=== PATIENT | female | born 1995 | race African-American/Black ===

== ENCOUNTER 2018-02-19 10:53 | Emergency (ER) | payer OTHER ==
--- OUTSIDE RECORDS SUMMARY | 2018-02-19 10:55 | XMS REPORT ---
:1995 [facility] Address [address] [place] [address] Care Team Providers Name Role Phone UNKNOWN, REFFERING Primary Care Provider Unavailable MANUEL VALERIO Unavailable Unavailable Problems This patient has no known problems. Allergies, Adverse Reactions, Alerts This patient has no known allergies or adverse reactions. Medications This patient has no known medications. Encounters Start End Encounter Admission Attending Care Care Encounter Date/Time Date/Time Type Type Clinicians Facility Department ID 2017-08-13 2017-08-13 Emergency [facility] [id number] 03:57:00 03:57:00 MANUEL Results Test Description Test Time Test Comments Text Results Atomic Results Result Comments Strep A Screen, Rapid 2017-08-15 07:46:00 Specimen: ThroatCollected: 2017 05:30 Status: Final Last Updated: 08/15/2017 07:46 Strep A Screen Rapid (Final) (Final) Negative Blood [place](24 hrs) (Final) (Final) 08/14/17 No Group A Strep isolated Blood [place](48 hrs) (Final) (Final) 08/15/17 No Group A Strep isolated [place] Qual 2017-08-13 07:35:00 Test Item Value Reference Range Comments [place]ates Test (test code=SMONO) Negative Negative CBC with [id number] 04:53:00 Test Item Value Reference Range Comments WBC (test code=WBC) 8.8 K/cumm 4.4-10.5 RBC (test code=RBC) 4.28 M/cumm 3.75-5.20 Hemoglobin (test code=HGB) 13.0 gm/dL 12.2-14.8 Hematocrit (test code=HCT) 39.9 % 36.5-44.4 MCV (test code=MCV) 93.1 fL 80-100 MCH (test code=MCH) 30.3 pg 27.0-32.5 MCHC (test code=MCHC) 32.6 g/dL 32.0-37.5 RDW (test code=RDW) 12.9 % 11.5-14.5 Platelet Count (test code=PLTCT) 230 K/cumm 140-440 MPV (test code=MPV) 11.2 fL Diff Method (test code=DIFFM) Auto Neutrophil (test code=NEUT) 52.8 % 36-70 Lymphocyte (test code=LYMPH) 38.0 % 12-44 Monocyte (test code=MONO) 3.2 % 0-11 Eosinophil (test code=EOS) 5.3 % 0-7 Basophil (test code=BASO) 0.7 % 0-2 Neutro Abs (test code=ANEUT) 4.6 K/cumm 1.6-7.4 Lymph Abs (test code=ALYMPH) 3.3 K/cumm 0.5-4.6 Yates Abs (test code=AMONO) 0.3 K/cumm 0.0-1.2 Eos Abs (test code=AEOS) 0.46 K/cumm 0.00-0.74 Baso Abs (test code=ABASO) 0.1 K/cumm 0.00-0.21
--- NOTE | 2018-02-19 12:01 | EDPHYS ---
Physician Documentation [facility] Name: Franklin Chaidez Age: 22 yrs Sex: Female : 1995 Arrival Date: 02/19/2018 Time: 10:55 Bed Treatment Private MD: None, None ED Physician Placido Copeland HPI: 02/19 12:01 This 22 yrs old Black Female presents to ER via Ambulatory with complaints of Leg kb Swelling. 12:01 The patient presents with pain, that is acute, swelling. The complaints affect the kb medial aspect of right thigh. Context: The problem was sustained inside, resulted from dancing, then splits, the patient can fully bear weight, the patient is able to ambulate, Problem is a result from a previous injury: No. Onset: The symptoms/episode began/occurred last night. Modifying factors: The symptoms are alleviated by nothing. the symptoms are aggravated by pressure. Associated signs and symptoms: Pertinent positives: swelling, Pertinent negatives calf tenderness, fever, nausea, numbness, rash, tingling, vomiting, warmth, weakness. Treatment prior to arrival includes: no previous treatment. Severity of symptoms: At their worst the symptoms were mild, moderate, in the emergency department the symptoms are unchanged. The patient has not experienced similar symptoms in the past. The patient has not recently seen a physician. Pt reports she was dancing last night, did the splits and started having inner thigh pain. States she felt something pull in her thigh. Ambulates with steady gait. States it was swollen this morning and still painful so she wanted to get it checked out.. 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 - Social history:: Smoking status: unknown. - Ebola Screening: : Patient negative for fever greater than or equal to 101.5 degrees Fahrenheit, and additional compatible Ebola Virus Disease symptoms Patient denies exposure to infectious person Patient denies travel to an Ebola-affected area in the 21 days before illness onset No symptoms or risks identified at this time. ROS: 12:01 Constitutional: Negative for fever, chills, and weight loss, Cardiovascular: Negative kb for chest pain, palpitations, and edema, Respiratory: Negative for shortness of breath, cough, wheezing, and pleuritic chest pain, Abdomen/GI: Negative for abdominal pain, nausea, vomiting, diarrhea, and constipation, Skin: Negative for injury, rash, and discoloration, Neuro: Negative for headache, weakness, numbness, tingling, and seizure. 12:01 MS/extremity: Positive for pain, swelling, tenderness, of the medial aspect of right thigh. Exam: 12:01 Constitutional: This is a well developed, well nourished patient who is awake, alert, kb and in no acute distress. Head/Face: Normocephalic, atraumatic. Chest/axilla: Normal chest wall appearance and motion. Nontender with no deformity. No lesions are appreciated. Cardiovascular: Regular rate and rhythm with a normal S1 and S2. No gallops, murmurs, or rubs. Normal PMI, no JVD. No pulse deficits. Respiratory: Lungs have equal breath sounds bilaterally, clear to auscultation and percussion. No rales, rhonchi or wheezes noted. No increased work of breathing, no retractions or nasal flaring. Abdomen/GI: Soft, non-tender, with normal bowel sounds. No distension or tympany. No guarding or rebound. No evidence of tenderness throughout. Skin: Warm, dry with normal turgor. Normal color with no rashes, no lesions, and no evidence of cellulitis. Neuro: Awake and alert, GCS 15, oriented to person, place, time, and situation. Cranial nerves II-XII grossly intact. Motor strength 5/5 in all extremities. Sensory grossly intact. Cerebellar exam normal. Normal gait. 12:01 Musculoskeletal/extremity: Extremities: grossly normal except: noted in the medial aspect of right thigh: pain, swelling, tenderness, ROM: intact in all extremities, Circulation is intact in all extremities. Sensation intact. Weight bearing: able to fully bear weight, without difficulty. Vital Signs: 11:25 BP 132 / 77; Pulse 84; Resp 16; Temp 97.7; Pulse Ox 100% ; Weight 58.51 kg (R); Height sg 5 ft. 3 in. (160.02 cm); Pain 7/10; 11:25 Body Mass Index 22.85 (58.51 kg, 160.02 cm) MDM: 11:47 Patient medically screened. kb 11:59 Data reviewed: vital signs, nurses notes. Data interpreted: Pulse oximetry: on room air kb is 100 %. Interpretation: normal. Counseling: I had a detailed discussion with the patient and/or guardian regarding: the historical points, exam findings, and any diagnostic results supporting the discharge/admit diagnosis, the need for outpatient follow up, a family practitioner, to return to the emergency department if symptoms worsen or persist or if there are any questions or concerns that arise at home. Administered Medications: No medications were administered Disposition: 11:59 right thigh pain. kb 18:30 Co-signature as Attending Physician, Placido Copeland MD. Disposition: 02/19/18 12:00 Discharged to Home. Impression: Encounter for screening, unspecified. - Condition is Stable. - Medication Reconciliation Form, Thank You Letter, Antibiotic Education, Prescription Opioid Use form. - Follow up: Emergency Department; When: As needed; Reason: Worsening of condition. Follow up: Private Physician; When: 2 - 3 days; Reason: Recheck today's complaints, Continuance of care, Re-evaluation by your physician. Signatures: Tere Hope, SANDRA-C SENIOR CLINICAL STUDY MANAGER-CkDawson Rodríguez, RN RN sg Lizbeth Bennett RN RN iw Placido Copeland MD MD Corrections: (The following items were deleted from the chart) 12:06 12:00 02/19/2018 12:00 Discharged to Home. Impression: Encounter for screening, iw unspecified. Condition is Stable. Forms are Medication Reconciliation Form, Thank You Letter, Antibiotic Education, Prescription Opioid Use. Follow up: Emergency Department; When: As needed; Reason: Worsening of condition. Follow up: Private Physician; When: 2 - 3 days; Reason: Recheck today's complaints, Continuance of care, Re-evaluation by your physician. kb
--- NOTE | 2018-02-19 12:01 | ER ---
Nurse's Notes [facility] Name: Franklin Chaidez Age: 22 yrs Sex: Female : 1995 Arrival Date: 02/19/2018 Time: 10:55 Bed Treatment Private MD: None, None Diagnosis: Encounter for screening, unspecified Presentation: 02/19 11:24 Presenting complaint: Patient states: I was dancing last night, did a move that made me sg do the splits, now my right inner thigh is painful and swollen, I heard a tearing noise when this happened. Transition of care: patient was not received from another setting of care. Onset of symptoms was February 19, 2018. Risk Assessment: Do you want to hurt yourself or someone else? Patient reports no desire to harm self or others. Initial Sepsis Screen: Does the patient meet any 2 criteria? No. Patient's initial sepsis screen is negative. Does the patient have a suspected source of infection? No. Patient's initial sepsis screen is negative. Care prior to arrival: None. 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 - Social history:: Smoking status: unknown. - Ebola Screening: : Patient negative for fever greater than or equal to 101.5 degrees Fahrenheit, and additional compatible Ebola Virus Disease symptoms Patient denies exposure to infectious person Patient denies travel to an Ebola-affected area in the 21 days before illness onset No symptoms or risks identified at this time. Screenin:03 Abuse screen: Denies threats or abuse. Denies injuries from another. Nutritional iw screening: No deficits noted. Tuberculosis screening: No symptoms or risk factors identified. Fall Risk None identified. Assessment: 11:50 General: Appears in no apparent distress. comfortable, Behavior is calm, cooperative. iw Pain: Pain: Complains of pain in right inner thigh. 12:04 Neuro: Level of Consciousness is awake, alert, obeys commands, Oriented to person, iw place, time, situation, Moves all extremities. Full function. Cardiovascular: Capillary refill < 3 seconds in bilateral fingers Patient's skin is warm and dry. Respiratory: Respiratory effort is even, unlabored, Respiratory pattern is regular, symmetrical. GI: Abdomen is non-distended. Derm: Skin is intact, is healthy with good turgor. Musculoskeletal: Range of motion: intact in all extremities. Vital Signs: 11:25 BP 132 / 77; Pulse 84; Resp 16; Temp 97.7; Pulse Ox 100% ; Weight 58.51 kg (R); Height sg 5 ft. 3 in. (160.02 cm); Pain 7/10; 11:25 Body Mass Index 22.85 (58.51 kg, 160.02 cm) sg ED Course: 10:55 Patient arrived in ED. mr 10:56 None, None is Private Physician. mr 10:56 Tere Hope FNP-C is [facility]. kb 10:56 Placido Copeland MD is Attending Physician. kb 11:14 Arm band placed on. sg 11:25 Triage completed. sg 11:39 Lizbeth Bennett, RN is Primary Nurse. iw 11:50 Patient has correct armband on for positive identification. iw 12:03 No provider procedures requiring assistance completed. Patient did not have IV access iw during this emergency room visit. Administered Medications: No medications were administered Outcome: 12:00 Discharge ordered by MD. kb 12:04 Medical screen evaluation completed per provider. Patient declined treatment. iw 12:04 Following a medical screening exam, the patient was provided information regarding alternative care sites and resources available per registration personnel. 12:04 Condition: good iw 12:06 Patient left the ED. iw Signatures: Tere Hope FNP-C FNP-Dawson Estrella RN RN MahanAmy mr Lizbeth Bennett, RN RN iw Corrections: (The following items were deleted from the chart) 12:05 11:50 Pain: iw iw
[2018-02-19 12:21] VITALS: BP 132/77; TEMP 97.7; O2SAT 100
== END 2018-02-19 12:06 | disposition home or self-care (01) ==
LOC: ER 10:53
DX: Z13.9 Encounter for screening, unspecified (principal)
CPT/HCPCS: 99281

== ENCOUNTER 2018-07-21 19:01 | Emergency (ER) | payer SELFPAY ==
--- OUTSIDE RECORDS SUMMARY | 2018-07-21 19:03 | XMS REPORT ---
:1995 Author [facility] Address [address] [place] [address] [address] [place] [address] Care Team Providers Name Role Phone UNKNOWN, [...] Department ID 2017-08-13 2017-08-13 Emergency [facility] [id number] 03:57:00 03:57:00 MANUEL Results Test Description Test Time Test Comments Text Results Atomic Results Result Comments Strep A Screen, Rapid 2017-08-15 07:46:00 Specimen: ThroatCollected: 2017 05:30 Status: Final Last Updated: 08/15/2017 07:46 Strep A Screen Rapid (Final) (Final) Negative Blood [place](24 hrs) (Final) (Final) 08/14/17 No Group A Strep isolated Blood [place](48 hrs) (Final) (Final) 08/15/17 No Group A Strep isolated [place] Qual 2017-08-13 07:35:00 Test Item Value Reference Range Comments [place] Test (test code=SMONO) Negative Negative CBC with [id number] 04:53:00 Test Item Value Reference Range Comments [...] Lymph Abs (test code=ALYMPH) 3.3 K/cumm 0.5-4.6 [place] Abs (test code=AMONO) 0.3 K/cumm 0.0-1.2 Eos Abs (test code=AEOS) 0.46 K/cumm 0.00-0.74 Baso Abs (test code=ABASO) 0.1 K/cumm 0.00-0.21
--- NOTE | 2018-07-21 21:03 | ER ---
Nurse's Notes [facility] Name: Franklin Chaidez Age: 23 yrs Sex: Female : 1995 Arrival Date: 07/21/2018 Time: 19:06 Bed Waiting Private MD: None, None Diagnosis: Presentation: 07/21 19:27 Presenting complaint: Patient states: "I was here recently with my son with the flu and jd3 I am pretty sure I have it too.". Transition of care: patient was not received from another setting of care. Onset of symptoms was July 18, 2018. Risk Assessment: Do you want to hurt yourself or someone else? Patient reports no desire to harm self or others. Initial Sepsis Screen: Does the patient meet any 2 criteria? No. Patient's initial sepsis screen is negative. Does the patient have a suspected source of infection? No. Patient's initial sepsis screen is negative. Care prior to arrival: None. 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 - Social history:: Smoking status: Patient uses tobacco products, smokes one-half pack cigarettes per day. - Ebola Screening: : Patient negative for fever greater than or equal to 101.5 degrees Fahrenheit, and additional compatible Ebola Virus Disease symptoms. Vital Signs: 19:28 BP 118 / 79; Pulse 108; Resp 16 S; Temp 101.7(O); Pulse Ox 100% on R/A; Weight 58.97 kg jd3 (R); Height 5 ft. 3 in. (160.02 cm) (R); Pain 10/10; 19:28 Body Mass Index 23.03 (58.97 kg, 160.02 cm) jd3 ED Course: 19:06 Patient arrived in ED. mr 19:06 None, None is Private Physician. mr 19:28 Triage completed. jd3 19:31 Arm band placed on. jd3 19:50 Patient's name was called from ER [employer]. No response. jd3 20:21 Dylan Andrews PA is PHCP. jr8 20:21 Flash Silveira MD is Attending Physician. jr8 20:30 Patient's name was called from ER [employer]. No response. jd3 21:02 Patient's name was called from ER [employer]. No response. jd3 Administered Medications: No medications were administered Outcome: 21:03 Patient left the ED. jd3 Signatures: Amy Mahan mr Dylan Andrews PA PA jr8 Naren Pierre RN RN jd3 Corrections: (The following items were deleted from the chart) 21:01 21:00 Reassessment: called pt 3 times from [employer] with no response. jd3 jd3
[2018-07-21 21:17] VITALS: BP 118/79; TEMP 101.7; O2SAT 100
== END 2018-07-21 21:03 | disposition left against medical advice (07) ==
LOC: ER 19:01
DX: Z53.21 Procedure and treatment not carried out due to patient leaving prior to being seen by health care provider (principal)
CPT/HCPCS: 99281

== ENCOUNTER 2018-12-09 06:29 | Emergency (ER) | payer SELFPAY ==
--- OUTSIDE RECORDS SUMMARY | 2018-12-09 06:31 | XMS REPORT ---
:1995 [facility] Address [address] [place] [address] Care Team Providers Name Role Phone UNKNOWN, [...] Department ID 2017-08-13 2017-08-13 Emergency [facility] [id number] 03:57:00 03:57:00 MANUEL Results Test Description Test Time Test Comments Text Results Atomic Results Result Comments Strep A Screen, Rapid 2017-08-15 07:46:00 Specimen: ThroatCollected: 2017 05:30 Status: Final Last Updated: 08/15/2017 07:46 Strep A Screen Rapid (Final) (Final) Negative Blood [place](24 hrs) (Final) (Final) 08/14/17 No Group A Strep isolated Blood [place](48 hrs) (Final) (Final) 08/15/17 No Group A Strep isolated [place] Qual 2017-08-13 07:35:00 Test Item Value Reference Range Comments [place] Test (test code=SMONO) Negative Negative CBC with [id number] 04:53:00 Test Item Value Reference Range Comments [...] Lymph Abs (test code=ALYMPH) 3.3 K/cumm 0.5-4.6 [place] Abs (test code=AMONO) 0.3 K/cumm 0.0-1.2 Eos Abs (test code=AEOS) 0.46 K/cumm 0.00-0.74 Baso Abs (test code=ABASO) 0.1 K/cumm 0.00-0.21
[2018-12-09 07:27] LABS: Absolute Lymphocytes (CBC) 2.7 K/uL (0.7-4.9); Basophils % 1.2 % (0-1.3); Eosinophils % 4.7 % (0-4.4); Hematocrit 39.9 % (36.0-45.0); Lymphocytes % 51.8 % (15.3-44.8); MPV 9.6 fL (7.6-11.3); Monocytes % 8.5 % (3.3-12.3); RBC Red Blood Cell Count 4.46 M/uL (3.86-4.86)
[2018-12-09 07:57] LABS: Urine Bacteria 20-50 /HPF (<20); Urine Culture Reflex Order REFLEXED; Urine RBC <5 /HPF (NONE SEEN)
[2018-12-09 08:24] LABS: Urine Blood NEGATIVE (NEG); Urine Glucose NEGATIVE (NEG); Urine Protein NEGATIVE (NEG)
[2018-12-09 08:25] LABS: Blood Morphology Comment NOT SEEN (NOT SEEN); Platelet Estimate ADEQ
[2018-12-09 08:27] LABS: BUN Blood Urea Nitrogen 15 mg/dL (7-18); Bicarbonate 26 mmol/L (21-32); Glucose Level 90 mg/dL (74-106); HCG, Quantitative 36 mIU/mL (1-3); Potassium 3.3 mmol/L (3.5-5.1); Sodium Level 142 mmol/L (136-145)
--- NOTE | 2018-12-09 09:37 | ER ---
Nurse's Notes [facility] Name: Franklin Chaidez Age: 23 yrs Sex: Female : 1995 Arrival Date: 12/09/2018 Time: 06:30 Bed 19 Private MD: Diagnosis: Threatened Presentation: 12/09 06:42 Presenting complaint: Patient states: Patients states that she is and has been tr5 experiencing some vaginal bleeding and abdominal pain since yesterday. Transition of care: patient was not received from another setting of care. Onset of symptoms was December 09, 2018. Risk Assessment: Do you want to hurt yourself or someone else? Patient reports no desire to harm self or others. Initial Sepsis Screen: Does the patient meet any 2 criteria? Yes Does the patient have a suspected source of infection? No. Patient's initial sepsis screen is negative. Care prior to arrival: None. 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 - Social history:: Smoking status: Patient/guardian denies using tobacco, never smoked. - Ebola Screening: : Patient negative for fever greater than or equal to 101.5 degrees Fahrenheit, and additional compatible Ebola Virus Disease symptoms. Screenin:47 Abuse screen: Denies threats or abuse. Nutritional screening: No deficits noted. tr5 Tuberculosis screening: No symptoms or risk factors identified. Fall Risk No fall in past 12 months (0 pts). No secondary diagnosis (0 pts). No IV (0 pts). Ambulatory Aid- None/Bed Rest/Nurse Assist (0 pts). Gait- Normal/Bed Rest/Wheelchair (0 pts) Mental Status- Oriented to own ability (0 pts). Total Whaley Fall Scale indicates No Risk (0-24 pts). Assessment: 06:44 General: Appears in no apparent distress. Behavior is calm, cooperative. Pain: tr5 Complains of pain in abdomen. Neuro: Level of Consciousness is awake, alert, obeys commands, Oriented to person, place, time, Drawing Checker are equal bilaterally Moves all extremities. Gait is steady. Cardiovascular: Heart tones present Bruits absent Capillary refill < 3 seconds Pulses are all present. Edema is absent. Respiratory: Airway is patent Trachea midline Respiratory effort is even, unlabored, Respiratory pattern is regular, symmetrical, Breath sounds are clear bilaterally. GI: Reports cramping. : Reports vaginal bleeding that is. EENT: No signs and/or symptoms were reported regarding the EENT system. Derm: Skin is intact, Skin is dry, Skin is pink, warm \T\ dry. Skin temperature is warm. 07:35 Reassessment: Patient appears in no apparent distress at this time. Patient and/or em family updated on plan of care and expected duration. Pain level reassessed. Patient is alert, oriented x 3, equal unlabored respirations, skin warm/dry/pink. 08:45 Reassessment: Patient appears in no apparent distress at this time. Patient and/or em family updated on plan of care and expected duration. Pain level reassessed. Patient is alert, oriented x 3, equal unlabored respirations, skin warm/dry/pink. pending US. 09:48 Reassessment: Patient appears in no apparent distress at this time. Patient and/or em family updated on plan of care and expected duration. Pain level reassessed. Patient is alert, oriented x 3, equal unlabored respirations, skin warm/dry/pink. Vital Signs: 06:40 BP 112 / 74; Pulse 70; Resp 16; Temp 98.5; Pulse Ox 100% on R/A; Weight 67.59 kg; Pain aa1 0/10; 07:15 BP 109 / 78; Pulse 64; Resp 18; Pulse Ox 99% on R/A; Pain 0/10; em 08:46 BP 109 / 68; Pulse 66; Resp 16; Pulse Ox 99% on R/A; Pain 0/10; em 09:49 BP 110 / 70; Pulse 75; Resp 18; Pulse Ox 99% on R/A; Pain 0/10; em ED Course: 06:30 Patient arrived in ED. am2 06:35 [facility]endoza [facility]NP [facility] [place] 06:35 Vasile Guillen MD is Attending Physician. nh 06:41 Rolan, Yves, RN is Primary Nurse. tr5 06:43 Triage completed. tr5 06:48 Patient has correct armband on for positive identification. Placed in gown. Bed in low tr5 position. Call light in reach. 06:55 Inserted saline lock: 22 gauge in right antecubital area, using aseptic technique. em Blood collected. 06:55 Initial lab(s) drawn, by me, sent to lab. em 07:24 Urine collected: clean catch specimen, clear. em 09:26 Transvaginal OB US In Process Unspecified. EDMS 09:48 No provider procedures requiring assistance completed. IV discontinued, intact, em bleeding controlled, No redness/swelling at site. Pressure dressing applied. Administered Medications: No medications were administered Outcome: 09:37 Discharge ordered by MD. il 09:48 Discharged to home ambulatory. em 09:48 Condition: good 09:48 Discharge instructions given to patient, Instructed on discharge instructions, follow up and referral plans. Demonstrated understanding of instructions, follow-up care. 09:51 Patient left the ED. em Signatures: Dispatcher [employer] EDSC Milagros Matthew, RN RN aa1 Mara Mendoza, SERVER ENGINEER SERVER ENGINEER il Ivan Raphael, LABORATORY ANIMAL CARE VETERINARIAN LABORATORY ANIMAL CARE VETERINARIAN Nunu Abdalla am2 Yves Gongora, RN RN tr5 Corrections: (The following items were deleted from the chart) 07:02 06:40 BP 112 / 74; Pulse 70bpm; Resp 16bpm; Pulse Ox 100% RA; tr5 aa1
--- NOTE | 2018-12-09 09:38 | EDPHYS ---
Physician Documentation [facility] Name: Franklin Chaidez Age: 23 yrs Sex: Female : 1995 Arrival Date: 12/09/2018 Time: 06:30 Bed 19 Private MD: ED Physician Vasile Guillen HPI: 12/09 09:33 This 23 yrs old Black Female presents to ER via Ambulatory with complaints of Vaginal nh Bleeding, + Preg <12wks. 09:33 The patient presents to the emergency department with vaginal bleeding, that is nh moderate, with clots. course: care: none. Previous pregnancies: in previous pregnancies patient has had no complications. Associated signs and symptoms: The patient has no apparent associated signs or symptoms. The patient has not experienced similar symptoms in the past. The patient has not recently seen a physician. 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 - Social history:: Smoking status: Patient/guardian denies using tobacco, never smoked. - Ebola Screening: : Patient negative for fever greater than or equal to 101.5 degrees Fahrenheit, and additional compatible Ebola Virus Disease symptoms. ROS: 09:33 Constitutional: Negative for fever, chills, and weight loss, Eyes: Negative for injury, nh pain, redness, and discharge, ENT: Negative for injury, pain, and discharge, Neck: Negative for injury, pain, and swelling, Cardiovascular: Negative for chest pain, palpitations, and edema, Respiratory: Negative for shortness of breath, cough, wheezing, and pleuritic chest pain, Back: Negative for injury and pain, MS/Extremity: Negative for injury and deformity, Skin: Negative for injury, rash, and discoloration, Neuro: Negative for headache, weakness, numbness, tingling, and seizure, Psych: Negative for depression, anxiety, suicide ideation, homicidal ideation, and hallucinations, Allergy/Immunology: Negative for hives, rash, and allergies. 09:33 Abdomen/GI: Positive for abdominal pain, Negative for nausea, vomiting, and diarrhea, rectal bleeding. 09:33 : Positive for vaginal bleeding. Exam: 09:33 Constitutional: This is a well developed, well nourished patient who is awake, alert, nh and in no acute distress. Head/Face: Normocephalic, atraumatic. Eyes: Pupils equal round and reactive to light, extra-ocular motions intact. Lids and lashes normal. Conjunctiva and sclera are non-icteric and not injected. Cornea within normal limits. Periorbital areas with no swelling, redness, or edema. ENT: Nares patent. No nasal discharge, no septal abnormalities noted. Tympanic membranes are normal and external auditory canals are clear. Oropharynx with no redness, swelling, or masses, exudates, or evidence of obstruction, uvula midline. Mucous membranes moist. Neck: Trachea midline, no thyromegaly or masses palpated, and no cervical lymphadenopathy. Supple, full range of motion without nuchal rigidity, or vertebral point tenderness. No Meningismus. Chest/axilla: Normal chest wall appearance and motion. Nontender with no deformity. No lesions are appreciated. Cardiovascular: Regular rate and rhythm with a normal S1 and S2. No gallops, murmurs, or rubs. Normal PMI, no JVD. No pulse deficits. Respiratory: Lungs have equal breath sounds bilaterally, clear to auscultation and percussion. No rales, rhonchi or wheezes noted. No increased work of breathing, no retractions or nasal flaring. Abdomen/GI: Soft, non-tender, with normal bowel sounds. No distension or tympany. No guarding or rebound. No evidence of tenderness throughout. Back: No spinal tenderness. No costovertebral tenderness. Full range of motion. Pelvic Exam: Normal external genitalia. Speculum exam with closed cervical os, no discharge or bleeding noted. Bimanual exam with normal adnexa, no adnexal or cervical motion tenderness. Normal uterus. Female : Normal external genitalia. MS/ Extremity: Pulses equal, no cyanosis. Neurovascular intact. Full, normal range of motion. Neuro: Awake and alert, GCS 15, oriented to person, place, time, and situation. Cranial nerves II-XII grossly intact. Motor strength 5/5 in all extremities. Sensory grossly intact. Cerebellar exam normal. Normal gait. Psych: Awake, alert, with orientation to person, place and time. Behavior, mood, and affect are within normal limits. Vital Signs: 06:40 BP 112 / 74; Pulse 70; Resp 16; Temp 98.5; Pulse Ox 100% on R/A; Weight 67.59 kg; Pain aa1 0/10; 07:15 BP 109 / 78; Pulse 64; Resp 18; Pulse Ox 99% on R/A; Pain 0/10; em 08:46 BP 109 / 68; Pulse 66; Resp 16; Pulse Ox 99% on R/A; Pain 0/10; em 09:49 BP 110 / 70; Pulse 75; Resp 18; Pulse Ox 99% on R/A; Pain 0/10; em MDM: 06:39 Patient medically screened. nh 09:33 Data reviewed: vital signs, nurses notes, lab test result(s), radiologic studies, I nh have discussed the patient's presentation/case with the attending Emergency Department Physician; and as a result, I will discharge patient. Counseling: I had a detailed discussion with the patient and/or guardian regarding: the historical points, exam findings, and any diagnostic results supporting the discharge/admit diagnosis, lab results, radiology results, the need for outpatient follow up, to return to the emergency department if symptoms worsen or persist or if there are any questions or concerns that arise at home. 12/09 06:42 Order name: Quantitative Hcg; Complete Time: 08:30 nd 12/09 06:42 Order name: Abo/rh Typing; Complete Time: 07:49 nd 12/09 06:42 Order name: Basic Metabolic Panel; Complete Time: 08:30 nd 12/09 06:42 Order name: CBC with Diff; Complete Time: 08:30 nd 12/09 07:25 Order name: Urine Microscopic Only; Complete Time: 07:58 12/09 07:53 Order name: Urine Dipstick--Ancillary (enter results) ca 12/09 06:42 Order name: Urine Test (obtain specimen); Complete Time: 07:24 nd 12/09 06:42 Order name: IV Saline Lock; Complete Time: 07:01 nd 12/09 06:42 Order name: Labs collected and sent; Complete Time: 07:01 nd 12/09 06:42 Order name: Transvaginal OB [facility] 12/09 07:53 Order name: Urine --Ancillary (enter results); Complete Time: 08:30 ms 12/09 07:54 Order name: Urine Dipstick-Ancillary; Complete Time: 08:30 EDPR 12/09 07:58 Order name: Urine Culture EDPR 12/09 08:25 Order name: Manual Differential; Complete Time: 08:30 EDPR 12/09 06:42 Order name: NPO; Complete Time: 07:01 nh 12/09 06:42 Order name: Urine Dipstick-Ancillary (obtain specimen); Complete Time: 07:24 nd Administered Medications: No medications were administered Disposition: 12/09/18 09:37 Discharged to Home. Impression: Threatened . - Condition is Stable. - Discharge Instructions: Threatened Miscarriage, Vaginal Bleeding During , First Trimester. - Medication Reconciliation Form, Thank You Letter, Antibiotic Education, Prescription Opioid Use form. - Follow up: Private Physician; When: 48 Hours; Reason: Repeat Beta-HCG (48 Hours). - Problem is new. - Symptoms are unchanged. Addendum: 12/10/2018 10:00 Co-signature as Attending Physician, Vasile Guillen MD I agree with the assessment and k dr plan of care. Signatures: Dispatcher [employer] [facility] Milagros Matthew RN RN aa1 Vasile Guillen MD MD [facility] Mara Mendoza, ASPHALT BLENDER ASPHALT BLENDER nd Ivan Raphael, ICE CREAM FREEZER ICE CREAM FREEZER em Yves Gongora, RN RN tr5 Corrections: (The following items were deleted from the chart) 12/09 09:51 09:37 12/09/2018 09:37 Discharged to Home. Impression: Threatened . Condition em is Stable. Forms are Medication Reconciliation Form, Thank You Letter, Antibiotic Education, Prescription Opioid Use. Follow up: Private Physician; When: 48 Hours; Reason: Repeat Beta-HCG (48 Hours). Problem is new. Symptoms are unchanged. nd
--- NOTE | 2018-12-09 10:03 | RAD REPORT ---
EXAM DESCRIPTION: US - Transvaginal OB - 12/09/2018 9:27 am CLINICAL HISTORY: with abdominal pain and vaginal bleeding COMPARISON: None. FINDINGS: The uterus 9 x 6 x 6 centimeters. The endometrial stripe measures 11 millimeters. A gesta tional sac is not seen within the endometrium. 4 millimeter fluid collection present within the regio n of the cervical canal. Ovaries are normal in size and echotexture. Right and left adnexa are unremarkable. No significant free fluid IMPRESSION: Nonvisualization of a gestational sac within the endometrium. Within the region of the c ervical canal is a 4 millimeter fluid collection which may represent fluid, gestational sac or naboth ewa cysts These findings could represent an early intrauterine in which the gestational sac is not se en. and even an ectopic can also result in this appearance. This all should be cor related clinically and with serial beta HCG levels. Followup endovaginal sonogram in 1 week recommend ed
[2018-12-09 10:05] VITALS: O2SAT 99
[2018-12-09 10:07] VITALS: TEMP 98.5
[2018-12-09 10:09] VITALS: BP 110/70
== END 2018-12-09 09:51 | disposition home or self-care (01) ==
LOC: ER 06:29
DX: O20.0 Threatened abortion (principal); O98.519 Other viral diseases complicating pregnancy, unspecified trimester; B00.9 Herpesviral infection, unspecified; Z3A.00 Weeks of gestation of pregnancy not specified
CPT/HCPCS: 36415; 76817; 80048; 81003; 81015; 81025; 84702; 85025; 86900; 86901; 87077; 87086; 87088; 87186; 99284

== ENCOUNTER 2018-12-17 14:33 | Emergency (ER) | payer OTHER, SELFPAY ==
--- OUTSIDE RECORDS SUMMARY | 2018-12-17 14:34 | XMS REPORT ---
:1995 [facility] [address] [place] [address] Care Team Providers Name Role Phone UNKNOWN, [...] Department ID 2017-08-13 2017-08-13 Emergency [facility] [id number] 03:57:00 03:57:00 MANUEL Results Test Description Test Time Test Comments Text Results Atomic Results Result Comments Strep A Screen, Rapid 2017-08-15 07:46:00 Specimen: ThroatCollected: 2017 05:30 Status: Final Last Updated: 08/15/2017 07:46 Strep A Screen Rapid (Final) (Final) Negative Blood [place](24 hrs) (Final) (Final) 08/14/17 No Group A Strep isolated Blood [place](48 hrs) (Final) (Final) 08/15/17 No Group A Strep isolated [place] Qual 2017-08-13 07:35:00 Test Item Value Reference Range Comments Divide Test (test code=SMONO) Negative Negative CBC with [id number] 04:53:00 Test Item Value Reference Range Comments [...] Lymph Abs (test code=ALYMPH) 3.3 K/cumm 0.5-4.6 Divide Abs (test code=AMONO) 0.3 K/cumm 0.0-1.2 Eos Abs (test code=AEOS) 0.46 K/cumm 0.00-0.74 Baso Abs (test code=ABASO) 0.1 K/cumm 0.00-0.21
--- OUTSIDE RECORDS SUMMARY | 2018-12-17 14:35 | XMS REPORT | Summary of Care ---
:1995 Author Organization [facility] Address [address] [place] [address] Care Team Providers Name Role Phone Mela Leung [facility] Primary Care Provider Reason for Referral (Routine) Status Reason Specialty Diagnoses / Referred By Referred To Procedures Contact Contact New Request Maternal Diagnoses Supervision of high risk , antepartum Vaginal bleeding in [place], Medicine Procedures CONSULT MATERNAL MEDICINE ULTRASOUND Preferred Location: Joleen Becker DENNISE [address] [place] [address] Reason for Visit Reason Comments Initial Visit Encounter Details Date Type Department Care Team Description 12/14/2018 Initial [facility]- Xochitl, Supervision of high risk , antepartum (Primary Dx); Visit Joleen Becker DENNISE Multiparity; [address] History of section; [facility] History of herpes genitalis; [address] [place] Maternal tobacco use in first trimester; [phone] [place] [address] Allergies No Known Allergiesdocumented as of this encounter (statuses as of 12/14/2018) Medications Medication Sig Dispensed Refills Start Date End Date Status vit/iron Take by mouth. 0 Active fum/folic ac ( 1 + 1 ORAL) PNV 67-iron ps-folate Take 1 Each by 30 capsule 9 12/14/2018 Active no.1-dha (VITAFOL mouth daily. ULTRA) 29 mg iron- 1 mg-200 mg CapIndications: Supervision of high risk , antepartum Hospital, Clinic, or Other Ordered Dose Route Frequency Start Date End Date Status Facility Administered Medication medroxyPROGESTERone 150 mg IM [id number] 02/16/2018 01/17/2019 Active (DEPO-PROVERA) injection 150 mgIndications: Encounter for contraceptive management, unspecified type documented as of this encounter (statuses as of 12/14/2018) Active Problems Problem Noted Date Supervision of high-risk 12/14/2018 Vaginal bleeding in 12/14/2018 Multiparity 12/14/2018 History of section 12/14/2018 Tobacco use in 12/14/2018 History of herpes genitalis 12/14/2018 Overview: Suppression at 36 weeks Inmate in correctional facility 12/14/2018 Estimated Date of Delivery Comments Yes 07/31/2019 Based on last menstrual period of 10/24/2018 (Approximate) documented as of this encounter (statuses as of 12/14/2018) Resolved Problems Problem Noted Date Resolved Date Chlamydia 04/12/2018 12/14/2018 Urinary frequency 02/02/2018 12/14/2018 BV (bacterial vaginosis) 10/24/2015 02/02/2018 Vaginal yeast infection 10/24/2015 02/02/2018 Contraceptive management 07/27/2015 12/14/2018 Depo-Provera contraceptive status 07/27/2015 12/14/2018 Well woman exam 07/27/2015 12/14/2018 Screen for STD (sexually transmitted disease) 07/27/2015 12/14/2018 Tobacco use disorder 07/27/2015 12/14/2018 delivery delivered 01/25/2015 02/28/2015 ROM (rupture of membranes), premature 01/24/2015 02/28/2015 Labor and delivery complicated by stress 01/24/2015 02/28/2015 Research Study: ARRIVE Expectant Management Arm 01/23/2015 02/28/2015 Overview: This patient was consented in the ARRIVE Research Study on 01/23/15. IRB # [id number], PI Dr. Bellamy Patient randomized into the study at 38.0-38.6 weeks and will be in Expectant management arm: Expectant Management Arm Pt. Must have at least weekly follow-up visits with provider. Unless pt. delivers spontaneously or a medical indication presents, will continue until at least 40.5 weeks. At 40.5 weeks, the patient may be induced at the provider s discretion or continue expectant management, but must undergo induction if not delivered by 42.2 weeks. testing must be started no later than 41.6 weeks (may be started earlier at the provider s discretion). [email or web address] Pager [phone] Stye external 01/16/2015 02/28/2015 Urinary tract infection, site not specified 11/22/2014 07/27/2015 Overview: Now on daily suppression Abnormal maternal glucose tolerance, antepartum 11/20/2014 02/28/2015 Overview: Passed 3 hr gtt Dizziness 11/04/2014 02/28/2015 Urinary tract infection, site not specified 08/18/2014 11/04/2014 Supervision of other high-risk 08/13/2014 02/28/2015 Overview: ICD10 Diagnosis Term Bar Useful Or Busser Utility Tobacco use disorder complicating , childbirth, or 08/13/20142014 puerperium, antepartum Overview: ICD10 Diagnosis Term Bar Useful Or Busser Utility Asthma 08/13/2014 07/27/2015 Overview: ICD10 Diagnosis Term Bar Useful Or Busser Utility History of recurrent UTIs 08/13/2014 02/28/2015 Overview: Since age 13 after sexual activities with monthly episiod documented as of this encounter (statuses as of 12/14/2018) Immunizations Name Administration Dates Next Due HPV 11/02/2010, 01/15/2010, 10/17/2009 Influenza Virus Vaccine Quad IM 3+ YRS 02/28/2015 Tdap 11/18/2014 documented as of this encounter Social History Tobacco Use Types Packs/Day Years Used Date Former Smoker Cigarettes 1 8 12/14/2010 - 12/10/2018 Smokeless Tobacco: Never Used Alcohol Use Drinks/Week oz/Week Comments No 0 Standard drinks or equivalent 0.0 Estimated Date of Delivery Comments Yes 07/31/2019 Based on last menstrual period of 10/24/2018 (Approximate) Sex Assigned at Date Recorded Not on file Job Start Date Occupation Industry Not on file Not on file Not on file Travel History Travel Start Travel End No recent travel history available. documented as of this encounter Last Filed Vital Signs Vital Sign Reading Time Taken Comments Blood Pressure 107/70 12/14/2018 8:54 AM CDT Pulse 73 12/14/2018 8:54 AM CDT Temperature 37.2 C (98.9 F) 12/14/2018 8:54 AM CDT Respiratory Rate 16 12/14/2018 8:54 AM CDT Oxygen Saturation - - Inhaled Oxygen Concentration - - Weight 58.6 kg (129 lb 4 oz) 12/14/2018 8:54 AM CDT Height 162.6 cm (5' 4") 12/14/2018 8:54 AM CDT Body Mass Index 22.19 12/14/2018 8:54 AM CDT documented in this encounter Progress Notes Mela Leung, WHCNP - 12/14/2018 8:30 AM CDT Chief complaint: Chief Complaint Patient presents with Initial Visit HPI CC: Initial Visit Yuriy Chaidez is a 23 year old, , Black or female. Patient's last menstrual period was 10/24/2018 (approximate). She is 7w2d with an suspected IUP. Her Estimated Date of Delivery: 07/31/19. She is being seen today for her first obstetrical visit. She complains today of: Vaginal bleeding. She describes bleeding as bright red blood. She reports EBL as moderate cc. She is using multiple pads per day. Bleeding has been occurring for 1 week, multiple times per days.Associated orthostatic symptoms include none. Other associated symptoms include none. Symptoms areworse with none. OB History Para Term AB Living 2 1 1 1 SAB TAB Ectopic Multiple Live Births 1 # Outcome Date GA Lbr Ed/2nd Weight Sex Delivery Anes PTL Lv 2 Current 1 Term 01/24/15 39w0d 5 lb 8 oz (2.495 kg) M SEC EMANUEL Histories OB History Para Term AB Living 2 1 1 1 SAB TAB Ectopic Multiple Live Births 1 # Outcome Date GA Lbr Ed/2nd Weight Sex Delivery Anes PTL Lv 2 Current 1 Term 01/24/15 39w0d 5 lb 8 oz (2.495 kg) M SEC EMANUEL Past Medical History: Diagnosis Date Asthma 2011 Not on meds, last asthma attack 11/2017 BV (bacterial vaginosis) 10/24/2015 Genital herpes 2016 on valtrex PRN STD (sexually transmitted disease) 03/2018, 01/2018 Chlamydia Family History Problem Relation Age of Onset Hypertension Mother Asthma Father Arthritis Maternal Grandmother defects NoFHx Breast Cancer NoFHx Colon Cancer NoFHx Ovarian Cancer NoFHx Uterine Cancer NoFHx Cancer NoFHx Depression NoFHx Diabetes NoFHx Genetic NoFHx Heart NoFHx High cholesterol NoFHx Mental retardation NoFHx Neurological NoFHx Osteoporosis NoFHx Psychiatry NoFHx Other - see comments NoFHx Family Status Relation Name Status Mo (Not Specified) Fa (Not Specified) MGMo (Not Specified) NoFHx (Not Specified) Past Surgical History: Procedure Laterality Date SECTION 01/24/2015 Social History Socioeconomic History Marital status: Single Spouse name: Not on file Number of children: 0 Years of education: Not on file Highest education level: Not on file Occupational History Occupation: none Social Needs Financial resource strain: Not on file Food insecurity: Worry: Not on file Inability: Not on file Transportation needs: Medical: Not on file Non-medical: Not on file Tobacco Use Smoking status: Former Smoker Packs/day: 1.00 Years: 8.00 Pack years: 8.00 Types: Cigarettes Start date: 12/14/2010 Last attempt to quit: 12/10/2018 Years since quittin.0 Smokeless tobacco: Never Used Substance and Sexual Activity Alcohol use: No Alcohol/week: 0.0 oz Drug use: No Sexual activity: Yes Partners: Male control/protection: None Comment: last sexual intercourse 12/07/2018 Lifestyle Physical activity: Days per week: Not on file Minutes per session: Not on file Stress: Not on file Relationships Social connections: Talks on phone: Not on file Gets together: Not on file Attends cheondoism service: Not on file Active member of club or organization: Not on file Attends meetings of clubs or organizations: Not on file Relationship status: Not on file Intimate partner violence: Fear of current or ex partner: Not on file Emotionally abused: Not on file Physically abused: Not on file Forced sexual activity: Not on file Other Topics Concern Service Not Asked Blood Transfusions No Caffeine Concern Not Asked Occupational Exposure Not Asked Hobby Hazards Not Asked Sleep Concern Not Asked Stress Concern Not Asked Weight Concern Not Asked Special Diet Not Asked Back Care Not Asked Exercise Not Asked Bike Helmet Not Asked Seat Belt Not Asked Self-Exams Not Asked Social History Narrative No domestic violence or abuse Pt states her cheondoism preference is Rastafarian. Patient is incarcerated. Social History Substance and Sexual Activity Sexual Activity Yes Partners: Male control/protection: None Comment: last sexual intercourse 12/07/2018 Genetic Screen Autism / Mental Retardation: No Mikayla Disease: No Congenital Heart Defect: No Cystic Fibrosis: No Down Syndrome: No Familial Dysautonomia: No Hemophilia or other Blood Disorders: No Terell Chorea: No Maternal Metabolic Disorder--specify (eg. Type 1 Diabetes, PKU): No Muscular Dystrophy: No Neural Tube Defect: No Recurrent Loss or a Stillbirth: No Sickle Cell Disease or Trait: No Erik Sachs: No Teratological Substances (specify type & strength/dose) since LMP: No Thalassemia: No Other Inherited Genetic or Chromosomal Disorder (specify): No No Significant History of Genetic Disorders: No Significant History of Genetic Disorders Labs Labs are pending. Radiology Radiology pending. Allergies Yuriy has No Known Allergies. Medications Yuriy has a current medication list which includes the following prescription(s ): pnv 67-iron ps-folate no.1-dha and vit/iron fum/folic ac, and the following Facility-Administered Medications: medroxyprogesterone. Review of Systems Constitutional: Negative. HENT: Negative. Eyes: Negative. Respiratory: Negative. Breasts: Negative. Cardiovascular: Negative. Gastrointestinal: Negative. Genitourinary: Positive for vaginal bleeding. Musculoskeletal: Negative. Skin: Negative. Neurological: Negative. Psychiatric/Behavioral: Negative. Endocrine: Endocrine negative BP 107/70 (BP Location: Right arm, Patient Position: Sitting, BP CUFF SIZE: Adult Medium) | Pulse 73 | Temp 37.2 C (98.9 F) (Oral) | Resp 16 | Ht 5 ' 4" (1.626 m) | Wt 129 lb 4 oz (58.6 kg) | LMP 10/24/2018 (Approximate) | BMI 22.19 kg/m Pregravid BMI: 23.7 Physical Exam Vitals reviewed. Constitutional: She is oriented to person, place, and time. She appears well- developed. Her body habitus is normal. Neck: No tenderness and no mass. No thyroid nodules and no thyromegaly palpated. No neck adenopathy. Cardiovascular: Regular rate and rhythm. No gallop, no friction rub and no murmur auscultated. No peripheral edema present. Pulmonary/Chest: Breath sounds clear to auscultation. Normal inspiratory effort. Abdominal: Abdomen is soft. No mass palpated. No tenderness present. There is no hepatosplenomegaly,splenomegaly or hepatomegaly. There is no rigidity. No hernia palpated or inspected. Neuro/Psychiatric: She has a normal mood and affect. She is oriented to person, place, and time. Skin: No lesion, no rash and no ulceration present. Lymphadenopathy: No neck adenopathy present. No axillary adenopathy present. No inguinal adenopathy present. Breast: Right breast exhibits no mass, no nipple discharge and no tenderness. Left breast exhibits no mass, no nipple discharge and no tenderness. Breasts are symmetrical. Normal left breast and normalright breast Rectal: Rectal exam with normal anal tone. No mass, no external hemorrhoid and no internal hemorrhoid palpated or inspected. External genitalia: Normal external genitalia appropriate for age. Normal hair distribution. No labial lesion. Urethral meatus: Normal urethral meatus size, location and no lesion. No prolapse present. Normal urethral meatus Urethra: Normal urethra. No urethral tenderness, no mass and no urethral scarring palpated. Bladder: Bladder has no fullness, no mass palpated and no tenderness. Normal bladder Vagina:No lesion inspected. Normal estrogen effect. Normal support. Vaginal discharge found. Moderate amount of blood noted in vaginal vault Cervix: Normal cervix. No lesion. No tenderness and no discharge present. Closed thick Uterus: Uterus is normal size, normal contour, normal position and non-tender. Normal uterus Adnexa: Right adnexa without tenderness, ovary enlargement or mass. Left adnexa without tenderness, ovary enlargement or mass. Normal left adnexa and normal right adnexa Anus/perineum: Normal perineum and normal anus. PHYSICAL: General Exam: HEENT: Normal Neurological: Normal Abdomen: Normal gravid Extremities: Normal Pelvic Exam: Vulva: Normal Vagina: Normal Cervix: Normal Membrane status: Intact Uterus: 6 Weeks Adnexa: Normal Rectum: Normal Assessment/Plan Return to clinic in 2 weeks. Denies zika virus risk, signs and symptoms such as fever,rash,joint pain, conjunctivitis (red eyes),muscle pain, headaches; outside [place] travel to areas affected by zika, and FOB exposure to zika. Educated on use of mosquito repellent. Supervision of high risk , antepartum (primary encounter diagnosis) Multiparity History of section Comment: initial visit with labs and phyiscal exam Plan: POCT URINALYSIS W/O SPECIFIC GRAVITY, CBC WITH DIFF, HCV ANTIBODY, HEPATITIS B SURFACE ANTIGEN, HIV 1/2 AG-AB WITH REFLEX, POCT URINALYSIS W SPECIFIC GRAVITY, WORKUP, BLOOD BANK, RUBELLA SCREEN (PRATIK) IGG, GALV ONLY - SYPHILIS IGG/IGM, URINE CULTURE, VZV ANTIBODY SCREEN, Sickle Cell Screen, Total Beta HCG Assay, PNV 67-iron ps-folate no.1-dha (VITAFOL ULTRA) 29 mg iron- 1 mg-200 mg Cap, CBC WITH DIFFERENTIAL, Total Beta HCG Assay, GC & CHLAMYDIA AMPLIFIED ASSAY, CONSULT MATERNAL MEDICINE ULTRASOUND Preferred Location: [place], CANCELED: CONSULT MATERNAL MEDICINE ULTRASOUND Preferred Location: [place] History of herpes genitalis Comment: no mgmt today Plan: suppression at 36 weeks Maternal tobacco use in first trimester Comment: current Plan: smoking cessation encouraged Vaginal bleeding in Comment: reports Plan: Total Beta HCG Assay, Total Beta HCG Assay, CONSULT MATERNAL MEDICINE ULTRASOUND Preferred Location: [place] This visit did not involve counseling and coordination that comprised more than 50% of the visit time. GABBY Browne 12/14/2018 1:56 PM Val Vinson RN - 12/14/2018 8:30 AM CDTPatient is 23 year old female here for current . Patient is . 1) Previous delivery methods [facility] 2) Patient is experiencing cramping 3) Patient is experiencing bleeding. 4) LMP 10/24/2018 5) Last Pap was: 07/25/2015 Results: Negative 6) Have you had a flu vaccine this season? No 7) PPD candidate? NO 8) Patient complains of Cramping and spotting 9) Patient denies history of physical, emotional, or sexual abuse. Patient states she currently feels safe at home. New ob packet given and discussed with patient. VAL SLOAN RN 12/14/2018 9:03 AM documented in this encounter Plan of Treatment Date Type Specialty Care Team Description 12/28/2018 Routine Visit OB Satellites Moisés Leunglinda Becker, CNP [address] [place] [address] [phone] Name Type Priority Associated Diagnoses Date/Time CBC WITH DIFF LAB Routine Supervision of high risk 12/14/2018 9:59 AM , antepartum CDT HCV ANTIBODY LAB Routine Supervision of high risk 12/14/2018 9:59 AM , antepartum CDT HEPATITIS B SURFACE LAB Routine Supervision of high risk 12/14/2018 9:59 AM ANTIGEN , antepartum CDT HIV 1/2 AG-AB WITH REFLEX LAB Routine Supervision of high risk 12/14/2018 9:59 AM , antepartum CDT RUBELLA SCREEN (PRATIK) LAB Routine Supervision of high risk 12/14/2018 9: 59 AM IGG , antepartum CDT GALV ONLY - SYPHILIS LAB Routine Supervision of high risk 12/14/2018 9:59 AM IGG/IGM , antepartum CDT URINE CULTURE LAB Routine Supervision of high risk 12/14/2018 10:10 AM , antepartum CDT VZV ANTIBODY SCREEN LAB Routine Supervision of high risk 12/14/2018 9:59 AM , antepartum CDT Sickle Cell Screen LAB Routine Supervision of high risk 12/14/2018 9:59 AM , antepartum CDT Total Beta HCG Assay LAB Routine Supervision of high risk 12/14/2018 9:59 AM , antepartum CDT Vaginal bleeding in CBC WITH DIFFERENTIAL LAB Routine Supervision of high risk 12/14/2018 9: 59 AM , antepartum CDT GC & CHLAMYDIA AMPLIFIED LAB Routine Supervision of high risk 12/14/2018 10 :10 AM ASSAY , antepartum CDT Name Type Priority Associated Diagnoses Order Schedule POCT URINALYSIS W LAB Routine Supervision of high risk 20 Occurrences starting SPECIFIC GRAVITY , antepartum 12/14/2018 until 10/10/2019 WORKUP, BLOOD LAB Routine Supervision of high risk Ordered: 2018 BANK , antepartum Total Beta HCG Assay LAB Routine Supervision of high risk 3 Occurrences starting , antepartum 12/14/2018 until Vaginal bleeding in 02/14/2019 Health Maintenance Due Date Last Done Comments PNEUMOCOCCAL 0-64 YEARS COMBINED 2000 SERIES (1 of 1 - PPSV23) VARICELLA VACCINES (1 of 2 - 13+ 2007 2-dose series) PAP SMEAR 07/24/2018 07/25/2015 INFLUENZA VACCINE 01/21/2019 02/28/2015 CHLAMYDIA SCREENING 04/11/2019 04/11/2018, 02/02/2018, 03/26/2016, Additional history exists DTaP,Tdap,and Td Vaccines (2 - Td) 11/18/2024 11/18/2014 HPV VACCINES Completed 11/02/2010, 01/15/2010, 10/17/2009 documented as of this encounter Procedures Procedure Name Priority Date/Time Associated Diagnosis Comments POCT URINALYSIS W/O Routine 12/14/2018 9:05 Supervision of high Results for this SPECIFIC GRAVITY AM CDT risk , procedure are in antepartum the results section. documented in this encounter Results POCT URINALYSIS W/O SPECIFIC GRAVITY (12/14/2018 9:05 AM CDT) POCT PH U 7 5 - 8 mg/dl POCT U LEUK EST Trace Negative - Negative POCT U NIT Pos Negative - Negative POCT U PROT Trace Negative - Negative POCT U GLU Neg Negative - Negative POCT U KETONE None Negative - Negative POCT U BLD 250 Negative - Negative Specimen Urine - URINE, CLEAN CATCH documented in this encounter Visit Diagnoses Diagnosis Supervision of high risk , antepartum - Primary Multiparity History of section Other postprocedural status History of herpes genitalis Personal history of other infectious and parasitic disease Maternal tobacco use in first trimester Vaginal bleeding in Unspecified antepartum hemorrhage, unspecified as to episode of care documented in this encounter Insurance Payer Benefit Plan / Subscriber ID Effective Dates Phone Address Type Group [facility] [id number] 2018-[id number] documented as of this encounter Advance Directives Name Relationship Healthcare Agent Communication Relationship Kenny Chaidez Mother Primary healthcare agent
--- OUTSIDE RECORDS SUMMARY | 2018-12-17 14:35 | XMS REPORT | Summary of Care ---
:1995 Author Organization [facility] Address [address] [place] [id number] Care Team Providers Name Role Phone Mela Leung [facility] Primary Care Provider Reason for Visit Reason Comments Results Would like to know recent test results, Please call. Encounter Details Date Type Department Care Team Description 12/15/2018 Telephone [facility]- Mela Leung Results (Would like to Joleen Becker [facility] know recent test [address] results, Please call.) [facility] [address] [place] [address] [phone] Allergies No Known Allergiesdocumented as of this encounter (statuses as of 12/15/2018) Medications Medication Sig Dispensed Refills Start Date [...] Facility Administered Medication medroxyPROGESTERone 150 mg IM [id number] 02/16/2018 01/17/2019 Active (DEPO-PROVERA) injection 150 mgIndications: Encounter for contraceptive management, unspecified type documented as of this encounter (statuses as of 12/15/2018) Active Problems Problem Noted Date Supervision of high-risk 12/14/2018 Vaginal bleeding in 12/14/2018 Multiparity 12/14/2018 History of section 12/14/2018 Tobacco use in 12/14/2018 History of herpes genitalis 12/14/2018 Overview: Suppression at 36 weeks Inmate in correctional facility 12/14/2018 Estimated Date of Delivery Comments Yes 07/31/2019 Based on last menstrual period of 10/24/2018 (Approximate) documented as of this encounter (statuses as of 12/15/2018) Resolved Problems Problem Noted Date Resolved Date [...] started earlier at the provider s discretion). [email or web address] Pager [phone] Stye external 01/16/2015 02/28/2015 Urinary tract infection, site not specified 11/22/2014 07/27/2015 Overview: Now on daily suppression Abnormal maternal glucose tolerance, antepartum 11/20/2014 02/28/2015 Overview: Passed 3 hr g[address] Dizziness 11/04/2014 02/28/2015 Urinary tract infection, site not specified 08/18/2014 11/04/2014 Supervision of other high-risk 08/13/2014 02/28/2015 Overview: ICD10 Diagnosis Term Development Vice President Utility Tobacco use disorder complicating , childbirth, or 08/13/20142014 puerperium, antepartum Overview: ICD10 Diagnosis Term Development Vice President Utility Asthma 08/13/2014 07/27/2015 Overview: ICD10 Diagnosis Term Development Vice President Utility History of recurrent UTIs 08/13/2014 02/28/2015 Overview: Since age 13 after sexual activities with monthly episiod documented as of this encounter (statuses as of 12/15/2018) Immunizations Name Administration Dates Next Due HPV [...] of this encounter Last Filed Vital Signs Not on filedocumented in this encounter Plan of Treatment Date Type Specialty Care Team Description 12/18/2018 Routine Visit OB Satellites Trimester, [facility] Res-1st 12/28/2018 Routine Visit OB Satellites Mela Leung, CNP [address] [place] [address] [phone] 01/04/2019 Punch Machine Hand Visit Maternal Medicine Health Maintenance Due Date Last Done Comments PAP SMEAR 07/24/2018 07/25/2015 INFLUENZA VACCINE 01/21/2019 02/28/2015 CHLAMYDIA SCREENING 04/11/2019 04/11/2018, 02/02/2018, 03/26/2016, Additional history exists DTaP,Tdap,and Td Vaccines 11/18/2024 11/18/2014 (2 - Td) HPV VACCINES Completed 11/02/2010, 01/15/2010, 10/17/2009 PNEUMOCOCCAL 0-64 YEARS Aged Out No longer eligible COMBINED SERIES based on patient's age to complete this topic documented as of this encounter Results Not on filedocumented in this encounter Insurance Payer Benefit Plan Subscriber ID Effective Phone Address Type / Group Dates CARRIE BUTLER [id number] 2018-[facility] [address] [facility] MEDICAID OF xxxxxxxxx 2018-[place] [phone] [place] [id number] [place] [address] documented as of this encounter Advance Directives Name Relationship Healthcare Agent Communication Relationship Kenny Chaidez Mother Primary healthcare agent
[2018-12-17 15:47] LABS: Absolute Lymphocytes (CBC) 2.8 K/uL (0.7-4.9); Basophils % 0.9 % (0-1.3); Hematocrit 38.4 % (36.0-45.0); Lymphocytes % 47.3 % (15.3-44.8); MPV 10.3 fL (7.6-11.3); RBC Red Blood Cell Count 4.25 M/uL (3.86-4.86)
[2018-12-17 16:05] LABS: BUN Blood Urea Nitrogen 16 mg/dL (7-18); Bicarbonate 25 mmol/L (21-32); Glucose Level 117 mg/dL (74-106); HCG, Quantitative 150 mIU/mL (1-3); Potassium 3.2 mmol/L (3.5-5.1); Sodium Level 143 mmol/L (136-145)
--- NOTE | 2018-12-17 16:54 | ER ---
Nurse's Notes [facility] Name: Franklin Chaidez Age: 23 yrs Sex: Female : 1995 Arrival Date: 12/17/2018 Time: 14:35 Bed 5 Private MD: Diagnosis: Hypokalemia;Threatened Presentation: 12/17 14:45 Presenting complaint: Patient states: vaginal bleeding has increased for the past 2.5 sv weeks, pt is 8 wks . Was seen here for it and has f/u with PCP but the bleeding with clots and abd cramping has continued. Transition of care: patient was not received from another setting of care. Onset of symptoms was November 2018. Risk Assessment: Do you want to hurt yourself or someone else? Patient reports no desire to harm self or others. Care prior to arrival: None. 14:45 Method Of Arrival: Ambulatory sv 14:45 Acuity: ELEONORA 3 sv 16:08 Initial Sepsis Screen: Does the patient meet any 2 criteria? No. Patient's initial aj1 sepsis screen is negative. Does the patient have a suspected source of infection? No. Patient's initial sepsis screen is negative. 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 - Social history:: Smoking status: Patient uses tobacco products, smokes one-half pack cigarettes per day. - Ebola Screening: : No symptoms or risks identified at this time. Screenin:02 Abuse screen: Denies threats or abuse. Denies injuries from another. Nutritional aj1 screening: No deficits noted. Tuberculosis screening: No symptoms or risk factors identified. 17:08 Fall Risk None identified. aj1 Assessment: 15:02 Obstetrical Assessment: Patient reports abdominal cramping. General: Appears in no aj1 apparent distress. comfortable, Behavior is calm, cooperative, appropriate for age. Pain: Complains of pain in right lower quadrant and left lower quadrant Pain does not radiate. Quality of pain is described as crampy. Neuro: Level of Consciousness is awake, alert, obeys commands. Cardiovascular: Patient's skin is warm and dry. Respiratory: Airway is patent Respiratory effort is even, unlabored, Respiratory pattern is regular, symmetrical. GI: Abdomen is non-distended. : Reports vaginal bleeding that is bright red, with clots, heavy flow. EENT: No signs and/or symptoms were reported regarding the EENT system. Derm: No signs and/or symptoms reported regarding the dermatologic system. Skin is pink, warm \T\ dry. normal. Musculoskeletal: No signs and/or symptoms reported regarding the musculoskeletal system. Circulation, motion, and sensation intact. 16:07 Reassessment: Patient appears in no apparent distress at this time. No changes from aj1 previously documented assessment. Patient and/or family updated on plan of care and expected duration. Pain level reassessed. Patient is alert, oriented x 3, equal unlabored respirations, skin warm/dry/pink. 17:06 Reassessment: Patient discontinued her own IV, and walked out of the ER prior to PO aj1 challenge and prior to signing discharge paperwork IV cannula found on the floor, appears intact. Vital Signs: 14:46 BP 139 / 62; Pulse 105; Resp 16; Temp 98.5; Pulse Ox 100% ; Weight 60.78 kg; Height 5 sv ft. 3 in. (160.02 cm); Pain 6/10; 16:07 BP 103 / 62; Pulse 90; Resp 18; Pulse Ox 100% on R/A; aj1 14:46 Body Mass Index 23.74 (60.78 kg, 160.02 cm) sv ED Course: 14:35 Patient arrived in ED. as 14:46 Triage completed. sv 14:47 Arm band placed on Patient placed in an exam room, on a stretcher. sv 14:48 Moraima Osorio, RN is Primary Nurse. aj1 14:52 Dylan Andrews PA is PHCP. jr8 14:52 Flash Silveira MD is Attending Physician. jr8 15:02 Patient has correct armband on for positive identification. Bed in low position. Call aj1 light in reach. Side rails up X 1. 15:02 No provider procedures requiring assistance completed. aj1 15:30 Ultrasound completed. Patient tolerated well. sg3 15:34 US Transvaginal Ob In Process Unspecified. EDMS 15:38 Initial lab(s) drawn, by me, sent to lab. Inserted saline lock: 22 gauge in right kj1 antecubital area, using aseptic technique. 16:52 Clemente Thompson MD is Referral Physician. ashley 17:08 IV discontinued, Patient self discontinued her IV. aj1 Administered Medications: 16:06 Drug: NS 0.9% 1000 ml Route: IV; Rate: 1 bolus; Site: right antecubital; aj1 17:09 Follow up: IV Status: Completed infusion; IV Intake: 1000ml aj1 Intake: 17:09 IV: 1000ml; Total: 1000ml. aj1 Outcome: 16:54 Discharge ordered by . [facility] 17:08 Discharged to home ambulatory. aj1 17:08 Condition: good 17:08 Discharge instructions given to no one, patient left ER prior to receiving discharge instructions or signing discharge paperwork 17:09 Patient left the ED. aj1 Signatures: Dispatcher [employer] Moraima Sams RN RN aj1 Sarah Milian RN RN sv Anderson, Corey, MD MD cha Martinez, Amelia as Roszak, Josh, PA PA [facility] Mervat Carrillo 3 Shu Hope kj1 Corrections: (The following items were deleted from the chart) 14:47 14:45 Presenting complaint: Patient states: vaginal bleeding has increased for the past sv 2.5 weeks, pt is 8 wks . Was seen here for it and has f/u with PCP but the bleeding with clots has continued. sv
--- NOTE | 2018-12-17 16:55 | EDPHYS ---
Physician Documentation [facility] Name: Franklin Chaidez Age: 23 yrs Sex: Female : 1995 Arrival Date: 12/17/2018 Time: 14:35 Bed 5 Private MD: ED Physician Flash Silveira HPI: 12/17 16:48 This 23 yrs old Black Female presents to ER via Ambulatory with complaints of Vaginal ashley Bleeding, + Preg <12wks. 16:48 The patient presents to the emergency department with vaginal bleeding. The estimated ashley gestational age is 4 weeks. course: care: none. Previous pregnancies: in previous pregnancies patient has had vaginal delivery. Associated signs and symptoms: The patient has no apparent associated signs or symptoms. The patient has not experienced similar symptoms in the past. 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 - Social history:: Smoking status: Patient uses tobacco products, smokes one-half pack cigarettes per day. - Ebola Screening: : No symptoms or risks identified at this time. ROS: 16:49 Constitutional: Negative for fever, chills, and weight loss, Eyes: Negative for injury, ashley pain, redness, and discharge, ENT: Negative for injury, pain, and discharge, Neck: Negative for injury, pain, and swelling, Cardiovascular: Negative for chest pain, palpitations, and edema, Respiratory: Negative for shortness of breath, cough, wheezing, and pleuritic chest pain, Abdomen/GI: Negative for abdominal pain, nausea, vomiting, diarrhea, and constipation, Back: Negative for injury and pain, MS/Extremity: Negative for injury and deformity, Skin: Negative for injury, rash, and discoloration, Neuro: Negative for headache, weakness, numbness, tingling, and seizure, Psych: Negative for depression, anxiety, suicide ideation, homicidal ideation, and hallucinations, Allergy/Immunology: Negative for hives, rash, and allergies, Endocrine: Negative for neck swelling, polydipsia, polyuria, polyphagia, and marked weight changes, Hematologic/Lymphatic: Negative for swollen nodes, abnormal bleeding, and unusual bruising. 16:49 : Positive for pelvic pain, vaginal bleeding. Exam: 16:49 Constitutional: This is a well developed, well nourished patient who is awake, alert, ashley and in no acute distress. Head/Face: Normocephalic, atraumatic. Eyes: Pupils equal round and reactive to light, extra-ocular motions intact. Lids and lashes normal. Conjunctiva and sclera are non-icteric and not injected. Cornea within normal limits. Periorbital areas with no swelling, redness, or edema. ENT: Nares patent. No nasal discharge, no septal abnormalities noted. Tympanic membranes are normal and external auditory canals are clear. Oropharynx with no redness, swelling, or masses, exudates, or evidence of obstruction, uvula midline. Mucous membranes moist. Neck: Trachea midline, no thyromegaly or masses palpated, and no cervical lymphadenopathy. Supple, full range of motion without nuchal rigidity, or vertebral point tenderness. No Meningismus. Chest/axilla: Normal chest wall appearance and motion. Nontender with no deformity. No lesions are appreciated. Cardiovascular: Regular rate and rhythm with a normal S1 and S2. No gallops, murmurs, or rubs. Normal PMI, no JVD. No pulse deficits. Respiratory: Lungs have equal breath sounds bilaterally, clear to auscultation and percussion. No rales, rhonchi or wheezes noted. No increased work of breathing, no retractions or nasal flaring. Abdomen/GI: Soft, non-tender, with normal bowel sounds. No distension or tympany. No guarding or rebound. No evidence of tenderness throughout. Back: No spinal tenderness. No costovertebral tenderness. Full range of motion. Skin: Warm, dry with normal turgor. Normal color with no rashes, no lesions, and no evidence of cellulitis. MS/ Extremity: Pulses equal, no cyanosis. Neurovascular intact. Full, normal range of motion. Neuro: Awake and alert, GCS 15, oriented to person, place, time, and situation. Cranial nerves II-XII grossly intact. Motor strength 5/5 in all extremities. Sensory grossly intact. Cerebellar exam normal. Normal gait. Psych: Awake, alert, with orientation to person, place and time. Behavior, mood, and affect are within normal limits. Vital Signs: 14:46 BP 139 / 62; Pulse 105; Resp 16; Temp 98.5; Pulse Ox 100% ; Weight 60.78 kg; Height 5 sv ft. 3 in. (160.02 cm); Pain 6/10; 16:07 BP 103 / 62; Pulse 90; Resp 18; Pulse Ox 100% on R/A; aj1 14:46 Body Mass Index 23.74 (60.78 kg, 160.02 cm) sv MDM: 14:52 Patient medically screened. jr8 16:51 Data reviewed: vital signs, nurses notes, lab test result(s), radiologic studies, [facility] ultrasound. 12/17 14:51 Order name: Quantitative Hcg; Complete Time: 16:13 [facility] 12/17 14:51 Order name: Abo/rh Typing; Complete Time: 16:48 [facility] 12/17 14:51 Order name: Basic Metabolic Panel; Complete Time: 16:13 [facility] 12/17 14:51 Order name: CBC with Diff; Complete Time: 16:13 [facility] 12/17 14:51 Order name: Urine Culture [facility] 12/17 16:59 Order name: Urine Dipstick--Ancillary (enter results) 12/17 14:51 Order name: IV Saline Lock; Complete Time: 15:38 [facility] 12/17 14:51 Order name: Labs collected and sent; Complete Time: 15:38 [facility] 12/17 14:51 Order name: NPO; Complete Time: 15:05 [facility] 12/17 14:51 Order name: US Transvaginal Ob [facility] 12/17 16:59 Order name: Urine --Ancillary (enter results) 12/17 17:02 Order name: Urine Dipstick-Ancillary EDMS Administered Medications: 16:06 Drug: NS 0.9% 1000 ml Route: IV; Rate: 1 bolus; Site: right antecubital; aj1 17:09 Follow up: IV Status: Completed infusion; IV Intake: 1000ml aj1 Disposition: 12/17/18 16:54 Discharged to Home. Impression: Hypokalemia, Threatened . - Condition is Stable. - Discharge Instructions: Potassium Content of Foods, Threatened Miscarriage, First Trimester of , [id number], Threatened Miscarriage, [id number], Pelvic Rest, Hypokalemia. - Prescriptions for Vitamin 27- 0.8 mg Oral Tablet - take 1 tablet by ORAL route once daily; 30 tablet. - Medication Reconciliation Form, Thank You Letter, Antibiotic Education, Prescription Opioid Use form. - Follow up: Private Physician; When: 2 - 3 days; Reason: Recheck today's complaints, Continuance of care, Re-evaluation by your physician. Follow up: Clemente Thompson MD; When: 2 - 3 days; Reason: Recheck today's complaints, Re-evaluation by your physician. - Problem is new. - Symptoms have improved. Signatures: Dispatcher [employer] EDMoraima Plata RN RN aj1 Sarah Milian RN RN sv Anderson, Corey, MD MD cha Roszak, Josh, PA PA jr8 Corrections: (The following items were deleted from the chart) 17: 16:48 Fluid Challenge ordered. ashley joe 17: 16:54 12/17/2018 16:54 Discharged to Home. Impression: Hypokalemia; Threatened aj1 . Condition is Stable. Forms are Medication Reconciliation Form, Thank You Letter, Antibiotic Education, Prescription Opioid Use. Follow up: Private Physician; When: 2 - 3 days; Reason: Recheck today's complaints, Continuance of care, Re-evaluation by your physician. Follow up: Clemente Thompson; When: 2 - 3 days; Reason: Recheck today's complaints, Re-evaluation by your physician. Problem is new. Symptoms have improved. ashley
[2018-12-17 17:14] LABS: Urine Blood 3+ (NEG); Urine Glucose NEGATIVE (NEG); Urine Protein NEGATIVE (NEG); Urine Specific Gravity 1.025 (1.005-1.030)
[2018-12-17 17:59] VITALS: TEMP 98.5; O2SAT 100
[2018-12-17 18:01] VITALS: BP 103/62
--- NOTE | 2018-12-17 19:28 | RAD REPORT ---
EXAM DESCRIPTION: US - Transvaginal OB - 12/17/2018 3:30 pm CLINICAL HISTORY: Pelvic pain, vaginal bleeding Preliminary findings were provided at the time of the study. COMPARISON: December 09 FINDINGS: No intrauterine gestational sac, sac remnant or retained products of conception. No hemato ma, mass or other focal endometrial abnormality seen. Ovaries and adnexa show no suspicious findings. Normal stroma blood flow pattern on Doppler evaluatio n. No abnormal blood or abnormal free fluid in the cul de sac. IMPRESSION: No gestational sac, sac remnant or other endometrial abnormality. No ovarian or adnexal abnormality.
== END 2018-12-17 17:09 | disposition home or self-care (01) ==
LOC: ER 14:33
DX: O20.0 Threatened abortion (principal); E87.6 Hypokalemia; O99.331 Smoking (tobacco) complicating pregnancy, first trimester; F17.210 Nicotine dependence, cigarettes, uncomplicated; Z3A.01 Less than 8 weeks gestation of pregnancy
CPT/HCPCS: 36415; 76817; 80048; 81003; 81025; 84702; 85025; 86900; 86901; 87077; 87086; 87088; 87186; 96360; 99284

== ENCOUNTER 2019-03-08 17:42 | Emergency (ER) | payer OTHER ==
[2019-03-08] MEDS ORDERED: HYDROCODONE/CHLORPHEN 5 ML/OSYR ONE (18:41)
--- NOTE | 2019-03-08 19:02 | EDPHYS ---
Physician Documentation [facility] Name: Franklin Chaidez Age: 23 yrs Sex: Female : 1995 Arrival Date: 03/08/2019 Time: 17:47 Bed 20 Private MD: ED Physician Placido Copeland HPI: 03/08 18:32 This 23 yrs old Black Female presents to ER via Ambulatory with complaints of Cough, snw tongue problem. 18:32 The patient or guardian reports cough, described as moderate. Onset: The snw symptoms/episode began/occurred suddenly, 2 week(s) ago, and became persistent. Severity of symptoms: At their worst the symptoms were moderate. Modifying factors: the symptoms are aggravated by ulcerations on tongue, posterior pharynx, and inner bottom lip. Associated signs and symptoms: Pertinent positives: this patient has no pertinent positive symptoms. It is unknown whether or not the patient has had similar symptoms in the past. It is unknown whether or not the patient has recently seen a physician. 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 - Social history:: Smoking status: Patient uses tobacco products, smokes one pack cigarettes per day. - Ebola Screening: : No symptoms or risks identified at this time. ROS: 18:31 Constitutional: Negative for fever, chills, and weight loss, Eyes: Negative for injury, snw pain, redness, and discharge, Neck: Negative for injury, pain, and swelling, Cardiovascular: Negative for chest pain, palpitations, and edema, Abdomen/GI: Negative for abdominal pain, nausea, vomiting, diarrhea, and constipation, Back: Negative for injury and pain, : Negative for injury, bleeding, discharge, and swelling, MS/Extremity: Negative for injury and deformity, Skin: Negative for injury, rash, and discoloration, Neuro: Negative for headache, weakness, numbness, tingling, and seizure. 18:31 ENT: Positive for sore throat. 18:31 Respiratory: Positive for cough. Exam: 18:30 Constitutional: This is a well developed, well nourished patient who is awake, alert, snw and in no acute distress. Head/Face: Normocephalic, atraumatic. Eyes: Pupils equal round and reactive to light, extra-ocular motions intact. Lids and lashes normal. Conjunctiva and sclera are non-icteric and not injected. Cornea within normal limits. Periorbital areas with no swelling, redness, or edema. Neck: Trachea midline, no thyromegaly or masses palpated, and no cervical lymphadenopathy. Supple, full range of motion without nuchal rigidity, or vertebral point tenderness. No Meningismus. Chest/axilla: Normal chest wall appearance and motion. Nontender with no deformity. No lesions are appreciated. Cardiovascular: Regular rate and rhythm with a normal S1 and S2. No gallops, murmurs, or rubs. Normal PMI, no JVD. No pulse deficits. Respiratory: Lungs have equal breath sounds bilaterally, clear to auscultation and percussion. No rales, rhonchi or wheezes noted. No increased work of breathing, no retractions or nasal flaring. Abdomen/GI: Soft, non-tender, with normal bowel sounds. No distension or tympany. No guarding or rebound. No evidence of tenderness throughout. Back: No spinal tenderness. No costovertebral tenderness. Full range of motion. Skin: Warm, dry with normal turgor. Normal color with no rashes, no lesions, and no evidence of cellulitis. MS/ Extremity: Pulses equal, no cyanosis. Neurovascular intact. Full, normal range of motion. Neuro: Awake and alert, GCS 15, oriented to person, place, time, and situation. Cranial nerves II-XII grossly intact. Motor strength 5/5 in all extremities. Sensory grossly intact. Cerebellar exam normal. Normal gait. Psych: Awake, alert, with orientation to person, place and time. Behavior, mood, and affect are within normal limits. 18:30 ENT: External ear(s): are unremarkable, Ear canal(s): are normal, TM's: are normal, Nose: is normal, Mouth: Lips: ulcerations, Tongue: displays stomatitis, Posterior pharynx: erythema, that is mild, multiple ulcerations, Dental exam: normal, Voice: is normal. Vital Signs: 18:05 BP 121 / 72; Pulse 97; Resp 18 S; Temp 99.5(O); Pulse Ox 100% on R/A; Weight 59.42 kg aa5 (R); Height 5 ft. 2 in. (157.48 cm) (R); 19:21 BP 116 / 62; Pulse 88; Resp 16; Temp 98.3; Pulse Ox 99% on R/A; Pain 4/10; ch 18:05 Body Mass Index 23.96 (59.42 kg, 157.48 cm) aa5 MDM: 18:23 Patient medically screened. snw 19:02 Data reviewed: vital signs, nurses notes. Data interpreted: Pulse oximetry: on room air snw is 100 %. Interpretation: normal. Counseling: I had a detailed discussion with the patient and/or guardian regarding: the historical points, exam findings, and any diagnostic results supporting the discharge/admit diagnosis, lab results, the need for outpatient follow up, to return to the emergency department if symptoms worsen or persist or if there are any questions or concerns that arise at home. Special discussion: Based on the history and exam findings, there is no indication for further emergent testing or inpatient evaluation. I discussed with the patient/guardian the need to see the primary care provider for further evaluation of the symptoms. 03/08 18:29 Order name: Strep; Complete Time: 18:59 snw 03/08 19:09 Order name: Throat Culture EDMS Administered Medications: 18:43 Drug: Tussionex Pennkinetic ER 5 ml Route: PO; bp 19:20 Follow up: Response: No adverse reaction ch 19:16 Drug: Acyclovir 800 mg Route: PO; ch 19:20 Follow up: Response: No adverse reaction Disposition: 03/09 15:30 Co-signature as Attending Physician, Placido Copeland MD. Disposition: 03/08/19 19:00 Discharged to Home. Impression: Stomatitis and related lesions. - Condition is Stable. - Discharge Instructions: Stomatitis. - Prescriptions for Valtrex 1 g Oral Tablet - take 1 tablet by ORAL route every 8 hours for 7 days; 21 tablet. - Work release form, Medication Reconciliation Form, Thank You Letter, Antibiotic Education, Prescription Opioid Use form. - Follow up: Private Physician; When: 2 - 3 days; Reason: Recheck today's complaints, Continuance of care, Re-evaluation by your physician. Follow up: Emergency Department; When: As needed; Reason: Worsening of condition. Signatures: Dispatcher [employer] Daya Irwin, RN RN Tea Oshea, SANDRA-Eugenio IRRIGATION SYSTEM INSTALLER-Harmony Cruz RN RN aa5 Placido Copeland MD MD gs Peltier, Brian, RN RN bp Corrections: (The following items were deleted from the chart) 03/08 19:22 19:00 03/08/2019 19:00 Discharged to Home. Impression: Stomatitis and related lesions. ch Condition is Stable. Forms are Medication Reconciliation Form, Thank You Letter, Antibiotic Education, Prescription Opioid Use. Follow up: Private Physician; When: 2 - 3 days; Reason: Recheck today's complaints, Continuance of care, Re-evaluation by your physician. Follow up: Emergency Department; When: As needed; Reason: Worsening of condition. snw
--- NOTE | 2019-03-08 19:02 | ER ---
Nurse's Notes [facility] Name: Franklin Chaidez Age: 23 yrs Sex: Female : 1995 Arrival Date: 03/08/2019 Time: 17:47 Bed 20 Private MD: Diagnosis: Stomatitis and related lesions Presentation: 03/08 18:03 Presenting complaint: Patient states: cough that began 2 weeks ago. Pt also reports aa5 sores to throat and tongue that began yesterday. Transition of care: patient was not received from another setting of care. Onset of symptoms was February 2019. Risk Assessment: Do you want to hurt yourself or someone else? Patient reports no desire to harm self or others. Initial Sepsis Screen: Does the patient meet any 2 criteria? No. Patient's initial sepsis screen is negative. Does the patient have a suspected source of infection? No. Patient's initial sepsis screen is negative. Care prior to arrival: None. 18:03 Acuity: ELEONORA 4 aa5 18:03 Method Of Arrival: Ambulatory aa5 Triage Assessment: 18:10 General: Appears in no apparent distress. comfortable, Behavior is cooperative, bp appropriate for age, anxious. Pain: Complains of pain in mouth. EENT: Reports pain when swallowing. Neuro: No deficits noted. Cardiovascular: No deficits noted. Respiratory: No deficits noted. GI: No signs and/or symptoms were reported involving the gastrointestinal system. : No signs and/or symptoms were reported regarding the genitourinary system. Derm: No deficits noted. Musculoskeletal: No deficits noted. BOTTOM LINER: 18:05 LMP 02/06/2019 aa5 Historical: - Allergies: 18:05 No Known Allergies; aa5 - PMHx: 18:05 Asthma; HERPES; aa5 - PSHx: 18:05 ; aa5 - Immunization history:: Flu vaccine is not up to date. - Social history:: Smoking status: Patient uses tobacco products, smokes one pack cigarettes per day. - Ebola Screening: : No symptoms or risks identified at this time. Screenin:45 Abuse screen: Denies threats or abuse. Denies injuries from another. Nutritional bp screening: No deficits noted. Tuberculosis screening: No symptoms or risk factors identified. Fall Risk None identified. Assessment: 18:10 General: SEE TRIAGE NOTE. Respiratory: Airway is patent Respiratory effort is even, bp unlabored, Breath sounds are clear bilaterally. EENT: Throat LESIONS. 19:21 Reassessment: Patient appears in no apparent distress at this time. Patient and/or ch family updated on plan of care and expected duration. Pain level reassessed. Patient is alert, oriented x 3, equal unlabored respirations, skin warm/dry/pink. Vital Signs: 18:05 BP 121 / 72; Pulse 97; Resp 18 S; Temp 99.5(O); Pulse Ox 100% on R/A; Weight 59.42 kg aa5 (R); Height 5 ft. 2 in. (157.48 cm) (R); 19:21 BP 116 / 62; Pulse 88; Resp 16; Temp 98.3; Pulse Ox 99% on R/A; Pain 4/10; ch 18:05 Body Mass Index 23.96 (59.42 kg, 157.48 cm) aa5 ED Course: 17:47 Patient arrived in ED. mr 18:03 Arm band placed on. aa5 18:04 Triage completed. aa5 18:16 [facility]shea F[facility]-C [facility]. snw 18:16 Placido Copeland MD is Attending Physician. snw 18:21 Joseph Queen, CARINA is Primary Nurse. bp 18:38 Strep Sent. kj1 18:45 Patient has correct armband on for positive identification. Bed in low position. Call bp light in reach. Side rails up X2. Adult w/ patient. 19:21 Primary Nurse role handed off by Joseph Queen, RN ch 19:21 Daya Best, CARINA is Primary Nurse. ch 19:21 No apparent distress. Resting quietly. ch 19:21 No provider procedures requiring assistance completed. Patient did not have IV access ch during this emergency room visit. Administered Medications: 18:43 Drug: Tussionex Pennkinetic ER 5 ml Route: PO; bp 19:20 Follow up: Response: No adverse reaction ch 19:16 Drug: Acyclovir 800 mg Route: PO; ch 19:20 Follow up: Response: No adverse reaction Outcome: 19:00 Discharge ordered by . snw 19:21 Discharged to home ambulatory, with family. ch 19:21 Condition: stable 19:21 Discharge instructions given to patient, family, Instructed on discharge instructions, follow up and referral plans. medication usage, Demonstrated understanding of instructions, follow-up care, medications, Prescriptions given X 1. 19:22 Patient left the ED. Signatures: Daya Best, CARINA RN Tea Mccloud, FAMILY DINNER SERVICE SPECIALIST-C FAMILY DINNER SERVICE SPECIALIST-Csnw Amy Mahan mr Olvera, Harmony, RN RN aa5 Joseph Queen RN CARINA Hope, Shu kj1
[2019-03-08] MEDS ORDERED: ACYCLOVIR 400 MG TABLET ONE (19:16)
[2019-03-08 21:40] VITALS: BP 116/62; TEMP 98.3; O2SAT 99
== END 2019-03-08 19:22 | disposition home or self-care (01) ==
LOC: ER 17:42
DX: K12.1 Other forms of stomatitis (principal); F17.210 Nicotine dependence, cigarettes, uncomplicated
CPT/HCPCS: 87070; 87081; 99283

== ENCOUNTER 2020-02-08 12:50 | Emergency (ER) | payer OTHER ==
--- OUTSIDE RECORDS SUMMARY | 2020-02-08 12:52 | XMS REPORT | Summary of Care ---
:1995 Author Organization [facility] Address [address] [place] [address] Care Team Providers Name Role Phone Eugenio Leung [facility] Primary Care Provider Reason for Visit Reason Comments Follow-up RW CM, review, plan Appointment Reminder - psych, labs, vacc alessandro Consult ID provider PATIENT EDUCATION RW eligibility due RW, ACCT Encounter Details Date Type Department Care Team Description 12/25/2019 Telephone [facility] Marcel Gupta RN Follow-up (MADIE CM, Infectious Diseases- [address] [place] [address] revie w, plan); [facility] ([place] [address] - psych, labs, [address] vaccines); [address] ([address], [address] Floor provider); PATIENT Maria Stein, [place] EDUCATION ( [phone] eligibility due , ACCT) Allergies No Known Allergiesdocumented as of this encounter (statuses as of 12/25/2019) Medications Medication Sig Dispensed Refills Start Date End Date Status vit/iron Take by mouth. 0 Active fum/folic ac ( 1 + 1 ORAL) PNV 67-iron ps-folate Take 1 Each by 30 capsule 9 12/14/2018 Active no.1-dha (VITAFOL ULTRA) mouth daily. 29 mg iron- 1 mg-200 mg CapIndications: Supervision of high risk , antepartum proMETHazine 25 mg Take 1 tablet 30 tablet 0 12/27/2018 Active tabletIndications: by mouth every Nausea and vomiting 6 (six) hours during as needed for Nausea and Vomiting (N/V). valacyclovir HCl Take by mouth. 0 Active (VALTREX ORAL) methylphenidate HCl Take 1 tablet 30 tablet 0 09/26/2019 Active (CONCERTA) 18 mg 24 hr by mouth every tablet morning. itdbhsoop-xqljnbwv-hvzvn 1 po once daily 30 tablet 5 0 Active ov ala (BIKTARVY) with or without 50-200-25 mg food tabletIndications: Human immunodeficiency virus (HIV) disease documented as of this encounter (statuses as of 12/25/2019) Active Problems Problem Noted Date Missed menses 07/24/2019 Infectious disease contact 07/24/2019 Human immunodeficiency virus (HIV) disease 07/24/2019 History of herpes genitalis 12/14/2018 Overview: Suppression at 36 weeks Counseling on sexually transmitted disease 07/27/2015 documented as of this encounter (statuses as of 12/25/2019) Resolved Problems Problem Noted Date Resolved Date Need for prophylactic vaccination and inoculation against 07/24/2019 influenza Nausea and vomiting during 12/27/201807/2019 Supervision of high-risk 12/14/201807/23 Vaginal bleeding in 12/14/2018 07/24/2019 Multiparity 12/14/2018 07/24/2019 History of section 12/14/2018 07/24/2019 Tobacco use in 12/14/2018 07/24/2019 Inmate in correctional facility 12/14/2018 07/24/19 20 Chlamydia 04/12/2018 12/14/2018 Urinary frequency 02/02/2018 12/14/2018 BV (bacterial vaginosis) 10/24/2015 02/02/2018 Vaginal yeast infection 10/24/2015 02/02/2018 Contraceptive management 07/27/2015 12/14/2018 Depo-Provera contraceptive status 07/27/20152018 Screen for STD (sexually transmitted disease) 07/27/2015 07/24/2019 Tobacco use disorder 07/27/2015 12/14/2018 delivery delivered 01/25/2015 02/28/2015 ROM (rupture of membranes), premature 01/24/2015 Labor and delivery complicated by stress 01/24/2015 02/28/2015 Research Study: ARRIVE Expectant Management Arm 01/23/2015 02/28/2015 Overview: This patient was consented in the ARRIVE Research Study on 01/23/15. IRB # [id number], PI Dr. Bellamy Patient randomized into the study at 38. 0-38.6 weeks and will be in Expectant management [...] started earlier at the provider s discretion). [email or web address] Pager [phone] Stye external 01/16/2015 02/28/2015 Urinary tract infection, site not specified 11/22/2014 07/27/2015 Overview: Now on daily suppression Abnormal maternal glucose tolerance, antepartum 11/20/2014 02/28/2015 Overview: Passed 3 hr gtt Dizziness 11/04/2014 02/28/2015 Urinary tract infection, site not specified 08/18/2014 11/04/2014 Supervision of other high-risk 08/13/2014 02/28/2015 Overview: ICD10 Diagnosis Term Stage Driver Utility Tobacco use disorder complicating , childbirth, or 08/13/2014 02/28/2015 puerperium, antepartum Overview: ICD10 Diagnosis Term Stage Driver Utility Asthma 08/13/2014 07/27/2015 Overview: ICD10 Diagnosis Term Stage Driver Utility History of recurrent UTIs 08/13/2014 02/28/2015 Overview: Since age 13 after sexual activities wit h monthly episiod documented as of this encounter (statuses as of 12/25/2019) Immunizations Name Administration Dates Next Due HPV 11/02/2010, 01/15/2010, 10/17/2009 Influenza Virus Vaccine Quad .5 mL IM 6+ 07/20/2019 MO Influenza Virus Vaccine Quad IM 3+ YRS 02/28/2015 TDAP 11/18/2014 documented as of this encounter Social History Tobacco Use Types Packs/Day Years Used Date Current Every Day Smoker Cigarettes 1 8 - 12/10/2018 Smokeless Tobacco: Never Used Comments: resources given Alcohol Use Drinks/Week oz/Week Comments Yes 0 Standard drinks or equivalent 0.0 occasional Sex Assigned at Date Recorded Not on file documented as of this encounter Last Filed Vital Signs Not on filedocumented in this encounter Miscellaneous Notes Telephone Encounter - Yimi Soler PA - 12/25/2019 4:35 PM CDTFluconazole e- scribed in yesterday for suspected vaginal candidiasis She may or not have an UTI - will treat based on UA and culture results I explained this to her yesterday in detail Labs have ordered in EPIC as have her vaccines elephone Encounter - Marcel Gupta RN - 12/25/2019 3:40 PM CDTRW client scheduled for Dr Braun, RW psychiatry tomorrow. Chart reviewed for eligibility requirements and client is due for 6-month attestation by end of December. Also noted is client ID appointment completed yesterday with plan for labs, lab draw scheduled for tomorrow and no orders in yet. Called client that confirms telehealth psychiatry appointment. Client also reminded of lab draw and vaccines at ID clinic tomorrow. Routing to ID provider for review. Plan made to contact client after lab results to complete attestation and CM follow-up, including acuity. Client reminded to also complete eligibility update with ACCT and client agrees. 45 min taken documented in this encounter Plan of Treatment Date Type Specialty Care Team Description 12/26/2019 Telemedicine Visit Infectious [place] [phone] 12/26/2019 Nurse Visit Infectious Disease Yimi Soler PA [id number] [place], [place] [phone] Visit, [facility] Id Nurse 12/26/2019 Bottled Beverage Inspector Visit Phlebotomy Yimi Soler PA [id number] [place], [place] [phone] [facility] 01/23/2020 Nurse Visit Infectious Disease Yimi Soler PA [id number] [place], [place] [phone] Visit, [facility] Id Nurse 03/24/2020 Office Visit Infectious Disease Yimi Soler PA [address] [place], [place] [address] Health Maintenance Due Date Last Done Comments INFLUENZA VACCINE (#1) 2020 07/20/2019, 02/28/2015 PNEUMOCOCCAL 0-64 YEARS 07/20/2020 Postpone d from 2000 COMBINED SERIES (1 of 3 - (Refus ed) PCV13) Depression Screening 08/01/2020 08/02/2019 PAP SMEAR 12/27/2021 12/27/2018, 07/25/2015 DTaP,Tdap,and Td Vaccines (2 11/18/2024 11/18/2014 - Td) HPV VACCINES Completed 11/02/2010, 01/15/2010, 10/17/2009 documented as of this encounter Results Not on filedocumented in this encounter Insurance Payer Benefit Plan Subscriber ID Effective Phone Address Typ e / Group Dates [facility] [id number] 2019-Prese [phone] [address] Medicaid WOMEN nt [address] [place] [address] documented as of this encounter Advance Directives Name Relationship Healthcare Agent Communication Relationship Kenny Chaidez Mother Health Care Agent
--- OUTSIDE RECORDS SUMMARY | 2020-02-08 12:52 | XMS REPORT | Summary of Care ---
:1995 Author Organization [place] [id number] Care Team Providers Name Role Phone [facility] Reason for Visit Reason Comments Follow-up 6m attestation letter douglas brambila funding Encounter Details Date Type Department Care Team Description 11/14/2019 Case Management [facility] Hafsa Oneill Follo w-up (6m Infectious RN attestation letter Diseases- [address] funding) [facility] [address] [place] [address] [address], [address] Floor [place] [phone] Allergies No Known Allergiesdocumented as of this encounter (statuses as of 11/14/2019) Medications Medication Sig Dispensed Refills Start Date [...] 24 hr by mouth every tablet morning. cbvprzddt-kalojfkb-hryny 1 po once daily 30 tablet 5 0 Active ov ala (BIKTARVY) with or without 50-200-25 mg food tabletIndications: Human immunodeficiency virus (HIV) disease documented as of this encounter (statuses as of 11/14/2019) Active Problems Problem Noted Date Missed menses 07/24/2019 Infectious disease contact 07/24/2019 Human immunodeficiency virus (HIV) disease 07/24/2019 History of herpes genitalis 12/14/2018 Overview: Suppression at 36 weeks Counseling on sexually transmitted disease 07/27/2015 documented as of this encounter (statuses as of 11/14/2019) Resolved Problems Problem Noted Date Resolved Date [...] complicated by stress 01/24/2015 02/28/2015 Research Study: DARRIAN Expectant Management Arm 01/23/2015 02/28/2015 Overview: This [...] started earlier at the provider s discretion). [email or web address] Pager [phone] Stye external 01/16/2015 02/28/2015 Urinary tract infection, site not specified 11/22/2014 07/27/2015 Overview: Now on daily suppression Abnormal maternal glucose tolerance, antepartum 11/20/2014 02/28/2015 Overview: Passed 3 hr gtt Dizziness 11/04/2014 02/28/2015 Urinary tract infection, site not specified 08/18/2014 11/04/2014 Supervision of other high-risk 08/13/2014 02/28/2015 Overview: ICD10 Diagnosis Term Hims Manager Utility Tobacco use disorder complicating , childbirth, or 08/13/2014 02/28/2015 puerperium, antepartum Overview: ICD10 Diagnosis Term Hims Manager Utility Asthma 08/13/2014 07/27/2015 Overview: ICD10 Diagnosis Term Hims Manager Utility History of recurrent UTIs 08/13/2014 02/28/2015 Overview: Since age 13 after sexual activities wit h monthly episiod documented as of this encounter (statuses as of 11/14/2019) Immunizations Name Administration Dates Next Due HPV [...] Signs Not on filedocumented in this encounter Progress Notes Hafsa Oneill RN - 11/14/2019 1:37 PM CDTClient mailed out letter informing of attestation due for continued Douglas Ackerman assistance due to month rule. Program contact information provided to schedule an appointment, Emergency preparedness information also provided. 30 minutes involved. documented in this encounter Plan of Treatment Health Maintenance Due Date Last Done Comments PNEUMOCOCCAL 0-64 YEARS 07/20/2020 Postpone d from 2000 COMBINED SERIES (1 of 3 - (Refus ed) PCV13) Depression Screening 08/01/2020 08/02/2019 PAP SMEAR 12/27/2021 12/27/2018, 07/25/2015 DTaP,Tdap,and Td Vaccines (2 11/18/2024 11/18/2014 - Td) HPV VACCINES Completed 11/02/2010, 01/15/2010, 10/17/2009 INFLUENZA VACCINE Completed 07/20/2019, 02/28/2015 documented as of this encounter Results Not on filedocumented in this encounter Insurance Payer Benefit Plan Subscriber ID Effective Phone Address Typ e / Group Dates [facility] xxxxxxxxx 2019-Prese [phone] Medicaid WOMEN nt [address] [place] [address] documented as of this encounter Advance Directives Name Relationship Healthcare Agent Communication Relationship Kenny Chaidez Mother Primary healthcare agent
--- OUTSIDE RECORDS SUMMARY | 2020-02-08 12:52 | XMS REPORT | Summary of Care ---
:1995 Author Organization [address] [address] Care Team Providers Name Role Phone Eugenio Leung [facility] Primary Care Provider Reason for Visit Reason Comments Appointment Reminder/Confirmation Follow-up RW Medication adherence Encounter Details Date Type Department Care Team Description 12/11/2019 Telephone [facility] Marcel Gupta RN Appointment Infectious Diseases- [address] [place] [address] (Eduardo nder/Confirmation [place] [facility] ); Follow-[place] ([place] [address] Medication adherence) [address] [facility], [address]th [place] [address] Allergies No Known Allergiesdocumented as of this encounter (statuses as of 12/11/2019) Medications Medication Sig Dispensed Refills Start Date [...] 24 hr by mouth every tablet morning. sgsxquonc-ibbzafsg-zfwhp 1 po once daily 30 tablet 5 0 Active ov ala (BIKTARVY) with or without 50-200-25 mg food tabletIndications: Human immunodeficiency virus (HIV) disease documented as of this encounter (statuses as of 12/11/2019) Active Problems Problem Noted Date Missed menses 07/24/2019 Infectious disease contact 07/24/2019 Human immunodeficiency virus (HIV) disease 07/24/2019 History of herpes genitalis 12/14/2018 Overview: Suppression at 36 weeks Counseling on sexually transmitted disease 07/27/2015 documented as of this encounter (statuses as of 12/11/2019) Resolved Problems Problem Noted Date Resolved Date [...] started earlier at the provider s discretion). [email or web address] Pager [phone] Stye external 01/16/2015 02/28/2015 Urinary tract infection, site not specified 11/22/2014 07/27/2015 Overview: Now on daily suppression Abnormal maternal glucose tolerance, antepartum 11/20/2014 02/28/2015 Overview: Passed 3 hr gtt Dizziness 11/04/2014 02/28/2015 Urinary tract infection, site not specified 08/18/2014 11/04/2014 Supervision of other high-risk 08/13/2014 02/28/2015 Overview: ICD10 Diagnosis Term Bag Machine Operator Helper Utility Tobacco use disorder complicating , childbirth, or 08/13/2014 02/28/2015 puerperium, antepartum Overview: ICD10 Diagnosis Term Bag Machine Operator Helper Utility Asthma 08/13/2014 07/27/2015 Overview: ICD10 Diagnosis Term Bag Machine Operator Helper Utility History of recurrent UTIs 08/13/2014 02/28/2015 Overview: Since age 13 after sexual activities wit h monthly episiod documented as of this encounter (statuses as of 12/11/2019) Immunizations Name Administration Dates Next Due HPV [...] Treatment Date Type Specialty Care Team Description 12/12/2019 Office Visit Infectious Disease [place], LEONOR Geller [address] [place], [place] [address] 12/12/2019 Office Visit Infectious Disease Self, Nae basilio MD [address] [place] [address] Health Maintenance Due Date Last Done Comments [...] Address Typ e / Group Dates [facility] xxxxxxxxx 2019-Prese [phone] Medicaid WOMEN nt [address] [place] [address] documented as of this encounter Advance Directives Name Relationship Healthcare Agent Communication Relationship Kenny Chaidez Mother Primary healthcare agent
--- OUTSIDE RECORDS SUMMARY | 2020-02-08 12:52 | XMS REPORT | Summary of Care ---
:1995 Author Organization [address] [address] Care Team Providers Name Role Phone [facility] Reason for Visit Reason Comments Follow-up [facility] appt's Encounter Details Date Type Department Care Team Description 11/22/2019 Telephone [facility] Marcel Gupta RN Follow-up ([facility] Infectious Diseases- [address] [place] [address] appt' s) [address] [place] [address] Allergies No Known Allergiesdocumented as of this encounter (statuses as of 11/22/2019) Medications Medication Sig Dispensed Refills Start Date [...] 24 hr by mouth every tablet morning. yhkiyvksu-dfemrbrv-usiin 1 po once daily 30 tablet 5 0 Active ov ala (BIKTARVY) with or without 50-200-25 mg food tabletIndications: Human immunodeficiency virus (HIV) disease documented as of this encounter (statuses as of 11/22/2019) Active Problems Problem Noted Date Missed menses 07/24/2019 Infectious disease contact 07/24/2019 Human immunodeficiency virus (HIV) disease 07/24/2019 History of herpes genitalis 12/14/2018 Overview: Suppression at 36 weeks Counseling on sexually transmitted disease 07/27/2015 documented as of this encounter (statuses as of 11/22/2019) Resolved Problems Problem Noted Date Resolved Date [...] started earlier at the provider s discretion). [email or web address] Pager [phone] Stye external 01/16/2015 02/28/2015 Urinary tract infection, site not specified 11/22/2014 07/27/2015 Overview: Now on daily suppression Abnormal maternal glucose tolerance, antepartum 11/20/2014 02/28/2015 Overview: Passed 3 hr gtt Dizziness 11/04/2014 02/28/2015 Urinary tract infection, site not specified 08/18/2014 11/04/2014 Supervision of other high-risk 08/13/2014 02/28/2015 Overview: ICD10 Diagnosis Term Upper And Bottom Lacer Hand Utility Tobacco use disorder complicating , childbirth, or 08/13/2014 02/28/2015 puerperium, antepartum Overview: ICD10 Diagnosis Term Upper And Bottom Lacer Hand Utility Asthma 08/13/2014 07/27/2015 Overview: ICD10 Diagnosis Term Upper And Bottom Lacer Hand Utility History of recurrent UTIs 08/13/2014 02/28/2015 Overview: Since age 13 after sexual activities wit h monthly episiod documented as of this encounter (statuses as of 11/22/2019) Immunizations Name Administration Dates Next Due HPV [...] filedocumented in this encounter Plan of Treatment Health [...] Address Typ e / Group Dates [facility] xxxxxxxxx 2019-Prese [phone] Medicaid WOMEN nt [address] [place] [address] documented as of this encounter Advance Directives Name Relationship Healthcare Agent Communication Relationship Kenny Chaidez Mother Primary healthcare agent
--- OUTSIDE RECORDS SUMMARY | 2020-02-08 12:52 | XMS REPORT | Summary of Care ---
:[address] [address] Care Team Providers Name Role Phone Eugenio Leung [facility] Primary Care Provider Reason for Visit Reason Comments Case Management spoke w/ACCT about RW progra m & ADAP status Encounter Details Date Type Department Care Team Description 11/27/2019 Case Management [facility] Yola Alcantar MA Case Management [address] (spoke w/ACCT about Diseases- [facility] RW program & [place] [address] status) [address] [facility], 6th [place] [address] Allergies No Known Allergiesdocumented as of this encounter (statuses as of 11/27/2019) Medications Medication Sig Dispensed Refills Start Date [...] 24 hr by mouth every tablet morning. weircjjys-wkobmuit-mgbbb 1 po once daily 30 tablet 5 0 Active ov ala (BIKTARVY) with or without 50-200-25 mg food tabletIndications: Human immunodeficiency virus (HIV) disease documented as of this encounter (statuses as of 11/27/2019) Active Problems Problem Noted Date Missed menses 07/24/2019 Infectious disease contact 07/24/2019 Human immunodeficiency virus (HIV) disease 07/24/2019 History of herpes genitalis 12/14/2018 Overview: Suppression at 36 weeks Counseling on sexually transmitted disease 07/27/2015 documented as of this encounter (statuses as of 11/27/2019) Resolved Problems Problem Noted Date Resolved Date [...] started earlier at the provider s discretion). [email or web address] Pager [phone] Stye external 01/16/2015 02/28/2015 Urinary tract infection, site not specified 11/22/2014 07/27/2015 Overview: Now on daily suppression Abnormal maternal glucose tolerance, antepartum 11/20/2014 02/28/2015 Overview: Passed 3 hr gtt Dizziness 11/04/2014 02/28/2015 Urinary tract infection, site not specified 08/18/2014 11/04/2014 Supervision of other high-risk 08/13/2014 02/28/2015 Overview: ICD10 Diagnosis Term Cracker Sprayer Utility Tobacco use disorder complicating , childbirth, or 08/13/2014 02/28/2015 puerperium, antepartum Overview: ICD10 Diagnosis Term Cracker Sprayer Utility Asthma 08/13/2014 07/27/2015 Overview: ICD10 Diagnosis Term Cracker Sprayer Utility History of recurrent UTIs 08/13/2014 02/28/2015 Overview: Since age 13 after sexual activities wit h monthly episiod documented as of this encounter (statuses as of 11/27/2019) Immunizations Name Administration Dates Next Due HPV [...] on filedocumented in this encounter Progress Notes Yola Alcantar MA - 11/27/2019 4:13 PM CDTReceived call from Angela at [facility] inquiring about client's status with the [employer] program, as well as THMP/ADAP status. Informed Angela that client is current with [facility] program for funding of clinic healthcare services, however she is due to complete 6-month attestation for continued enrollment by 01/21/2020. Advised that [employer] program director of casework services has attempted to reach client recently, but the number we have on file is no longer a working number. Angela does not have any updated contact information for this client, she will contact [facility] Discussed THMP/ADAP status. Informed Angela that her new application was approved in September 2019, she will also be due for 6-month attestation with that agency by 01/21/2020. Angela asked why there were no status notes regarding approval in [facility], explained that additional information was submitted to [facility] via fax, I obtained approval information by phone. Provided my contact information should Angela need further assistance. A total of 30 minutes was taken to complete this encounter. documented in this encounter Plan of Treatment Date Type Specialty Care Team Description 12/12/2019 Office Visit Infectious Disease Yimi Soler PA [address] [place], [place] [address] 12/12/2019 [facility] [address] [place] [address] Health Maintenance Due Date Last [...] Address Typ e / Group Dates [facility] xxxxxxxxx 2019-Prese [phone] Medicaid WOMEN nt [address] [place] [address] documented as of this encounter Advance Directives Name Relationship Healthcare Agent Communication Relationship Prabhudenishafranco Dm Mother Primary healthcare agent
--- OUTSIDE RECORDS SUMMARY | 2020-02-08 12:52 | XMS REPORT | Summary of Care ---
:1995 Author Organization [address] [address] Care Team Providers Name Role Phone [facility] Provider Reason for Visit Reason Comments Follow-up MADIE BURT, karol follow-up Appointment Needs ID, psych Encounter Details Date Type Department Care Team Description 11/14/2019 Telephone [facility] Marcel Gupta RN Follow-up (karol RAMACHANDRAN CM Infectious Diseases- [address] [place] [address] w-); [facility] Appointment (Needs ID, [place] [address] psych) [address] [place] [address] Allergies No Known Allergiesdocumented as [...] 24 hr by mouth every tablet morning. dkeuzkwlc-lbrkuita-wbvrh 1 po once daily 30 tablet 5 [...] started earlier at the provider s discretion). [email or web address] Pager [phone] Stye external 01/16/2015 02/28/2015 Urinary tract infection, site not specified 11/22/2014 07/27/2015 Overview: Now on daily suppression Abnormal maternal glucose tolerance, antepartum 11/20/2014 02/28/2015 Overview: Passed 3 hr gtt Dizziness 11/04/2014 02/28/2015 Urinary tract infection, site not specified 08/18/2014 11/04/2014 Supervision of other high-risk 08/13/2014 02/28/2015 Overview: ICD10 Diagnosis Term Lead Embedded Software Engineer Utility Tobacco use disorder complicating , childbirth, or 08/13/2014 02/28/2015 puerperium, antepartum Overview: ICD10 Diagnosis Term Lead Embedded Software Engineer Utility Asthma 08/13/2014 07/27/2015 Overview: ICD10 Diagnosis Term Lead Embedded Software Engineer Utility History of recurrent UTIs 08/13/2014 02/28/2015 [...] e / Group Dates [facility] xxxxxxxxx 2019-Prese [phone] [address] Medicaid WOMEN nt [address] [place] [address] documented as of this encounter Advance Directives Name Relationship Healthcare Agent Communication Relationship Kenny Chaidez Mother Primary healthcare agent
--- OUTSIDE RECORDS SUMMARY | 2020-02-08 12:53 | XMS REPORT | Summary of Care ---
:1995 Author Organization [facility] Address [address] [place] [address] Care Team Providers Name Role Phone [facility] Primary [facility] Provider Reason for Visit Reason Comments Refill Request Encounter Details Date Type Department Care Team Description 01/01/2020 Refill [facility] Infectious East, LEONOR Britton Refill Request Diseases- [id number] [place] [address] [place], [place] [address] [place] [address] Allergies No Known Allergiesdocumented as of this encounter (statuses as of 01/01/2020) Medications Medication Sig Dispensed Refills Start Date End Date Status vit/iron Take by 0 Ac tive fum/folic ac mouth. ( 1 + 1 ORAL) PNV 67-iron ps-folate Take 1 Each 30 capsule 9 12/14/2018 Active no.1-dha (VITAFOL by mouth ULTRA) 29 mg iron- 1 daily. mg-200 mg CapIndications: Supervision of high risk , antepartum proMETHazine 25 mg Take 1 tablet 30 tablet 0 12/27/2018 Active tabletIndications: by mouth Nausea and vomiting every 6 (six) during hours as needed for Nausea and Vomiting (N/V). valacyclovir HCl Take by 0 Act emil (VALTREX ORAL) mouth. methylphenidate HCl Take 1 tablet 30 tablet 0 12/26/2019 Active (CONCERTA) 18 mg 24 by mouth hr tabletIndications: every Attention deficit morning. hyperactivity disorder (ADHD), predominantly inattentive type hydrOXYzine 25 mg Take 1 90 capsule 0 12/26/2019 Active capsuleIndications: capsule by PTSD (post-traumatic mouth 3 stress disorder) (three) times daily as needed for Anxiety. hzituqdtc-pjwctknh-ty TAKE 1 TABLET 30 tablet 4 01/01/2020 Active nofov ala 50-200-25 BY MOUTH ONCE mg tabletIndications: DAILY WITH OR Human WITHOUT FOOD immunodeficiency virus (HIV) disease lzuepdwta-fntafgda-db 1 po once 30 tablet 5 10/26/2019 02 Discontinued nofov ala (BIKTARVY) daily with or 0 50-200-25 mg without food tabletIndications: Human immunodeficiency virus (HIV) disease documented as of this encounter (statuses as of 01/01/2020) Active Problems Problem Noted Date Missed menses 07/24/2019 Infectious disease contact 07/24/2019 Human immunodeficiency virus (HIV) disease 07/24/2019 History of herpes genitalis 12/14/2018 Overview: Suppression at 36 weeks Counseling on sexually transmitted disease 07/27/2015 documented as of this encounter (statuses as of 01/01/2020) Resolved Problems Problem Noted Date Resolved Date [...] started earlier at the provider s discretion). [email or web address] Pager [phone] Stye external 01/16/2015 02/28/2015 Urinary tract infection, site not specified 11/22/2014 07/27/2015 Overview: Now on daily suppression Abnormal maternal glucose tolerance, antepartum 11/20/2014 02/28/2015 Overview: Passed 3 hr gtt Dizziness 11/04/2014 02/28/2015 Urinary tract infection, site not specified 08/18/2014 11/04/2014 Supervision of other high-risk 08/13/2014 02/28/2015 Overview: ICD10 Diagnosis Term C.O.D. Audit Clerk Utility Tobacco use disorder complicating , childbirth, or 08/13/2014 02/28/2015 puerperium, antepartum Overview: ICD10 Diagnosis Term C.O.D. Audit Clerk Utility Asthma 08/13/2014 07/27/2015 Overview: ICD10 Diagnosis Term C.O.D. Audit Clerk Utility History of recurrent UTIs 08/13/2014 02/28/2015 Overview: Since age 13 after sexual activities wit h monthly episiod documented as of this encounter (statuses as of 01/01/2020) Immunizations Name Administration Dates Next Due HPV [...] this encounter Miscellaneous Notes Telephone Encounter - Lata Masterson RN - 01/01/2020 12:15 PM CDT Received refill request for: Requested Prescriptions Signed Prescriptions Disp Refills tclimvvsf-dalmnkvn-qrqabqi ala 50-200-25 mg tablet 30 tablet 4 Sig: TAKE 1 TABLET BY MOUTH ONCE DAILY WITH OR WITHOUT FOOD Authorizing Provider: SOL SOLER Ordering User: LATA MASTERSON Last filled: 10/26/2019 Follow up scheduled for : 03/24/2020 Last office visit: 12/24/2019 Refilled approval sent to: Pharmacy: [facility] - [address] [address] Refilled per Guidelines documented in this encounter Plan of Treatment Date Type Specialty Care Team Description 01/23/2020 Nurse Visit Infectious Disease Sol Soler PA [id number] [place] [address] [phone] Visit, [facility] Id Nurse 02/27/2020 Office Visit Infectious Disease Nae Braun MD [address] [place] [phone] 03/24/2020 Office Visit Infectious Disease Sol Soler PA [address] [place], [place] [address] [phone] Health Maintenance Due Date Last Done Comments [...] Results Not on filedocumented in this encounter Visit Diagnoses Diagnosis Human immunodeficiency virus (HIV) disea se Human immunodeficiency virus [HIV] disea se documented in this encounter Insurance Payer Benefit Plan Subscriber ID Effective Phone Address Typ e / Group Dates [facility] [id number] 2019-Prese [phone] [address] Medicaid WOMEN nt [address] [place] [address] documented as of this encounter Advance Directives Name Relationship Healthcare Agent Communication Relationship Kenny Chaidez Mother Health Care Agent
--- OUTSIDE RECORDS SUMMARY | 2020-02-08 12:53 | XMS REPORT | Summary of Care ---
:1995 Author Organization [address] [address] Care Team Providers Name Role Phone Eugenio Leung [facility] Primary Care Provider Reason for Visit Reason Comments Notification Referral/consult [facility] Ackerman pediatricsrefer/c onfirm PATIENT EDUCATION Benefits/risks Encounter Details Date Type Department Care Team Description 01/03/2020 Telephone [facility] Marcel Gupta , RN Notification Infectious Diseases- [address] [place] [address] (Preg yang); [place] [facility] Referral/[place] ([place] [address] [place] [address], 6[address] Floor m); PATIENT EDUCATION [place], [place] (Benefits/risk s) [address] Allergies No Known Allergiesdocumented as of this encounter (statuses as of 01/03/2020) Medications Medication Sig Dispensed Refills Start Date [...] 0 12/26/2019 Active (CONCERTA) 18 mg 24 hr by mouth every tabletIndications: morning. Attention deficit hyperactivity disorder (ADHD), predominantly inattentive type hydrOXYzine 25 mg Take 1 capsule 90 capsule 0 12/26/2019 Active capsuleIndications: PTSD by mouth 3 (post-traumatic stress (three) times disorder) daily as needed for Anxiety. waeydgxie-folxarlq-eovno TAKE 1 TABLET 30 tablet 4 01/01/2020 Active ov ala 50-200-25 mg BY MOUTH ONCE tabletIndications: Human DAILY WITH OR immunodeficiency virus WITHOUT FOOD (HIV) disease documented as of this encounter (statuses as of 01/03/2020) Active Problems Problem Noted Date Missed menses 07/24/2019 Infectious disease contact 07/24/2019 Human immunodeficiency virus (HIV) disease 07/24/2019 History of herpes genitalis 12/14/2018 Overview: Suppression at 36 weeks Counseling on sexually transmitted disease 07/27/2015 documented as of this encounter (statuses as of 01/03/2020) Resolved Problems Problem Noted Date Resolved Date [...] started earlier at the provider s discretion). [email or web address] Pager [phone] Stye external 01/16/2015 02/28/2015 Urinary tract infection, site not specified 11/22/2014 07/27/2015 Overview: Now on daily suppression Abnormal maternal glucose tolerance, antepartum 11/20/2014 02/28/2015 Overview: Passed 3 hr gtt Dizziness 11/04/2014 02/28/2015 Urinary tract infection, site not specified 08/18/2014 11/04/2014 Supervision of other high-risk 08/13/2014 02/28/2015 Overview: ICD10 Diagnosis Term Cigar Patcher Utility Tobacco use disorder complicating , childbirth, or 08/13/2014 02/28/2015 puerperium, antepartum Overview: ICD10 Diagnosis Term Cigar Patcher Utility Asthma 08/13/2014 07/27/2015 Overview: ICD10 Diagnosis Term Cigar Patcher Utility History of recurrent UTIs 08/13/2014 02/28/2015 Overview: Since age 13 after sexual activities wit h monthly episiod documented as of this encounter (statuses as of 01/03/2020) Immunizations Name Administration Dates Next Due HPV [...] this encounter Miscellaneous Notes Telephone Encounter - Marcel Gupta RN - 01/03/2020 3:53 PM CDTEmail returned from Pediatrics staff confirming referral received and plan to contact client. 15 min taken elephone Encounter - Marcel Gupta RN - 01/03/2020 3:38 PM CDTCall received from client to report . Education provided on benefits and risks of while living with HIV, including advantage of compliance and undetectable viral load. Client is relieved to hear of program specializing in care of the mother and baby. Client referral and statusreport emailed to the Pediatrics disease case manager rn for assistance. Client was diagnosed HIV positive on 12/18/19, enrolled in and had initial ID visit on 08/02/19. Client started Biktarvy via [employer] on the same day. Labs drawn on 08/02/19 indicate VL = 2326 and CD4 = 764. Client just had second lab draw yesterday and results pending. Client has been visit compliant and medication adherent since enrollment and undetectable VL is anticipated and likely for the last few months. This plannedto graduate client from to [facility] after viral suppression confirmation received. Referral report also includes client actively engaged in Psychiatry with Dr Braun and is taking psych medication for anxiety and depression that will need to be evaluated for safety during . 60 min taken documented in this encounter Plan of Treatment Date Type Specialty Care Team Description 01/08/2020 Office Visit [facility] Delvin, [facility] Room 01/08/2020 Initial Visit [facility] Scar Vargas, MILK TANKER DRIVER [address] [address] [phone] 01/23/2020 Nurse Visit Infectious Disease Yimi Soler PA [id number] [place], [place] [address] Visit, [facility] Id Nurse 02/27/2020 Office Visit Infectious Disease Self, Nae basilio MD [address] [place] [address] 03/24/2020 Office Visit Infectious Disease Yimi Soler PA [address] [place], [place] [address] Health Maintenance Due Date [...] Phone Address Typ e / Group Dates [facility] [id number] 2019-Prese [phone] [address] Medicaid WOMEN nt [address] [place] [address] documented as of this encounter Advance Directives Name Relationship Healthcare Agent Communication Relationship Kenny Chaidez Mother Health Care Agent
--- OUTSIDE RECORDS SUMMARY | 2020-02-08 12:53 | XMS REPORT | Summary of Care ---
:1995 Author Organization [facility] - [facility] Address [address] [place] [address] Care Team Providers Name Role Phone Eugenio Leung Primary Care Provider Reason for Visit Reason Comments Depression Encounter Details Date Type Department Care Team Description 12/26/2019 Telemedicine Visit [facility] Kade, MARCO A Adrian ( post-traumatic stress disorder) (Primary Dx); Infectious Attention deficit hyperactivity disorder (ADHD), predominantly inattentive type Diseases- [address], 6[address] [address] [place], [place] [phone] [address] Allergies No Known Allergiesdocumented as of this encounter (statuses as of 12/26/2019) Medications Medication Sig Dispensed Refills Start End Date Status Date vit/iron Take by 0 Ac tive fum/folic ac mouth. ( 1 + 1 ORAL) PNV 67-iron ps-folate Take 1 Each 30 capsule 9 Active no.1-dha (VITAFOL by mouth 9 ULTRA) 29 mg iron- 1 daily. mg-200 mg CapIndications: Supervision of high risk , antepartum proMETHazine 25 mg Take 1 30 tablet 0 A ctive tabletIndications: tablet by 9 Nausea and vomiting mouth every during 6 (six) hours as needed for Nausea and Vomiting (N/V). valacyclovir HCl Take by 0 Act emil (VALTREX ORAL) mouth. xoyozkhll-ivpiozle-gz 1 po once 30 tablet 5 Active nofov ala (BIKTARVY) daily with 0 50-200-25 mg or without tabletIndications: food Human immunodeficiency virus (HIV) disease methylphenidate HCl Take 1 30 tablet 0 Active (CONCERTA) 18 mg 24 tablet by 0 hr tabletIndications: mouth every Attention deficit morning. hyperactivity disorder (ADHD), predominantly inattentive type hydrOXYzine 25 mg Take 1 90 capsule 0 A ctive capsuleIndications: capsule by 0 PTSD (post-traumatic mouth 3 stress disorder) (three) times daily as needed for Anxiety. methylphenidate HCl Take 1 30 tablet 0 12/26/19 Discontinued (CONCERTA) 18 mg 24 tablet by 0 20 (Reorder) hr tablet mouth every morning. documented as of this encounter (statuses as of 12/26/2019) Active Problems Problem Noted Date Missed menses 07/24/2019 Infectious disease contact 07/24/2019 Human immunodeficiency virus (HIV) disease 07/24/2019 History of herpes genitalis 12/14/2018 Overview: Suppression at 36 weeks Counseling on sexually transmitted disease 07/27/2015 documented as of this encounter (statuses as of 12/26/2019) Resolved Problems Problem Noted Date Resolved Date [...] started earlier at the provider s discretion). [email or web address] Pager [phone] Stye external 01/16/2015 02/28/2015 Urinary tract infection, site not specified 11/22/2014 07/27/2015 Overview: Now on daily suppression Abnormal maternal glucose tolerance, antepartum 11/20/2014 02/28/2015 Overview: Passed 3 hr gtt Dizziness 11/04/2014 02/28/2015 Urinary tract infection, site not specified 08/18/2014 11/04/2014 Supervision of other high-risk 08/13/2014 02/28/2015 Overview: ICD10 Diagnosis Term Clothespin Drier Operator Utility Tobacco use disorder complicating , childbirth, or 08/13/2014 02/28/2015 puerperium, antepartum Overview: ICD10 Diagnosis Term Clothespin Drier Operator Utility Asthma 08/13/2014 07/27/2015 Overview: ICD10 Diagnosis Term Clothespin Drier Operator Utility History of recurrent UTIs 08/13/2014 02/28/2015 Overview: Since age 13 after sexual activities wit h monthly episiod documented as of this encounter (statuses as of 12/26/2019) Immunizations Name Administration Dates Next Due HPV [...] on filedocumented in this encounter Progress Notes Nguyễn Braun MD - 12/26/2019 11:00 AM CDT [facility] DEPARTMENT OF PSYCHIATRY AND BEHAVIORAL SCIENCE Outpatient Follow-up Progress Note [id number] Yuriy Chaidez 1995 [address] [facility] [address] 12/26/2019 PATIENT IDENTIFICATION AND CHIEF COMPLAINT: Yuriy Chaidez is a 24 year old female who presents for follow up for MDD and PTSD. SUBJECTIVE: Patient is doing "pretty good," but says she has been dealing with a lot of family issues. She is in"better spirits" and is more motivated since starting the Concerta 18 mg daily at last office visit.As at last office visit, she is not taking Wellbutrin. She is taking Concerta with occasional breaksand agrees that this helps make the medication more effective. She describes ongoing "isolation," saying she prefers to spend most of her time at home. When required to go out, e.g. for shopping, she tolerates it but says she "gets in and gets out" because she doesn't like being around a lot of people. She denies dysfunction from this anxiety such as going without food or failing to complete other necessary tasks. She reports trouble falling asleep at night several times per week. She is currently unemployed. She is focused right now on preparing her 4-year-old to start school. She has been stressed about school starting during the COVID pandemic but has decided it is best for her son to experience going to school and plans to have him start in the fall. Patient recently lost her 17-year-old cousin to gun violence. She was feeling very sad about it but says she is doing "okay." She endorses waves of grief and crying spells when she thinks about him. She occasionally hears his voice and says it can be "scary." Does not hear any other voices. She reports good compliance with her HIV medication regimen. Continues to smoke cigarettes. Alcohol/Illict drugs: Glass of wine "here and there." Side Effects: None reported Past Psychiatric History: No changes reported Family History: No changes reported Social History: No changes reported PAST MEDICAL HISTORY: Past Medical History: Diagnosis Date Asthma 2012 Not on meds, last asthma attack 11/2017 BV (bacterial vaginosis) 10/24/2015 Genital herpes 2016 on valtrex PRN Human immunodeficiency virus (HIV) disease 07/24/2019 STD (sexually transmitted disease) 03/2018, 01/2018 Chlamydia MEDICATIONS: Current Outpatient Medications Medication Sig Dispense Refill lqlrfoboa-luyqxspq-klgvddk ala (BIKTARVY) 50-200-25 mg tablet 1 po once daily with or without food 30 tablet 5 methylphenidate HCl (CONCERTA) 18 mg 24 hr tablet Take 1 tablet by mouth every morning. 30 tablet 0 valacyclovir HCl (VALTREX ORAL) Take by mouth. proMETHazine 25 mg tablet Take 1 tablet by mouth every 6 (six) hours as needed for Nausea and Vomiting (N/V). 30 tablet 0 PNV 67-iron ps-folate no.1-dha (VITAFOL ULTRA) 29 mg iron- 1 mg-200 mg Cap Take 1 Each by mouth daily. 30 capsule 9 vit/iron fum/folic ac ( 1 + 1 ORAL) Take by mouth. No current facility-administered medications for this visit. REVIEW OF SYSTEMS: GENERAL: Negative SKIN: Negative HEENT: Negative NECK: Negative HEME: Negative RESP: Negative CARDIO: Negative GI: Negative : Negative ENDO: Negative NEURO: Negative MUSCULOSKELETAL: Negative VITAL SIGNS: There were no vitals taken for this visit. MENTAL STATUS EXAM: Comments: Cooperative and pleasant over telehealth interview Gait and Station: FLORINDA Appearance: Well Groomed Attitude: Cooperative Psychomotor: Psychomotor Normal Mood: "okay" Affect: Appropriate Speech: Regular rate and volume Language: Normal Thought process: Logical Directed Associations: Normal Abnormal/Psychotic Thoughts: - Thought content: Without Delusions - Perceptual: Occasional AH of recently cousin's voice; denies other AVH - Suicidal: Not present - Violent/Homicidal: Not Present Cognition: Normal Cognition Level of Consciousness: Full Orientation: Oriented x 4 Recent/remote memory: Intact Intelligence: Average Fund of knowledge: Average Attention/concentration: Good Judgment: Intact Insight: Intact SUICIDE RISK SCREENING Patient denies SI PROVIDER ASSESSMENT Patient is at low risk for suicide given strong social support, lack of substance use and future orientation. LABS: Reviewed ASSESSMENT/FORMULATION Yuriy Chaidez is a 24 year old female who presents with history and presentation above. She is dealing with significant recent stressor of of her cousin to gun violence, with occasionalAH of his voice that are consistent with normal grief. In spite of this her mood and concentration continue to benefit from Concerta. She has some trouble initiating sleep and a low dose of hydroxyzinewill likely relieve this symptom with negligible side effects. Patient expressed understanding of plan, risks, and benefits of treatment. Patient is not a danger to self or others and is appropriate for outpatient treatment at this time. DIAGNOSES/PLAN: PTSD (post-traumatic stress disorder) (primary encounter diagnosis) Comment:stable Plan: -continue to assess for symptoms at appointments, especially in light of recent trauma of loss of her cousin to violence -no medication at this time Moderate episode of recurrent major depressive disorder Comment:improved mood on Concerta; occasional trouble initiating sleep Plan: -continue Concerta 18 mg po qAM -start hydroxyzine 25 mg Q8H for insomnia and anxiety Patient was instructed to call clinic with any question, concern, or side effect, and to call 911 orgo to the nearest ER if patient has suicidal ideation, homicidal ideation, or experiences a severe deterioration in condition threatening safety. RTC 2 months SERVICE: Psychiatric Followup, with [facility] ([id number]) TELEHEALTH VISIT (AUDIO and video) Verbal consent was obtained from patient for telehealth services below due to COVID-19 Pandemic. The visit was conducted via telephone with audio and video via [employer] A total time of 30 minutes was spent on the telephone for the visit. Location of provider -- [facility] Location of patient -- [facility] The above note was written by Dr. Horowitz and edited by me. documented in this encounter Plan of Treatment Date Type Specialty Care Team Description 01/23/2020 Nurse Visit Infectious Disease Yimi Soler PA [id number] [place] [address] [phone] Visit, [facility] Id Nurse 02/27/2020 Office Visit Infectious Disease Self, Nae basilio MD [address] [place] [phone] 03/24/2020 Office Visit Infectious Disease Yimi Soler PA [address] [place], [place] [address] Health Maintenance Due Date [...] filedocumented in this encounter Visit Diagnoses Diagnosis PTSD (post-traumatic stress disorder) - Primary Posttraumatic stress disorder Attention deficit hyperactivity disorder (ADHD), predominantly inattentive type documented in this encounter Advance Directives Name Relationship Healthcare Agent Communication Relationship Aaronfranco Dm Mother Health Care Agent
--- OUTSIDE RECORDS SUMMARY | 2020-02-08 12:53 | XMS REPORT | Summary of Care ---
:1995 Author Organization [address] [address] Care Team Providers Name Role Phone Eugenio Leung [facility] Primary Care Provider Reason for Visit Reason Comments Follow-up [facility] review [facility] Labs, vaccines Consult ID provider Encounter Details Date Type Department Care Team Description 12/27/2019 Telephone [facility] Marcel Gupta RN Follow-up ( [facility] Infectious Diseases- [address] [place] [address]); [facility] (Labs, [address] vaccines); Consult ([place] [address] provider) [address] [facility], 6th [place] [address] Allergies No Known Allergiesdocumented as of this encounter (statuses as of 12/27/2019) Medications Medication Sig Dispensed Refills Start Date [...] Take by mouth. 0 Active (VALTREX ORAL) ibdoyxupi-wblrvkee-fhrzj 1 po once daily 30 tablet 5 0 Active ov ala (BIKTARVY) with or without 50-200-25 mg food tabletIndications: Human immunodeficiency virus (HIV) disease methylphenidate HCl Take 1 tablet 30 tablet 0 12/26/2019 Active (CONCERTA) 18 mg 24 hr by mouth every tabletIndications: morning. Attention deficit hyperactivity disorder (ADHD), predominantly inattentive type hydrOXYzine 25 mg Take 1 capsule 90 capsule 0 12/26/2019 Active capsuleIndications: PTSD by mouth 3 (post-traumatic stress (three) times disorder) daily as needed for Anxiety. documented as of this encounter (statuses as of 12/27/2019) Active Problems Problem Noted Date Missed menses 07/24/2019 Infectious disease contact 07/24/2019 Human immunodeficiency virus (HIV) disease 07/24/2019 History of herpes genitalis 12/14/2018 Overview: Suppression at 36 weeks Counseling on sexually transmitted disease 07/27/2015 documented as of this encounter (statuses as of 12/27/2019) Resolved Problems Problem Noted Date Resolved Date [...] started earlier at the provider s discretion). [email or web address] Pager [phone] Stye external 01/16/2015 02/28/2015 Urinary tract infection, site not specified 11/22/2014 07/27/2015 Overview: Now on daily suppression Abnormal maternal glucose tolerance, antepartum 11/20/2014 02/28/2015 Overview: Passed 3 hr gtt Dizziness 11/04/2014 02/28/2015 Urinary tract infection, site not specified 08/18/2014 11/04/2014 Supervision of other high-risk 08/13/2014 02/28/2015 Overview: ICD10 Diagnosis Term Meter Installer Utility Tobacco use disorder complicating , childbirth, or 08/13/2014 02/28/2015 puerperium, antepartum Overview: ICD10 Diagnosis Term Meter Installer Utility Asthma 08/13/2014 07/27/2015 Overview: ICD10 Diagnosis Term Meter Installer Utility History of recurrent UTIs 08/13/2014 02/28/2015 Overview: Since age 13 after sexual activities wit h monthly episiod documented as of this encounter (statuses as of 12/27/2019) Immunizations Name Administration Dates Next Due HPV [...] Telephone Encounter - Marcel Gupta RN - 12/27/2019 10:56 AM CDTMessage returned from ID provider on 12/24 to report lab orders in, UTI medication previously sent to pharmacy and client was aware of plan. RW client chart reviewed for compliance. Client attended telehealth RW psychiatry appointment yesterday but did not come to clinic for scheduled vaccines and lab work. Call attempted to client for CM follow-up, RW attestation and to discuss barriers to attend labsand vaccine appointments. Phone message received that phone is unreachable. Discreet text sentto client requesting a return call. 30 min taken documented in this encounter Plan of Treatment Date Type Specialty Care Team Description 01/23/2020 Nurse Visit Infectious Disease Yimi Soler PA [id number] [place], [place] [id number] Visit, [facility] Id Nurse 02/27/2020 Office Visit Infectious Disease Self, Nae basilio MD [address] [place] [address] 03/24/2020 Office Visit Keli Disease Yimi Soler PA [address] [place], [place] [address] Health Maintenance Due Date [...] Address Typ e / Group Dates [facility] [id number] 2019-Prese [phone] Medicaid WOMEN nt [address] [place] [address] documented as of this encounter Advance Directives Name Relationship Healthcare Agent Communication Relationship Kenny Chaidez Mother Health Care Agent
--- OUTSIDE RECORDS SUMMARY | 2020-02-08 12:53 | XMS REPORT | Summary of Care ---
:1995 Author Organization [address] [address] Care Team Providers Name Role Phone Eugenoi Leung [facility] Primary Care Provider Reason for Visit Reason Comments Notification Referral/consult [facility] PATIENT EDUCATION Benefits/risks Encounter Details Date Type Department Care Team Description 01/03/2020 Telephone [facility] Marcel Gupta RN Notification Infectious Diseases- [address] [place] [address] (Preg [place]); [facility] Referral/consult ([address] pediatrics); [address] [facility] (Benefits/risks) [place] [address] Allergies No Known Allergiesdocumented as [...] times disorder) daily as needed for Anxiety. rmkkjngro-adglitgv-aopns TAKE 1 TABLET 30 tablet 4 01/01/2020 [...] started earlier at the provider s discretion). [email or web address] Pager [phone] Stye external 01/16/2015 02/28/2015 Urinary tract infection, site not specified 11/22/2014 07/27/2015 Overview: Now on daily suppression Abnormal maternal glucose tolerance, antepartum 11/20/2014 02/28/2015 Overview: Passed 3 hr gtt Dizziness 11/04/2014 02/28/2015 Urinary tract infection, site not specified 08/18/2014 11/04/2014 Supervision of other high-risk 08/13/2014 02/28/2015 Overview: ICD10 Diagnosis Term Wooden Boat Builder Utility Tobacco use disorder complicating , childbirth, or 08/13/2014 02/28/2015 puerperium, antepartum Overview: ICD10 Diagnosis Term Wooden Boat Builder Utility Asthma 08/13/2014 07/27/2015 Overview: ICD10 Diagnosis Term Wooden Boat Builder Utility History of recurrent UTIs 08/13/2014 02/28/2015 [...] referral and statusreport emailed to the Pediatrics case management coordinator for assistance. Client was diagnosed HIV positive [...] likely for the last few months. This CM plannedto graduate client from CM to Open after viral suppression confirmation received. Referral report also includes client actively engaged in Psychiatry with Dr Braun and is taking psych medication for anxiety and depression that will need to be evaluated for safety during . 60 min taken documented in this encounter Plan of Treatment Date Type Specialty Care Team Description 01/08/2020 Office Visit [facility], [facility] Room 01/08/2020 Initial Visit [facility] Scar Vargas, INTERNET SALES MANAGER [address] [place], [place] [address] [phone] 01/23/2020 Nurse Visit Keli Disease Yimi Soler PA [id number] [place] [address] [phone] Visit, [facility] Id Nurse 02/27/2020 Office Visit Infectious Disease Nae Braun MD [address] [place] [phone] 03/24/2020 Office Visit Infectious Disease EastYimi PA [address] [place], [place] [address] Health Maintenance Due Date [...] Typ e / Group Dates [facility] [id number] 2019-Prese [phone] Medicaid WOMEN nt [address] [place] [address] documented as of this encounter Advance Directives Name Relationship Healthcare Agent Communication Relationship Kenny Chaidez Mother Health Care Agent
--- OUTSIDE RECORDS SUMMARY | 2020-02-08 12:53 | XMS REPORT | Summary of Care ---
:1995 Author Organization [facility] - [facility] Address [address] [place] [address] Care Team Providers Name Role Phone [facility] Reason for Visit Reason Comments LAB Encounter Details Date Type Department Care Team Description 01/02/2020 Side Piece Coverer Visit [facility] [place], [place] [address] [facility] [id number] [place], [place] [address] Malodorous urine; [facility] Pcp-Lab Human immunodeficiency virus (HIV) disea se LAB Primary Care [address] [address] Allergies No Known Allergiesdocumented as of this encounter (statuses as of 01/02/2020) Medications Medication Sig Dispensed Refills Start Date [...] times disorder) daily as needed for Anxiety. lppzzgauh-ggtdoqki-unnng TAKE 1 TABLET 30 tablet 4 01/01/2020 Active ov ala 50-200-25 mg BY MOUTH ONCE tabletIndications: Human DAILY WITH OR immunodeficiency virus WITHOUT FOOD (HIV) disease documented as of this encounter (statuses as of 01/02/2020) Active Problems Problem Noted Date Missed menses 07/24/2019 Infectious disease contact 07/24/2019 Human immunodeficiency virus (HIV) disease 07/24/2019 History of herpes genitalis 12/14/2018 Overview: Suppression at 36 weeks Counseling on sexually transmitted disease 07/27/2015 documented as of this encounter (statuses as of 01/02/2020) Resolved Problems Problem Noted Date Resolved Date [...] started earlier at the provider s discretion). [email or web address] Pager [phone] Stye external 01/16/2015 02/28/2015 Urinary tract infection, site not specified 11/22/2014 07/27/2015 Overview: Now on daily suppression Abnormal maternal glucose tolerance, antepartum 11/20/2014 02/28/2015 Overview: Passed 3 hr gtt Dizziness 11/04/2014 02/28/2015 Urinary tract infection, site not specified 08/18/2014 11/04/2014 Supervision of other high-risk 08/13/2014 02/28/2015 Overview: ICD10 Diagnosis Term Strainer Cleaner Utility Tobacco use disorder complicating , childbirth, or 08/13/2014 02/28/2015 puerperium, antepartum Overview: ICD10 Diagnosis Term Strainer Cleaner Utility Asthma 08/13/2014 07/27/2015 Overview: ICD10 Diagnosis Term Strainer Cleaner Utility History of recurrent UTIs 08/13/2014 02/28/2015 Overview: Since age 13 after sexual activities wit h monthly episiod documented as of this encounter (statuses as of 01/02/2020) Immunizations Name Administration Dates Next Due HPV [...] Signs Not on filedocumented in this encounter Nursing Notes Talia Pal - 01/02/2020 1:30 PM CDT Venipuncture collection performed by clean technique on the left forearm(s). Total of 1 attempts were made. Slight pressure and a bandage/dressing were applied to the site(s). The patient experienced no complications. The following specimens were processed according to instructions and sent to [facility] laboratories per lab order on 01/02/2020: LT BLUE SST RED LAV 1 PPT 1 DK GREEN (LiHep) DK GREEN (SodH) FLORES DK BLUE (K2) DK BLUE (S) ACD Blood Culture NIPT/NTD Patient has been identified by and name and was provided with cup, antiseptic towelette, and clean catch instructions. 3 urine specimen(s) sent. Unpreserved 1 Urine Culture 1 Aptima tube 1 Other urine documented in this encounter Plan of Treatment Date Type Specialty Care Team Description 01/23/2020 Nurse Visit Infectious Disease Yimi Soler PA [address] [id number] [place], [place] [id number] Visit, [facility] [place] Id Nurse 02/27/2020 [facility] [address] [place] [address] 03/24/2020 Office Visit Infectious Disease Yimi Soler PA [address] [place], [place] [address] Name Type Priority Associated Diagnoses Date/Ti me TRICHOMONAS AMPLIFIED LAB Routine Malodorous urine 1:41 PM ASSAY CDT URINE CULTURE LAB Routine Malodorous urine 01/02/2020 1:41 PM CDT GC & CHLAMYDIA LAB Routine Malodorous urine 0 1:41 PM AMPLIFIED ASSAY CDT URINALYSIS LAB Routine Malodorous urine 01/02/2020 1:41 PM CDT CD4 SUBSET ASSAY LAB Routine Human immunodeficiency v irus 01/02/2020 1:41 PM (HIV) disease CDT HIV1 BY REAL-TIME PCR LAB Routine Human immunodeficie ncy virus 01/02/2020 1:41 PM QUANT (HIV) disease CDT Health Maintenance Due Date Last Done Comments [...] filedocumented in this encounter Visit Diagnoses Diagnosis Malodorous urine Other nonspecific finding on examination of urine Human immunodeficiency virus (HIV) disea se Human immunodeficiency virus [HIV] disea se documented in this encounter Advance Directives Name Relationship Healthcare Agent Communication Relationship Kenny Chaidez Mother Health Care Agent
--- OUTSIDE RECORDS SUMMARY | 2020-02-08 12:54 | XMS REPORT | Summary of Care ---
:1995 [address] [address] Care Team Providers Name Role Phone Eugenio Leung [facility] Primary Care Provider Reason for Visit Reason Comments Notification Referral/consult Douglas Ackerman pediatricsrefer/c onfirm PATIENT EDUCATION Benefits/risks Encounter Details Date Type Department Care Team Description 01/03/2020 Telephone [facility] Marcel Gupta , RN Notification Infectious Diseases- [address] [place] [address] (Preg yang); [facility] Referral/consult ([place] [address] [place] [address], 6[address] m); PATIENT EDUCATION [place], [place] (Benefits/risk s) [phone] Allergies No Known Allergiesdocumented as of this encounter (statuses as of 01/09/2020) Medications Medication Sig Dispensed Refills Start Date [...] times disorder) daily as needed for Anxiety. gbgrdowqu-ckyfiiik-gyvsz TAKE 1 TABLET 30 tablet 4 01/01/2020 Active ov ala 50-200-25 mg BY MOUTH ONCE tabletIndications: Human DAILY WITH OR immunodeficiency virus WITHOUT FOOD (HIV) disease documented as of this encounter (statuses as of 01/09/2020) Active Problems Problem Noted Date Missed menses 07/24/2019 Infectious disease contact 07/24/2019 Human immunodeficiency virus (HIV) disease 07/24/2019 History of herpes genitalis 12/14/2018 Overview: Suppression at 36 weeks Counseling on sexually transmitted disease 07/27/2015 documented as of this encounter (statuses as of 01/09/2020) Resolved Problems Problem Noted Date Resolved Date [...] started earlier at the provider s discretion). [email or web address] Pager [phone] Stye external 01/16/2015 02/28/2015 Urinary tract infection, site not specified 11/22/2014 07/27/2015 Overview: Now on daily suppression Abnormal maternal glucose tolerance, antepartum 11/20/2014 02/28/2015 Overview: Passed 3 hr gtt Dizziness 11/04/2014 02/28/2015 Urinary tract infection, site not specified 08/18/2014 11/04/2014 Supervision of other high-risk 08/13/2014 02/28/2015 Overview: ICD10 Diagnosis Term Patient Support Associate Utility Tobacco use disorder complicating , childbirth, or 08/13/2014 02/28/2015 puerperium, antepartum Overview: ICD10 Diagnosis Term Patient Support Associate Utility Asthma 08/13/2014 07/27/2015 Overview: ICD10 Diagnosis Term Patient Support Associate Utility History of recurrent UTIs 08/13/2014 02/28/2015 Overview: Since age 13 after sexual activities wit h monthly episiod documented as of this encounter (statuses as of 01/09/2020) Immunizations Name Administration Dates Next Due HPV [...] this encounter Miscellaneous Notes Telephone Encounter - Nguyễn Braun MD - 01/09/2020 1:53 PM CDTCalled patient to tell patient to stop taking concerta, patient states she has already stopped taking it. Patient states she is okay with her currently scheduled appointment, doesn't need a sooner one. [place] want her appointment to be tele-health bc it's hard for her to travel. elephone Encounter - Marcel Gupta RN - 01/09/2020 11:19 AM CDT EPIC review indicates Pediatric referral for client report of still pending client contact. Routing note to ID and Psychiatry providers to review for needs while waiting for Pediatrics contact. elephone Encounter - Marcel Gupta RN - [...] referral and statusreport emailed to the Pediatrics employment evaluator/case manager for assistance. Client was diagnosed HIV positive [...] months. This CM plannedto graduate client from to [facility] after viral suppression confirmation received. Referral [...] Disease Yimi Soler PA [id number] [place] [address] Visit, [facility] Id Nurse 02/27/2020 Office Visit Infectious Disease Nae Braun MD [address] [place] [address] 03/24/2020 Office Visit Infectious Disease Yimi Soler PA [address] [place], [place] [address] Health Maintenance Due Date [...] Address Typ e / Group Dates [facility] [id number] 2019-Prese [phone] Medicaid WOMEN nt [address] [place] [address] documented as of this encounter Advance Directives Name Relationship Healthcare Agent Communication Relationship Kenny Chaidez Mother Health Care Agent
--- OUTSIDE RECORDS SUMMARY | 2020-02-08 12:54 | XMS REPORT | Summary of Care ---
:1995 Author Organization [address] [address] Care Team Providers Name Role Phone Eugenio Leung [facility] Primary Care Provider Reason for Visit Reason Comments Notification Referral/consult Douglas Ackerman pediatricsrefer/c onfirm PATIENT EDUCATION Benefits/risks Encounter Details Date Type Department Care Team Description 01/03/[address] [facility] Marcel Gupta , RN Notification Infectious Diseases- [address] [place] [address] (Preg yang); [place] [facility] Referral/consult ([place] [address] [place] [address], 6[address] Floor m); PATIENT EDUCATION [place], [place] (Benefits/risk s) [phone] Allergies No Known [...] times disorder) daily as needed for Anxiety. tyzycqjcb-ujceshio-ldtsg TAKE 1 TABLET 30 tablet 4 01/01/2020 [...] started earlier at the provider s discretion). [email or web address] Pager [phone] Stye external 01/16/2015 02/28/2015 Urinary tract infection, site not specified 11/22/2014 07/27/2015 Overview: Now on daily suppression Abnormal maternal glucose tolerance, antepartum 11/20/2014 02/28/2015 Overview: Passed 3 hr gtt Dizziness 11/04/2014 02/28/2015 Urinary tract infection, site not specified 08/18/2014 11/04/2014 Supervision of other high-risk 08/13/2014 02/28/2015 Overview: ICD10 Diagnosis Term Voice Over Announcer Utility Tobacco use disorder complicating , childbirth, or 08/13/2014 02/28/2015 puerperium, antepartum Overview: ICD10 Diagnosis Term Voice Over Announcer Utility Asthma 08/13/2014 07/27/2015 Overview: ICD10 Diagnosis Term Voice Over Announcer Utility History of recurrent UTIs 08/13/2014 02/28/2015 [...] Telephone Encounter - Marcel Gupta RN - 01/09/2020 11:19 AM CDTEPIC review indicates Pediatric referral for client report [...] referral and statusreport emailed to the Pediatrics skilled nursing case manager for assistance. Client was diagnosed HIV [...] This CM plannedto graduate client from to [facility] after viral suppression confirmation received. Referral report also includes client actively engaged in Psychiatry with Dr Braun and is taking psych medication for anxiety and depression that will need to be evaluated for safety during . 60 min taken documented in this encounter Plan of Treatment Date Type Specialty Care Team Description 01/09/2020 Office Visit [facility] [address] [place] [address] [phone] 3, [facility] Room 01/09/2020 Initial Visit [facility] Marcelinoyogi Tarikrosie Becker, [facility] [address] [place], [place] [address] [phone] 01/23/2020 Nurse Visit Infectious Disease Yimi Soler PA [address] [place], [place] [id number] Visit, [facility] Id Nurse 02/27/2020 Office Visit Infectious Disease Nae Braun MD [address] [place] [address] 03/24/2020 Office Visit Keli Disease Yimi Soler PA [address] [place], [place] [address] Health Maintenance Due Date [...] Typ e / Group Dates [facility] [id number] 2019-Prese [phone] Medicaid WOMEN nt [address] [place] [address] documented as of this encounter Advance Directives Name Relationship Healthcare Agent Communication Relationship Kenny Chaidez Mother Health Care Agent
--- OUTSIDE RECORDS SUMMARY | 2020-02-08 12:54 | XMS REPORT | Summary of Care ---
:1995 Author Organization [address] [address] Care Team Providers Name Role Phone Eugenio Leung [facility] Primary Care Provider Reason for Visit Reason Comments Case Management Encounter Details Date Type Department Care Team Description 01/08/2020 Telephone [facility] Julia Mathias LVN Case Management Specialties [address] [place], [place] [address] [address] [place] [address] Allergies No Known Allergiesdocumented as of this encounter (statuses as of 01/08/2020) Medications Medication Sig Dispensed Refills Start Date [...] times disorder) daily as needed for Anxiety. wpmklfefj-glajhfsd-irznq TAKE 1 TABLET 30 tablet 4 01/01/2020 Active ov ala 50-200-25 mg BY MOUTH ONCE tabletIndications: Human DAILY WITH OR immunodeficiency virus WITHOUT FOOD (HIV) disease amoxicillin 500 mg Take 1 capsule 15 capsule 0 01/07/2020 Active capsuleIndications: by mouth 3 Malodorous urine (three) times daily. documented as of this encounter (statuses as of 01/08/2020) Active Problems Problem Noted Date Missed menses 07/24/2019 Infectious disease contact 07/24/2019 Human immunodeficiency virus (HIV) disease 07/24/2019 History of herpes genitalis 12/14/2018 Overview: Suppression at 36 weeks Counseling on sexually transmitted disease 07/27/2015 documented as of this encounter (statuses as of 01/08/2020) Resolved Problems Problem Noted Date Resolved Date [...] started earlier at the provider s discretion). [email or web address] Pager [phone] Stye external 01/16/2015 02/28/2015 Urinary tract infection, site not specified 11/22/2014 07/27/2015 Overview: Now on daily suppression Abnormal maternal glucose tolerance, antepartum 11/20/2014 02/28/2015 Overview: Passed 3 hr gtt Dizziness 11/04/2014 02/28/2015 Urinary tract infection, site not specified 08/18/2014 11/04/2014 Supervision of other high-risk 08/13/2014 02/28/2015 Overview: ICD10 Diagnosis Term Radiologic Electronic Specialist Utility Tobacco use disorder complicating , childbirth, or 08/13/2014 02/28/2015 puerperium, antepartum Overview: ICD10 Diagnosis Term Radiologic Electronic Specialist Utility Asthma 08/13/2014 07/27/2015 Overview: ICD10 Diagnosis Term Radiologic Electronic Specialist Utility History of recurrent UTIs 08/13/2014 02/28/2015 Overview: Since age 13 after sexual activities wit h monthly episiod documented as of this encounter (statuses as of 01/08/2020) Immunizations Name Administration Dates Next Due HPV [...] this encounter Miscellaneous Notes Telephone Encounter - Julia Keen LVN - 01/08/2020 12:14 PM CDTSeveral phone calls made to schedule new patient visit with Pedi ID. No voicemail set up. Discreet text sent. 15 minutes taken. documented in this encounter Plan of Treatment Date Type Specialty Care Team Description 01/08/2020 Office Visit [facility] , [facility] Room 01/08/2020 Initial Visit [facility] Scar Vargas, DOCUMENTATION IMPROVEMENT SPECIALIST [address] [place], [place] [address] [phone] 01/23/2020 Nurse Visit Infectious Disease Yimi Soler PA [id number] [place] [address] [phone] Visit, [facility] Id Nurse 02/27/2020 Office Visit Infectious Disease Nae Braun MD [address] [place] [phone] 03/24/2020 Office Visit Infectious Disease Yimi Soler PA [address] [place], [place] [address] Health Maintenance Due Date [...] Address Typ e / Group Dates [facility] [id number] 2019-Prese [phone] Medicaid WOMEN [address] [place] [address] documented as of this encounter Advance Directives Name Relationship Healthcare Agent Communication Relationship Kenny Chaidez Mother Health Care Agent
--- OUTSIDE RECORDS SUMMARY | 2020-02-08 12:54 | XMS REPORT | Summary of Care ---
:1995 Author Organization [address] [address] Care Team Providers Name Role Phone Eugenio Leung [facility] Primary Care Provider Reason for Visit Reason Comments Case Management Encounter Details Date Type Department Care Team Description 01/18/2020 Telephone [facility] Julia Mathias LVN Case Management Specialties [address] [place], [place] [address] [address] [place] [address] Allergies No Known Allergiesdocumented as of this encounter (statuses as of 01/18/2020) Medications Medication Sig Dispensed Refills Start Date [...] times disorder) daily as needed for Anxiety. bnwampwol-wuxbaptw-zkbay TAKE 1 TABLET 30 tablet 4 01/01/2020 Active ov ala 50-200-25 mg BY MOUTH ONCE tabletIndications: Human DAILY WITH OR immunodeficiency virus WITHOUT FOOD (HIV) disease amoxicillin 500 mg Take 1 capsule 15 capsule 0 01/07/2020 Active capsuleIndications: by mouth 3 Malodorous urine (three) times daily. documented as of this encounter (statuses as of 01/18/2020) Active Problems Problem Noted Date Missed menses 07/24/2019 Infectious disease contact 07/24/2019 Human immunodeficiency virus (HIV) disease 07/24/2019 History of herpes genitalis 12/14/2018 Overview: Suppression at 36 weeks Counseling on sexually transmitted disease 07/27/2015 documented as of this encounter (statuses as of 01/18/2020) Resolved Problems Problem Noted Date Resolved Date [...] started earlier at the provider s discretion). [email or web address] Pager [phone] Stye external 01/16/2015 02/28/2015 Urinary tract infection, site not specified 11/22/2014 07/27/2015 Overview: Now on daily suppression Abnormal maternal glucose tolerance, antepartum 11/20/2014 02/28/2015 Overview: Passed 3 hr gtt Dizziness 11/04/2014 02/28/2015 Urinary tract infection, site not specified 08/18/2014 11/04/2014 Supervision of other high-risk 08/13/2014 02/28/2015 Overview: ICD10 Diagnosis Term Director Of Tax Services Utility Tobacco use disorder complicating , childbirth, or 08/13/2014 02/28/2015 puerperium, antepartum Overview: ICD10 Diagnosis Term Director Of Tax Services Utility Asthma 08/13/2014 07/27/2015 Overview: ICD10 Diagnosis Term Director Of Tax Services Utility History of recurrent UTIs 08/13/2014 02/28/2015 Overview: Since age 13 after sexual activities wit h monthly episiod documented as of this encounter (statuses as of 01/18/2020) Immunizations Name Administration Dates Next Due HPV [...] Telephone Encounter - Julia Keen LVN - 01/18/2020 11:12 AM CDTCalled preferred contact number, no answer and no voice mailbox set up to leave message. Contacted secondary number (mother) and left discreet message to return call to schedule appointment. Contact numbers given. 15 minutes taken. documented in this encounter Plan of Treatment Date Type Specialty Care Team Description 01/23/2020 Nurse Visit Infectious Disease Yimi Soler PA [id number] [place] [address] [phone] Visit, [facility] Id Nurse 02/27/2020 Office Visit Infectious Disease Self, Nae basilio MD [address] [place] [address] 03/24/2020 Office Visit Infectious Disease Yimi Soler PA [address] [place], [place] [address] Health Maintenance Due Date [...] Phone Address Typ e / Group Dates [facility] [id number] 2019-Prese [phone] Medicaid WOMEN nt [address] [place] [address] documented as of this encounter Advance Directives Name Relationship Healthcare Agent Communication Relationship Kenny Chaidez Mother Health Care Agent
--- OUTSIDE RECORDS SUMMARY | 2020-02-08 12:54 | XMS REPORT | Summary of Care ---
:1995 Author Organization [facility] Address [address] [place] [address] Care Team Providers Name Role Phone [facility]enio [facility]ung [facility] Primary [facility] Provider Reason for Visit Reason Comments LAB Encounter Details Date Type Department Care Team Description 01/02/2020 Returned Item [facility] [address] [facility] [id number] [place], [place] [id number] Malodorous urine; [facility] Pcp-Lab Human immunodeficiency virus (HIV) disea se LAB Primary Care [address] [address] Allergies No Known Allergiesdocumented as of this encounter (statuses as of 01/07/2020) Medications Medication Sig Dispensed Refills Start Date [...] times disorder) daily as needed for Anxiety. ncgmozplu-xerhzfxd-rxnlh TAKE 1 TABLET 30 tablet 4 01/01/2020 Active ov ala 50-200-25 mg BY MOUTH ONCE tabletIndications: Human DAILY WITH OR immunodeficiency virus WITHOUT FOOD (HIV) disease amoxicillin 500 mg Take 1 capsule 15 capsule 0 01/07/2020 Active capsuleIndications: by mouth 3 Malodorous urine (three) times daily. documented as of this encounter (statuses as of 01/07/2020) Active Problems Problem Noted Date Missed menses 07/24/2019 Infectious disease contact 07/24/2019 Human immunodeficiency virus (HIV) disease 07/24/2019 History of herpes genitalis 12/14/2018 Overview: Suppression at 36 weeks Counseling on sexually transmitted disease 07/27/2015 documented as of this encounter (statuses as of 01/07/2020) Resolved Problems Problem Noted Date Resolved Date [...] s discretion). [email or web address] Pager [phone] Stye external 01/16/2015 02/28/2015 Urinary tract infection, site not specified 11/22/2014 07/27/2015 Overview: Now on daily suppression Abnormal maternal glucose tolerance, antepartum 11/20/2014 02/28/2015 Overview: Passed 3 hr gtt Dizziness 11/04/2014 02/28/2015 Urinary tract infection, site not specified 08/18/2014 11/04/2014 Supervision of other high-risk 08/13/2014 02/28/2015 Overview: ICD10 Diagnosis Term Java Developer Architect Utility Tobacco use disorder complicating , childbirth, or 08/13/2014 02/28/2015 puerperium, antepartum Overview: ICD10 Diagnosis Term Java Developer Architect Utility Asthma 08/13/2014 07/27/2015 Overview: ICD10 Diagnosis Term Java Developer Architect Utility History of recurrent UTIs 08/13/2014 02/28/2015 Overview: Since age 13 after sexual activities wit h monthly episiod documented as of this encounter (statuses as of 01/07/2020) Immunizations Name Administration Dates Next Due HPV [...] on filedocumented in this encounter Nursing Notes Sol Soler PA - 01/02/2020 1:30 PM CDTBased on the patient's sx (malodorous urine, low back pain), UA and urine culture results, I electedto prescribe amoxicillin 500 mg TID x 5 days Discussed results and tx with patient alia Pal - 01/02/2020 1:30 PM CDT Venipuncture collection performed by clean technique on the left forearm(s). Total of 1 attempts were made. Slight pressure and a bandage/dressing were applied to the site(s). The patient experienced no complications. The following specimens were processed according to instructions and sent to [facility] laboratories per lab order on 01/02/2020: LT [...] 1 Other urine documented in this encounter Miscellaneous Notes Addendum Note - Sol oSler PA - 01/02/2020 1:30 PM CDT Addended by: SOL RUBIO on: 01/07/2020 09:03 AM Modules accepted: Orders documented in this encounter Plan of Treatment Date Type Specialty Care Team Description 01/08/2020 Office Visit OB Satellites Delvin, [facility] Room 01/08/2020 Initial Visit OB Satellites Scar Vargas, SANDRA [address] [place], [place] [address] [phone] 01/23/2020 Nurse Visit Infectious Disease Sol Soler PA [address] [id number] [place] [address] [phone] Visit, [facility] Id Nurse 02/27/2020 Office Visit Infectious Disease SelfNae MD [address] [place] [address] 03/24/2020 Office Visit Infectious Disease Sol Soler PA [address] [place], [place] [address] Health Maintenance Due Date [...] Procedures Procedure Name Priority Date/Time Associated Diagnosis Comme nts TRICHOMONAS Routine 01/02/2020 1:41 Malodorous urine Results for this AMPLIFIED ASSAY PM CDT procedure ar e in the results section. HIV1 BY REAL-TIME Routine 01/02/2020 1:41 Human immunodeficie ncy Results for this PCR QUANT PM CDT virus (HIV) disease procedur e are in the results section. GC & CHLAMYDIA Routine 01/02/2020 1:41 Malodorous urine Resul ts for this AMPLIFIED ASSAY PM CDT procedure ar e in the results section. URINE CULTURE Routine 01/02/2020 1:41 Malodorous urine Result s for this PM CDT procedure are i n the results section. URINALYSIS Routine 01/02/2020 1:41 Malodorous urine Results for this PM CDT procedure are i n the results section. CD4 SUBSET ASSAY Routine 01/02/2020 1:41 Human immunodeficien cy Results for this PM CDT virus (HIV) disease procedur e are in the results section. documented in this encounter Results HIV1 BY REAL-TIME PCR QUANT (01/02/2020 1:41 PM CDT) Pathologist [facility] HIV 1 by Real-Time Not Detected Not Detected [facility]ORATORY PCR SERVICES Specimen Blood - ARM, LEFT Narrative Performed At HIV-1 Real-Time PCR [facility] Interpretative data: Living Proof m2000 Real Time HIV-1 reverse fiberglass product tester-polymerase chain reaction (RT-PCR) assay is used. It is FDA approved for plasma samples to measure HIV-1 RNA for use as an aid in the management of HIV-1 infec harry individuals. The FDA approved dynamic range of this te st is 40 to 10,000,000 copies/mL (1.60-7.00 Log copies/mL). Assay results are reported in copies/mL; 1 copy = 1.74 IU (International Units). Sample input volu me is 0.6 mL. Result Interpretation: Not Detected: Target not detected (not the same as negative); <40 copies/mL: Detected (but not quantif iable); 40-10,000,000 copies/mL >10,000,000 copies/mL; > upper limit of quantification. Performing Organization Address City/[facility]/Zipcode Phone Number [facility] CLIA: [id number] [place], [place] [id number] [address] [place] [address] CD4 SUBSET ASSAY (01/02/2020 1:41 PM CDT) Pathologist Sig nature CD4 % 42 31 - 60 % [facility] CD4 Absolute 1,365 410-1,590 Cells/L [facility] SERVI JOSE Specimen Blood - ARM, LEFT Performing Organization Address City/[facility]/Zipcode Phone Number [facility] CLIA: [id number] [place] [address] [phone] [address] [facility] URINALYSIS (01/02/2020 1:41 PM CDT) APPEARANCE Hazy (A) Clear [facility] COLOR Yellow Yellow [facility] PH 6.0 4.8 - 8.0 [facility] SP GRAVITY 1.021 1.003 - 1.030 [facility] GLU U QUAL Normal Normal [facility] BLOOD NegativeComment: Negative [facility] Interference from SERVICES ascorbic acid may cause false negative results. KETONES Negative Negative [facility] PROTEIN Negative Negative [facility] UROBILIN Normal Normal [facility] BILIRUBIN Negative Negative [facility] NITRITE Positive (A) Negative [facility] LEUK JOAN Negative Negative [facility] RBC/HPF 2 0 - 3 HPF [facility] WBC/HPF 4 0 - 5 HPF [facility] BACTERIA Moderate (A) Negative [facility] MUCOUS Marked (A) Negative LPF [facility] SERVICES SQ EPITH 2 <=2 HPF [facility] ASCORBIC ACID 20 mg/dL [facility] SERVICES Specimen Urine - URINE, CLEAN CATCH Performing Organization Address [facility] Centercomd Phone Number [facility] CLIA: [id number] [place] [address] [place] [address] GC & CHLAMYDIA AMPLIFIED ASSAY (01/02/2020 1:41 PM CDT) Pathologist Sig nature C. trachomatis Nucleic Negative Negative [facility] Acid SERVICES N. gonorrhoeae Nucleic Negative Negative [facility] Acid SERVICES Specimen Urine - Urine, First Catch (First Void) Performing Organization Address [facility] Phone Number [facility] CLIA: [id number] [place] [address] [place] [address] URINE CULTURE (01/02/2020 1:41 PM CDT) URINE CULTURE >100,000 CFU/mL [facility]ORY Escherichia coli SERVICES Specimen Urine - URINE, CLEAN CATCH Organism Antibiotic Method Susceptibility Escherichia coli Ampicillin SUSCEPTIBILITY TESTING <=2: Seble ceptible Escherichia coli Cefazolin SUSCEPTIBILITY TESTING <=4: Seble ceptible Escherichia coli Ceftriaxone SUSCEPTIBILITY TESTING <=1: Seble ceptible Escherichia coli Ciprofloxacin SUSCEPTIBILITY TESTING <=0.25: Susceptible Escherichia coli Ertapenem SUSCEPTIBILITY TESTING <=0.5: S usceptible Escherichia coli Gentamicin SUSCEPTIBILITY TESTING <=1: Seble ceptible Escherichia coli Levofloxacin SUSCEPTIBILITY TESTING <=0.12: Susceptible Escherichia coli Nitrofurantoin SUSCEPTIBILITY TESTING <=16: Alonzo sceptible Escherichia coli Piperacillin/Tazobactam SUSCEPTIBILITY TESTING <=4: Susceptible Escherichia coli Trimethoprim/Sulfamethoxa SUSCEPTIBILITY TESTIN G <=20: Susceptible man Comment: Nitrofurantoin is not recommended for us e in treating pyelonephritis or systemic disease. Performing Organization Address City/State/Zipcode Phone Number [facility] CLIA: [id number] [place] [address] [phone] [address] [facility] TRICHOMONAS AMPLIFIED ASSAY (01/02/2020 1:41 PM CDT) Pathologist Sig nature Trichomonas Nucleic Negative Negative [facility] Acid SERVICES Specimen Urine - Urine, First Catch (First Void) Performing Organization Address City/[facility] Centercode Phone Number [facility] CLIA: [id number] [place], [place] [address] [address] [place] [address] documented in this encounter Visit Diagnoses Diagnosis Malodorous urine Other nonspecific finding on examination of urine Human immunodeficiency virus (HIV) disea se Human immunodeficiency virus [HIV] disea se documented in this encounter Advance Directives Name Relationship Healthcare Agent Communication Relationship Kenny Chaidez Mother Health Care Agent
--- OUTSIDE RECORDS SUMMARY | 2020-02-08 12:54 | XMS REPORT | Summary of Care ---
:1995 Author Organization [place] [id number] Care Team Providers Name Role Phone Eugenio Leung [facility] Primary Care Provider Reason for Visit Reason Comments Consult Psych, pedi Follow-up Pedi transfer assist Encounter Details Date Type Department Care Team Description 01/10/2020 Telephone [facility] Marcel Gupta RN Consult (Psych, pedi); Infectious Diseases- [address] [place] [address] w-up (Critical access hospital transfer assist) [address] [place] [address] Allergies No Known Allergiesdocumented as of this encounter (statuses as of 01/10/2020) Medications Medication Sig Dispensed Refills Start Date [...] times disorder) daily as needed for Anxiety. iswkgnmuc-auavmsaj-pqjyr TAKE 1 TABLET 30 tablet 4 01/01/2020 Active ov ala 50-200-25 mg BY MOUTH ONCE tabletIndications: Human DAILY WITH OR immunodeficiency virus WITHOUT FOOD (HIV) disease amoxicillin 500 mg Take 1 capsule 15 capsule 0 01/07/2020 Active capsuleIndications: by mouth 3 Malodorous urine (three) times daily. documented as of this encounter (statuses as of 01/10/2020) Active Problems Problem Noted Date Missed menses 07/24/2019 Infectious disease contact 07/24/2019 Human immunodeficiency virus (HIV) disease 07/24/2019 History of herpes genitalis 12/14/2018 Overview: Suppression at 36 weeks Counseling on sexually transmitted disease 07/27/2015 documented as of this encounter (statuses as of 01/10/2020) Resolved Problems Problem Noted Date Resolved Date [...] started earlier at the provider s discretion). [email or web address] Pager [phone] Stye external 01/16/2015 02/28/2015 Urinary tract infection, site not specified 11/22/2014 07/27/2015 Overview: Now on daily suppression Abnormal maternal glucose tolerance, antepartum 11/20/2014 02/28/2015 Overview: Passed 3 hr gtt Dizziness 11/04/2014 02/28/2015 Urinary tract infection, site not specified 08/18/2014 11/04/2014 Supervision of other high-risk 08/13/2014 02/28/2015 Overview: ICD10 Diagnosis Term Dental Scheduler Utility Tobacco use disorder complicating , childbirth, or 08/13/2014 02/28/2015 puerperium, antepartum Overview: ICD10 Diagnosis Term Dental Scheduler Utility Asthma 08/13/2014 07/27/2015 Overview: ICD10 Diagnosis Term Dental Scheduler Utility History of recurrent UTIs 08/13/2014 02/28/2015 Overview: Since age 13 after sexual activities wit h monthly episiod documented as of this encounter (statuses as of 01/10/2020) Immunizations Name Administration Dates Next Due HPV [...] Telephone Encounter - Marcel Gupta RN - 01/10/2020 2:32 PM CDTEPIC message returned from Psychiatrist, Dr Braun, confirming that client has been contacted and given instructions regarding medications and . Routing to Scotti Division Head for review. 30min taken documented in this encounter Plan of Treatment Date Type Specialty Care Team Description 01/23/2020 Nurse Visit Infectious Disease Yimi Soler PA [address] [facility] [id number] [place], [place] [id number] Visit, [facility] Id Nurse 02/27/2020 Office Visit Infectious Disease Nae Braun MD [address] [place] [address] 03/24/2020 Office Visit Infectious Disease Yimi Soler PA [address] [place], [place] [address] Health Maintenance Due Date [...] Address Typ e / Group Dates [facility] [id number]-Prese [phone] Medicaid WOMEN nt [address] [place] [address] documented as of this encounter Advance Directives Name Relationship Healthcare Agent Communication Relationship Kenny Chaidez Mother Health Care Agent
--- OUTSIDE RECORDS SUMMARY | 2020-02-08 12:55 | XMS REPORT | Summary of Care ---
:1995 Author Organization [address] [address] Care Team Providers Name Role Phone Eugenio Leung [facility] Primary Care Provider Reason for Visit Reason Comments Case Management Encounter Details Date Type Department Care Team Description 01/22/2020 Telephone [facility] Julia Mathias LVN Case Management Specialties [address] [place], [place] [address] [address] [place] [address] Allergies No Known Allergiesdocumented as of this encounter (statuses as of 01/22/2020) Medications Medication Sig Dispensed Refills Start Date [...] times disorder) daily as needed for Anxiety. czfdjzjag-vappdeog-ztpsx TAKE 1 TABLET 30 tablet 4 01/01/2020 Active ov ala 50-200-25 mg BY MOUTH ONCE tabletIndications: Human DAILY WITH OR immunodeficiency virus WITHOUT FOOD (HIV) disease amoxicillin 500 mg Take 1 capsule 15 capsule 0 01/07/2020 Active capsuleIndications: by mouth 3 Malodorous urine (three) times daily. documented as of this encounter (statuses as of 01/22/2020) Active Problems Problem Noted Date Missed menses 07/24/2019 Infectious disease contact 07/24/2019 Human immunodeficiency virus (HIV) disease 07/24/2019 History of herpes genitalis 12/14/2018 Overview: Suppression at 36 weeks Counseling on sexually transmitted disease 07/27/2015 documented as of this encounter (statuses as of 01/22/2020) Resolved Problems Problem Noted Date Resolved Date [...] started earlier at the provider s discretion). [email or web address] Pager [phone] Stye external 01/16/2015 02/28/2015 Urinary tract infection, site not specified 11/22/2014 07/27/2015 Overview: Now on daily suppression Abnormal maternal glucose tolerance, antepartum 11/20/2014 02/28/2015 Overview: Passed 3 hr gtt Dizziness 11/04/2014 02/28/2015 Urinary tract infection, site not specified 08/18/2014 11/04/2014 Supervision of other high-risk 08/13/2014 02/28/2015 Overview: ICD10 Diagnosis Term Paving Inspector Utility Tobacco use disorder complicating , childbirth, or 08/13/2014 02/28/2015 puerperium, antepartum Overview: ICD10 Diagnosis Term Paving Inspector Utility Asthma 08/13/2014 07/27/2015 Overview: ICD10 Diagnosis Term Paving Inspector Utility History of recurrent UTIs 08/13/2014 02/28/2015 Overview: Since age 13 after sexual activities wit h monthly episiod documented as of this encounter (statuses as of 01/22/2020) Immunizations Name Administration Dates Next Due HPV [...] Telephone Encounter - Julia Keen LVN - 01/22/2020 12:08 PM CDTContacted to confirm upcoming appointment, confirmed. Verified information for attestation. No changes in income or address. Discussed symptoms reported yesterday, will follow up with providers tomorrow at appointment. Verbalized understanding. Denies need for address or directions to clinic. 45 minutes taken. documented in this encounter Plan of Treatment Date Type Specialty Care Team Description 01/23/2020 Office Visit OB Satellites 2, [facility] Room 01/23/2020 Initial OB Satellites Mela Leung Visit C, [facility] [address] [place], [place] [address] [phone] 01/23/2020 Nurse Visit Infectious Disease Yimi Soler PA [id number] [place], [place] [address] Visit, [facility] Id Nurse 01/30/2020 Office Visit Pediatric Infectious Virology, Pcp Pedi Diseases Infec Disease 02/27/2020 Office Visit Infectious Disease Self, Nae basilio MD [address] [place] [phone] 03/24/2020 Office Visit Infectious Disease Yimi Soler PA [address] [place], [place] [address] Health Maintenance Due Date [...] Plan / Subscriber ID Effective Dates Phone Addre ss Type Group TMHP MEDICAID OF [id number] 2020-Present [phone] [address] Medicaid [place] [id number] [place] [phone] documented as of this encounter Advance Directives Name Relationship Healthcare Agent Communication Relationship Kenny Chaidez Mother Health Care Agent
--- OUTSIDE RECORDS SUMMARY | 2020-02-08 12:55 | XMS REPORT | Summary of Care ---
:1995 Author Organization [facility] Address [address] [place] [address] Care Team Providers Name Role Phone Eugenio Leugn [facility] Primary Care Provider Reason for Visit Reason Comments Case Management Encounter Details Date Type Department Care Team Description 01/18/2020 Telephone [facility] Pediatrics Patricia Keen, INLAYER SILVER Case Management ID-[facility] [address] [facility] [place] [place] [address] [address] , [address] [place] [address] Allergies No Known Allergiesdocumented as of this [...] times disorder) daily as needed for Anxiety. hazzbrgtt-rlmviwmp-xjqro TAKE 1 TABLET 30 tablet 4 01/01/2020 [...] started earlier at the provider s discretion). [email or web address] Pager [phone] Stye external 01/16/2015 02/28/2015 Urinary tract infection, site not specified 11/22/2014 07/27/2015 Overview: Now on daily suppression Abnormal maternal glucose tolerance, antepartum 11/20/2014 02/28/2015 Overview: Passed 3 hr gtt Dizziness 11/04/2014 02/28/2015 Urinary tract infection, site not specified 08/18/2014 11/04/2014 Supervision of other high-risk 08/13/2014 02/28/2015 Overview: ICD10 Diagnosis Term Metal Weigher Utility Tobacco use disorder complicating , childbirth, or 08/13/2014 02/28/2015 puerperium, antepartum Overview: ICD10 Diagnosis Term Metal Weigher Utility Asthma 08/13/2014 07/27/2015 Overview: ICD10 Diagnosis Term Metal Weigher Utility History of recurrent UTIs 08/13/2014 02/28/2015 [...] Encounter - Julia Keen LVN - 01/18/2020 11:32 AM CDTReceived incoming call to schedule new patient appointment. Reviewed new appointment information andexpectations. Reviewed medications, will need refills at appointment. Denies need for transportationassistance. All questions answered. Verbalized understanding of all information given. 30 minutes taken. documented in this encounter Plan of Treatment Date Type Specialty Care Team Description 01/23/2020 Nurse Visit Infectious Disease Yimi Soler PA [id number] [place], [place] [address] Visit, [facility] Id Nurse 01/30/2020 Office Visit Pediatric Infectious Virology, Pcp Pedi Diseases Infec Disease 02/27/2020 Office Visit Infectious Disease Self, Nae basilio MD [address] [place] [address] 03/24/2020 Office Visit Infectious Disease iYmi Soler PA [address] [place], [place] [address] Health Maintenance Due Date [...] Dates [facility] [id number] 2019-Prese [phone] Medicaid WOMEN nt [address] [place] [address] documented as of this encounter Advance Directives Name Relationship Healthcare Agent Communication Relationship Kenny Chaidez Mother Health Care Agent
--- OUTSIDE RECORDS SUMMARY | 2020-02-08 12:55 | XMS REPORT | Summary of Care ---
:1995 [address] [address] Care Team Providers Name Role Phone [facility] Reason for Visit Reason Comments Case Management RW CM UTI symptoms Consult RW team, ID provider Assessment UTI sx Encounter Details Date Type Department Care Team Description 01/21/2020 Telephone [facility] Marcel Gupta internet sales manager (RW CM Infectious Diseases- [address] [place] [address] UTI s ymptoms); Consult Susanna PARRA (RW team, [place] [address] provider); Assessment [address] [place] [address] Allergies No Known Allergiesdocumented as [...] times disorder) daily as needed for Anxiety. vydxresbc-nntygifb-rmqah TAKE 1 TABLET 30 tablet 4 01/01/2020 [...] started earlier at the provider s discretion). [email or web address] Pager [phone] Stye external 01/16/2015 02/28/2015 Urinary tract infection, site not specified 11/22/2014 07/27/2015 Overview: Now on daily suppression Abnormal maternal glucose tolerance, antepartum 11/20/2014 02/28/2015 Overview: Passed 3 hr gtt Dizziness 11/04/2014 02/28/2015 Urinary tract infection, site not specified 08/18/2014 11/04/2014 Supervision of other high-risk 08/13/2014 02/28/2015 Overview: ICD10 Diagnosis Term Accounts Payable Specialist Utility Tobacco use disorder complicating , childbirth, or 08/13/2014 02/28/2015 puerperium, antepartum Overview: ICD10 Diagnosis Term Accounts Payable Specialist Utility Asthma 08/13/2014 07/27/2015 Overview: ICD10 Diagnosis Term Accounts Payable Specialist Utility History of recurrent UTIs 08/13/2014 [...] Telephone Encounter - Marcel Gupta RN - 01/22/2020 1:59 PM CDTEmail returned from ID provider to report plan to call patient regarding UTI symptoms. 15 min taken elephone Encounter - Marcel Gupta RN - 01/21/2020 1:57 PM CDTText received from RW client requesting ID telehealth appointment. Chart review indicates client is in the process of transferring care to pediatrics due to recent reports of . Called and consulted RW pedi case consultant that confirms client scheduled this Tuesday for intake financial screen and for initial pedi appointment on 01/30/20. Called client that reports continued UTI symptoms, including pain with urination, urgency and frequency. Message sent to ID provider for review. 45 min taken documented in this encounter Plan of Treatment Date Type Specialty Care Team Description 01/23/2020 Office Visit OB Satellites Kevin Leung DENNISE [address] [place] [address] [phone] 2, [facility] Room 01/23/2020 Initial OB Satellites Mela Leung Visit Eugenio DENNISE [address] [place], [place] [address] [phone] 01/23/2020 Nurse Visit Infectious Disease [facility] [id number] [place], [place] [phone] Visit, [facility] Id Nurse 01/30/2020 Office Visit Pediatric Infectious Virology, Pcp Pedi Diseases Infec Disease 02/27/2020 Office Visit Infectious Disease Self, Nae basilio MD [address] [place] [phone] 03/24/2020 Office Visit Infectious Disease East, LEONOR Geller [address] [place], [place] [address] Health Maintenance Due Date [...] Address Typ e / Group Dates [id number] 2019- [phone] [address] Medicaid WOMEN [address] [place] [address] documented as of this encounter Advance Directives Name Relationship Healthcare Agent Communication Relationship Prabhuryan Chaidez Mother Health Care Agent
--- OUTSIDE RECORDS SUMMARY | 2020-02-08 12:55 | XMS REPORT | Summary of Care ---
:1995 Author Organization [facility] Address [address] [place] [address] Care Team Providers Name Role Phone Eugenio Leung [facility] Primary Care Provider Reason for Referral (Routine) Status Reason Specialty Diagnoses / Referred By Referred To Procedures Contact Contact Authorized Maternal Diagnoses Supervision of high risk , antepartum Akinsiyogi, Medicine Procedures CONSULT MATERNAL MEDICINE ULTRASOUND Preferred Location: [place] Mela Becker [facility] [address] [facility] [place] [address] Reason for Visit Reason Comments Initial Visit Encounter Details Date Type Department Care Team Description [facility], Super vision of high risk , antepartum (Primary Dx); Visit Joleen Becker CARLEE Screening for viral disease; [address] HIV di sease affecting in first trimester; Street Multiparity; [place], [place] History of section; [address] [place], [place] History of miscarriage; [phone] [id number] Vaginal yeast infection [phone] Allergies No Known Allergiesdocumented as of this encounter (statuses as of 01/23/2020) Medications Medication Sig Dispensed Refills Start Date End Date Status vit/iron Take by mouth. 0 Active fum/folic ac ( 1 + 1 ORAL) PNV 67-iron ps-folate Take 1 Each by 30 capsule 9 12/14/2018 Active no.1-dha (VITAFOL mouth daily. ULTRA) 29 mg iron- 1 mg-200 mg CapIndications: Supervision of high risk , antepartum proMETHazine 25 mg Take 1 tablet by 30 tablet 0 12/27/2018 Active tabletIndications: mouth every 6 Nausea and vomiting (six) hours as during needed for Nausea and Vomiting (N/V). valacyclovir HCl Take by mouth. 0 Active (VALTREX ORAL) methylphenidate HCl Take 1 tablet by 30 tablet 0 12/26/2019 Active (CONCERTA) 18 mg 24 hr mouth every tabletIndications: morning. Attention deficit hyperactivity disorder (ADHD), predominantly inattentive type hydrOXYzine 25 mg Take 1 capsule 90 capsule 0 12/26/2019 Active capsuleIndications: by mouth 3 PTSD (post-traumatic (three) times stress disorder) daily as needed for Anxiety. smkhbtevj-ftvjurkv-dle TAKE 1 TABLET BY 30 tablet 4 01/01/2020 Active ofov ala 50-200-25 mg MOUTH ONCE DAILY tabletIndications: WITH OR WITHOUT Human immunodeficiency FOOD virus (HIV) disease amoxicillin 500 mg Take 1 capsule 15 capsule 0 01/07/2020 Active capsuleIndications: by mouth 3 Malodorous urine (three) times daily. multivitamin Take 1 tablet by 90 tablet 3 01/23/2020 Active ( VITAMIN) mouth daily. tabletIndications: Supervision of high risk , antepartum terconazole 0.4 % Insert 1 45 g 0 01/23/2020 01/26/2020 Active vaginal Applicator into creamIndications: vagina at Vaginal yeast bedtime for 3 infection days. documented as of this encounter (statuses as of 01/23/2020) Active Problems Problem Noted Date Supervision of high-risk 01/23/2020 HIV disease affecting 01/23/2020 Multiparity 01/23/2020 History of section 01/23/2020 History of miscarriage 01/23/2020 Vaginal yeast infection 01/23/2020 Human immunodeficiency virus (HIV) disease 07/24/2019 History of herpes genitalis 12/14/2018 Overview: Suppression at 36 weeks Estimated Date of Delivery Comments Yes 09/22/2020 Based on last menstr ual period of 12/17/2019 (Approximate) documented as of this encounter (statuses as of 01/23/2020) Resolved Problems Problem Noted Date Resolved Date Missed menses 07/24/2019 01/23/2020 Infectious disease contact 07/24/2019 01/23/2020 Need for prophylactic vaccination and inoculation against [...] management 07/27/2015 12/14/2018 Depo-Provera contraceptive status 07/27/20152018 Counseling on sexually transmitted disease 07/27/2015 01/23/2020 Screen for STD (sexually transmitted disease) 07/27/2015 [...] earlier at the provider s discretion). [email or web address] Pager [phone] Stye external 01/16/2015 02/28/2015 Urinary tract infection, site not specified 11/22/2014 07/27/2015 Overview: Now on daily suppression Abnormal maternal glucose tolerance, antepartum 11/20/2014 02/28/2015 Overview: Passed 3 hr gtt Dizziness 11/04/2014 02/28/2015 Urinary tract infection, site not specified 08/18/2014 11/04/2014 Supervision of other high-risk 08/13/2014 02/28/2015 Overview: ICD10 Diagnosis Term Prenatal Genetic Counselor Utility Tobacco use disorder complicating , childbirth, or 08/13/2014 02/28/2015 puerperium, antepartum Overview: ICD10 Diagnosis Term Prenatal Genetic Counselor Utility Asthma 08/13/2014 07/27/2015 Overview: ICD10 Diagnosis Term Prenatal Genetic Counselor Utility History of recurrent UTIs 08/13/2014 02/28/2015 Overview: Since age 13 after sexual activities wit h monthly episiod documented as of this encounter (statuses as of 01/23/2020) Immunizations Name Administration Dates Next Due HPV 11/02/2010, 01/15/2010, 10/17/2009 Influenza Virus Vaccine Quad .5 mL IM 6+ 07/20/2019 MO Influenza Virus Vaccine Quad IM 3+ YRS 02/28/2015 TDAP 11/18/2014 documented as of this encounter Social History Tobacco Use Types Packs/Day Years Used Date Current Every Day Smoker Cigarettes 1 8 - 12/10/2018 Smokeless Tobacco: Never Used Tobacco Cessation: Ready to Quit: Yes; C ounseling Given: No Comments: resources given Alcohol Use Drinks/Week oz/Week Comments Yes 0 Standard drinks or equivalent 0.0 occasional Estimated Date of Delivery Comments Yes 09/22/2020 Based on last menstr ual period of 12/17/2019 (Approximate) Sex Assigned at Date Recorded Not on file COVID-19 Exposure Response Date Recorded In the last month, have you been in contact with No / Unsure 01/23/2020 8:33 AM CDT someone who was confirmed or suspected to have Coronavirus / COVID-19? documented as of this encounter Last Filed Vital Signs Vital Sign Reading Time Taken Comments Blood Pressure 114/73 01/23/2020 8:34 AM CDT Pulse 84 01/23/2020 8:34 AM CDT Temperature 36.2 C (97.1 F) 01/23/2020 8:34 AM CDT Respiratory Rate 16 01/23/2020 8:34 AM CDT Oxygen Saturation - - Inhaled Oxygen Concentration - - Weight 59 kg (130 lb) 01/23/2020 8:34 AM CDT Height 160 cm (5' 3") 01/23/2020 8:34 AM CDT Body Mass Index 23.03 01/23/2020 8:34 AM CDT documented in this encounter Progress Notes Mela Leung, WHCNP - 01/23/2020 8:30 AM CDT Chief complaint: Chief Complaint Patient presents with Initial Visit HPI CC: Initial Visit Yuriy Chaidez is a 24 year old, , Black or female. Patient's last menstrual period was 12/17/2019 (approximate). She is 5w2d with an suspected IUP. Her Estimated Date of Delivery: 09/22/20. She is being seen today for her first obstetrical visit. She has no complaints today. OB History Para Term AB Living 3 1 1 1 1 SAB TAB Ectopic Multiple Live Births 1 1 # Outcome Date GA Lbr Ed/2nd Weight Sex Delivery Anes PTL Lv 3 Current 2 SAB 02/2019 8w0d 1 Term 01/24/15 39w0d 5 lb 8 oz (2.495 kg) M SEC EMANUEL Histories OB History Para Term AB Living 3 1 1 1 1 SAB TAB Ectopic Multiple Live Births 1 1 # Outcome Date GA Lbr Ed/2nd Weight Sex Delivery Anes PTL Lv 3 Current 2 SAB 02/2019 8w0d 1 Term 01/24/15 39w0d 5 lb 8 oz (2.495 kg) M SEC EMANUEL Past Medical History: Diagnosis Date Asthma 2012 Not on meds, last asthma attack 11/2017 BV (bacterial vaginosis) 10/24/2015 Genital herpes 2016 on valtrex PRN Human immunodeficiency virus (HIV) disease 07/24/2019 STD (sexually transmitted disease) 03/2018, 01/2018 Chlamydia Family History Problem Relation Age of Onset Hypertension Mother Asthma Father Arthritis Maternal Grandmother No Significant Medical Problems Sister No Significant Medical Problems Brother defects NoFHx Breast Cancer NoFHx Colon Cancer NoFHx Ovarian Cancer NoFHx Uterine Cancer NoFHx Cancer NoFHx Depression NoFHx Genetic NoFHx Heart NoFHx High cholesterol NoFHx Mental retardation NoFHx Neurological NoFHx Osteoporosis NoFHx Psychiatry NoFHx Other - see comments NoFHx Family Status Relation Name Status Mo Alive Fa Alive MGMo (Not Specified) Sis Alive Bro Alive NoFHx (Not Specified) Past Surgical History: Procedure Laterality Date SECTION 01/24/2015 Social History Socioeconomic History Marital status: Single Spouse name: Not on file Number of children: 0 Years of education: Not on file Highest education level: Not on file Occupational History Occupation: none Social Needs Financial resource strain: Not on file Food insecurity Worry: Not on file Inability: Not on file Transportation needs Medical: Not on file Non-medical: Not on file Tobacco Use Smoking status: Current Every Day Smoker Packs/day: 1.00 Years: 8.00 Pack years: 8.00 Types: Cigarettes Start date: 12/14/2010 Last attempt to quit: 12/10/2018 Years since quittin.1 Smokeless tobacco: Never Used Tobacco comment: resources given Substance and Sexual Activity Alcohol use: Yes Alcohol/week: 0.0 standard drinks Comment: occasional Drug use: No Sexual activity: Yes Partners: Male control/protection: None Comment: last sexual intercourse 01/19/2020 Lifestyle Physical activity Days per week: Not on file Minutes per session: Not on file Stress: Not on file Relationships Social connections Talks on phone: Not on file Gets together: Not on file Attends yazdanism service: Not on file Active member of club or organization: Not on file Attends meetings of clubs or organizations: Not on file Relationship status: Not on file Intimate partner violence Fear of current or ex partner: Not [...] domestic violence or abuse Pt states her yazdanism preference is Synagogue. Patient lives alone. Patient denies any cats. Social History Substance and Sexual Activity Sexual Activity Yes Partners: Male control/protection: None Comment: last sexual intercourse 01/19/2020 Genetic Screen Autism / Mental Retardation: No Mikayla Disease: No Congenital Heart Defect: No Cystic Fibrosis: No Down Syndrome: No Familial Dysautonomia: No Hemophilia or other Blood Disorders: No [place] Chorea: No Maternal Metabolic Disorder--specify (eg. Type [...] of Genetic Disorders Labs Labs are pending. and Sterile Proc Tech Visit on 01/02/2020 Component Date Value Trichomonas Nucleic Acid 01/02/2020 Negative URINE CULTURE 01/02/2020 >100,000 CFU/mL Escherichia coli C. trachomatis Nucleic A* 01/02/2020 Negative N. gonorrhoeae Nucleic A* 01/02/2020 Negative APPEARANCE 01/02/2020 Hazy* COLOR 01/02/2020 Yellow PH 01/02/2020 6.0 SP GRAVITY 01/02/2020 1.021 GLU U QUAL 01/02/2020 Normal BLOOD 01/02/2020 Negative KETONES 01/02/2020 Negative PROTEIN 01/02/2020 Negative UROBILIN 01/02/2020 Normal BILIRUBIN 01/02/2020 Negative NITRITE 01/02/2020 Positive* LEUK JOAN 01/02/2020 Negative RBC/HPF 01/02/2020 2 WBC/HPF 01/02/2020 4 BACTERIA 01/02/2020 Moderate* MUCOUS 01/02/2020 Marked* SQ EPITH 01/02/2020 2 ASCORBIC ACID 01/02/2020 20 mg/dL CD4 % 01/02/2020 42 CD4 Absolute 01/02/2020 1,365 HIV 1 by Real-Time PCR 01/02/2020 Not Detected Radiology Radiology pending. Allergies Yuriy has No Known Allergies. Medications Yuriy has a current medication list which includes the following prescription(s): vitamin,terconazole, cswxtmdpp-jerqyuwg-leflyef ala, amoxicillin, hydroxyzine, methylphenidate hcl, valacyclovir hcl, promethazine, pnv 67-iron ps-folate no.1-dha, and vit/iron fum/folic ac. Review of Systems Constitutional: Negative. HENT: Negative. Eyes: Negative. Respiratory: Negative. Breasts: Negative. Cardiovascular: Negative. Gastrointestinal: Negative. Genitourinary: Positive for vaginal discharge. Musculoskeletal: Negative. Skin: Negative. Neurological: Negative. Psychiatric/Behavioral: Negative. Endocrine: Endocrine negative BP 114/73 (BP Location: Right arm, Patient Position: Sitting, BP CUFF SIZE: Adult Medium) | Pulse 84 | Temp 36.2 C (97.1 F) (Oral) | Resp 16 | Ht 5' 3" (1.6 m) | Wt 130 lb (59 kg) | LMP 12/17/2019 (Approximate) | BMI 23.03 kg/m Pregravid BMI: Could not be calculated Physical Exam Vitals reviewed. Constitutional: She is [...] mass palpated and no tenderness. Normal bladder Vagina:Normal vagina. No lesion inspected. Normal estrogen effect. Normal support. No abnormal vaginal discharge found. No lesions in the vagina. Cervix: Normal cervix. No lesion. No tenderness [...] Normal Cervix: Normal Membrane status: Intact Uterus: 5 Weeks Adnexa: Normal Rectum: Normal Assessment/Plan Return to clinic in 4 weeks. Patient scheduled with virology clinic Denies zika virus risk, signs and symptoms such as fever,rash,joint pain, conjunctivitis (red eyes),muscle pain, headaches; outside [place] travel to areas affected by zika, and FOB exposure to zika. Educated on use of mosquito repellent. Supervision of high risk , antepartum (primary encounter diagnosis) HIV disease affecting in first trimester Multiparity History of section History of miscarriage Comment: initial visit with labs and physical exam Plan: POCT TEST, POCT URINALYSIS W/O SPECIFIC GRAVITY, GLUCOSE 1 HOUR POST PRANDIAL, CBC WITH DIFF, GC & CHLAMYDIA AMPLIFIED ASSAY, HEPATITIS B SURFACE ANTIGEN, POCT URINALYSIS W SPECIFIC GRAVITY, WORKUP, BLOOD BANK, RUBELLA SCREEN (PRATIK) IGG, GALV ONLY - SYPHILIS IGG/IGM, URINE CULTURE, VZV ANTIBODY SCREEN, multivitamin ( VITAMIN) tablet, CONSULT MATERNAL MEDICINE ULTRASOUND Preferred Location: [place], PAP Smear-Liquid Based, PAP Smear-Liquid Based, VZV ANTIBODY SCREEN, URINE CULTURE, GALV ONLY - SYPHILIS IGG/IGM, RUBELLA SCREEN (PRATIK) IGG, HEPATITIS B SURFACE ANTIGEN, GC & CHLAMYDIA AMPLIFIED ASSAY, CBC WITH DIFF, WORKUP, BLOOD BANK Screening for viral disease Comment: as ordered Plan: SARS-COV-2 IGG, SARS-COV-2 IGG Vaginal yeast infection Comment: +budding Plan: terconazole 0.4 % vaginal cream This visit did not involve counseling and coordination that comprised more than 50% of the visit time. GABBY Browne 01/23/2020 4:51 PM Val Sloan RN - 01/23/2020 8:30 AM CDTPatient is 24 year old female here for current . Patient is . 1) Previous delivery methods 2) Patient is not experiencing cramping 3) Patient is not experiencing bleeding. 4) LMP 12/17/2019 5) Last Pap was: 12/27/2018 Results: negative 6) Have you had a flu vaccine this season? no 7) PPD candidate? no 8) Patient having yeast infection symptoms 9) Patient denies history of physical, emotional, or sexual abuse. Patient states she currently feels safe at home. New ob packet given and discussed with patient. VAL SLOAN RN 01/23/2020 8:51 AM documented in this encounter Plan of Treatment Date Type Specialty Care Team Description 01/30/2020 Office Visit Pediatric Infectious Virology, Pcp Pedi Diseases Infec Disease 02/27/2020 Office Visit Infectious Disease Self, Nae basilio MD [address] [place] [phone] 03/17/2020 Sterile Proc Tech Visit Maternal Medicine 3, [facility] Room 03/17/2020 Sterile Proc Tech Visit OB Satellites Lab, [facility] 03/24/2020 Office Visit Infectious Disease [facility] [address] [place], [place] [address] Name Type Priority Associated Diagnoses Date/Ti me GLUCOSE 1 HOUR POST LAB Routine Supervision of r isk 01/23/2020 9:43 AM CDT PRANDIAL , antepartum SARS-COV-2 IGG LAB Routine Screening for viral 2019 9:43 AM CDT disease CBC WITH DIFF LAB Routine Supervision of high risk 9:43 AM CDT , antepartum GC & CHLAMYDIA LAB Routine Supervision of high risk 0 01/23/2020 9:43 AM CDT AMPLIFIED ASSAY , antepartum HEPATITIS B SURFACE LAB Routine Supervision of high r isk 01/23/2020 9:43 AM CDT ANTIGEN , antepartum RUBELLA SCREEN (PRATIK) LAB Routine Supervision of hig h risk 01/23/2020 9:43 AM CDT IGG , antepartum GALV ONLY - SYPHILIS LAB Routine Supervision of high risk 01/23/2020 9:43 AM CDT IGG/IGM , antepartum URINE CULTURE LAB Routine Supervision of high risk 9:43 AM CDT , antepartum VZV ANTIBODY SCREEN LAB Routine Supervision of high r isk 01/23/2020 9:43 AM CDT , antepartum PAP Smear-Liquid Based LAB Routine Supervision of hig h risk 01/23/2020 9:43 AM CDT , antepartum Name Type Priority Associated Diagnoses Order S chedule SARS-COV-2 IGG LAB Routine Screening for viral Expect ed: 01/23/2020, disease Expires: 2020 CBC WITH DIFF LAB Routine Supervision of high risk Ex pected: 01/23/2020, , antepartum s: 01/22/2021 GC & CHLAMYDIA LAB Routine Supervision of high risk E xpected: 01/23/2020, AMPLIFIED ASSAY , antepartum Exp ires: 01/22/2021 HEPATITIS B SURFACE LAB Routine Supervision of high r isk Expected: 01/23/2020, ANTIGEN , antepartum s: 01/22/2021 POCT URINALYSIS W LAB Routine Supervision of high ris k 20 Occurrences starting SPECIFIC GRAVITY , antepartum until 11/18/2020 WORKUP, BLOOD LAB Routine Supervision of hig h risk Expected: 01/23/2020, BANK , antepartum s: 01/22/2021 RUBELLA SCREEN (PRATIK) LAB Routine Supervision of hig h risk Expected: 01/23/2020, IGG , antepartum s: 01/22/2021 GALV ONLY - SYPHILIS LAB Routine Supervision of high risk Expected: 01/23/2020, IGG/IGM , antepartum s: 01/22/2021 URINE CULTURE LAB Routine Supervision of high risk Ex pected: 01/23/2020, , antepartum s: 01/22/2021 VZV ANTIBODY SCREEN LAB Routine Supervision of high r isk Expected: 01/23/2020, , antepartum s: 01/22/2021 PAP Smear-Liquid Based LAB Routine Supervision of hig h risk Expected: 01/23/2020, , antepartum s: 01/22/2021 Health Maintenance Due Date Last Done Comments PNEUMOCOCCAL 0-64 YEARS 07/20/2020 Postpone d from 2000 COMBINED SERIES (1 of 3 - (Refus ed) PCV13) Depression Screening 08/01/2020 08/02/2019 INFLUENZA VACCINE (#1) 2020 07/20/2019, Postponed from 01/22/2020 02/28/2015 (Vaccine not krish ilable) PAP SMEAR 12/27/2021 12/27/2018, 07/25/2015 DTaP,Tdap,and Td Vaccines (2 11/18/2024 11/18/2014 - Td) HPV VACCINES Completed 11/02/2010, 01/15/2010, 10/17/2009 documented as of this encounter Procedures Procedure Name Priority Date/Time Associated Diagnosis Comme nts POCT URINALYSIS W/O Routine 01/23/2020 8:35 Supervision of hi gh Results for this SPECIFIC GRAVITY AM CDT risk , procedur e are in antepartum the results section. POCT TEST Routine 01/23/2020 8:35 Supervision of hi gh Results for this AM CDT risk , procedure ar e in antepartum the results section. documented in this encounter Results POCT URINALYSIS W/O SPECIFIC GRAVITY (01/23/2020 8:35 AM CDT) Pathologist Sig nature POCT PH U 5 5 - 8 mg/dl POCT U LEUK EST Neg Negative - Negative POCT U NIT Neg Negative - Negative POCT U PROT Trace Negative - Negative POCT U GLU Neg Negative - Negative POCT U KETONE None Negative - Negative POCT U BLD Neg Negative - Negative Specimen Urine - URINE, CLEAN CATCH POCT TEST (01/23/2020 8:35 AM CDT) Pathologist Sig nature POCT PREG Positive On board controls acceptable Yes with C Line POCT PREG LOT # POCT PREG TEST DATE Specimen Urine - URINE, CLEAN CATCH documented in this encounter Visit Diagnoses Diagnosis Supervision of high risk , ante - Primary Screening for viral disease Special screening examination for unspec ified viral disease HIV disease affecting in first trimester Multiparity History of section Other postprocedural status History of miscarriage Personal history of other genital system and obstetric disorders Vaginal yeast infection Candidiasis of vulva and vagina documented in this encounter Insurance Payer Benefit Plan / Subscriber ID Effective Dates Phone Addre ss Type Group TM[employer] MEDICAID OF [id number] 2020-Present [phone] Medicaid [place] [id number] [place] [id number] documented as of this encounter Advance Directives Name Relationship Healthcare Agent Communication Relationship Prabhuryan Dm Mother Health Care Agent
--- OUTSIDE RECORDS SUMMARY | 2020-02-08 12:56 | XMS REPORT | Summary of Care ---
:1995 Author Organization [facility] Address [address] [place] [address] Care Team Providers Name Role Phone Eugenio Leung [facility] Primary Care Provider Reason for Visit Reason Comments Rx Concern/Question Encounter Details Date Type Department Care Team Description 01/23/2020 Telephone [facility]- Mela Leung, Rx Concern/Question [facility] [address] [facility] [place] [address] [address] [place] [address] [phone] Allergies No Known Allergiesdocumented as of this encounter (statuses as of 01/24/2020) Medications Medication Sig Dispensed Refills Start Date [...] stress disorder) daily as needed for Anxiety. yraelqvnh-jttasyuf-wbn TAKE 1 TABLET BY 30 tablet 4 [...] as of this encounter (statuses as of 01/24/2020) Active Problems Problem Noted Date Supervision of [...] as of this encounter (statuses as of 01/24/2020) Resolved Problems Problem Noted Date Resolved Date [...] started earlier at the provider s discretion). [email or web address] Pager [phone] Stye external 01/16/2015 02/28/2015 Urinary tract infection, site not specified 11/22/2014 07/27/2015 Overview: Now on daily suppression Abnormal maternal glucose tolerance, antepartum 11/20/2014 02/28/2015 Overview: Passed 3 hr gtt Dizziness 11/04/2014 02/28/2015 Urinary tract infection, site not specified 08/18/2014 11/04/2014 Supervision of other high-risk 08/13/2014 02/28/2015 Overview: ICD10 Diagnosis Term Transactional Attorney Utility Tobacco use disorder complicating , childbirth, or 08/13/2014 02/28/2015 puerperium, antepartum Overview: ICD10 Diagnosis Term Transactional Attorney Utility Asthma 08/13/2014 07/27/2015 Overview: ICD10 Diagnosis Term Transactional Attorney Utility History of recurrent UTIs 08/13/2014 02/28/2015 Overview: Since age 13 after sexual activities wit h monthly episiod documented as of this encounter (statuses as of 01/24/2020) Immunizations Name Administration Dates Next Due HPV [...] this encounter Miscellaneous Notes Telephone Encounter - Val Sloan RN - 01/24/2020 3:36 PM CDTPatient notified terazole cream called into pharmacy yesterday. VAL SLOAN RN 01/24/2020 3:38 PM Telephone Encounter - Mela Leung WHCNP - 01/24/2020 2:39 PM CDT Please notify the patient meds were sent to her pharmacy on yesterday for yeast. GABBY Browne 01/24/2020 2:40 PM Telephone Encounter - Val Sloan RN - 01/23/2020 1:55 PM CDTCalled patient, patient states she had yeast infection and provider was to call in medication. Patient has tried otc monistat with no relief. Advised will route to provider. Patient verbalized understanding. VAL SLOAN RN 01/23/2020 1:56 PM Telephone Encounter - Josy Rivas - 01/23/2020 11:46 AM CDTTUmair Chaidez is a 24 year old female is calling to speak with the nurse. Patient says that rx was to be called in for her but has not been. Please call. Thank you. documented in this encounter Plan of Treatment Date Type Specialty Care Team Description 01/30/2020 Office Visit Pediatric Infectious Virology, Pcp Pedi Diseases Infec Disease 02/27/2020 Office Visit Infectious Disease Self, Nae basilio MD [address] [place] [address] 03/17/2020 Structurer Visit Maternal Medicine 3, [facility] Us g Room 03/17/2020 Structurer Visit OB Satellites Lab, [facility] 03/24/2020 [facility] [address] [place] [address] Health Maintenance Due Date Last Done [...] Effective Dates Phone Addre ss Type Group [facility] MEDICAID OF [id number] 2020-Present [phone] [address] Medicaid [place] [id number] [place] [address] documented as of this encounter Advance Directives Name Relationship Healthcare Agent Communication Relationship Kenny Chaidez Mother Health Care Agent
--- OUTSIDE RECORDS SUMMARY | 2020-02-08 12:56 | XMS REPORT | Summary of Care ---
:1995 Author Organization [facility] Address [address] [place] [address] Care Team Providers Name Role Phone Eugenio Leung [facility] Primary Care Provider Reason for Visit Reason Comments Rx Concern/Question Encounter Details Date Type Department Care Team Description 01/23/2020 Telephone [facility]- Mela Leung, Rx Concern/Question [facility] [address] [facility] [address] [place] [address] [address] [place] [address] [phone] Allergies No Known Allergiesdocumented as of this [...] stress disorder) daily as needed for Anxiety. vrvurhipf-wgyzljgz-ejd TAKE 1 TABLET BY 30 tablet 4 [...] started earlier at the provider s discretion). [email or web address] Pager [phone] Stye external 01/16/2015 02/28/2015 Urinary tract infection, site not specified 11/22/2014 07/27/2015 Overview: Now on daily suppression Abnormal maternal glucose tolerance, antepartum 11/20/2014 02/28/2015 Overview: Passed 3 hr gtt Dizziness 11/04/2014 02/28/2015 Urinary tract infection, site not specified 08/18/2014 11/04/2014 Supervision of other high-risk 08/13/2014 02/28/2015 Overview: ICD10 Diagnosis Term Jigger Crown Pouncing Machine Operator Utility Tobacco use disorder complicating , childbirth, or 08/13/2014 02/28/2015 puerperium, antepartum Overview: ICD10 Diagnosis Term Jigger Crown Pouncing Machine Operator Utility Asthma 08/13/2014 07/27/2015 Overview: ICD10 Diagnosis Term Jigger Crown Pouncing Machine Operator Utility History of recurrent UTIs 08/13/2014 [...] this encounter Miscellaneous Notes Telephone Encounter - Mela Leung WHCNP - [...] - Josy Rivas - 01/23/2020 11:46 AM ALTOSHATTJessicafranco Chaidez is a 24 year old female [...] Infectious Disease Self, Nae basilio MD [address] [place] [address] 03/17/2020 Mechanical Maintenance Foreman Visit Maternal Medicine 3, [facility] Us g Room 03/17/2020 Mechanical Maintenance Foreman Visit OB Satellites Lab, [facility] 03/24/2020 Office Visit Infectious Disease [place] PA [address] [place] [address] Health Maintenance Due Date Last Done [...] Addre ss Type Group [facility] MEDICAID OF [id number] 2020-Present [phone] [address] Medicaid [place] [address] [place] [address] documented as of this encounter Advance Directives Name Relationship Healthcare Agent Communication Relationship Kenny Chaidez Mother Health Care Agent
--- OUTSIDE RECORDS SUMMARY | 2020-02-08 12:56 | XMS REPORT | Summary of Care ---
:1995 Author Organization [address] [address] Care Team Providers Name Role Phone Eugenio Leung [facility] Primary Care Provider Reason for Visit Reason Comments Notification Referral/consult Douglas Ackerman pediatricsrefer/c onfirm PATIENT EDUCATION Benefits/risks Encounter Details Date Type Department Care Team Description 01/03/2020 Telephone [facility] Marcel Gupta , RN Notification Infectious Diseases- [address] [place] [address] (Preg yang); [place] [facility] Referral/consult ([place] [address] [address] [place] [address], [address] m); PATIENT EDUCATION [place], [place] (Benefits/risk s) [phone] Allergies No Known [...] times disorder) daily as needed for Anxiety. zsvjasbte-xaiykxom-ptsun TAKE 1 TABLET 30 tablet 4 01/01/2020 [...] genitalis 12/14/2018 Overview: Suppression at 36 weeks documented as of this encounter (statuses as [...] started earlier at the provider s discretion). [email or web address] Pager [phone] Stye external 01/16/2015 02/28/2015 Urinary tract infection, site not specified 11/22/2014 07/27/2015 Overview: Now on daily suppression Abnormal maternal glucose tolerance, antepartum 11/20/2014 02/28/2015 Overview: Passed 3 hr gtt Dizziness 11/04/2014 02/28/2015 Urinary tract infection, site not specified 08/18/2014 11/04/2014 Supervision of other high-risk 08/13/2014 02/28/2015 Overview: ICD10 Diagnosis Term Soft Top Installer Utility Tobacco use disorder complicating , childbirth, or 08/13/2014 02/28/2015 puerperium, antepartum Overview: ICD10 Diagnosis Term Soft Top Installer Utility Asthma 08/13/2014 07/27/2015 Overview: ICD10 Diagnosis Term Soft Top Installer Utility History of recurrent UTIs 08/13/2014 [...] Telephone Encounter - Yimi Soler PA - 01/24/2020 11:36 AM CDTThe patient was seen for her first OB visit She has been instructed by me to continue Biktravy She is scheduled to see Pedi ID on 01/30/20 elephone Encounter - Nguyễn Braun MD - 01/09/2020 1:53 PM CDTCalled patient to tell patient to stop taking concerta, patient states she has already stopped taking it. Patient states she is okay with her currently scheduled appointment, doesn't need a sooner one. Shedoes want her appointment to be tele-health bc it's hard for her to travel. elephone Encounter - Marcel Gupta RN - 01/09/2020 11:19 AM CDT EPIC review indicates Pediatric referral for RW client report of still pending client contact. Routing note to ID and RW Psychiatry providers to review for needs while waiting for Pediatrics contact. elephone Encounter - Marcel Gupta RN - 01/03/2020 3:53 PM CDTEmail returned from RW Pediatrics staff confirming referral received and plan [...] referral and statusreport emailed to the Pediatrics caser shoe parts for assistance. Client was diagnosed HIV positive [...] This CM plannedto graduate client from to [facility] after viral suppression confirmation received. Referral [...] Visit Infectious Disease Self, Nae basilio MD [address] [place] [address] 03/17/2020 Playground Supervisor Visit Maternal Medicine 3, [facility] M[facility] Us g Room 03/17/2020 Playground Supervisor Visit OB Satellites Lab, [facility] 03/24/2020 Office Visit Infectious Disease [place], LEONOR Geller [address] [place], [place] [address] [phone] Health Maintenance Due Date Last Done Comments [...] Address Typ e / Group Dates [facility] [id number] 2019- [phone] [address] Medicaid WOMEN [address] [place] [address] documented as of this encounter Advance Directives Name Relationship Healthcare Agent Communication Relationship Kenny Chaidez Mother Health Care Agent
--- OUTSIDE RECORDS SUMMARY | 2020-02-08 12:56 | XMS REPORT | Summary of Care ---
:1995 Author Organization [facility] Address [address] [place] [address] Care Team Providers Name Role Phone Eugenio Leung [facility] Primary Care Provider Reason for Visit Reason Comments UTI Encounter Details Date Type Department Care Team Description [facility] [address] [place] [address] [phone] [place], [place] [address] [phone] Allergies No Known Allergiesdocumented as of this encounter (statuses as of 01/25/2020) Medications Medication Sig Dispensed Refills Start Date [...] stress disorder) daily as needed for Anxiety. klfqxnrzj-fgbpfzrb-hob TAKE 1 TABLET BY 30 tablet 4 [...] Vaginal yeast bedtime for 3 infection days. ampicillin 500 mg Take 1 capsule 40 capsule 0 01/25/202002/03 Active capsuleIndications: by mouth 4 Group B Streptococcus (four) times urinary tract daily for 10 infection affecting days. in first trimester documented as of this encounter (statuses as of 01/25/2020) Active Problems Problem Noted Date GBS (group B streptococcus) UTI complicating 01/25/2020 Overview: karime pending Supervision of high-risk 01/23/2020 HIV disease affecting 01/23/2020 Multiparity 01/23/2020 History of section 01/23/2020 History of miscarriage 01/23/2020 Vaginal yeast infection 01/23/2020 Human immunodeficiency virus (HIV) disease 07/24/2019 History of herpes genitalis 12/14/2018 Overview: Suppression at 36 weeks Estimated Date of Delivery Comments Yes 09/22/2020 Based on last menstr ual period of 12/17/2019 (Approximate) documented as of this encounter (statuses as of 01/25/2020) Resolved Problems Problem Noted Date Resolved Date [...] started earlier at the provider s discretion). [email or web address] Pager [phone] Stye external 01/16/2015 02/28/2015 Urinary tract infection, site not specified 11/22/2014 07/27/2015 Overview: Now on daily suppression Abnormal maternal glucose tolerance, antepartum 11/20/2014 02/28/2015 Overview: Passed 3 hr gtt Dizziness 11/04/2014 02/28/2015 Urinary tract infection, site not specified 08/18/2014 11/04/2014 Supervision of other high-risk 08/13/2014 02/28/2015 Overview: ICD10 Diagnosis Term Designer/Writer Utility Tobacco use disorder complicating , childbirth, or 08/13/2014 02/28/2015 puerperium, antepartum Overview: ICD10 Diagnosis Term Designer/Writer Utility Asthma 08/13/2014 07/27/2015 Overview: ICD10 Diagnosis Term Designer/Writer Utility History of recurrent UTIs 08/13/2014 02/28/2015 Overview: Since age 13 after sexual activities wit h monthly episiod documented as of this encounter (statuses as of 01/25/2020) Immunizations Name Administration Dates Next Due HPV [...] Telephone Encounter - Mela Leung WHCNP - 01/25/2020 3:38 PM CDT Please notify the patient of UTI, meds have been sent to the pharmacy. Please advise the patient on good perineal hygiene, drinking plenty of water, and completing the entire course of treatment. GABBY Browne 01/25/2020 3:38 PM documented in this encounter Plan of Treatment Date Type Specialty Care Team Description 01/30/2020 Office Visit Pediatric Infectious Virology, Pcp Pedi Diseases Infec Disease 02/27/2020 Office Visit Infectious Disease Self, Nae basilio MD [address] [place] [phone] 03/17/2020 Alarm Mechanism Adjuster Visit Maternal Medicine 3, [facility]fm Us g Room 03/17/2020 Alarm Mechanism Adjuster Visit OB Satellites Lab, [facility] 03/24/2020 Office Visit Infectious Disease [place], LEONOR Geller [address] [place] [address] Health Maintenance Due Date Last Done [...] filedocumented in this encounter Visit Diagnoses Diagnosis Group B Streptococcus urinary tract infe ction affecting in first trimester - Primary documented in this encounter Insurance Payer Benefit Plan / Subscriber ID Effective Dates Phone Addre ss Type Group [facility] MEDICA[facility] OF [id number] 2020-Present [phone] [address] Medicaid [place] [id number] [place] [address] documented as of this encounter Advance Directives Name Relationship Healthcare Agent Communication Relationship Kenny Chaidez Mother Health Care Agent
--- OUTSIDE RECORDS SUMMARY | 2020-02-08 12:57 | XMS REPORT | Summary of Care ---
:1995 Author Organization [facility] Address [address] [place] [address] Care Team Providers Name Role Phone Eugenio Leung [facility] Primary Care Provider Reason for Visit Reason Comments Results uit/ returning clinic missed call Encounter Details Date Type Department Care Team Description 01/25/2020 Telephone [facility]- Mela Leung Res (uit/ [place] [facility] returning clinic [address] [facility] [address] [facility] [address] missed call) [place] [address] Allergies No Known Allergiesdocumented as of this [...] stress disorder) daily as needed for Anxiety. ltovplvwj-epmgontv-xtn TAKE 1 TABLET BY 30 tablet 4 [...] started earlier at the provider s discretion). [email or web address] Pager [phone] Stye external 01/16/2015 02/28/2015 Urinary tract infection, site not specified 11/22/2014 07/27/2015 Overview: Now on daily suppression Abnormal maternal glucose tolerance, antepartum 11/20/2014 02/28/2015 Overview: Passed 3 hr gtt Dizziness 11/04/2014 02/28/2015 Urinary tract infection, site not specified 08/18/2014 11/04/2014 Supervision of other high-risk 08/13/2014 02/28/2015 Overview: ICD10 Diagnosis Term Ict Business Development Manager Utility Tobacco use disorder complicating , childbirth, or 08/13/2014 02/28/2015 puerperium, antepartum Overview: ICD10 Diagnosis Term Ict Business Development Manager Utility Asthma 08/13/2014 07/27/2015 Overview: ICD10 Diagnosis Term Ict Business Development Manager Utility History of recurrent UTIs 08/13/2014 [...] this encounter Miscellaneous Notes Telephone Encounter - Rossy Chung LVN - 01/25/2020 4:39 PM CDTDuplicate encounter. elephone Encounter - Aure [place] - 01/25/2020 4:34 PM LATOSAHTTUmair Chaidez is a 24 year old female Patient returning missed call for results,please call patient [phone] (home) documented in this encounter Plan of Treatment Date Type Specialty Care Team Description 01/30/2020 Office Visit Pediatric Infectious Virology, Pcp Pedi Diseases Infec Disease 02/27/2020 Office Visit Infectious Disease Self, Nae basilio MD [address] [place] [address] 03/17/2020 General Handling Supervisor Visit Maternal Medicine 3, [facility] Mf Us g Room 03/17/2020 General Handling Supervisor Visit OB Satellites Lab, [facility] 03/24/2020 Office Visit Infectious Disease [place], LEONOR Geller [address] [place], [place] [address] Health Maintenance Due Date [...] Effective Dates Phone Addre ss Type Group [facility] MEDICAID OF [id number] 2020-Present [phone] [address] Medicaid [place] [id number] [place] [address] documented as of this encounter Advance Directives Name Relationship Healthcare Agent Communication Relationship Kenny Chaidez Mother Health Care Agent
--- OUTSIDE RECORDS SUMMARY | 2020-02-08 12:57 | XMS REPORT | Summary of Care ---
:1995 Author Organization [facility] Address [address] [place] [address] Care Team Providers Name Role Phone Eugenio Leung [facility] Primary Care Provider Reason for Visit Reason Comments Case Management Encounter Details Date Type Department Care Team Description 01/25/2020 Case Management [facility] Julia Mathias, SOLUTIONS MARKET CONSULTANT Case Management Specialties [address] [place] [address] [facility] [address] [place] [address] Allergies No Known Allergiesdocumented as of this encounter (statuses as of 01/29/2020) Medications Medication Sig Dispensed Refills Start Date [...] stress disorder) daily as needed for Anxiety. xcfkiaolk-gsrhiwtz-aomi TAKE 1 TABLET 30 tablet 4 01/01/2020 Active fov ala 50-200-25 mg BY MOUTH ONCE tabletIndications: DAILY WITH OR Human immunodeficiency WITHOUT FOOD virus (HIV) disease amoxicillin 500 mg Take 1 capsule 15 capsule 0 01/07/2020 Active capsuleIndications: by mouth 3 Malodorous urine (three) times daily. multivitamin Take 1 tablet 90 tablet 3 01/23/2020 Active ( VITAMIN) by mouth daily. tabletIndications: Supervision of high risk , antepartum ampicillin 500 mg Take 1 capsule 40 capsule 0 01/25/202002/03 Active capsuleIndications: by mouth 4 Group B Streptococcus (four) times urinary tract infection daily for 10 affecting in days. first trimester documented as of this encounter (statuses as of 01/29/2020) Active Problems Problem Noted Date GBS (group [...] as of this encounter (statuses as of 01/29/2020) Resolved Problems Problem Noted Date Resolved Date [...] started earlier at the provider s discretion). [email or web address] Pager [phone] Stye external 01/16/2015 02/28/2015 Urinary tract infection, site not specified 11/22/2014 07/27/2015 Overview: Now on daily suppression Abnormal maternal glucose tolerance, antepartum 11/20/2014 02/28/2015 Overview: Passed 3 hr gtt Dizziness 11/04/2014 02/28/2015 Urinary tract infection, site not specified 08/18/2014 11/04/2014 Supervision of other high-risk 08/13/2014 02/28/2015 Overview: ICD10 Diagnosis Term Salvage Determiner Utility Tobacco use disorder complicating , childbirth, or 08/13/2014 02/28/2015 puerperium, antepartum Overview: ICD10 Diagnosis Term Salvage Determiner Utility Asthma 08/13/2014 07/27/2015 Overview: ICD10 Diagnosis Term Salvage Determiner Utility History of recurrent UTIs 08/13/2014 02/28/2015 Overview: Since age 13 after sexual activities wit h monthly episiod documented as of this encounter (statuses as of 01/29/2020) Immunizations Name Administration Dates Next Due HPV [...] on filedocumented in this encounter Progress Notes Julia Keen LVN - 01/25/2020 11:59 PM CDTReviewed chart, verifying phone numbers, email addresses, current labs, upcoming appointments and appointment compliance. For report to ID providers, updated spreadsheets and monthly meeting report. 45minutes to complete Initial visit pending. documented in this encounter Plan of Treatment Date Type Specialty Care Team Description 01/30/2020 Office Visit Pediatric Infectious Virology, Pcp Pedi Diseases Infec Disease 02/27/2020 Office Visit Infectious Disease Self, Nae basilio MD [address] [place] [address] [phone] 03/17/2020 Bowling Alley Mechanic Visit Maternal Medicine 3, [facility] Mfm Us g Room 03/17/2020 Bowling Alley Mechanic Visit OB Satellites Lab, [facility] 03/24/2020 Office Visit Infectious Disease [place] PA [address] [place], [place] [address] [phone] Health Maintenance Due Date Last Done Comments [...] Effective Dates Phone Addre ss Type Group [facility] MEDICAID OF [id number] 2020-Present [phone] [address] Medicaid [place] [id number] [place] [address] documented as of this encounter Advance Directives Name Relationship Healthcare Agent Communication Relationship Kenny Chaidez Mother Health Care Agent
--- OUTSIDE RECORDS SUMMARY | 2020-02-08 12:57 | XMS REPORT | Summary of Care ---
:[address] [facility] Address [address] [place] [address] Care Team Providers Name Role Phone Eugenio Leung [facility] Primary Care Provider Reason for Visit Reason Comments UTI Encounter Details Date Type Department Care Team Description [facility]2020 [facility], [facility] [address] [place] [address] [phone] [place] [address] [phone] Allergies No Known Allergiesdocumented as of this [...] stress disorder) daily as needed for Anxiety. upvqorjua-osvhusoy-ecw TAKE 1 TABLET BY 30 tablet 4 [...] earlier at the provider s discretion). [email or web address] Pager [phone] Stye external 01/16/2015 02/28/2015 Urinary tract infection, site not specified 11/22/2014 07/27/2015 Overview: Now on daily suppression Abnormal maternal glucose tolerance, antepartum 11/20/2014 02/28/2015 Overview: Passed 3 hr gtt Dizziness 11/04/2014 02/28/2015 Urinary tract infection, site not specified 08/18/2014 11/04/2014 Supervision of other high-risk 08/13/2014 02/28/2015 Overview: ICD10 Diagnosis Term Dam Operator Utility Tobacco use disorder complicating , childbirth, or 08/13/2014 02/28/2015 puerperium, antepartum Overview: ICD10 Diagnosis Term Dam Operator Utility Asthma 08/13/2014 07/27/2015 Overview: ICD10 Diagnosis Term Dam Operator Utility History of recurrent UTIs 08/13/2014 [...] Encounter - Rossy Chung LVN - 01/25/2020 4:44 PM CDTPatient informed of results and new orders, verbalized understanding. elephone Encounter - Rossy Chung LVN - 01/25/2020 4:30 PM Ying Chaidez is a 24 year old female Attempted to call patient, no answer, no vm set up. elephone Encounter - Mela Leung WHCNP - 01/25/2020 3:38 PM CDTPlease notify the patient of UTI, meds have [...] Infectious Disease Self, Nae basilio MD [address] [place] [address] 03/17/2020 Help Desk Specialist Visit Maternal Medicine 3, [facility] Us g Room 03/17/2020 Help Desk Specialist Visit OB Satellites Lab, [facility] 03/24/2020 Office Visit Infectious Disease [facility] [address] [place], [place] [address] Health Maintenance Due Date [...] Addre ss Type Group [facility] MEDICAID OF [id number] 2020-Present [phone] [address] [place] [address] [place] [address] documented as of this encounter Advance Directives Name Relationship Healthcare Agent Communication Relationship Kenny Chaidez Mother Health Care Agent
--- OUTSIDE RECORDS SUMMARY | 2020-02-08 12:57 | XMS REPORT | Summary of Care ---
:1995 Author Organization [facility] Address [address] [place] [address] Care Team Providers Name Role Phone Eugenio [facility]ung [facility] Primary Care Provider Reason for Visit Reason Comments Assessment Encounter Details Date Type Department Care Team Description [facility]2020 [facility] [address] [facility] [place] [address] [phone] [place], [place] [address] [phone] Allergies No Known Allergiesdocumented as of this encounter (statuses as of 01/30/2020) Medications Medication Sig Dispensed Refills Start Date [...] stress disorder) daily as needed for Anxiety. svzhuvkxg-agizqfuu-ebja TAKE 1 TABLET 30 tablet 4 01/01/2020 [...] as of this encounter (statuses as of 01/30/2020) Active Problems Problem Noted Date GBS (group [...] as of this encounter (statuses as of 01/30/2020) Resolved Problems Problem Noted Date Resolved Date [...] provider s discretion). [email or web address] Pager [phone] Stye external 01/16/2015 02/28/2015 Urinary tract infection, site not specified 11/22/2014 07/27/2015 Overview: Now on daily suppression Abnormal maternal glucose tolerance, antepartum 11/20/2014 02/28/2015 Overview: Passed 3 hr gtt Dizziness 11/04/2014 02/28/2015 Urinary tract infection, site not specified 08/18/2014 11/04/2014 Supervision of other high-risk 08/13/2014 02/28/2015 Overview: ICD10 Diagnosis Term Commercial Loan Manager Utility Tobacco use disorder complicating , childbirth, or 08/13/2014 02/28/2015 puerperium, antepartum Overview: ICD10 Diagnosis Term Commercial Loan Manager Utility Asthma 08/13/2014 07/27/2015 Overview: ICD10 Diagnosis Term Commercial Loan Manager Utility History of recurrent UTIs 08/13/2014 02/28/2015 Overview: Since age 13 after sexual activities wit h monthly episiod documented as of this encounter (statuses as of 01/30/2020) Immunizations Name Administration Dates Next Due HPV [...] Telephone Encounter - Rossy Chung LVN - 01/30/2020 4:31 PM CDTTPatriciaadolfo Chaidez is a 24 year old female Patient given appointment for lab visit. elephone Encounter - Mela Leung WHCNP - 01/30/2020 3:36 PM CDTPlease have patient come in for beta lab work GABBY Browne 01/30/2020 3:36 PM Telephone Encounter - Rossy Chung LVN - 01/30/2020 2:32 PM Nefranco Chaidez is a 24 year old female Patient stated she had some bleeding that started on 01/26/2020 and lasted until 01/28/2020. Stated it was like her regular cycle but took UPT at home and was positive. Stated her last intercourse was about 3 weeks ago. Denies any blood clots, had mild cramping when she was bleeding. Patient denies any burning with urination, lower abdominal or lower back pain. Informed patient message would be routed toprovider for recommendations, verbalized understanding. elephone Encounter - Emma Miller - 01/30/2020 2:22 PM Ying Macrina Chaidez is a 24 year old female The patient is calling because she started bleeding on 01/25 and bled for 2 days and it has stopped since. documented in this encounter Plan of Treatment Date Type Specialty Care Team Description 01/31/2020 C[facility]ar Inspector [facility]2020 Office Visit Infectious Disease Self, Nae basilio MD [address] [place] [address] 03/17/2020 Cigar Inspector Visit Maternal Medicine 3, [facility] Room 03/17/2020 Cigar Inspector Visit OB Satellites Lab, [facility] 03/24/2020 Office Visit Infectious Disease [facility] [address] [place] [address] Name Type Priority Associated Diagnoses Order S chedule TOTAL BETA HCG ASSAY LAB Routine Vaginal bleeding in 3 Occurrences starting 01/30/2020 unti l 05/31/2020 Health Maintenance Due Date Last Done Comments [...] filedocumented in this encounter Visit Diagnoses Diagnosis Vaginal bleeding in - Primary Unspecified antepartum hemorrhage, unspe cified as to episode of care documented in this encounter Insurance Payer Benefit Plan / Subscriber ID Effective Phone Address T ype Group Dates [employer] OF [id number] 2020-Prese [address] [place] [id number] [place] [address] documented as of this encounter Advance Directives Name Relationship Healthcare Agent Communication Relationship Kenny Chaidez Mother Health Care Agent
--- OUTSIDE RECORDS SUMMARY | 2020-02-08 12:57 | XMS REPORT | Summary of Care ---
:1995 Author Organization [address] [address] Care Team Providers Name Role Phone Eugenio Leung [facility] Primary Care Provider Reason for Visit Reason Comments Case Management Encounter Details Date Type Department Care Team Description 02/05/2020 Telephone [facility] Julia Mathias LVN Case Management Specialties [address] [place], [place] [address] [address] [place] [address] Allergies No Known Allergiesdocumented as of this encounter (statuses as of 02/05/2020) Medications Medication Sig Dispensed Refills Start Date [...] times disorder) daily as needed for Anxiety. izifnobnc-gbehjqde-okqfv TAKE 1 TABLET 30 tablet 4 01/01/2020 [...] tabletIndications: Supervision of high risk , antepartum documented as of this encounter (statuses as of 02/05/2020) Active Problems Problem Noted Date GBS (group [...] as of this encounter (statuses as of 02/05/2020) Resolved Problems Problem Noted Date Resolved Date [...] started earlier at the provider s discretion). [email or web address] Pager [phone] Stye external 01/16/2015 02/28/2015 Urinary tract infection, site not specified 11/22/2014 07/27/2015 Overview: Now on daily suppression Abnormal maternal glucose tolerance, antepartum 11/20/2014 02/28/2015 Overview: Passed 3 hr gtt Dizziness 11/04/2014 02/28/2015 Urinary tract infection, site not specified 08/18/2014 11/04/2014 Supervision of other high-risk 08/13/2014 02/28/2015 Overview: ICD10 Diagnosis Term Cattle Inspector Utility Tobacco use disorder complicating , childbirth, or 08/13/2014 02/28/2015 puerperium, antepartum Overview: ICD10 Diagnosis Term Cattle Inspector Utility Asthma 08/13/2014 07/27/2015 Overview: ICD10 Diagnosis Term Cattle Inspector Utility History of recurrent UTIs 08/13/2014 02/28/2015 Overview: Since age 13 after sexual activities wit h monthly episiod documented as of this encounter (statuses as of 02/05/2020) Immunizations Name Administration Dates Next Due HPV [...] Telephone Encounter - Julia Keen LVN - 02/05/2020 4:58 PM CDTContacted to reschedule missed appointment, rescheduled. Denies any further bleeding. Reviewed medication compliance, rarely misses doses. Will need refills at clinic visit. All questions answered. Verified contact info. 30 minutes taken. documented in this encounter Plan of Treatment Date Type Specialty Care Team Description 02/13/2020 Office Visit Pediatric Infectious Virology, Pcp Pedi Diseases Infec Disease 02/27/2020 Office Visit Infectious Disease Self, Nae basilio MD [address] [place] [phone] 03/17/2020 Gemologist Visit Maternal Medicine 3, [facility] Room 03/17/2020 Gemologist Visit OB Satellites Lab, [facility] 03/24/2020 Office Visit Infectious Disease [facility] [address] [place] [address] Health Maintenance Due Date Last Done Comments PNEUMOCOCCAL 0-64 YEARS 07/20/2020 Postpone d from 2000 COMBINED SERIES (1 of 3 - (Refus ed) PCV13) Depression Screening 08/01/2020 08/02/2019 INFLUENZA VACCINE (#1) 2020 07/20/2019, Postponed from 01/22/2020 02/28/2015 (Vaccine not krish ilable) PAP SMEAR 01/22/2023 01/23/2020, 12/27/2018, 07/25/2015 DTaP,Tdap,and Td Vaccines (2 11/18/2024 11/18/2014 - Td) HPV VACCINES Completed 11/02/2010, 01/15/2010, 10/17/2009 documented as of this encounter Results Not on filedocumented in this encounter Insurance Payer Benefit Plan / Subscriber ID Effective Phone Address T ype Group Dates [employer] OF [id number] 2020-Prese [address] [place] [address] [place] [address] documented as of this encounter Advance Directives Name Relationship Healthcare Agent Communication Relationship Kenny Chaidez Mother Health Care Agent
--- OUTSIDE RECORDS SUMMARY | 2020-02-08 12:57 | XMS REPORT | Summary of Care ---
:1995 Author Organization [facility] Address [address] [place] [address] Care Team Providers Name Role Phone Eugenio Leung [facility] Primary Care Provider Reason for Visit Reason Comments UTI Encounter Details Date Type Department Care Team Description 01/25/2020 [facility], [facility]TI [address] [place] [address] [phone] [place], [place] [address] [phone] Allergies No Known Allergiesdocumented as of this [...] stress disorder) daily as needed for Anxiety. egevqucxk-snaavpnr-obl TAKE 1 TABLET BY 30 tablet 4 [...] (group B streptococcus) UTI complicating 01/25/2020 Overview: kraime pending Supervision of high-risk 01/23/2020 HIV disease [...] started earlier at the provider s discretion). [email or web address] Pager [phone] Stye external 01/16/2015 02/28/2015 Urinary tract infection, site not specified 11/22/2014 07/27/2015 Overview: Now on daily suppression Abnormal maternal glucose tolerance, antepartum 11/20/2014 02/28/2015 Overview: Passed 3 hr gtt Dizziness 11/04/2014 02/28/2015 Urinary tract infection, site not specified 08/18/2014 11/04/2014 Supervision of other high-risk 08/13/2014 02/28/2015 Overview: ICD10 Diagnosis Term Silk Screen Cutter Utility Tobacco use disorder complicating , childbirth, or 08/13/2014 02/28/2015 puerperium, antepartum Overview: ICD10 Diagnosis Term Silk Screen Cutter Utility Asthma 08/13/2014 07/27/2015 Overview: ICD10 Diagnosis Term Silk Screen Cutter Utility History of recurrent UTIs 08/13/2014 02/28/2015 [...] Chung LVN - 01/25/2020 4:30 PM Ying Almontekatlyn Chaidez is a 24 year old female [...] Infectious Disease Self, Nae basilio MD [address] [place] [address] 03/17/2020 Pipe Covering Molder Visit Maternal Medicine 3, [facility] Us g Room 03/17/2020 Pipe Covering Molder Visit OB Satellites Lab, [facility] 03/24/2020 Office Visit Infectious Disease [facility] [address] [place], [place] [address] Health Maintenance Due Date [...] Effective Dates Phone Addre ss Type Group [facility] MEDICAID OF [id number] 2020-Present [phone] Medicaid [place] [id number] [place] [phone] documented as of this encounter Advance Directives Name Relationship Healthcare Agent Communication Relationship Kenny Chaidez Mother Health Care Agent
--- OUTSIDE RECORDS SUMMARY | 2020-02-08 12:58 | XMS REPORT | Summary of Care ---
:1994 Author Organization [facility] Address [address] [place] [address] Care Team Providers Name Role Phone Eugenio Leung [facility] Primary Care Provider Reason for Visit Reason Comments Case Management Encounter Details Date Type Department Care Team Description 02/06/2020 Patient Outreach [facility] Ursula Rodriguez, EMERGENCY RESPONSE TECHNICIAN Case Management Specialties [address] [place] [address] [facility] [address] [place] [address] Allergies No Known Allergiesdocumented as of this encounter (statuses as of 02/06/2020) Medications Medication Sig Dispensed Refills Start Date [...] times disorder) daily as needed for Anxiety. syfeywnez-lmvzwsti-hshqj TAKE 1 TABLET 30 tablet 4 01/01/2020 [...] as of this encounter (statuses as of 02/06/2020) Active Problems Problem Noted Date GBS (group [...] as of this encounter (statuses as of 02/06/2020) Resolved Problems Problem Noted Date Resolved Date [...] at the provider s discretion). [email or web address] Pager [phone] Stye external 01/16/2015 02/28/2015 Urinary tract infection, site not specified 11/22/2014 07/27/2015 Overview: Now on daily suppression Abnormal maternal glucose tolerance, antepartum 11/20/2014 02/28/2015 Overview: Passed 3 hr gtt Dizziness 11/04/2014 02/28/2015 Urinary tract infection, site not specified 08/18/2014 11/04/2014 Supervision of other high-risk 08/13/2014 02/28/2015 Overview: ICD10 Diagnosis Term Staff Nurse Utility Tobacco use disorder complicating , childbirth, or 08/13/2014 02/28/2015 puerperium, antepartum Overview: ICD10 Diagnosis Term Staff Nurse Utility Asthma 08/13/2014 07/27/2015 Overview: ICD10 Diagnosis Term Staff Nurse Utility History of recurrent UTIs 08/13/2014 02/28/2015 Overview: Since age 13 after sexual activities wit h monthly episiod documented as of this encounter (statuses as of 02/06/2020) Immunizations Name Administration Dates Next Due HPV [...] on filedocumented in this encounter Progress Notes Ursula Cole LMSW - 02/06/2020 11:48 AM CDTSocial Work Note: Coordination of Care Teleconferenced in to monthly Maternal Child HIV meeting to discuss patient medical and psychosocialconcerns as it relates to their HIV care and successful outcomes. Discussed compliance, concerns that patient / doctor may have, and appropriate future recommendations. ? EULALIO: 09/22/2020 ? Labs 01/01 VL: ND CD4:1,365 ? ROBERT Lee (?) ? Followed by Alexandre Soler pre-, Initial pID 02/12 OB initial 01/22 Plan: Please see individual clinic note for more information as needed. Will continue to follow up as necessary. documented in this encounter Plan of Treatment Date Type Specialty Care Team Description 02/13/2020 Office Visit Pediatric Infectious Virology, Pcp Pedi Diseases Infec Disease 02/27/2020 Office Visit Infectious Disease Self, Nae basilio MD [address] [place] [address] 03/17/2020 Clam Shucker Visit Maternal Medicine 3, [facility] Us g Room 03/17/2020 Clam Shucker Visit OB Satellites Lab, [facility] 03/24/2020 Office Visit Infectious Disease East, LEONOR Geller [address] [place], [place] [address] Health Maintenance Due Date [...] ype Group Dates [employer] OF [id number] 2020-[facility] [address] [place] [address] [place] [address] documented as of this encounter Advance Directives Name Relationship Healthcare Agent Communication Relationship Aaronfranco Dm Mother Health Care Agent
--- OUTSIDE RECORDS SUMMARY | 2020-02-08 12:58 | XMS REPORT | Continuity of Care Document ---
:1995 Author Organization [facility] Address [address] [place] [address] Care Team Providers Name Role Phone UNKNOWN Primary Care Physician Unavailable Isaiah Cole LMSW Attending Clinician Unavailable Nora Keen LVN Attending Clinician Unavailable Eugenio Suh Attending Clinician Eugenio VALERIO Attending Clinician Unavailable Eugenio VALERIO Admitting Clinician Unavailable Problems This patient has no known problems. Allergies, Adverse Reactions, Alerts This patient has no known allergies or adverse reactions. Medications This patient has no known medications. Procedures This patient has no known procedures. Encounters Start End Encounter Admission Attending Care Care Encounter Source Date/Time Date/Time Type Type Clinicians Facility Department ID 2020-02-06 2020-02-06 Patient Ursual Cole [facility] [id number] 00:00:00 00:00:00 Outreach M SPECIALTY [id number] [place] [id number] [place] [id number] 2020-02-05 2020-02-05 Telephone Julia Keen [facility] [id number] 00:00:00 00:00:00 J SPECIALTY [id number] [place] [id number] [place] [id number] 2020-01-30 2020-01-30 Telephone Xochitl [facility] [id number] 00:00:00 00:00:00 Mela Becker STAGE SET UP WORKER [id number] [facility] [id number] MATERNAL [id number] & CHILD [address] [place] [address] 2017-08-13 2017-08-13 [facility] [id number] 03:57:00 03:57:00 [facility] Results Test Description Test Time Test Comments Results Result Comments Source Strep A Screen, 2017-08-15 Specimen: Rapid 07:46:00 ThroatCollected: 08/13/2017 05:30 Status: Final Last Updated: 08/15/2017 07:46 Strep A Screen Rapid (Final) (Final) Negative Blood [place](24 hrs) (Final) (Final) 08/14/17 No Group A Strep isolated Blood [place](48 hrs) (Final) (Final) 08/15/17 No Group A Strep isolated [place] Qual 2017-08-13 07:35:00 Test Item Value Reference Range Interpretation Comme nts [place] Test (test code = SMONO) Negative Negative N CBC with [id number] 04:53:00 Test Item Value Reference Range Interpretation Comments WBC (test code = WBC) 8.8 K/cumm 4.4-10.5 N RBC (test code = RBC) 4.28 M/cumm 3.75-5.20 N Hemoglobin (test code = HGB) 13.0 gm/dL 12.2-14.8 N Hematocrit (test code = HCT) 39.9 % 36.5-44.4 N MCV (test code = MCV) 93.1 fL 80-100 N MCH (test code = MCH) 30.3 pg 27.0-32.5 N MCHC (test code = MCHC) 32.6 g/dL 32.0-37.5 N RDW (test code = RDW) 12.9 % 11.5-14.5 N Platelet Count (test code = 230 K/cumm 140-440 N PLTCT) MPV (test code = MPV) 11.2 fL Diff Method (test code = DIFFM) Auto Neutrophil (test code = NEUT) 52.8 % 36-70 N Lymphocyte (test code = LYMPH) 38.0 % 12-44 N Monocyte (test code = MONO) 3.2 % 0-11 N Eosinophil (test code = EOS) 5.3 % 0-7 N Basophil (test code = BASO) 0.7 % 0-2 N Neutro Abs (test code = ANEUT) 4.6 K/cumm 1.6-7.4 N Lymph Abs (test code = ALYMPH) 3.3 K/cumm 0.5-4.6 N [place] Abs (test code = AMONO) 0.3 K/cumm 0.0-1.2 N Eos Abs (test code = AEOS) 0.46 K/cumm 0.00-0.74 N Baso Abs (test code = ABASO) 0.1 K/cumm 0.00-0.21 N
[2020-02-08 13:52] LABS: Absolute Lymphocytes (CBC) 2.4 K/uL (0.7-4.9); Basophils % 2.9 % (0-1.3); Hematocrit 40.1 % (36.0-45.0); Lymphocytes % 50.8 % (15.3-44.8); MPV 10.5 fL (7.6-11.3); RBC Red Blood Cell Count 4.15 M/uL (3.86-4.86)
[2020-02-08 14:03] LABS: BUN Blood Urea Nitrogen 14 mg/dL (7-18); Bicarbonate 25 mmol/L (21-32); Glucose Level 76 mg/dL (74-106); HCG, Quantitative 91 mIU/mL (1-3); Potassium 3.6 mmol/L (3.5-5.1); Sodium Level 143 mmol/L (136-145)
[2020-02-08 14:04] LABS: Urine Blood NEGATIVE (NEG); Urine Glucose NEGATIVE (NEG); Urine Protein NEGATIVE (NEG); Urine Specific Gravity 1.025 (1.005-1.030)
--- NOTE | 2020-02-08 14:50 | RAD REPORT ---
EXAM DESCRIPTION: US - Transvaginal OB - 02/08/2020 2:40 pm CLINICAL HISTORY: ABD CRAMPING, COMPARISON: Transvaginal OB dated 12/17/2018 FINDINGS: The uterus measures 8.3 x 5.8 x 4.5 cm. Endometrial stripe is thin. No IUP finding is evid ent. There is a small cystic structure seen in the lower uterine segment. The maternal adnexa and ovaries are within normal limits. 24 mm right ovarian cyst. Normal Doppler bl ood flow was demonstrated to both ovaries. IMPRESSION: No IUP is confirmed on this study. In the setting of an elevated HCG level, this would b e considered a of unknown location. Follow-up pelvic ultrasound in 10-12 days and serial HC G level measurement is recommended.
--- NOTE | 2020-02-08 14:57 | EDPHYS ---
Physician Documentation [facility] Name: Franklin Chaidez Age: 24 yrs Sex: Female : 1995 Arrival Date: 02/08/2020 Time: 12:53 Bed 19 Private MD: ED Physician Vasile Guillen HPI: 02/07 15:12 This 24 yrs old Black Female presents to ER via Ambulatory with complaints of Vaginal kb Bleeding, + Preg <12wks, Headache. 15:12 The patient presents to the emergency department with vaginal bleeding, that is light. kb The estimated gestational age is 7 weeks. course: care: at a clinic. Previous pregnancies: in previous pregnancies patient has had. Associated signs and symptoms: Pertinent positives: vaginal bleeding, Pertinent negatives: abdominal pain, chest pain, diarrhea, dysuria, fever, frequency, nausea, ruptured membranes, seizure, shortness of breath, vaginal discharge, vomiting. The patient has not experienced similar symptoms in the past. The patient has not recently seen a physician. Pt reports light vaginal bleeding that started 2 days ago and ended last night. States she has had 2 previous miscarriages in the past and thinks she may have had another one. 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 - Social history:: Smoking status: Patient reports the use of cigarette tobacco products, denies chronic smoking, but will smoke occasionally. ROS: 15:16 Constitutional: Negative for fever, chills, and weight loss, Cardiovascular: Negative kb for chest pain, palpitations, and edema, Respiratory: Negative for shortness of breath, cough, wheezing, and pleuritic chest pain, Abdomen/GI: Negative for abdominal pain, nausea, vomiting, diarrhea, and constipation, Back: Negative for injury and pain, MS/Extremity: Negative for injury and deformity, Skin: Negative for injury, rash, and discoloration, Neuro: Negative for headache, weakness, numbness, tingling, and seizure. 15:16 : Positive for vaginal bleeding. Exam: 15:16 Constitutional: This is a well developed, well nourished patient who is awake, alert, kb and in no acute distress. Head/Face: Normocephalic, atraumatic. Chest/axilla: Normal chest wall appearance and motion. Nontender with no deformity. No lesions are appreciated. Cardiovascular: Regular rate and rhythm with a normal S1 and S2. No gallops, murmurs, or rubs. Normal PMI, no JVD. No pulse deficits. Respiratory: Lungs have equal breath sounds bilaterally, clear to auscultation and percussion. No rales, rhonchi or wheezes noted. No increased work of breathing, no retractions or nasal flaring. Abdomen/GI: Soft, non-tender, with normal bowel sounds. No distension or tympany. No guarding or rebound. No evidence of tenderness throughout. Skin: Warm, dry with normal turgor. Normal color with no rashes, no lesions, and no evidence of cellulitis. MS/ Extremity: Pulses equal, no cyanosis. Neurovascular intact. Full, normal range of motion. Neuro: Awake and alert, GCS 15, oriented to person, place, time, and situation. Cranial nerves II-XII grossly intact. Motor strength 5/5 in all extremities. Sensory grossly intact. Cerebellar exam normal. Normal gait. Vital Signs: 12:59 BP 113 / 71; Pulse 76; Resp 14; Temp 97.5(TE); Pulse Ox 99% ; Weight 58.97 kg; Height 5 sv ft. 3 in. (160.02 cm); 14:02 BP 99 / 64; Pulse 81; Resp 15 S; Pulse Ox 99% on R/A; ca1 14:59 BP 118 / 62; Pulse 57; Resp 15 S; Pulse Ox 96% on R/A; ca1 12:59 Body Mass Index 23.03 (58.97 kg, 160.02 cm) sv MDM: 13:02 Patient medically screened. kb 15:17 Data reviewed: vital signs, nurses notes. Data interpreted: Pulse oximetry: on room air kb is 96 %. Interpretation: normal. Counseling: I had a detailed discussion with the patient and/or guardian regarding: the historical points, exam findings, and any diagnostic results supporting the discharge/admit diagnosis, lab results, radiology results, the need for outpatient follow up, an OB/Gyne specialist, to return to the emergency department if symptoms worsen or persist or if there are any questions or concerns that arise at home. 02/07 13:06 Order name: Quantitative Hcg; Complete Time: 14:05 kb 02/07 13:06 Order name: Abo/rh Typing; Complete Time: 14:24 kb 02/07 13:06 Order name: Basic Metabolic Panel; Complete Time: 14:05 kb 02/07 13:06 Order name: CBC with Diff; Complete Time: 13:54 kb 02/07 13:43 Order name: Urine Dipstick--Ancillary (enter results); Complete Time: 14:05 dh3 02/07 13:43 Order name: Urine --Ancillary (enter results); Complete Time: 14:05 dh3 02/07 13:06 Order name: Urine Test (obtain specimen); Complete Time: 13:28 kb 02/07 13:06 Order name: IV Saline Lock; Complete Time: 13:27 kb 02/07 13:06 Order name: Labs collected and sent; Complete Time: 13:28 kb 02/07 13:06 Order name: NPO; Complete Time: 13:28 kb 02/07 13:06 Order name: Urine Dipstick-Ancillary (obtain specimen); Complete Time: 13:28 kb 02/07 13:54 Order name: US Transvaginal Ob; Complete Time: 14:52 kb Administered Medications: No medications were administered Disposition: 16:43 Co-signature as Attending Physician, Vasile Guillen MD I agree with the assessment and kdr plan of care. Disposition: 02/08/20 14:56 Discharged to Home. Impression: Threatened . - Condition is Stable. - Discharge Instructions: Threatened Miscarriage, [id number]. - Medication Reconciliation Form, Thank You Letter, Antibiotic Education, Prescription Opioid Use form. - Follow up: Emergency Department; When: As needed; Reason: Worsening of condition. Follow up: Private Physician; When: 2 - 3 days; Reason: Recheck today's complaints, Continuance of care, Re-evaluation by your physician. Signatures: Dispatcher [employer] Tere Piper, Sarah Donahue RN RN sv Rittger, Kevin, MD MD [facility] Hafsa Jarvis RN RN ca1 Corrections: (The following items were deleted from the chart) 15:14 14:56 02/08/2020 14:56 Discharged to Home. Impression: Threatened . Condition ca1 is Stable. Forms are Medication Reconciliation Form, Thank You Letter, Antibiotic Education, Prescription Opioid Use. Follow up: Emergency Department; When: As needed; Reason: Worsening of condition. Follow up: Private Physician; When: 2 - 3 days; Reason: Recheck today's complaints, Continuance of care, Re-evaluation by your physician. kb
--- NOTE | 2020-02-08 14:57 | ER ---
Nurse's Notes [facility] Name: Franklin Chaidez Age: 24 yrs Sex: Female : 1995 Arrival Date: 02/08/2020 Time: 12:53 Bed 19 Private MD: Diagnosis: Threatened Presentation: 02/07 12:58 Chief complaint: Patient states: 7 wks , had scant vaginal bleeding for 1 day sv yesterday and since has stopped, c/o headache and back pain. Coronavirus screen: Client denies travel out of the [place] in the last 14 days. At this time, the client does not indicate any symptoms associated with coronavirus-19. Ebola Screen: No symptoms or risks identified at this time. Risk Assessment: Do you want to hurt yourself or someone else? Patient reports no desire to harm self or others. Onset of symptoms was February 07, 2020. 12:58 Method Of Arrival: Ambulatory sv 12:58 Acuity: ELEONORA 3 sv 12:59 Initial Sepsis Screen: Does the patient meet any 2 criteria? No. Patient's initial sv sepsis screen is negative. Does the patient have a suspected source of infection? No. Patient's initial sepsis screen is negative. 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 - Social history:: Smoking status: Patient reports the use of cigarette tobacco products, denies chronic smoking, but will smoke occasionally. Screenin:15 Abuse screen: Denies threats or abuse. Denies injuries from another. Nutritional ca1 screening: No deficits noted. Tuberculosis screening: No symptoms or risk factors identified. Fall Risk IV access (20 points). Assessment: 13:15 General: Appears in no apparent distress. comfortable, Behavior is calm, cooperative, ca1 appropriate for age. Pain: Complains of pain in lumbar area Pain currently is 5 out of 10 on a pain scale. Pain began 2-3 days ago. Neuro: Level of Consciousness is awake, alert, obeys commands, Oriented to person, place, time, situation. Cardiovascular: Heart tones S1 S2 present Capillary refill < 3 seconds Patient's skin is warm and dry. Respiratory: Airway is patent Respiratory effort is even, unlabored, Respiratory pattern is regular, symmetrical, Breath sounds are clear bilaterally. GI: Abdomen is flat, non-distended, Bowel sounds present X 4 quads. Abd is soft and non tender X 4 quads. Reports cramping, nausea. : Reports vaginal bleeding that is bright red, light flow, since 3 days. EENT: No signs and/or symptoms were reported regarding the EENT system. Derm: Skin is intact, is healthy with good turgor, Skin is. Musculoskeletal: Circulation, motion, and sensation intact. Capillary refill < 3 seconds. 14:02 Reassessment: Patient appears in no apparent distress at this time. Patient and/or ca1 family updated on plan of care and expected duration. Pain level reassessed. Patient is alert, oriented x 3, equal unlabored respirations, skin warm/dry/pink. 14:03 Reassessment: PT at US. ca1 14:59 Reassessment: Patient appears in no apparent distress at this time. Patient is alert, ca1 oriented x 3, equal unlabored respirations, skin warm/dry/pink. 15:14 Reassessment: Patient appears in no apparent distress at this time. Patient is alert, ca1 oriented x 3, equal unlabored respirations, skin warm/dry/pink. Vital Signs: 12:59 BP 113 / 71; Pulse 76; Resp 14; Temp 97.5(TE); Pulse Ox 99% ; Weight 58.97 kg; Height 5 sv ft. 3 in. (160.02 cm); 14:02 BP 99 / 64; Pulse 81; Resp 15 S; Pulse Ox 99% on R/A; ca1 14:59 BP 118 / 62; Pulse 57; Resp 15 S; Pulse Ox 96% on R/A; ca1 12:59 Body Mass Index 23.03 (58.97 kg, 160.02 cm) sv ED Course: 12:53 Patient arrived in ED. mr 12:56 Te[facility]-C [facility] kb 12:56 Vasile Guillen MD is Attending Physician. kb 12:57 Arm band placed on. sv 12:58 Triage completed. sv 13:15 Patient has correct armband on for positive identification. Placed in gown. Bed in low ca1 position. Call light in reach. Side rails up X2. Pulse ox on. NIBP on. Warm blanket given. 13:22 Initial lab(s) drawn, by me, sent to lab. Inserted saline lock: 20 gauge in right dh3 antecubital area, using aseptic technique. Blood collected. 13:27 Urine collected: clean catch specimen, clear. [facility] 13:52 Hafsa Jarvis, RN is Primary Nurse. ca1 14:40 US Transvaginal Ob In Process Unspecified. EDMS 15:14 No provider procedures requiring assistance completed. IV discontinued, intact, ca1 bleeding controlled, No redness/swelling at site. Pressure dressing applied. Administered Medications: No medications were administered Outcome: 14:56 Discharge ordered by . kb 15:14 Discharged to home ambulatory. ca1 15:14 Condition: stable 15:14 Discharge instructions given to patient, Instructed on discharge instructions, follow up and referral plans. Demonstrated understanding of instructions, follow-up care. 15:14 Patient left the ED. ca1 Signatures: Dispatcher [employer] EDMS Tere Hope, MATERIALS TECHNICIAN-C MATERIALS TECHNICIAN-Sarah Walker, RN RN MahanAmy mr [place], [place] [id number] Hafsa Jarvis, RN RN ca1
[2020-02-08 19:30] VITALS: TEMP 97.5
[2020-02-08 19:32] VITALS: BP 118/62; O2SAT 96
== END 2020-02-08 15:14 | disposition home or self-care (01) ==
LOC: ER 12:50
DX: O20.0 Threatened abortion (principal); O99.331 Smoking (tobacco) complicating pregnancy, first trimester; F17.210 Nicotine dependence, cigarettes, uncomplicated; Z3A.01 Less than 8 weeks gestation of pregnancy
CPT/HCPCS: 36415; 76817; 80048; 81003; 81025; 84702; 85025; 86900; 86901; 99284

== ENCOUNTER 2021-04-13 23:36 | Emergency (ER) | payer OTHER ==
--- OUTSIDE RECORDS SUMMARY | 2021-04-13 23:39 | XMS REPORT | Continuity of Care Document ---
:1995 Author Organization [facility] t Address [address] [place] [address] Care Team Providers Name Role Phone UNKNOWN Primary Care Physician Unavailable Emmanuelle WHCNP, O Attending Clinician Donald SHEET ROCK LAYER, N Attending Clinician Sam SHEET ROCK LAYER, R Attending Clinician Kelsey ASCENCIO, M Attending Clinician Unavailable Osmani RAMÍREZ J Attending Clinician Unavailable Xochitl WHCNP, C Attending Clinician Eugenio VALERIO Attending Clinician Unavailable Eugenio VALERIO Admitting Clinician Unavailable Payers Payer Name Policy Type Policy Number Effective Date Expiration Date S ource Advance Directives Directive Decision Effective Termination Comments Source Date Date Healthcare Agents on N/A [facility] FileNameRelationshipHealthcare [facility] Agent Medical RelationshipCommunicationSioux Center Health Care [phone] (Mobile) Problems Condition Condition Condition Status Onset Resolution Last Treating Co mments Source Name Details Category Date Date Treatment Clinician Date Lump or Lump or Disease Active 2019- Univers mass in mass in 2-01 ity of breast breast 00:00: [place] 00 Medical Branch Supervisio Supervisio Disease Active 2020-0 U nivers n of high n of high 9-02 ity of risk risk 00:00: [place] 00 Medi mariah in second in second Bran ch trimester trimester HIV HIV Disease Active Univers disease disease 9- [place] [facility] [place] History of History of Disease Active U nivers multiple multiple 9- [place] of miscar[place] [facility] 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 Suppressi on at 36 weeks Tobacco Tobacco Disease Active Univers use use 3-06 ity of disorder disorder 00:00: [place] [facility] Allergies, Adverse Reactions, Alerts This patient has no known allergies or adverse reactions. Social History Social Habit Start Date Stop Date Quantity Comments Source ASSERTION 2020-10-22 University of 00:00:00 [facility] History [facility] o f Alcohol Frequency [facility] [place] [place] History [facility] o f Alcohol Std Drinks [facility] History [facility] o f Alcohol Binge [facility] Exposure to Not sure [facility] SARS-CoV-2 (event) [facility] Alcohol intake 2021-04-09 2021-04-09 Ex-drinker University of 00:00:00 00:00:00 (finding) [facility] Alcohol Comment 2019-08-02 2019-08-02 occasional Universit y of 00:00:00 00:00:00 [facility] Tobacco Comment 2019-07-20 2019-07-20 resources given Univ ersity of 00:00:00 00:00:00 [facility] Cigarettes smoked 2019-07-20 2019-07-20 Univers ity of current (pack per 00:00:00 00:00:00 [facility] ) - Reported Branch Cigarette 2019-07-20 2019-07-20 University of pack-years 00:00:00 00:00:00 [facility] Tobacco use and 2019-07-20 2019-07-20 Never used Universit y of exposure 00:00:00 00:00:00 [facility] History of tobacco 2010-12-14 2018-12-10 Cigarette Smoker University of use 00:00:00 00:00:00 [facility] Sex Ass[birth year] At [birth year] Universit y of 00:00:00 00:00:00 [facility] Smoking Status Start Date Stop Date Source Current every day smoker 2019-07-20 00:00:00 Uni versity [facility] Medications Ordered Filled Start Stop Current Ordering Indication Dosage Frequency Signature Comments Components Source Medication Medication Date Date Medication? Clinician (SIG) Name Name ferrous 2020-05- Yes [id number] 325mg Take 1 U nivers sulfate 1-19 12-20 tablet by ity of (IRON, 00:00: 05:59 mouth [place] FERROUS 00 :00 daily for Medical SULFATE,) 30 days. Branch 325 mg (65 mg iron) tablet BIKTARY 2020-05 Yes [id number] 1{tbl} Take 1 U nivers 50-200-25 0-06 tablet by ity o f mg tablet 00:00: mouth [place] 00 daily. [facility] BIKTARVY 2020-05 Yes [id number] 1{tbl} Take 1 U nivers 50-200-25 0-06 tablet by ity o f mg tablet 00:00: mouth [place] 00 daily. [facility] BIKTARVY 2020-05 Yes [id number] 1{tbl} Take 1 U nivers 50-200-25 0-06 tablet by ity o f mg tablet 00:00: mouth [place] 00 daily. [facility] Branch fluticasone Yes Univer s propionate 7-08 ity of 50 00:00: [place] mcg/actuati 00 Medical on nasal Branch spray fluticasone Yes Univer s propionate 7-08 ity of 50 00:00: [place] mcg/actuati 00 Medical on nasal Branch spray fluticasone Yes Univer s propionate 7-08 ity of 50 00:00: [place] mcg/actuati 00 Medical on nasal Branch spray Yes [id number] 1{packe Take 1 Univers vit 6-21 t} Packet by ity of 33-iron-fol 00:00: mouth [place] ic-dha 00 daily. Medical (SELECT-OB Branch + DHA) 29 mg iron-1 mg -250 mg combo pack Yes [id number] 1{packe Take 1 Univers vit 6-21 t} Packet by ity of 33-iron-fol 00:00: mouth [place] ic-dha 00 daily. Medical (SELECT-OB Branch + DHA) 29 mg iron-1 mg -250 mg combo pack Yes [id number] 1{packe Take 1 Univers vit 6-21 t} Packet by ity of 33-iron-fol 00:00: mouth [place] ic-dha 00 daily. Medical (SELECT-OB Branch + DHA) 29 mg iron-1 mg -250 mg combo pack Immunizations Ordered Filled Immunization Date Status Comments [facility] Immunization Name Name Influenza Virus 2021-04-09 Completed Universit y of Vaccine Quad IM, 00:00:00 [facility] dical Preserv and ABX Branch Free 6 MO-64 YRS Influenza Virus 2021-04-09 Completed Universit y of Vaccine Quad IM, 00:00:00 [facility] dical Preserv and ABX Branch Free 6 MO-64 YRS Influenza Virus 2021-04-09 Completed Universit y of Vaccine Quad IM, 00:00:00 [facility] dical Preserv and ABX Branch Free 6 MO-64 YRS Influenza Virus 2019-07-20 Completed Universit y of Vaccine Quad .5 mL 00:00:00 [place] Medical IM 6+ MO Branch Influenza Virus 2019-07-20 Completed Universit y of Vaccine Quad .5 mL 00:00:00 [place] Medical IM 6+ MO Branch Influenza Virus 2019-07-20 Completed Universit y of Vaccine Quad .5 mL 00:00:00 [place] Medical IM 6+ MO Branch Influenza Virus 2015-02-28 Completed Universit y of Vaccine Quad IM 3+ 00:00:00 [facility] Influenza Virus 2015-02-28 Completed Universit y of Vaccine Quad IM 3+ 00:00:00 [facility] Influenza Virus 2015-02-28 Completed Universit y of Vaccine Quad IM 3+ 00:00:00 [facility] TDAP 2014-11-18 Completed University of 00:00:00 [facility] TDAP 2014-11-18 Completed University 00:00:00 [facility] TDAP 2014-11-18 Completed University of 00:00:00 [facility] HPV 2010-11-02 Completed University of 00:00:00 [facility] HPV 2010-11-02 Completed University of 00:00:00 [facility] HPV 2010-11-02 Completed University of 00:00:00 [facility] HPV 2010-01-15 Completed University of 00:00:00 [facility] HPV 2010-01-15 Completed University of 00:00:00 [facility] HPV 2010-01-15 Completed University of 00:00:00 [facility] HPV 2009-10-17 Completed University of 00:00:00 [facility] HPV 2009-10-17 Completed University of 00:00:00 [facility] [place] [facility] 2009-10-17 Completed University of 00:00:00 [facility] Vital Signs Vital Name Observation Time Observation Value Comments Source Systolic blood 2021-04-09 15:53:00 113 mm[Hg] Univer sity pressure [facility] Diastolic blood 2021-04-09 15:53:00 71 mm[Hg] [facility] Heart rate 2021-04-09 15:53:00 81 /min [facility] Body temperature 2021-04-09 15:53:00 37.06 Myrtle [facility] Respiratory rate 2021-04-09 15:53:00 17 /min [facility] Body height 2021-04-09 15:53:00 165.1 cm [facility] Body weight 2021-04-09 15:53:00 68.629 kg [facility] BMI 2021-04-09 15:53:00 25.18 kg/m2 [facility] Procedures Procedure Date / Time Performed Performing Clinician Sourc e FLU VACC (), 2021-04-09 16:25:27 Almaz [facility] 2-64 YRS, .5ML, IM, Medical Bran ch QUAD (FLUCELVAX) POCT URINALYSIS 2021-04-09 00:00:00 [facility] Encounters Start End Encounter Admission Attending Care Care Encounter Source Date/Time Date/Time Type Type Clinicians Facility Department ID 2021-04-10 2021-04-10 Telephone Emmanuelle [facility] [id number] Univers 00:00:00 00:00:00 Tru Key PATHOLOGY SUPERVISOR [id number] ity of REGIONAL [id number] Primitivo as MATERNAL [id number] Med ical & CHILD [address] [place] [address] 2021-04-09 2021-04-09 [id number] Univers 09:34:54 10:35:29 Almaz N PATHOLOGY SUPERVISOR [id number] i ty of Visit REGIONAL [id number] Primitivo as MATERNAL [id number] Med ical & CHILD [address] [place] [address] 2021-04-09 2021-04-09 Telephone Sam [facility] [id number] Univers 00:00:00 00:00:00 Scar Gonzalez PATHOLOGY SUPERVISOR [id number] ity of REGIONAL [id number] Primitivo as MATERNAL [id number] Med ical & CHILD [address] [place] [address] 2020-02-06 2020-02-06 Patient Ursula Cole [facility] [id number] 00:00:00 00:00:00 Outreach M SPECIALTY [id number] [place] [id number] [place] [id number] 2020-02-05 2020-02-05 Telephone Julia Keen [facility] [id number] 00:00:00 00:00:00 J SPECIALTY [id number] [place] [id number] [place] [id number] 2020-01-30 2020-01-30 Telephone Xochitl [facility] [id number] 00:00:00 00:00:00 Mela Becker PATHOLOGY SUPERVISOR [id number] REGIONAL [id number] MATERNAL [id number] & [address] 2017-08-13 2017-08-13 Emergency E [facility] MED [id number] 03:57:00 03:57:00 [facility] Results Test Description Test Time Test Comments Results Result Comments Source POCT URINALYSIS W SPECIFIC GRAVITY 2021-04-09 15:57:00 Test Item Value Reference Range Interpretation Comme nts POCT U SP GRAV (test code = 3255) - 1.005-1.025 POCT PH U (test code = 3254) - 5-8 POCT U LEUK EST (test code = 3263) - Negative - Negative POCT U NIT (test code = 3262) - Negative - Negative POCT U PROT (test code = 3259) trace Negative - Negative POCT U GLU (test code = 3256) normal Negative - Negative POCT U KETONE (test code = 3258) - Negative - Negative POCT U UROBILI (test code = 3260) - 0.2-1 POCT U BILI (test code = 3261) - Negative - Negative POCT U BLD (test code = 3257) - Negative - Negative POCT U COLOR (test code = 3266) POCT U APPEAR (test code = 3267) [facility], [id number] 07:46:00 Specimen: ThroatCollected: 08/13/2017 05:30 Status: Final Last Updated: 08/15/2017 07:46 Strep A Screen Rapid (Final) (Final) Negative Blood [place](24 hrs) (Final) (Final) 08/14/17 No Group A Strep isolated Blood [place](48 hrs) (Final) (Final) 08/15/17 No Group A Strep isolatedMono Qual 2017-08-13 07:35:00 Test Item Value Reference Range Interpretation Comments Walsh Test (test code = SMONO) Negative Negative N CBC with [id number] 04:53:00 Test Item Value Reference Range Interpretation [...] code = ALYMPH) 3.3 K/cumm 0.5-4.6 N Walsh Abs (test code = AMONO) 0.3 K/cumm 0.0-1.2 N Eos Abs (test code = AEOS) 0.46 K/cumm 0.00-0.74 N Baso Abs (test code = ABASO) 0.1 K/cumm 0.00-0.21 N
--- NOTE | 2021-04-14 01:31 | EDPHYS ---
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 - Social history:: Smoking status: Patient reports the use of cigarette tobacco products, smokes one-half pack cigarettes per day, Patient/guardian denies using alcohol, street drugs. Vital Signs: 23:42 BP 127 / 89; Pulse 79; Resp 18; Temp 98.3(TE); Pulse Ox 100% on R/A; Weight 68.49 kg; ld1 Height 5 ft. 3 in. (160.02 cm); Pain 7/10; 23:42 Body Mass Index 26.75 (68.49 kg, 160.02 cm) ld1 MDM: 04/14 01:28 Patient medically screened. jr8 Administered Medications: No medications were administered Disposition Summary: 04/14/21 01:30 Eloped Reason: unknown jr8 Disposition: before being seen by provider(04/14/21 01:33) bb Signatures: Jayashree Stern RN RN bb Dylan Andrews PA PA jr8 Vianca Alfonso RN RN ld1 Corrections: (The following items were deleted from the chart) 01:33 01:30 post triage evaluation and consult jr8 max
--- NOTE | 2021-04-14 01:31 | ER ---
Nurse's Notes [facility] Name: Franklin Chaidez Age: 25 yrs Sex: Female : 1995 Arrival Date: 04/13/2021 Time: 23:38 Bed Waiting Private MD: Diagnosis: Presentation: 04/13 23:42 Chief complaint: Patient states: I have had a spider bite for two months on my left ld1 leg. It is tingling and my entire leg is starting to itch and become painful. Coronavirus screen: At this time, the client does not indicate any symptoms associated with coronavirus-19. Ebola Screen: No symptoms or risks identified at this time. Initial Sepsis Screen: Does the patient meet any 2 criteria? No. Patient's initial sepsis screen is negative. Does the patient have a suspected source of infection? No. Patient's initial sepsis screen is negative. Risk Assessment: Do you want to hurt yourself or someone else? Patient reports no desire to harm self or others. Onset of symptoms was April 13, 2021. 23:42 Method Of Arrival: Ambulatory ld1 23:42 Acuity: ELEONORA 4 ld1 Triage Assessment: 23:44 General: Appears in no apparent distress. comfortable, Behavior is calm, cooperative, ld1 appropriate for age. Pain: Complains of pain in left leg Pain does not radiate. Pain currently is 7 out of 10 on a pain scale. Quality of pain is described as tingling, throbbing, Pain began gradually, Is continuous. EENT: No signs and/or symptoms were reported regarding the EENT system. Neuro: Level of Consciousness is awake, alert, obeys commands, Oriented to person, place, time, situation. Cardiovascular: Capillary refill < 3 seconds Patient's skin is warm and dry. Respiratory: Airway is patent Respiratory effort is even, unlabored, Respiratory pattern is regular, symmetrical. GI: Abdomen is round non-distended, Reports nausea. : No signs and/or symptoms were reported regarding the genitourinary system. Derm: Spider bite to left lower leg. Musculoskeletal: No signs and/or symptoms reported regarding the musculoskeletal system. 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 - Social history:: Smoking status: Patient reports the use of cigarette tobacco products, smokes one-half pack cigarettes per day, Patient/guardian denies using alcohol, street drugs. Vital Signs: 23:42 BP 127 / 89; Pulse 79; Resp 18; Temp 98.3(TE); Pulse Ox 100% on R/A; Weight 68.49 kg; ld1 Height 5 ft. 3 in. (160.02 cm); Pain 7/10; 23:42 Body Mass Index 26.75 (68.49 kg, 160.02 cm) ld1 ED Course: 23:38 Patient arrived in ED. bp1 23:44 Triage completed. ld1 23:44 Arm band placed on left wrist. ld1 04/14 01:28 Dylan Andrews PA is PHCP. jr8 01:28 Flash Silveira MD is Attending Physician. jr8 01:32 Patient's name was called from ER lobby. No response. Unable to locate patient. Will bb disposition as left without being seen by a provider. Administered Medications: No medications were administered Outcome: 01:33 Patient left the ED. bb Signatures: Jayashree Stern RN RN bb Dylan Andrews PA PA jr8 Vivi Alvarado Lauren, RN RN ld1
[2021-04-14 01:44] VITALS: BP 127/89; TEMP 98.3; O2SAT 100
== END 2021-04-14 01:33 | disposition left against medical advice (07) ==
LOC: ER 23:36
DX: Z53.21 Procedure and treatment not carried out due to patient leaving prior to being seen by health care provider (principal)
CPT/HCPCS: 99281

== ENCOUNTER 2021-06-04 09:48 | Emergency (ER) | payer OTHER ==
--- OUTSIDE RECORDS SUMMARY | 2021-06-04 09:51 | XMS REPORT | Continuity of Care Document ---
:1995 Author Organization [facility] t Address [address] [place] [address] Care Team Providers Name Role Phone UNKNOWN Primary Care Physician Unavailable Eugenio ZAVALA Attending Clinician Unavailable Xochitl PIERRE C Attending Clinician Kelsey ASCENCIO M Attending Clinician Unavailable Disease, & Pcp Pedi Infec Attending Clinician Unavailable Francois Sneed DO Attending Clinician Francois SNEED Attending Clinician Unavailable Nora Keen LVN Attending Clinician Unavailable Eugenio VALERIO Attending Clinician Unavailable Eugenio VALERIO Admitting Clinician Unavailable Payers Payer Name Policy Type Policy Number Effective Date Expiration Date [facility] [id number] 2020 00:00:00 Advance Directives Directive Decision Effective Termination Comments Source Date Date Healthcare Agents on N/A [facility] ersity FileNameRelationshipHealthcare [facility] Agent Medical RelationshipCommunicationWayne County Hospital and [facility] Care [phone] (Mobile) Problems Condition Condition Condition Status Onset Resolution Last Treating Co mments Source Name Details Category Date Date Treatment Clinician Date Other Other Disease Active Univers depression depression 1-11 it y of 00:00: [address] Lump or Lump or Disease Active 2019-05 Univers mass in mass in 2-01 ity of breast breast 00:00: [address] HIV HIV Disease Active Univers disease disease 9-02 ity of affecting affecting 00:00: Martin s 00 [facility] Branch History of History of Disease Active 2020- U nivers multiple multiple 9 ity of miscarriag miscarriag 00:00: [place] es es 00 Medical Branch Supervisio Supervisio Disease Active 2020-0 U nivers n of high n of high 01-22 ity of risk risk 00:00: [place] 00 Medi mariah in second in second Bran ch trimester trimester 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 Suppressi on at 36 weeks Herpes Herpes Disease Active Overview: Univer s infection infection 7-25 Formattin i ty of in in 00:00: g of this [place] 00 note [facility] might be Branch different from the original. Suppressi on at 36 weeks Tobacco Tobacco Disease Active Univers use use 3-06 ity of disorder disorder 00:00: [address] Allergies, Adverse Reactions, Alerts Allergy Allergy Status Severity Reaction(s) Onset Inactive Treating Comm ents Source Name Type Date Date Clinician NO KNOWN Drug Active Univers ALLERGIE Class ity of S [facility] Social History Social Habit Start Date Stop Date Quantity Comments Source ASSERTION 2020-10-22 University of 00:00:[address] [facility] History SDOH University o f Alcohol Frequency [facility] edical Branch History SDOH University o f Alcohol Std Drinks [facility] History SDNC University o f Alcohol Binge [place] Medic al Branch Exposure to Not sure University of SARS-CoV-2 (event) [facility] Alcohol intake 2021-06-02 2021-06-02 Ex-drinker University of 00:00:00 00:00:00 (finding) [facility] Alcohol Comment 2019-08-02 2019-08-02 occasional Universit y of 00:00:00 00:00:[address] [facility] Tobacco Comment 2019-07-20 2019-07-20 resources given Univ ersity of 00:00:00 00:00:[address] [facility] Cigarettes smoked 2019-07-20 2019-07-20 Univers ity of current (pack per 00:00:00 00:00:00 ) - Reported Branch Cigarette 2019-07-20 2019-07-20 University of pack-years 00:00:00 00:00:[address] [facility] Tobacco use and 2019-07-20 2019-07-20 Never used Universit y of exposure 00:00:00 00:00:[address] [facility] History of tobacco 2010-12-14 2018-12-10 Cigarette Smoker University of use 00:00:00 00:00:[address] [facility] Sex Ass[birth year] At [birth year] Universit y of 00:00:00 00:00:[address] [facility] Smoking Status Start Date Stop Date Source Current every day smoker 2019-07-20 00:00:[address] [facility] Medications Ordered Filled Start Stop Current Ordering Indication Dosage Frequency Signature Comments Components Source Medication Medication Date Date Medication? Clinician (SIG) Name Name bictegrav-e Yes [id number] 1{tbl} Take 1 Univers mtricit-ten 1-03 tablet by ity of ofov ala 00:00: mouth [place] (BIKTARVY) 00 daily. Medical 50-200-25 Branch mg tablet bictegrav-e Yes [id number] 1{tbl} Take 1 Univers mtricit-ten 1-03 tablet by ity of ofov ala 00:00: mouth [place] (BIKTARVY) 00 daily. Medical 50-200-25 Branch mg tablet bictegrav-e 2021- Yes [id number] 1{tbl} Take 1 Univers mtricit-ten 1-03 tablet by ity of ofov ala 00:00: mouth [place] (BIKTARVY) 00 daily. Medical 50-200-25 Branch mg tablet bictegrav-e 2021-0 Yes [id number] 1{tbl} Take 1 Univers mtricit-ten 1-03 tablet by ity of ofov ala 00:00: mouth [place] (BIKTARVY) 00 daily. Medical 50-200-25 Branch mg tablet bictegrav-e Yes [id number] 1{tbl} Take 1 Univers mtricit-ten 1-03 tablet by ity of ofov ala 00:00: mouth [place] (BIKTARVY) 00 daily. Medical 50-200-25 Branch mg tablet BIKTARVY 2020-05- No [id number] 1{tbl} Take 1 Univers 50-200-25 0-06 01-03 tablet by ity of mg tablet 00:00: 00:00 mouth [place] 00 :00 daily. Medical Branch fluticasone Yes Univer s propionate 7-08 ity of 50 00:00: [place] mcg/actuati 00 Medical on nasal Branch spray fluticasone Yes Univer s propionate 7-08 ity of 50 00:00: [place] mcg/actuati 00 Medical on nasal Branch spray fluticasone 0 Yes Univer s propionate 7-08 ity of 50 00:00: [place] mcg/actuati 00 Medical on nasal Branch spray fluticasone Yes Univer s propionate 7-08 ity of 50 00:00: [place] mcg/actuati 00 Medical on nasal Branch spray fluticasone 0 Yes Univer s propionate 7-08 ity of 50 00:00: [place] mcg/actuati 00 Medical on nasal Branch spray Yes [id number] 1{packe Take 1 Univers vit 6-21 t} Packet by ity of 33-iron-fol 00:00: mouth [place] ic-dha daily. Medical (SELECT-OB Branch + DHA) 29 mg iron-1 mg -250 mg combo pack Yes [id number] 1{packe Take 1 Univers vit 6-21 t} Packet by ity of 33-iron-fol 00:00: mouth [place] ic-dha 00 daily. Medical (SELECT-OB Branch + DHA) 29 mg iron-1 mg -250 mg combo pack Yes [id number] 1{packe Take 1 Univers vit 6-21 t} Packet by ity of 33-iron-fol 00:00: mouth [place] ic-dha 00 daily. Medical (SELECT-OB Branch + DHA) 29 mg iron-1 mg -250 mg combo pack Yes [id number] 1{packe Take 1 Univers vit 6-21 t} Packet by ity of 33-iron-fol 00:00: mouth [place] ic-dha 00 daily. Medical (SELECT-OB Branch + DHA) 29 mg iron-1 mg -250 mg combo pack Yes [id number] 1{packe Take 1 Univers vit 6-21 t} Packet by ity of 33-iron-fol 00:00: mouth [place] ic-dha 00 daily. Medical (SELECT-OB Branch + DHA) 29 mg iron-1 mg -250 mg combo pack Immunizations Ordered Filled Immunization Date Status Comments [facility] e Immunization Name Name TD 2021-04-24 Completed University of 00:00:[address] [facility] TDAP 2021-04-24 Completed University 00:00:[address] [facility] TDAP 2021-04-24 Completed University of 00:00:[address] [facility] TDAP 2021-04-24 Completed University 00:00:[address] [facility] TDAP 2021-04-24 Completed University of 00:00:[address] [facility] Influenza Virus 2021-04-09 Completed Universit y of Vaccine Quad IM, 00:00:00 [place] Me dical Preserv and ABX Branch Free 6 MO-64 YRS Influenza Virus 2021-04-09 Completed Universit y of Vaccine Quad IM, 00:00:00 [place] Me dical Preserv and ABX Branch Free 6 MO-64 YRS Influenza Virus 2021-04-09 Completed Universit y of Vaccine Quad IM, 00:00:00 [place] Me dical Preserv and ABX Branch Free 6 MO-64 YRS Influenza Virus 2021-04-09 Completed Universit y of Vaccine Quad IM, 00:00:00 [place] Me dical Preserv and ABX Branch Free 6 MO-64 YRS Influenza Virus 2021-04-09 Completed Universit y of Vaccine Quad IM, 00:00:00 [place] Me dical Preserv and ABX Branch Free 6 MO-64 YRS Influenza Virus 2019-07-20 Completed Universit y of Vaccine [place] .5 mL 00:00:00 [place] Medical IM 6+ MO Branch Influenza Virus 2019-07-20 Completed Universit y of Vaccine [place] .5 mL 00:00:00 [place] Medical IM 6+ MO Branch Influenza Virus 2019-07-20 Completed Universit y of Vaccine [place] .5 mL 00:00:00 [place] Medical IM 6+ MO Branch Influenza Virus 2019-07-20 Completed Universit y of Vaccine [place] .5 mL 00:00:00 [place] Medical IM 6+ MO Branch Influenza Virus 2019-07-20 Completed Universit y of Vaccine Quad .5 mL 00:00:00 [facility] IM 6+ MO Branch Influenza Virus 2015-02-28 Completed Universit y of Vaccine Quad IM 3+ 00:00:00 [facility] Influenza Virus 2015-02-28 Completed Universit y of Vaccine Quad IM 3+ 00:00:00 [facility] Influenza Virus 2015-02-28 Completed Universit y of Vaccine Quad IM 3+ 00:00:00 [facility] Influenza Virus 2015-02-28 Completed Universit y of Vaccine Quad IM 3+ 00:00:00 [facility] Influenza Virus 2015-02-28 Completed Universit y of Vaccine Quad IM 3+ 00:00:00 [facility] TDAP 2014-11-18 Completed University of 00:00:[address] [facility] TDAP 2014-11-18 Completed University of 00:00:[address] [facility] TDAP 2014-11-18 Completed University of 00:00:[address] [facility] TDAP 2014-11-18 Completed University of 00:00:[address] [facility] TDAP 2014-11-18 Completed University of 00:00:[address] [facility] HPV 2010-11-02 Completed University of 00:00:[address] [facility] HPV 2010-11-02 Completed University of 00:00:00 [facility] Branch HPV 2010-11-02 Completed University of 00:00:00 [facility] Branch HPV 2010-11-02 Completed University of 00:00:00 [facility] Branch HPV 2010-11-02 Completed University of 00:00:00 [facility] Branch HPV 2010-01-15 Completed University of 00:00:00 [facility] Branch HPV 2010-01-15 Completed University of 00:00:00 [facility] Branch HPV 2010-01-15 Completed University of 00:00:00 [facility] Branch HPV 2010-01-15 Completed University of 00:00:00 [facility] Branch HPV 2010-01-15 Completed University of 00:00:00 [facility] Branch HPV 2009-10-17 Completed University of 00:00:00 [facility] Branch HPV 2009-10-17 Completed University of 00:00:[address] [facility] HPV 2009-10-17 Completed University of 00:00:00 [facility] Branch HPV 2009-10-17 Completed University of 00:00:[address] [facility] HPV 2009-10-17 Completed University of 00:00:[address] [facility] Vital Signs Vital Name Observation Time Observation Value Comments Source Systolic blood 2021-06-02 16:22:00 114 mm[Hg] Univer sity of pressure [facility] Diastolic blood 2021-06-02 16:22:00 77 mm[Hg] Unive rsity of pressure [facility] Heart rate 2021-06-02 16:22:00 86 /min Universi ty of [facility] Body temperature 2021-06-02 16:22:00 35.72 Myrtle Univ ersity of [facility] Respiratory rate 2021-06-02 16:22:00 16 /min Univ ersity of [facility] Body height 2021-06-02 16:22:00 157.5 cm Universi ty of [facility] Body weight 2021-06-02 16:22:00 67.728 kg Universi ty of [facility] BMI 2021-06-02 16:22:00 27.31 kg/m2 Universi ty of [facility] Branch Systolic blood 2021-05-25 17:34:00 136 mm[Hg] Univer sity of pressure [facility] Diastolic blood 2021-05-25 17:34:00 89 mm[Hg] Unive rsity of pressure [facility] Heart rate 2021-05-25 17:34:00 100 /min Universi ty of [facility] Body temperature 2021-05-25 17:34:00 36.78 Myrtle Univ ersity of [facility] Respiratory rate 2021-05-25 17:34:00 20 /min Univ ersity of [facility] Body height 2021-05-25 17:34:00 160 cm Universi ty of [facility] Body weight 2021-05-25 17:34:00 72.7 kg Universi ty of [facility] BMI 2021-05-25 17:34:00 28.40 kg/m2 Universi ty of [facility] Oxygen saturation in 2021-05-25 17:34:00 98 /min [facility] Arterial blood by [facility] Pulse oximetry Branch Procedures Procedure Date / Time Performing Clinician Source Performed POCT URINALYSIS 2021-06-02 16:25:00 Scar Vargas Universit y of [facility] COMP. METABOLIC PANEL 2021-05-25 18:39:00 Flaquita Esparza [facility] ([id number]) [facility] URINE DRUG (IMMUNOASSAY) 2021-05-25 18:39:00 Flaquita Esparza [facility] SCREEN CBC WITH DIFF 2021-05-25 18:39:00 Flaquita Esparza Osteen o [facility] Encounters Start End Encounter Admission Attending Care Care Encounter Source Date/Time Date/Time Type Type Clinicians Facility Department ID 2021-06-18 2021-06-18 Outpatient R [facility] [id number] Univers 10:15:00 10:15:00 [id number] ity [facility] [place] 2021-06-18 2021-06-18 Outpatient R [facility] [id number] Univers 10:15:00 10:15:00 [facility] 2021-06-02 2021-06-02 Outpatient R AKINSIPE, [facility] [id number] Univers 10:00:00 10:44:51 [facility] 2021-06-02 2021-06-02 Routine Akinsipe, [facility] [id number] Univers 10:00:00 10:44:51 Mela Becker 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 TEACHER [id number] ity of Visit [facility] [id number] Primitivo as MATERNAL [id number] Med ical & CHILD [address] [place] [address] 2021-06-02 2021-06-02 Outpatient R AKINSIPE, [facility] [id number] Univers 10:00:00 10:00:00 MELA [id number] ity o [facility] 2021-05-28 2021-05-28 Outpatient R AKINSIPE, [facility] [id number] Univers 10:45:00 10:45:00 MELA [id number] ity o [facility] 2021-05-28 2021-05-28 Outpatient R AKINSIPE, [facility] [id number] Univers 10:45:00 10:45:00 MELA ity o [facility] 2021-05-28 2021-05-28 Telephone Xochitl [facility] [id number] Univers 00:00:00 00:00:00 Mela C 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 TEACHER [id number] ity of REGIONAL [id number] Primitivo as MATERNAL [id number] [facility] & [address] 2021-05-28 2021-05-28 Telephone Jamesyogi [facility] [id number] Univers 00:00:00 00:00:00 Mela C 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 TEACHER [id number] ity of REGIONAL [id number] Primitivo as MATERNAL [id number] [facility] & [address] 2021-05-28 2021-05-28 Case Ursula Cole [facility] [id number] Univers 00:00:00 00:00:00 Management M SPECIALTY [id number] ity of [id number] [place] [id number] [address] 2021-05-25 2021-05-25 Office Disease, Marsha & Pcp Pedi Infec [facility] [id number] Univers 11:30:00 12:00:00 Visit Kay Sneed SPECIALTY [id number] ity of [place] 4[place]2.7.2.686 [place] [id number] [address] 2021-05-25 2021-05-25 Outpatient R NEDRA [facility] [id number] Univers 11:30:00 11:30:00 KAY montenegro [facility] [place] 2020-02-06 2020-02-06 Patient Ursula Cole [facility] [id number] 00:00:00 00:00:00 Outreach M SPECIALTY [id number] [place] 4.2.7.2.686 [place] [id number] [facility] 2020-02-05 2020-02-05 Telephone Julia Keen [facility] [id number] 00:00:00 00:00:00 J SPECIALTY [id number] [place] 4.2.7.2.686 [place] [id number] 2020-01-30 2020-01-30 Telephone Xochitl [facility] [id number] 00:00:00 00:00:00 Mela Becker 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 TEACHER [id number] [facility] [id number] MATERNAL [id number] & CHILD [address] [place] [address] 2017-08-13 2017-08-13 Emergency E TEODORO, [facility] [id number] 03:57:00 03:57:00 [facility] Results Test Description Test Time Test Comments Results Result Comments Source POCT URINALYSIS W SPECIFIC GRAVITY 2021-06-02 16:25:00 Test Item Value Reference Range Interpretation Comme nts POCT U SP GRAV (test code = 3255) . 1.005-1.025 POCT PH U (test code = 3254) . 5-8 POCT U LEUK EST (test code = 3263) . Negative - Negative POCT U NIT (test code = 3262) . Negative - Negative POCT U PROT (test code = 3259) Trace Negative - Negative POCT U GLU (test code = 3256) Neg Negative - Negative POCT U KETONE (test code = 3258) . Negative - Negative POCT U UROBILI (test code = 3260) . 0.2-1 POCT U BILI (test code = 3261) . Negative - Negative POCT U BLD (test code = 3257) . Negative - Negative POCT U COLOR (test code = 3266) . POCT U APPEAR (test code = 3267) [facility]23134[facility]2021-05-25 21:27:00 Test Item Value Reference Range Interpretation Comments NA (test code = 135 mmol/L 135-145 4379405297) K (test code = 3.8 mmol/L 3.5-5.0 4496302481) CL (test code = 110 mmol/L 98-108 H 2637690095) CO2 TOTAL (test code = 20 mmol/L 23-31 L 0445979010) AGAP (test code = 2-16 7894349767) BUN (test code = 9 mg/dL 7-23 5974087415) GLUCOSE (test code = 73 mg/dL 70-110 6640913843) CREATININE (test code = 0.51 mg/dL 0.50-1.04 2900446029) TOTAL BILI (test code = 0.3 mg/dL 0.1-1.7 0071366096) CALCIUM (test code = 8.7 mg/dL 8.6-10.6 8462917003) T PROTEIN (test code = 6.3 g/dL 6.3-8.2 9456891529) ALBUMIN (test code = 3.2 g/dL 3.5-5.0 L 9172054715) ALK PHOS (test code = 106 U/L 34-122 4601676400) ALTv (test code = 33 U/L 5-35 2-6) AST(SGOT) (test code = 43 U/L 13-40 H 6756541659) eGFR (test code = mL/min/1.73m2 6104273511) SANDER (test code = SANDER) Association of Glomerular Filtration Rate (GFR) and Staging of Kidney Disease* + --+ --+ ------+| GFR (mL/min/1.73 m2) ?| With Kidney Damage ?| ?Without Kidney Damage+ --------+ --------+ +| ?>90 ?| ?Stage one ?| ? Normal ?+ ---+ ---+ -------+| ?60-89 ?| ?Stage two ?| ? Decreased GFR ? + --+ --+ ------+| ?30-59 ?| ?Stage three ?| ? Stage three ? + --+ --+ ------+| ?15-29 ?| ?Stage four ? | ? Stage four ?+ ---+ ---+ -------+| ?<15 (or dialysis) ? ?| ?Stage five ? | ? Stage five ?+ ---+ ---+ -------+ *Each stage assumes the associated GFR level has been in effect for at least three months. ?Stages 1 to 5, with or without kidney disease, indicate chronic kidney disease. Notes: Determination of stages one and two (with eGFR >59mL/min/1.73 m2) requires estimation of kidney damage for at least three months as defined by structural or functional abnormalities of the kidney, manifested by either:Pathological abnormalities or Markers of kidney damage (including abnormalities in the composition of the blood or urine or abnormalities in imaging tests). Lab Interpretation Abnormal (test code = 45911-8) [facility] WITH [id number] 21:02:34 Test Item Value Reference Range Interpretation Comments WBC (test code = See_Comment [Automated 6690-2) message] The sy stem which generated this result transmitted reference range : 4.30 - 11.10 10*3/?L. The reference range was not used to interpret this result as normal/abnormal . RBC (test code = See_Comment L [Automated 789-8) message] The sy stem which generated this result transmitted reference range : 3.93 - 5.25 10*6/?L. The reference range was not used to interpret this result as normal/abnormal . HGB (test code = 11.2 g/dL 11.6-15.0 L 718-7) HCT (test code = 34.8 % 35.7-45.2 L 4544-3) MCV (test code = 97.2 fL 80.6-95.5 H 787-2) MCH (test code = 31.3 pg 25.9-32.8 785-6) MCHC (test code = 32.2 g/dL 31.6-35.1 786-4) RDW-SD (test code = 48.0 fL 39.0-49.9 42056-2) RDW-CV (test code = 13.4 % 12.0-15.5 788-0) PLT (test code = See_Comment [Automated 777-3) message] The sy stem which generated this result transmitted reference range : 166 - 358 10*3/ ?L. The reference r arianne was not used to interpret this result as normal/abnormal . MPV (test code = 12.7 fL 9.5-12.9 63694-5) NRBC/100 WBC (test See_Comment [Automat ed code = 8335243334) message] The system which generated this result transmitted reference range : 0.0 - 10.0 /100 WBCs. The refer ence range was not u sed to interpret th is result as normal/abnormal . NRBC x10^3 (test code <0.01 See_Comment [Auto mated = 2727065035) message] The s ystem which generated this result transmitted reference range : 10*3/?L. The reference range was not used to interpret this result as normal/abnormal . GRAN MAT (NEUT) % 65.3 % (test code = 770-8) IMM GRAN % (test code 0.50 % = 8022754882) LYMPH % (test code = 24.6 % 736-9) MONO % (test code = 7.5 % 5905-5) EOS % (test code = 1.7 % 713-8) BASO % (test code = 0.4 % 706-2) GRAN MAT x10^3(ANC) 5.48 10*3/uL 1.88-7.09 (test code = 5903282608) IMM GRAN x10^3 (test 0.04 10*3/uL 0.00-0.06 code = 1891442048) LYMPH x10^3 (test code 2.06 10*3/uL 1.32-3.29 = 731-0) MONO x10^3 (test code 0.63 10*3/uL 0.33-0.92 = 742-7) EOS x10^3 (test code = 0.14 10*3/uL 0.03-0.39 711-2) BASO x10^3 (test code 0.03 10*3/uL 0.01-0.07 = 704-7) Lab Interpretation Abnormal (test code = 27244-5) [facility], [id number] 07:46:00 Specimen: ThroatCollected: 08/13/2017 05:30 Status: Final Last Updated: 08/15/2017 07:46 Strep A Screen Rapid (Final) (Final) Negative Blood [place](24 hrs) (Final) (Final) 08/14/17 No Group A Strep isolated Blood [place](48 hrs) (Final) (Final) 08/15/17 No Group A Strep isolatedMono Qual 2017-08-13 07:35:00 Test Item Value Reference Range Interpretation Comments [place] Test (test code = SMONO) Negative Negative N CBC with [id number] 04:53:00 Test Item Value Reference Range Interpretation [...] code = ALYMPH) 3.3 K/cumm 0.5-4.6 N [place] Abs (test code = AMONO) 0.3 K/cumm 0.0-1.2 N Eos Abs (test code = AEOS) 0.46 K/cumm 0.00-0.74 N Baso Abs (test code = ABASO) 0.1 K/cumm 0.00-0.21 N"
[2021-06-04] MEDS ORDERED: LIDOCAINE 1% W/EPI 1:100,000 MDV 20 ML VIAL ONE (11:05)
--- NOTE | 2021-06-04 11:52 | ER ---
Nurse's Notes [facility] Name: Franklin Chaidez Age: 25 yrs Sex: Female : 1995 Arrival Date: 06/04/2021 Time: 09:51 Bed 19 Private MD: Diagnosis: Cutaneous of the Lower Leg Presentation: 06/04 10:21 Chief complaint: Patient states: spider bite 4 months ago to left lower leg; is not jh5 resolved with swelling, oozing puss per patient, hole in leg. Attempting to keep clean with soap and water but just isnt getting better; has not seen anyone for this as of yet. Coronavirus screen: Vaccine status: Patient reports being unvaccinated. Client denies travel out of the [place] in the last 14 days. Ebola Screen: Patient negative for fever greater than or equal to 101.5 degrees Fahrenheit, and additional compatible Ebola Virus Disease symptoms Patient denies exposure to infectious person. Patient denies travel to an Ebola-affected area in the 21 days before illness onset. Initial Sepsis Screen: Does the patient meet any 2 criteria? No. Patient's initial sepsis screen is negative. Does the patient have a suspected source of infection? No. Patient's initial sepsis screen is negative. Risk Assessment: Do you want to hurt yourself or someone else? Patient reports no desire to harm self or others. Onset of symptoms was February 2021. 10:21 Method Of Arrival: Ambulatory [facility] 10:21 Acuity: ELEONORA 3 5 Triage Assessment: 10:24 General: Appears in no apparent distress. comfortable, slender, well groomed, well jh developed, well nourished, Behavior is calm, cooperative, appropriate for age. Pain: Complains of pain in left leg. 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 - Social history:: Smoking status: Patient reports the use of cigarette tobacco products, smokes one-half pack cigarettes per day. Screenin:02 Abuse screen: Denies threats or abuse. Nutritional screening: No deficits noted. vg1 Tuberculosis screening: No symptoms or risk factors identified. Fall Risk No fall in past 12 months (0 pts). No secondary diagnosis (0 pts). IV access (20 points). Ambulatory Aid- None/Bed Rest/Nurse Assist (0 pts). Gait- Normal/Bed Rest/Wheelchair (0 pts) Mental Status- Oriented to own ability (0 pts). Total Whaley Fall Scale indicates No Risk (0-24 pts). Assessment: 11:00 General: Appears in no apparent distress. uncomfortable, Behavior is calm, cooperative. vg1 Pain: Complains of pain in lateral aspect of left calf Pain currently is 7 out of 10 on a pain scale. Pain began about four months ago. Neuro: Level of Consciousness is awake, alert, obeys commands, Oriented to person, place, time, situation. Cardiovascular: Patient's skin is warm and dry. Respiratory: Airway is patent Respiratory effort is even, unlabored. GI: No signs and/or symptoms were reported involving the gastrointestinal system. : No signs and/or symptoms were reported regarding the genitourinary system. EENT: No signs and/or symptoms were reported regarding the EENT system. Derm: Wound noted lateral aspect of left calf Wound is black in color, about the size of a dime. Musculoskeletal: Circulation, motion, and sensation intact. Swelling present in lateral aspect of left calf and left darnell and left foot. 12:15 Reassessment: Patient appears in no apparent distress at this time. No changes from vg1 previously documented assessment. Patient and/or family updated on plan of care and expected duration. Pain level reassessed. Patient is alert, oriented x 3, equal unlabored respirations, skin warm/dry/pink. Vital Signs: 10:21 BP 121 / 71; Pulse 89; Resp 18; Temp 97.8; Pulse Ox 100% ; Weight 73.94 kg; Height 5 jh5 ft. 3 in. (160.02 cm); Pain 7/10; 11:00 BP 110 / 69; Pulse 78; Resp 16; Pulse Ox 99% ; vg1 12:00 BP 108 / 72; Pulse 83; Resp 16; Pulse Ox 98% ; vg1 10:21 Body Mass Index 28.87 (73.94 kg, 160.02 cm) [facility] ED Course: 09:51 Patient arrived in ED. as 10:24 Triage completed. [facility] 10:24 Arm band placed on right wrist. [facility] 10:43 Todd Grant PA is PHCP. [facility] 10:43 Kit Dukes MD is Attending Physician. [facility] 10:53 Sherita Hernandez, RN is Primary Nurse. vg1 11:02 Patient has correct armband on for positive identification. Bed in low position. Call vg1 light in reach. Side rails up X 1. 12:48 No provider procedures requiring assistance completed. Patient did not have IV access vg1 during this emergency room visit. Administered Medications: 11:39 Drug: Lidocaine-Epinephrine -1%: (1:100,000) 20 ml {Note: administered by chandan Copeland.} Volume: 20 ml; Route: Infiltration; Outcome: 11:51 Discharge ordered by . [facility] 12:48 Discharged to home ambulatory. vg1 12:48 Condition: good 12:48 Discharge instructions given to patient, Instructed on discharge instructions, follow up and referral plans. medication usage, wound care, Demonstrated understanding of instructions, follow-up care, medications, wound care, Prescriptions given X 1. 12:49 Patient left the ED. 1 Signatures: Todd Grant PA PA jmm Martinez, Amelia as Garcia, Victoria, RN RN [facility] Ailyn Cardenas, RN RN [facility]
--- NOTE | 2021-06-04 11:52 | EDPHYS ---
Physician Documentation [facility] Name: Franklin Chaidez Age: 25 yrs Sex: Female : 1995 Arrival Date: 06/04/2021 Time: 09:51 Bed 19 Private MD: ED Physician Kit Dukes HPI: 06/04 11:43 This 25 yrs old Black Female presents to ER via Ambulatory with complaints of Wound jmm Check - on left leg. 11:43 Patient presents to ED for recheck of: abscess. The affected area is on the left leg. jmm This is a 25-year-old female with history of asthma currently 34 weeks the presents emerged department with a wound to the left lower leg she initially noticed approximately 4 months ago. Patient states that 2 days ago she developed pain to the area along with some purulent drainage. Denies fever or chills. Denies vaginal bleeding or abdominal pain.. 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 - Social history:: Smoking status: Patient reports the use of cigarette tobacco products, smokes one-half pack cigarettes per day. ROS: 11:43 Constitutional: Negative for fever, chills, and weight loss, Cardiovascular: Negative jm for chest pain, palpitations, and edema, Respiratory: Negative for shortness of breath, cough, wheezing, and pleuritic chest pain. 11:43 Skin: Positive for abscess. 11:43 All other systems are negative. Exam: 11:43 Constitutional: This is a well developed, well nourished patient who is awake, alert, jmm and in no acute distress. Head/Face: atraumatic. Eyes: EOMI, no conjunctival erythema appreciated ENT: Moist Mucus Membranes Neck: Trachea midline, Supple Chest/axilla: Normal chest wall appearance and motion. Cardiovascular: Regular rate and rhythm. No edema appreciated Respiratory: Normal respirations, no respiratory distress appreciated Abdomen/GI: Non distended, soft Back: Normal ROM 11:43 Skin: abscess, that is small, of the left darnell, with drainage, that is purulent. 11:43 Neuro: Orientation: is normal, Mentation: is normal, Memory: is normal. 11:43 Psych: Behavior/mood is pleasant, cooperative. Vital Signs: 10:21 BP 121 / 71; Pulse 89; Resp 18; Temp 97.8; Pulse Ox 100% ; Weight 73.94 kg; Height 5 jh5 ft. 3 in. (160.02 cm); Pain 7/10; 11:00 BP 110 / 69; Pulse 78; Resp 16; Pulse Ox 99% ; vg1 12:00 BP 108 / 72; Pulse 83; Resp 16; Pulse Ox 98% ; vg1 10:21 Body Mass Index 28.87 (73.94 kg, 160.02 cm) jh5 Procedures: 11:43 I \T\ D: Incision and drainage was performed for an abscess of the left Prepped with [facility] Betadine, Anesthetized with 5 ml's 1% Lidocaine w/ Epi. Incised with #11 blade. Drained moderate amount purulent fluid. Packed with sterile gauze, Dressing: sterile 4x4 gauze, the patient tolerated the procedure well. MDM: 11:01 Patient medically screened. [facility] 11:43 Data reviewed: vital signs, nurses notes. Counseling: I had a detailed discussion with ministerio the patient and/or guardian regarding: the historical points, exam findings, and any diagnostic results supporting the discharge/admit diagnosis, the need for outpatient follow up, to return to the emergency department if symptoms worsen or persist or if there are any questions or concerns that arise at home. Administered Medications: 11:39 Drug: Lidocaine-Epinephrine -1%: (1:100,000) 20 ml {Note: administered by fransisco Copeland1 } Volume: 20 ml; Route: Infiltration; Disposition Summary: 06/04/21 11:51 Discharge Ordered Location: Home ministerio Condition: Stable ministerio Diagnosis - Cutaneous of the Lower Leg dean Followup: dean - With: Private Physician - When: 2 - 3 days - Reason: Recheck today's complaints, Continuance of care, Re-evaluation by your physician Discharge Instructions: - Discharge Summary Sheet dean - Incision and Drainage, Care After [facility] Forms: - Medication Reconciliation Form [facility] - Thank You Letter dean - Antibiotic Education ministerio - Prescription Opioid Use [facility] Prescriptions: - Clindamycin HCl 300 mg Oral Capsule - take 1 capsule by ORAL route every 6 hours for 10 days; 40 capsule; Refills: 0, jmm Product Selection Permitted Signatures: Todd Grant PA PA jmm Garcia, Victoria, RN RN vg1 Ailyn Cardenas RN RN jh5
[2021-06-04 12:58] VITALS: TEMP 97.8
[2021-06-04 13:03] VITALS: BP 108/72; O2SAT 98
== END 2021-06-04 12:49 | disposition home or self-care (01) ==
LOC: ER 09:48
PROC: 0H9LXZZ Drainage of Left Lower Leg Skin, External Approach (ICD-10-PCS; principal; 2021-06-04)
DX: O26.893 Other specified pregnancy related conditions, third trimester (principal); Z3A.34 34 weeks gestation of pregnancy; L02.416 Cutaneous abscess of left lower limb
CPT/HCPCS: 99283

== ENCOUNTER 2021-11-11 19:03 | Emergency (ER) | payer OTHER ==
--- OUTSIDE RECORDS SUMMARY | 2021-11-11 19:07 | XMS REPORT | Continuity of Care Document ---
:1995 Author Organization [facility] t Address [address] [place] [address] Care Team Providers Name Role Phone UNKNOWN Primary Care Physician Unavailable Francois SNEED Attending Clinician Unavailable UNKNOWN Attending Clinician Unavailable Patricia Gordon MD Attending Clinician Xochitl PIERRE C Attending Clinician XOCHITL C Attending Clinician Unavailable Neo ASCENCIO, T Attending Clinician Unavailable Kelsey ASCENCIO, M Attending Clinician Unavailable Disease, & Pcp Pedi Infec Attending Clinician Unavailable Marina LOMELI Attending Clinician MARINA Attending Clinician Unavailable MARINA Attending Clinician Unavailable Chris RAMÍREZ Attending Clinician Unavailable Shahid QUIROGA Attending Clinician Unavailable Nora Keen LVN Attending Clinician Unavailable Eugenio VALERIO Attending Clinician Unavailable Eugenio VALERIO Admitting Clinician Unavailable Payers Payer Name Policy Type Policy Number Effective Date Expiration Date S [facility] [id number] 2020 00:00:00 Problems Condition Condition Condition Status Onset Resolution Last Treating Co mments Source Name Details Category Date Date Treatment Clinician Date 39 weeks 39 weeks Disease Active Unive rs gestation gestation 2-17 ity of of of 00:00: [place] 00 [facility] Branch Other Other Disease Active Univers depression depression 1-11 it y of 00:00: [place] [address] Medical Branch Lump or Lump or Disease Active 2019-05 Univers mass in mass in 2-01 ity of breast breast 00:00: [place] 00 Medical Branch Supervisio Supervisio Disease Active 2020- U nivers n of high n of high 01-22 ity of risk risk 00:00: [place] 00 [facility] in second in second Bran ch trimester trimester HIV HIV Disease Active 2019- Univers disease disease 9 ity of affecting affecting 00:00: [place] m[place] 00 [facility] Branch History of History of Disease Active 2019- U nivers multiple multiple 01-22 ity of miscarriag miscarriag [place] Medical [place] 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 Suppressi on at 36 weeks Tobacco Tobacco Disease Active Univers use use 3-06 ity of disorder disorder 00:00: [address] Allergies, Adverse Reactions, Alerts Allergy Allergy Status Severity Reaction(s) Onset Inactive Treating Comm ents Source Name Type Date Date Clinician NO KNOWN Drug Active Univers ALLERGIE Class ity of S [facility] Social History Social Habit Start Date Stop Date Quantity Comments Source History [facility] University o f Alcohol Frequency [facility] edical Branch History [facility] University o f Alcohol Std Drinks [facility] History [facility] University o f Alcohol Binge [place] Medic al Branch Exposure to 2021-09-06 2021-09-16 Not sure University of SARS-CoV-2 (event) 00:00:00 05:00:00 [facility] Alcohol intake 2021-07-10 2021-07-10 Ex-drinker University of 00:00:00 00:00:00 (finding) [facility] Alcohol Comment 2019-08-02 2019-08-02 occasional Universit y of 00:00:00 00:00:00 [facility] Tobacco Comment 2019-07-20 2019-07-20 resources given Univ ersity of 00:00:00 00:00:00 [facility] Cigarettes smoked 2019-07-20 2019-07-20 Univers ity of current (pack per 00:00:00 00:00:00 ) - Reported Branch Cigarette 2019-07-20 2019-07-20 University of pack-years 00:00:00 00:00:00 [facility] Tobacco use and 2019-07-20 2019-07-20 Never used Universit y of exposure 00:00:00 00:00:00 [facility] History of tobacco 2010-12-14 2018-12-10 Cigarette Smoker University of use 00:00:00 00:00:00 [facility] Sex [birth year] At [birth year] Universit y of 00:00:00 00:00:00 [facility] Smoking Status Start Date Stop Date Source Current every day smoker 2019-07-20 00:00:00 Uni versity of [facility] Medications Ordered Filled Start Stop Current Ordering Indication Dosage Frequency Signature Comments Components Source Medication Medication Date Date Medication? Clinician (SIG) Name Name bictegrav-e Yes [id number] 1{tbl} Take 1 Univers mtricit-ten 6-10 tablet by ity of ofov ala 00:00: mouth [place] (BIKTARVY) 00 daily. Medical 50-200-25 Branch mg tablet bictegrav-e 2021- Yes [id number] 1{tbl} Take 1 Univers mtricit-ten 4-27 05-28 tablet by it y of ofov ala 00:00: 04:59 mouth [place] (BIKTARVY) 00 :00 daily for Medi mariah 50-200-25 30 days. Branch mg tablet bictegrav-e 2021- Yes [id number] 1{tbl} Take 1 Univers mtricit-ten 4-27 05-28 tablet by it y of ofov ala 00:00: 04:59 mouth [place] (BIKTARVY) 00 :00 daily for Medi mariah 50-200-25 30 days. Branch mg tablet bictegrav-e 2021- Yes [id number] 1{tbl} Take 1 Univers mtricit-ten 4-27 05-28 tablet by it y of ofov ala 00:00: 04:59 mouth [place] (BIKTARVY) 00 :00 daily for Medi mariah 50-200-25 30 days. Branch mg tablet BIKTARVY 2021- No [id number] TAKE ONE Univers 50-200-25 4-12 04-27 TABLET BY ity of mg tablet 00:00: 00:00 MOUTH [place] 00 :00 DAILY Medical Branch Yes [id number] 1{tbl} Take 1 Univers vitamin 2-18 tablet by ity of w/FA tablet 00:00: mouth [place] 00 daily. Medical Branch docusate Yes [id number] 240mg Take 1 U nivers calcium 240 2-18 capsule by it y of mg capsule 00:00: mouth [place] 00 daily as Medical needed for Branch Constipati on. ferrous Yes [id number] 325mg Take 1 Un mateo sulfate 325 2-18 tablet by ity of mg (65 mg 00:00: mouth 2 [place] iron) 00 (two) Medical tablet times Branch daily. ibuprofen Yes [id number] 600mg Take 1 Univers 600 mg 2-18 tablet by ity of tablet 00:00: mouth [place] 00 every 6 Medical (six) Branch hours as needed (Pain). Take with food or milk. norethindro Yes [id number] .35mg Take 1 Univers ne 0.35 mg 2-18 tablet by ity of tablet 00:00: mouth [place] 00 daily. Medical Branch Yes [id number] 1{tbl} Take 1 Univers vitamin 2-18 tablet by ity of w/FA tablet 00:00: mouth [place] 00 daily. Medical Branch docusate Yes [id number] 240mg Take 1 U nivers calcium 240 2-18 capsule by it y of mg capsule 00:00: mouth [place] 00 daily as Medical needed for Branch Constipati on. ferrous Yes [id number] 325mg Take 1 Un mateo sulfate 325 2-18 tablet by ity of mg (65 mg 00:00: mouth 2 [place] iron) 00 (two) Medical tablet times Branch daily. ibuprofen Yes [id number] 600mg Take 1 Univers 600 mg 2-18 tablet by ity of tablet 00:00: mouth [place] 00 every 6 Medical (six) Branch hours as needed (Pain). Take with food or milk. norethindro Yes [id number] .35mg Take 1 Univers ne 0.35 mg 2-18 tablet by ity of tablet 00:00: mouth [place] 00 daily. Medical Branch 0 Yes [id number] 1{tbl} Take 1 Univers vitamin 2-18 tablet by ity of w/FA tablet 00:00: mouth [place] 00 daily. Medical Branch docusate Yes [id number] 240mg Take 1 U nivers calcium 240 2-18 capsule by it y of mg capsule 00:00: mouth [place] 00 daily as Medical needed for Branch Constipati on. ferrous Yes [id number] 325mg Take 1 Un mateo sulfate 325 2-18 tablet by ity of mg (65 mg 00:00: mouth 2 [place] iron) 00 (two) Medical tablet times Branch daily. ibuprofen Yes [id number] 600mg Take 1 Univers 600 mg 2-18 tablet by ity of tablet 00:00: mouth [place] 00 every 6 Medical (six) Branch hours as needed (Pain). Take with food or milk. norethindro Yes [id number] .35mg Take 1 Univers ne 0.35 mg 2-18 tablet by ity of tablet 00:00: mouth [place] 00 daily. Medical Branch Yes [id number] 1{tbl} Take 1 Univers vitamin 2-18 tablet by ity of w/FA tablet 00:00: mouth [place] 00 daily. Medical Branch docusate Yes [id number] 240mg Take 1 U nivers calcium 240 2-18 capsule by it y of mg capsule 00:00: mouth once [place] 00 daily as Medical needed for Branch Constipati on. ferrous Yes [id number] 325mg Take 1 Un mateo sulfate 325 2-18 tablet by ity of mg (65 mg 00:00: mouth 2 [place] iron) 00 (two) Medical tablet times Branch daily. ibuprofen Yes [id number] 600mg Take 1 Univers 600 mg 2-18 tablet by ity of tablet 00:00: mouth [place] 00 every 6 Medical (six) Branch hours as needed (Pain). Take with food or milk. norethindro Yes [id number] .35mg Take 1 Univers ne 0.35 mg 2-18 tablet by ity of tablet 00:00: mouth [place] 00 daily. Medical Branch Yes [id number] 1{tbl} Take 1 Univers vitamin 2-18 tablet by ity of w/FA tablet 00:00: mouth [place] 00 daily. Medical Branch docusate Yes [id number] 240mg Take 1 U nivers calcium 240 2-18 capsule by it y of mg capsule 00:00: mouth once [place] 00 daily as Medical needed for Branch Constipati on. ferrous Yes [id number] 325mg Take 1 Un mateo sulfate 325 2-18 tablet by ity of mg (65 mg 00:00: mouth 2 [place] iron) 00 (two) Medical tablet times Branch daily. ibuprofen Yes [id number] 600mg Take 1 Univers 600 mg 2-18 tablet by ity of tablet 00:00: mouth [place] 00 every 6 Medical (six) Branch hours as needed (Pain). Take with food or milk. norethindro Yes [id number] .35mg Take 1 Univers ne 0.35 mg 2-18 tablet by ity of tablet 00:00: mouth [place] 00 daily. Medical Branch Yes [id number] 1{tbl} Take 1 Univers vitamin 2-18 tablet by ity of w/FA tablet 00:00: mouth [place] 00 daily. Medical Branch docusate Yes [id number] 240mg Take 1 U nivers calcium 240 2-18 capsule by it y of mg capsule 00:00: mouth once [place] 00 daily as Medical needed for Branch Constipati on. ferrous Yes [id number] 325mg Take 1 Un mateo sulfate 325 2-18 tablet by ity of mg (65 mg 00:00: mouth 2 [place] iron) 00 (two) Medical tablet times Branch daily. ibuprofen Yes [id number] 600mg Take 1 Univers 600 mg 2-18 tablet by ity of tablet 00:00: mouth [place] 00 every 6 Medical (six) Branch hours as needed (Pain). Take with food or milk. norethindro Yes [id number] .35mg Take 1 Univers ne 0.35 mg 2-18 tablet by ity of tablet 00:00: mouth [place] 00 daily. Medical Branch Yes [id number] 1{tbl} Take 1 Univers vitamin 2-18 tablet by ity of w/FA tablet 00:00: mouth [place] 00 daily. Medical Branch docusate Yes [id number] 240mg Take 1 U nivers calcium 240 2-18 capsule by it y of mg capsule 00:00: mouth once [place] 00 daily as Medical needed for Branch Constipati on. ferrous Yes [id number] 325mg Take 1 Un mateo sulfate 325 2-18 tablet by ity of mg (65 mg 00:00: mouth 2 [place] iron) 00 (two) Medical tablet times Branch daily. ibuprofen Yes [id number] 600mg Take 1 Univers 600 mg 2-18 tablet by ity of tablet 00:00: mouth [place] 00 every 6 Medical (six) Branch hours as needed (Pain). Take with food or milk. norethindro Yes [id number] .35mg Take 1 Univers ne 0.35 mg 2-18 tablet by ity of tablet 00:00: mouth [place] 00 daily. [facility] Immunizations Ordered Filled Immunization Date Status Comments [facility] e Immunization Name Name [facility] 2021-04-24 Completed University of 00:00:00 [facility] TDAP 2021-04-24 Completed University of 00:00:00 [facility] TDAP 2021-04-24 Completed University of 00:00:00 [facility] TDAP 2021-04-24 Completed University of 00:00:00 [facility] TDAP 2021-04-24 Completed University of 00:00:00 [facility] TDAP 2021-04-24 Completed University of 00:00:00 [facility] TDAP 2021-04-24 Completed University of 00:00:00 [facility] Influenza Virus 2021-04-09 Completed Universit y of Vaccine Quad IM, 00:00:00 [place] Me dical Preserv and ABX Branch Free 6 MO-64 YRS Influenza Virus 2021-04-09 Completed Universit y of Vaccine Quad IM, 00:00:00 [place] Me dical Preserv and ABX Branch Free 6 MO-64 YRS Influenza Virus 2021-04-09 Completed Universit y of Vaccine Quad IM, 00:00:00 [place] Me dical Preserv and ABX Branch Free 6 MO-64 YRS Influenza Virus 2021-04-09 Completed Universit y of Vaccine Quad IM, 00:00:00 [place] Me dical Preserv and ABX Branch Free 6 MO-64 YRS Influenza Virus 2021-04-09 Completed Universit y of Vaccine Quad IM, 00:00:00 [place] Me dical Preserv and ABX Branch Free 6 MO-64 YRS Influenza Virus 2021-04-09 Completed Universit y of Vaccine Quad IM, 00:00:00 [place] Me dical Preserv and ABX Branch Free 6 MO-64 YRS Influenza Virus 2021-04-09 Completed Universit y of Vaccine Quad IM, 00:00:00 [place] Me dical Preserv and ABX Branch Free 6 MO-64 YRS Influenza Virus 2019-07-20 Completed Universit y of Vaccine [place] .5 mL 00:00:00 [place] Medical IM 6+ MO Branch Influenza Virus 2019-07-20 Completed Universit y of Vaccine [place] .5 mL 00:00:00 [place] Medical IM 6+ MO Branch Influenza Virus 2019-07-20 Completed Universit y of Vaccine [place] .5 mL 00:00:00 [place] Medical IM 6+ MO Branch Influenza Virus 2019-07-20 Completed Universit y of Vaccine [place] .5 mL 00:00:00 [place] Medical IM 6+ MO Branch Influenza Virus 2019-07-20 Completed Universit y of Vaccine [place] .5 mL 00:00:00 [place] Medical IM 6+ MO Branch Influenza Virus 2019-07-20 Completed Universit y of Vaccine [place] .5 mL 00:00:00 [place] Medical IM 6+ MO Branch Influenza Virus 2019-07-20 Completed Universit y of Vaccine [place] .5 mL 00:00:00 [place] Medical IM 6+ MO Branch Influenza Virus 2015-02-28 Completed Universit y of Vaccine [facility] IM 3+ 00:00:00 [facility] Influenza Virus 2015-02-28 Completed Universit y of Vaccine Quad IM 3+ 00:00:00 [facility] Influenza Virus 2015-02-28 Completed Universit y of Vaccine Quad IM 3+ 00:00:00 [facility] Influenza Virus 2015-02-28 Completed Universit y of Vaccine Quad IM 3+ 00:00:00 [facility] Influenza Virus 2015-02-28 Completed Universit y of Vaccine Quad IM 3+ 00:00:00 [facility] Branch Influenza Virus 2015-02-28 Completed Universit y of Vaccine Quad IM 3+ 00:00:00 [facility] Influenza Virus 2015-02-28 Completed Universit y of Vaccine Quad IM 3+ 00:00:00 [facility] Branch TDAP 2014-11-18 Completed University of 00:00:[address] [facility] Branch TDAP 2014-11-18 Completed University of 00:00:[address] [facility] Branch TDAP 2014-11-18 Completed University of 00:00:[address] [facility] Branch TDAP 2014-11-18 Completed University of 00:00:[address] [facility] Branch TDAP 2014-11-18 Completed University of 00:00:[address] [facility] Branch TDAP 2014-11-18 Completed University of 00:00:[address] [facility] Branch TDAP 2014-11-18 Completed University of 00:00:[address] [facility] Branch HPV 2010-11-02 Completed University of 00:00:[address] [facility] Branch HPV 2010-11-02 Completed University of 00:00:[address] [facility] Branch HPV 2010-11-02 Completed University of 00:00:00 [place] [facility] HPV 2010-11-02 Completed University of 00:00:00 [place] [facility] Branch HPV 2010-11-02 Completed University of 00:00:[address] [facility] Branch HPV 2010-11-02 Completed University of 00:00:00 [place] [facility] Branch HPV 2010-11-02 Completed University of 00:00:[address] [facility] Branch HPV 2010-01-15 Completed University of 00:00:[address] [facility] Branch HPV 2010-01-15 Completed University of 00:00:[address] [facility] Branch HPV 2010-01-15 Completed University of 00:00:00 [place] [facility] HPV 2010-01-15 Completed University of 00:00:00 [place] [facility] HPV 2010-01-15 Completed University of 00:00:00 [place] [facility] HPV 2010-01-15 Completed University of 00:00:00 [place] [facility] HPV 2010-01-15 Completed University of 00:00:00 [place] [facility] HPV 2009-10-17 Completed University of 00:00:00 [place] [facility] HPV 2009-10-17 Completed University of 00:00:00 [place] [facility] HPV 2009-10-17 Completed University of 00:00:00 [place] [facility] HPV 2009-10-17 Completed University of 00:00:00 [place] [facility] HPV 2009-10-17 Completed University of 00:00:00 [facility] HPV 2009-10-17 Completed University of 00:00:00 [facility] HPV 2009-10-17 Completed University 00:00:00 [facility] Vital Signs Vital Name Observation Time Observation Value Comments Source Body temperature 2021-09-16 17:27:00 36.22 [facility] Body weight 2021-09-16 17:27:00 63.6 kg [facility] BMI 2021-09-16 17:27:00 24.84 kg/m2 [facility] Procedures Procedure Date / Time Performed Performing Clinician Sourc e COMP. METABOLIC PANEL 2021-09-16 19:19:00 Ginger Gray [facility] ([id number]) [facility] CBC WITH DIFF 2021-09-16 19:19:00 Ginger Gray [facility] Encounters Start End Encounter Admission Attending Care Care Encounter Source Date/Time Date/Time Type Type Clinicians Facility Department ID 2021-11-25 2021-11-25 Outpatient R [facility] [id number] Univers 13:45:00 13:45:00 [id number] [facility] 2021-11-25 2021-11-25 [facility] [id number] Univers 13:45:00 13:45:00 CRISTIANO [facility] 2021-11-11 2021-11-11 Outpatient R LEEANNA, [facility] [id number] Univers 13:45:00 13:45:00 ATTENDING [facility] 2021-10-29 2021-10-29 [facility] [id number] Univers 00:00:00 00:00:00 Omar Gomez SPECIALTY [id number] ity [id number] [id number] [address] 2021-10-28 2021-10-28 [facility] [id number] Univers 00:00:00 00:00:00 Mela Becker [employer] [id number] ity of [facility] [id number] Primit[place] as MATERNAL [id number] Med ical & CHILD [address] [place] [address] 2021-10-20 2021-10-20 Outpatient R TATIANNATING, [facility] [id number] Univers 08:15:00 08:15:00 MELA [id number] ity o f [facility] 2021-10-20 2021-10-20 Outpatient R TATIANNATING, [facility] [id number] Univers 08:15:00 08:15:00 MELA ity o f [facility] 2021-10-13 2021-10-13 Patient Neo [facility] [id number] Univers 00:00:00 00:00:00 Outreach Mitra T PRIMARY [id number] ity of [id number] [id number] [place] dical [address] 2021-10-13 2021-10-13 Case Ursula Cole [facility] 1.2.840.114 [id number] Univers 00:00:00 00:00:00 Management M SPECIALTY [id number] [id number] [id number] [facility] [address] 2021-09-16 2021-09-16 Office Disease, Marsha & Pcp Pedi Infec [facility] 1.2.840.114 [id number] Univers 12:30:00 13:00:00 Visit Ginger Gray PRIMARY [id number] ity [place] [id number] [place] [address] 2021-09-16 2021-09-16 Outpatient R GINGER GRAY [facility] [id number] Univers 12:30:00 12:30:00 GINGER GRAY itfany [facility] [place] 2021-09-16 2021-09-16 Case Chris [facility] 1.2.840.114 [id number] Univers 00:00:00 00:00:00 Management Mildred SPECIALTY [id number] [place] [id number] [address] 2021-09-14 2021-09-14 Outpatient R MICHELLEDEBRARoberta, [facility] [id number] Univers 08:00:00 08:00:00 MIKAELA venturafany [facility] [place] 2021-09-14 2021-09-14 Case Chris, [facility] 1.2.840.114 [id number] Univers 00:00:00 00:00:00 Management Mildred SPECIALTY [id number] ity [facility] [id number] [id number] [address] 2020-02-06 2020-02-06 Patient Ursula Cole [facility] 1.2.840.114 [id number] 00:00:00 00:00:00 Outreach M SPECIALTY [id number] [place] [id number] [place] [id number] [facility] 2020-02-05 2020-02-05 Telephone Julia Keen [facility] 1.2.840.114 [id number] 00:00:00 00:00:00 J SPECIALTY [id number] [place] 4.2.7.2.686 [place] [id number] [facility] 2020-01-30 2020-01-30 Telephone Xochitl [facility] 1.2.840.114 [id number] 00:00:00 00:00:00 Mela Becker [employer] [id number] [facility] [id number] MATERNAL [id number] & CHILD [address] [place] [address] 2017-08-13 2017-08-13 Emergency [facility] [id number] 03:57:00 03:57:00 [facility] Results Test Description Test Time Test Comments Results Result Comments Source COMP. METABOLIC PANEL (67172) 2021-09-17 00:12:18 Test Item Value Reference Range Interpretation Comme nts NA (test code = 1149816259) 141 mmol/L 135-145 K (test code = 5240823282) 3.9 mmol/L 3.5-5.0 CL (test code = 7162218970) 112 mmol/L 98-108 H CO2 TOTAL (test code = 8669812687) 23 mmol/L 23-31 AGAP (test code = 5313212302) 2-16 BUN (test code = 9555413126) 20 mg/dL 7-23 GLUCOSE (test code = 9867223156) 81 mg/dL 70-110 CREATININE (test code = 0.81 mg/dL 0.50-1.04 8744619313) TOTAL BILI (test code = 0.3 mg/dL 0.1-1.8 5021636725) CALCIUM (test code = 0840136183) 8.9 mg/dL 8.6-10.6 T PROTEIN (test code = 5096242949) 7.0 g/dL 6.3-8.2 ALBUMIN (test code = 3848289140) 4.2 g/dL 3.5-5.0 ALK PHOS (test code = 4547917193) 87 U/L 34-122 ALTv (test code = 1742-6) 9 U/L 5-35 AST(SGOT) (test code = 6340623895) 18 U/L 13-40 eGFR (test code = 0515327066) mL/min/1.73m2 SANDER (test code = SANDER) Association of Glomerular Filtration Rate (GFR) and Staging of Kidney Disease* + +-------- + ------+| GFR (mL/min/1.73 m2) ?| With Kidney Damage ?| ?Without Kidney Damage+ +-- + +| ?>90 ?| ?Stage one ?| ? Normal ?+ +------- + -------+| ?60-89 ?| ?Stage two ?| ? Decreased GFR ? + +-------- + ------+| ?30-59 ?| ?Stage three ?| ? Stage three ? + +-------- + ------+| ?15-29 ?| ?Stage four ? | ? Stage four ?+ +------- + -------+| ?<15 (or dialysis) ? ?| ?Stage five ? | ? Stage five ?+ +------- + -------+ *Each stage assumes the associated GFR [...] or abnormalities in imaging tests). Lab Interpretation (test code = Abnormal 79009-5) [facility] WITH [id number] 23:01:37 Test Item Value Reference Range Interpretation Comments [...] as normal/abnormal . HGB (test code = 12.0 g/dL 11.6-15.0 718-7) HCT (test code = 36.9 % 35.7-45.2 4544-3) MCV (test code = 96.6 fL 80.6-95.5 H 787-2) MCH (test code = 31.4 pg 25.9-32.8 785-6) MCHC (test code = 32.5 g/dL 31.6-35.1 786-4) RDW-SD (test code = 47.8 fL 39.0-49.9 73161-7) RDW-CV (test code = 13.4 % 12.0-15.5 788-0) PLT (test code = See_Comment [Automated 777-3) message] The sy stem which generated this result transmitted reference range : 166 - 358 10*3/ ?L. The reference r arianne was not used to interpret this result as normal/abnormal . MPV (test code = 11.9 fL 9.5-12.9 59440-2) NRBC/100 WBC (test See_Comment [Automat ed code = 8356664822) message] The system which generated this result transmitted reference range : 0.0 - 10.0 /100 WBCs. The refer ence range was not u sed to interpret th is result as normal/abnormal . NRBC x10^3 (test code <0.01 See_Comment [Auto mated = 3991626439) message] The s ystem which generated this result transmitted reference range : 10*3/?L. The reference range was not used to interpret this result as normal/abnormal . GRAN MAT (NEUT) % 46.9 % (test code = 770-8) IMM GRAN % (test code 0.30 % = 6689798986) LYMPH % (test code = 42.8 % 736-9) MONO % (test code = 6.9 % 5905-5) EOS % (test code = 2.4 % 713-8) BASO % (test code = 0.7 % 706-2) GRAN MAT x10^3(ANC) 3.35 10*3/uL 1.88-7.09 (test code = 8176781016) IMM GRAN x10^3 (test <0.03 0.00-0.06 code = 1472565978) LYMPH x10^3 (test code 3.05 10*3/uL 1.32-3.29 = 731-0) MONO x10^3 (test code 0.49 10*3/uL 0.33-0.92 = 742-7) EOS x10^3 (test code = 0.17 10*3/uL 0.03-0.39 711-2) BASO x10^3 (test code 0.05 10*3/uL 0.01-0.07 = 704-7) Lab Interpretation Abnormal (test code = 47064-5) [facility] [id number] 07:46:00 Specimen: ThroatCollected: 08/13/2017 05:30 Status: Final Last Updated: 08/15/2017 07:46 Strep A Screen Rapid (Final) (Final) Negative Blood [place](24 hrs) (Final) (Final) 08/14/17 No Group A Strep isolated Blood [place](48 hrs) (Final) (Final) 08/15/17 No Group A Strep isolatedMono Qual 2017-08-13 07:35:00 Test Item Value Reference Range Interpretation Comments Adair Test (test code = SMONO) Negative Negative N CBC with [id number] 04:53:00 Test Item Value Reference Range Interpretation [...] code = ALYMPH) 3.3 K/cumm 0.5-4.6 N [place] Abs (test code = AMONO) 0.3 K/cumm 0.0-1.2 N Eos Abs (test code = AEOS) 0.46 K/cumm 0.00-0.74 N Baso Abs (test code = ABASO) 0.1 K/cumm 0.00-0.21 N"
[2021-11-11] MEDS ORDERED: NA CHLORIDE 0.9% 1,000 ML ONE (19:32)
[2021-11-11 20:00] LABS: Urine Blood Negative (Negative); Urine Glucose Negative (Negative); Urine Protein Negative (Negative); Urine Specific Gravity 1.025 (1.005-1.030); Urine pH 6.5 (5.0-7.0)
[2021-11-11 20:04] LABS: Absolute Lymphocytes (CBC) 3.3 K/uL (0.7-4.9); Hematocrit 39.1 % (36.0-45.0); MPV 8.7 fL (7.6-11.3); RBC Red Blood Cell Count 4.28 M/uL (3.86-4.86)
[2021-11-11 20:06] LABS: Protime INR 1.09
[2021-11-11 20:26] LABS: ALT/SGPT 11 U/L (12-78); AST/SGOT 11 U/L (15-37); Albumin 3.5 g/dL (3.4-5.0); Alkaline Phosphatase 76 U/L (45-117); BUN Blood Urea Nitrogen 11 mg/dL (7-18); Bicarbonate 23 mmol/L (21-32); Bilirubin Total 0.2 mg/dL (0.2-1.0); Glomerular Filtration Rate 128 ml/min (=/>90); Glucose Level 85 mg/dL (74-106); Lipase 88 U/L (73-393); Magnesium 2.1 mg/dL (1.8-2.4); NT PRO-BNP 28 pg/mL (<125); Potassium 3.5 mmol/L (3.5-5.1); Protein, Total 7.4 g/dL (6.4-8.2); Sodium Level 136 mmol/L (136-145); Troponin High Sensitivity 5.8 pg/mL (<58.9)
[2021-11-11 20:33] LABS: Bilirubin Direct < 0.1 mg/dL (0-0.2)
[2021-11-11 20:47] LABS: Urine Specific Gravity/Preg 1.025 (1.005-1.030)
--- NOTE | 2021-11-11 21:32 | RAD REPORT ---
EXAM DESCRIPTION: US - Matter Eval Tm 1 - 11/11/2021 9:10 pm CLINICAL HISTORY: Abd pain COMPARISON: Transvaginal OB dated 02/08/2020; Extrem Venous W Compress Roberto dated 11/11/2021 FINDINGS: Single IUP identified with crown rump length measures 2.1 cm which is consistent with 8 we ek 3 day with EULALIO of 06/20/2022. heart tones are measured at 160 beats/minute. Possible intramu ral fibroid measuring 3.1 x 3.3 cm. The left ovary measures 3.3 x 1.7 x 22.6 cm volume of 7.4 cc. The right ovary was not visualized. IMPRESSION: Single viable IUP with positive heart tones measuring 8 week 3 day with EULALIO of .
--- NOTE | 2021-11-11 21:32 | RAD REPORT ---
EXAM DESCRIPTION: US - Extrem Venous W Compress Roberto - 11/11/2021 9:09 pm CLINICAL HISTORY: PAIN COMPARISON: No comparisons TECHNIQUE: Real-time sonographic evaluation of the lower extremity deep venous systems was performed using color Doppler, grayscale, and compression. FINDINGS: Bilateral lower extremities. Normal compressibility, flow augmentation, phasic flow and spontaneous flow is identified in both the left and right lower extremity deep venous systems. No intraluminal filling defects seen. IMPRESSION: No DVT in either lower extremity.
--- NOTE | 2021-11-11 21:36 | ER ---
Nurse's Notes [facility] Name: Franklin Chaidez Age: 26 yrs Sex: Female : 1995 Arrival Date: 11/11/2021 Time: 19:07 Bed 8 Private MD: Diagnosis: Chest pain on breathing;Coronavirus infection, unspecified;SARS-associated coronavirus as the cause of diseases classified elsewhere;9 weeks gestation of Presentation: 11/11 19:12 Chief complaint: EMS states: pt c/o chest pain. Coronavirus screen: At this time, the as6 client does not indicate any symptoms associated with coronavirus-19. Ebola Screen: No symptoms or risks identified at this time. Initial Sepsis Screen: Does the patient meet any 2 criteria? No. Patient's initial sepsis screen is negative. Does the patient have a suspected source of infection? No. Patient's initial sepsis screen is negative. Risk Assessment: Do you want to hurt yourself or someone else? Patient reports no desire to harm self or others. Onset of symptoms is unknown. Care prior to arrival: None. 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 - Social history:: Smoking status: Patient reports the use of cigarette tobacco products, smokes one pack cigarettes per day. - Family history:: not pertinent. Screenin:11 Abuse screen: Denies threats or abuse. Nutritional screening: No deficits noted. vc1 Tuberculosis screening: No symptoms or risk factors identified. Fall Risk None identified. Assessment: 20:00 General: Appears in no apparent distress. Behavior is calm, cooperative. Pain: as6 Complains of pain in chest. Neuro: Level of Consciousness is awake, alert, obeys commands, Oriented to person, place, time, situation. Cardiovascular: Reports chest pain, JVD is absent Patient's skin is warm and dry. Respiratory: Respiratory effort is even, unlabored, Respiratory pattern is regular, symmetrical. 21:26 Reassessment: Patient appears in no apparent distress at this time. Patient is alert, as6 oriented x 3, equal unlabored respirations, skin warm/dry/pink. Vital Signs: 19:12 BP 112 / 77; Pulse 80; Resp 13 S; Temp 97.9(O); Pulse Ox 99% on R/A; Weight 56.7 kg as6 (R); Height 5 ft. 3 in. (160.02 cm) (R); Pain 9/10; 21:26 BP 115 / 81; Pulse 74; Resp 19 S; Pulse Ox 99% on R/A; as6 19:12 Body Mass Index 22.14 (56.70 kg, 160.02 cm) as6 ED Course: 19:07 Patient arrived in ED. vg1 19:09 Flash Silveira MD is Attending Physician. ashley 19:12 Buck Garcia, CARINA is Primary Nurse. as6 19:14 Triage completed. as6 19:14 Arm band placed on. as6 20:00 Inserted saline lock: 20 gauge in right antecubital area, using aseptic technique. as6 Blood collected. 21:11 US Extremity Venous W Compression Roberto In Process Unspecified. EDMS 21:11 Matter Eval Tm 1 In Process Unspecified. EDMS 21:36 Yonathan Hope MD is Referral Physician. [facility] 22:11 No provider procedures requiring assistance completed. IV discontinued, intact, vc1 bleeding controlled, No redness/swelling at site. Pressure dressing applied. 22:13 Patient has correct armband on for positive identification. Bed in low position. vc1 Administered Medications: 20:00 Drug: NS 0.9% 1000 ml Route: IV; Rate: 1 bolus; Site: right antecubital; as6 Medication: 22:13 VIS not applicable for this client. vc1 Outcome: 21:36 Discharge ordered by . ashley 22:11 Discharged to Law Enforcement vc1 22:11 Condition: good 22:11 Discharge instructions given to patient, police, Instructed on discharge instructions, follow up and referral plans. medication usage, Demonstrated understanding of instructions, follow-up care, medications, Prescriptions given X 1. 22:13 Patient left the ED. vc1 Signatures: Dispatcher [employer] EDNM Flash Silveira MD MD cha Garcia, Victoria, RN RN vg1 Slawson, [place], RN RN as6 Calcote, Sun, RN RN vc1
--- NOTE | 2021-11-11 21:36 | EDPHYS ---
Physician Documentation [facility] Name: Franklin Chaidez Age: 26 yrs Sex: Female : 1995 Arrival Date: 11/11/2021 Time: 19:07 Bed 8 Private MD: ED Physician Flash Silveira HPI: 11/11 19:22 This 26 yrs old Black Female presents to ER via EMS with complaints of chest pain, sob ashley and covid positive. 19:22 The patient or guardian reports chest pain that is located primarily in the substernal ashley area. The patient presents with abdominal pain in the lower abdomen. Onset: The symptoms/episode began/occurred 2 day(s) ago. The patient presents with pain that is acute, with no known mechanism of injury. The symptoms are located in the thoracic area. Onset: The symptoms/episode began/occurred 3 day(s) ago. The pain does not radiate. Associated signs and symptoms: Pertinent positives: abdominal pain, chest pain. Modifying factors: The patient symptoms are alleviated by nothing, the patient symptoms are aggravated by coughing, movement. 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 - Social history:: Smoking status: Patient reports the use of cigarette tobacco products, smokes one pack cigarettes per day. - Family history:: not pertinent. ROS: 19:22 Constitutional: Negative for fever, chills, and weight loss, Eyes: Negative for injury, ashley pain, redness, and discharge, ENT: Negative for injury, pain, and discharge, Neck: Negative for injury, pain, and swelling, : Negative for injury, bleeding, discharge, and swelling, MS/Extremity: Negative for injury and deformity, Skin: Negative for injury, rash, and discoloration, Neuro: Negative for headache, weakness, numbness, tingling, and seizure, Psych: Negative for depression, anxiety, suicide ideation, homicidal ideation, and hallucinations, Allergy/Immunology: Negative for hives, rash, and allergies, Endocrine: Negative for neck swelling, polydipsia, polyuria, polyphagia, and marked weight changes, Hematologic/Lymphatic: Negative for swollen nodes, abnormal bleeding, and unusual bruising. 19:22 Cardiovascular: Positive for chest pain, with cough. 19:22 Respiratory: Positive for shortness of breath, on exertion. 19:22 Abdomen/GI: Positive for abdominal pain, of the right lower quadrant and left lower quadrant. 19:22 Back: Positive for decreased range of motion, pain at rest, of the thoracic area. Exam: 19:22 Constitutional: This is a well developed, well nourished patient who is awake, alert, ashley and in no acute distress. Head/Face: Normocephalic, atraumatic. Eyes: Pupils equal round and reactive to light, extra-ocular motions intact. Lids and lashes normal. Conjunctiva and sclera are non-icteric and not injected. Cornea within normal limits. Periorbital areas with no swelling, redness, or edema. ENT: Nares patent. No nasal discharge, no septal abnormalities noted. Tympanic membranes are normal and external auditory canals are clear. Oropharynx with no redness, swelling, or masses, exudates, or evidence of obstruction, uvula midline. Mucous membranes moist. Neck: Trachea midline, no thyromegaly or masses palpated, and no cervical lymphadenopathy. Supple, full range of motion without nuchal rigidity, or vertebral point tenderness. No Meningismus. Chest/axilla: Normal chest wall appearance and motion. Nontender with no deformity. No lesions are appreciated. Cardiovascular: Regular rate and rhythm with a normal S1 and S2. No gallops, murmurs, or rubs. Normal PMI, no JVD. No pulse deficits. Respiratory: Lungs have equal breath sounds bilaterally, clear to auscultation and percussion. No rales, rhonchi or wheezes noted. No increased work of breathing, no retractions or nasal flaring. Abdomen/GI: Soft, non-tender, with normal bowel sounds. No distension or tympany. No guarding or rebound. No evidence of tenderness throughout. Back: No spinal tenderness. No costovertebral tenderness. Full range of motion. Skin: Warm, dry with normal turgor. Normal color with no rashes, no lesions, and no evidence of cellulitis. MS/ Extremity: Pulses equal, no cyanosis. Neurovascular intact. Full, normal range of motion. Neuro: Awake and alert, GCS 15, oriented to person, place, time, and situation. Cranial nerves II-XII grossly intact. Motor strength 5/5 in all extremities. Sensory grossly intact. Cerebellar exam normal. Normal gait. Psych: Awake, alert, with orientation to person, place and time. Behavior, mood, and affect are within normal limits. 19:22 Musculoskeletal/extremity: Extremities: all appear grossly normal, with no appreciated pain with palpation, ROM: no acute changes, intact in all extremities, Circulation is intact in all extremities. Sensation intact. Compartment Syndrome exam of affected extremity: is normal. DVT Exam: No signs of deep vein thrombosis. no pain, no swelling, no tenderness, negative Homans' sign noted on exam, no appreciated bluish discoloration, no erythema, no increased warmth. 19:31 ECG was reviewed by the Attending Physician. [facility] Vital Signs: 19:12 BP 112 / 77; Pulse 80; Resp 13 S; Temp 97.9(O); Pulse Ox 99% on R/A; Weight 56.7 kg as6 (R); Height 5 ft. 3 in. (160.02 cm) (R); Pain 9/10; 21:26 BP 115 / 81; Pulse 74; Resp 19 S; Pulse Ox 99% on R/A; as6 19:12 Body Mass Index 22.14 (56.70 kg, 160.02 cm) as6 MDM: 19:09 Patient medically screened. ashley 19:28 Differential diagnosis: abnormal EKG, acute myocardial infarction, acute pericarditis. ashley HEART Score: History: Slightly Suspicious (0), ECG: Normal (0), Age: < or = 45 years (0), Risk Factors: No Risk Factors Known (0), Troponin: < or = 1 x Normal Limit (0). The patient's deep vein thrombosis risk score was calculated as follows: Total Score: 0. This patient was found to be at low risk for a deep vein thrombosis by using the Well's assessment criteria. The patient's pulmonary embolism risk score was calculated as follows: Total Score: 0-2 points. This patient was found to be at low risk for a pulmonary embolism by using the Well's assessment criteria. IRVIN Risk Score: TOTAL SCORE = 0. Data reviewed: vital signs, nurses notes, lab test result(s), EKG, radiologic studies, plain films. Data interpreted: site monitor: rate is 80 beats/min, rhythm is regular, Pulse oximetry: is not applicable for this patient encounter. on room air. Test interpretation: by ED physician or midlevel provider: ECG, plain radiologic studies. Counseling: I had a detailed discussion with the patient and/or guardian regarding: the historical points, exam findings, and any diagnostic results supporting the discharge/admit diagnosis, lab results, radiology results. 11/11 19:21 Order name: Basic Metabolic Panel; Complete Time: 20:38 [facility] 11/11 19:21 Order name: CBC with Diff; Complete Time: 20:38 [facility] 11/11 19:21 Order name: LFT's; Complete Time: 20:38 [facility] 11/11 19:21 Order name: Magnesium; Complete Time: 20:38 [facility] 11/11 19:21 Order name: NT PRO-BNP; Complete Time: 20:38 [facility] 11/11 19:21 Order name: PT-INR; Complete Time: 20:38 [facility] 11/11 19:21 Order name: Troponin HS; Complete Time: 20:38 [facility] 11/11 19:21 Order name: Lipase; Complete Time: 20:38 [facility] 11/11 19:21 Order name: Test, Serum; Complete Time: 20:38 [facility] 11/11 20:01 Order name: Urine Dipstick-Ancillary; Complete Time: 20:38 EDMS 11/11 20:01 Order name: Urine --Ancillary (enter results); Complete Time: 21:35 ds4 11/11 20:08 Order name: Abo/rh Typing; Complete Time: 21:35 [facility] 11/11 20:08 Order name: D-Dimer; Complete Time: 20:38 [facility] 11/11 19:21 Order name: EKG; Complete Time: 19:22 [facility] 11/11 19:21 Order name: Cardiac monitoring; Complete Time: 19:25 [facility] 11/11 19:21 Order name: EKG - Nurse/Tech; Complete Time: 19:25 [facility] 11/11 19:21 Order name: IV Saline Lock; Complete Time: 20:00 [facility] 11/11 19:21 Order name: Labs collected and sent; Complete Time: 20:00 [facility] 11/11 19:21 Order name: O2 Per Protocol; Complete Time: 19:25 [facility] 11/11 19:21 Order name: O2 Sat Monitoring; Complete Time: 19:25 [facility] 11/11 19:21 Order name: Urine Dipstick-Ancillary (obtain specimen); Complete Time: 20:00 [facility] 11/11 19:21 Order name: Urine Test (obtain specimen); Complete Time: 20:00 [facility] 11/11 20:08 Order name: US Extremity Venous W Compression Roberto; Complete Time: 21:35 [facility] 11/11 21:11 Order name: Matter Eval Tm 1; Complete Time: 21:35 EDMS EC:31 Rate is 74 beats/min. Rhythm is regular. QRS [place] is Normal. MA interval is normal. QRS ashley interval is normal. QT interval is normal. No Q waves. T waves are Normal. No ST changes noted. Clinical impression: Normal ECG and No evidence of ischemia. Interpreted by me. Reviewed by me. Administered Medications: 20:00 Drug: NS 0.9% 1000 ml Route: IV; Rate: 1 bolus; Site: right antecubital; as6 Disposition Summary: 11/11/21 21:36 Discharge Ordered Location: Home [facility] Problem: new [facility] Symptoms: have improved ashley Condition: Stable [facility] Diagnosis - Chest pain on breathing ashley - Coronavirus infection, unspecified ashley - SARS-associated coronavirus as the cause of diseases classified elsewhere ashley - 9 weeks gestation of ashley Followup: ashley - With: Private Physician - When: 2 - 3 days - Reason: Recheck today's complaints, Continuance of care, Re-evaluation by your physician Followup: ashley - With: - When: 2 - 3 days - Reason: Recheck today's complaints, Continuance of care, Re-evaluation by your physician Discharge Instructions: - Discharge Summary Sheet ashley - Abdominal Pain During ashley - Nonspecific Chest Pain, Adult ashley - Chest Wall Pain ashley - Care ashley - Upper Respiratory Infection, Adult ashley - First Trimester of , Ahyh-wk-Uevh ashley - COVID-19 ashley - Things to Know about the COVID-19 Pandemic - [facility] - 10 Things You Can Do to Manage Your COVID-19 Symptoms at Home - [facility] - Viral Illness, Adult [facility] - Prevent the Spread of COVID-19 if You Are Sick - [facility] Forms: - Medication Reconciliation Form ashley - Thank You Letter ashley - Antibiotic Education ashley - Prescription Opioid Use [facility] Prescriptions: - Zithromax Z-Segun 250 mg Oral Tablet - take 1 tablet by ORAL route as directed for 5 days Day 1 - take two (2) tablets ashley one time. Day 2, 3, 4 , 5 take one (1) tablet once daily.; 6 tablet; Refills: 0, Product Selection Permitted Signatures: Dispatcher [employer] Flash Bentley MD MD cha Slawson, Ashby RN RN as6 Corrections: (The following items were deleted from the chart) 20:26 19:22 Chest Single View+RAD.RAD.BRZ ordered. EDMS EDMS 21:11 20:09 Transvaginal Ob+US.RAD.BRZ ordered. EDMS EDMS
[2021-11-11 23:47] VITALS: TEMP 97.9; O2SAT 99
[2021-11-11 23:48] VITALS: BP 115/81
--- NOTE | 2021-11-14 17:36 | EKG ---
Test Date: 2021-11-11 Test Time: 19:19:08 Clerk Stenographer: MEASUREMENT RESULTS: Intervals: Rate: 74 NC: 136 QRSD: 88 QT: 390 QTc: 432 [place]: P: 70 NC: 136 QRS: 77 T: 28 INTERPRETIVE STATEMENTS: Normal sinus rhythm with sinus arrhythmia Normal ECG Compared to ECG 09/30/2004 11:14:00 Left ventricular hypertrophy no longer present Electronically Signed On 11-14-21 17:31:23 CDT by Chapo Owens
== END 2021-11-11 22:13 | disposition home or self-care (01) ==
LOC: ER 19:03
DX: O98.511 Other viral diseases complicating pregnancy, first trimester (principal); U07.1 COVID-19; O99.331 Smoking (tobacco) complicating pregnancy, first trimester; F17.210 Nicotine dependence, cigarettes, uncomplicated; Z3A.09 9 weeks gestation of pregnancy
CPT/HCPCS: 93005; 85025; 80048; 36415; 86900; 83735; 84703; 81025; 85610; 86901; 85379; 80076; 81003; 84484; 83690; 83880; 93970; 76801; 99284; J7030

== ENCOUNTER 2021-12-04 12:21 | Emergency (ER) | payer OTHER ==
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
[2021-12-04 14:31] VITALS: TEMP 98.3
[2021-12-04 14:36] VITALS: BP 117/89; O2SAT 95
== END 2021-12-04 14:22 | disposition home or self-care (01) ==
LOC: ER 12:21
DX: O9A.212 Injury, poisoning and certain other consequences of external causes complicating pregnancy, second trimester (principal); S16.1XXA Strain of muscle, fascia and tendon at neck level, initial encounter; V49.49XA Driver injured in collision with other motor vehicles in traffic accident, initial encounter; O98.712 Human immunodeficiency virus [HIV] disease complicating pregnancy, second trimester; Z21 Asymptomatic human immunodeficiency virus [HIV] infection status; O99.332 Smoking (tobacco) complicating pregnancy, second trimester; F17.210 Nicotine dependence, cigarettes, uncomplicated; Z3A.27 27 weeks gestation of pregnancy
CPT/HCPCS: 70450; 70486; 72125; 76377; 99284

== ENCOUNTER 2025-01-08 09:16 | Emergency (ER) | payer SELFPAY, OTHER ==
--- OUTSIDE RECORDS SUMMARY | 2025-01-08 09:29 | XMS REPORT | Continuity of Care Document ---
Author Name Unknown Address [address] [facility] [place] [address] Organization [facility] [place] Address [address] [facility] [place] [address] Care Team Providers Care Taxicab Coordinator Name Role Phone UNKNOWN, REFFERING Primary Care Physician VIMAL Ackerman Attending Clinician Unavailable SABA ALATORRE Attending Clinician UnavailLinda Burton MA Attending Clinician Unavail able CAROLANN AC Attending Clinician Unavailable CAROLANN AC Attending Clinician Unavailable YIMI SOLER Attending Clinician Unavailable Priyanka Larkin LVN Attending Clinician Unav ailShannan Hayes Attending Clinician + Yimi Galindo Attending Clinician [phone] SHANNAN PELAEZ Attending Clinician Unava ilDAVY Sue Attending Clinician Unavailab DAVY Harden Attending Clinician UnavailRickey Mahmood MD Attending Clinician [phone] THIERNO TUCKER Attending Clinician Unavailable THIERNO TUCKER Attending Clinician Unavailable Ashlyn Kaiser Attending Clinician UnavailGHANSHYAM Thornton Attending Clinician Unavailable Mildred Perez LVN Attending Clinician Unavaila ble Disease, Marsha & Pcp Pedi Infec Attending Clinicia n Unavailable RICKEY KUMAR Attending Clinician Unavailable Kelsey [facility], Ursula Colon Attending Clinician Unavailab le 1, [facility] Nurse Visit Attending Clinician Cecelia vailable Xochitl Amelia BOWDEN Attending Clinician + AMELIA LEUNG Attending Clinician Unavail able SARAH NUNO Attending Clinician Cecelia vailable JORDYN RODRIGUEZ Attending Clinician Unavailable Mikaela Quiroga MD Attending Clinician [phone] MIKAELA QUIROGA Attending Clinician Unavail able FLASH RIVAS Attending Clinician Unavailable [facility] [phone]- [phone] Neo [facility], Mitra Palomo Attending Clinician Unavai PATITO Carrasco Attending Clinician Unavailable PATITO LEONE Attending Clinician Unavailable Jayashree Fair MA Attending Clinician UnavailRizwana Rob MD Attending Clinician + [phone] Kay Sneed DO Attending Clinician [phone] KAY SNEED Attending Clinician Unavailable RIZWANA MORRISON Attending Clinician UnavailRIZWANA Rob Attending Clinician Unavailgabrielle al Doctor Unassigned, [place] Attending Clinician U navailable UNKNOWN, ATTENDING Attending Clinician Unavailab SCAR Sol Attending Clinician Unavailab aYquelin Soliz MD Attending Clinician [phone] Visit, [facility] Nurse Attending Clinician Unava ilScar Orta Attending Clinician + [phone] CAROLINE LOPEZ Attending Clinician Unav Rigo Velázquez MD Attending Clinician [phone]- [phone] Caroline Lopez MD Attending Clinician + EBATA LARKIN Attending Clinician UnavailMerle FLORES, Shaq Campoverde Attending Clinician [phone] SHAQ RIVERA Attending Clinician Unavailgabrielle Damon [facility], Dereck Key Attending Clinician + Provider, [facility] Tem Attending Clinician Cecelia dylanilable DERECK DAMON Attending Clinician Unavail able Ultrasound, [facility] Attending Clinician Unavaila liliane NurseMarsha Infectious Attending Clinician Roberta Rivera [facility], Debbie Melendez Attending Clinician Cecelia vailable Unknown, Attending Attending Clinician Unavailab Eddie Oneill MD Attending Clinician [phone] [facility] Attending Clinician Unavailable Only, [facility] Test Attending Clinician Unavailable GARRY KNIGHT Attending Clinician Unavailable Alonso RN, Marcel Monet Attending Clinician Unavaila liliane Graham MA, Magdaleno Attending Clinician Unava ilable Troy Leone DO Attending Clinician [phone] Hamilton LOMELI, Nguyễn Attending Clinician [phone] SELFNGUYỄN Attending Clinician Unavailable Mai LIM, Hafsa Monet Attending Clinician Unavai WING Ruiz Attending Clinician Unavailable Provider, [facility] Attending Clinician Un available Akbar RERECORDING MIXER, Wing Attending Clinician [phone] Fredy RERECORDING MIXER, Rosie Leos Attending Clinician + [phone] Isaac Gonzalez RN, Hafsa Gonzalez Attending Clinician Unava ilable Osmani PATTERN LAYOUT WORKERJulia Attending Clinician Unavailabl e Pcp-Lab Attending Clinician Unavailable Yola Alcantar MA Attending Clinician Unavailab jacob Gongora MD, Desiree Colon Attending Clinician [phone] Trimester, [facility] Attending Clinician Unavailable MANUEL VALERIO Attending Clinician Unavaila ble Physician, No Primary or Family Admitting Clinic ewa Unavailable FLASH RIVAS Admitting Clinician Unavailable CAROLINE LOPEZ Admitting Clinician Frank Lopez MD, Caroline Waldron Admitting Clinician + MANUEL VALERIO Admitting Clinician Unavailpatricia momin Payers Payer Name Policy Type Policy Number Effective Date Expirati on Date Source [facility] [id number] 2023 00:00:00 [facility] [id number] 2017 00:00:00 2017 00:00:00 MEDICAID PENDING PENDING 2018 00:00:00 2018 00:00:00 Problems Condition Name Condition Details Condition Category Status Onset Date Resolution Date Last Treatment Date Treating Clinician Comments Source Screening for STD (sexually transmitte d disease) Screening for STD (sexually transmitte d disease) Disease Active 3-06 00:00: 00 [facility] On Depo-Prove ra for contracept ion On Depo-Prove ra for contracept ion Disease Active 3- 00:00: 00 [facility] Bacterial vaginosis Bacterial vaginosis Disease Active 306 00:00: 00 [facility] History of herpes genitalis History of herpes genitalis Disease Active 2021-05 2-13 00:00: 00 [facility] Supervisio n of high-risk Supervisio n of high-risk Disease Active 8-19 00:00: 00 [facility] Other depression Other depression Disease Active 1-11 00:00: 00 [facility] History of multiple miscarriag es History of multiple miscarriag es Disease Active 9-02 00:00: 00 [facility] History of multiple miscarriag es History of multiple miscarriag es Disease Active 9-02 00:00: 00 [facility] Human immunodefi ciency virus (HIV) disease Human immunodefi ciency virus (HIV) disease Disease Active 3-03 00:00: 00 [facility] History of section History of section Disease Active 7-25 00:00: 00 [facility] Tobacco use in Tobacco use in Disease Active 3-06 00:00: 00 [facility] 39 weeks gestation of 39 weeks gestation of Disease Resolve d 1-23 00:00: 00 2022-07-26 00:00:00 2022-07-26 13:13:16 [facility] Tobacco use in , antepartum Tobacco use in , antepartum Disease Resolve d 2021-05 2-13 00:00: 00 2022-07-26 00:00:00 2022-07-26 13:13:11 [facility] Short interval between pregnancie s affecting , antepartum Short interval between pregnancie s affecting , antepartum Disease Resolve d 2021-0 8-19 00:00: 00 2022-07-26 00:00:00 2022-07-26 13:13:07 [facility] HIV disease affecting HIV disease affecting Disease Resolve d 2019-0 9-02 00:00: 00 2022-07-26 00:00:00 2022-07-26 13:13:01 [facility] Multiparit y Multiparit y Disease Resolve d 2018-0 7-25 00:00: 00 2022-07-26 00:00:00 2022-07-26 13:12:55 [facility] Lump or mass in breast Lump or mass in breast Disease Resolve d 2019-1 2-01 00:00: 00 2022-05-04 00:00:00 2022-05-04 10:02:17 [facility] Herpes infection in Herpes infection in Disease Resolve d 2018-0 7-25 00:00: 00 2022-05-04 00:00:00 2022-05-04 10:02:33 Overview: Formattin g of this note might be different from the original. Suppressi on at 36 weeks [facility] 39 weeks gestation of 39 weeks gestation of Disease Resolve d 2021-0 2-17 00:00: 00 2022-01-08 00:00:00 2022-01-08 10:19:06 [facility] Supervisio n of high risk in second trimester Supervisio n of high risk in second trimester Disease Resolve d 2019-0 9-02 00:00: 00 2022-01-08 00:00:00 2022-01-08 10:19:13 [facility] Family history of miscarriag e Family history of miscarriag e Disease Resolve d 2020-0 6-21 00:00: 00 2021-04-09 00:00:00 2021-04-09 10:02:27 [facility] Other general counseling and advice for contracept emil management Other general counseling and advice for contracept emil management Disease Resolve d 2019-1 2-01 00:00: 00 2021-04-09 00:00:00 2021-04-09 10:02:25 [facility] Vaginal discharge Vaginal discharge Disease Resolve d 2019-1 2-01 00:00: 00 2021-04-09 00:00:00 2021-04-09 10:01:53 [facility] Vaginal yeast infection Vaginal yeast infection Disease Resolve d 2019-0 9-02 00:00: 00 2021-04-09 00:00:00 2021-04-09 10:01:51 [facility] GBS (group B streptococ cus) UTI complicati ng GBS (group B streptococ cus) UTI complicati ng Disease Resolve d 2019-0 9-04 00:00: 00 2020-04-22 00:00:00 2020-04-22 10:20:01 [facility] Multiparit y Multiparit y Disease Resolve d 2019-0 9-02 00:00: 00 2020-04-22 00:00:00 2020-04-22 10:20:09 [facility] History of section History of section Disease Resolve d 2019-0 9-02 00:00: 00 2020-04-22 00:00:00 2020-04-22 10:20:09 [facility] Missed menses Missed menses Disease Resolve d 2019-0 3-03 00:00: 00 2020-01-23 00:00:00 2020-01-23 09:13:08 [facility] Infectious disease contact Infectious disease contact Disease Resolve d 2019-0 3-03 00:00: 00 2020-01-23 00:00:00 2020-01-23 09:13:19 [facility] Need for prophylact ic vaccinatio n and inoculatio n against influenza Need for prophylact ic vaccinatio n and inoculatio n against influenza Disease Resolve d 2019-0 2-28 00:00: 00 2019-07-24 00:00:00 2019-07-24 09:41:37 [facility] Nausea and vomiting during Nausea and vomiting during Disease Resolve d 2018-0 8-07 00:00: 00 2019-07-24 00:00:00 2019-07-24 09:41:33 [facility] Supervisio n of high-risk Supervisio n of high-risk Disease Resolve d 7-25 00:00: 00 2019-07-24 00:00:00 2019-07-24 09:41:42 [facility] Vaginal bleeding in Vaginal bleeding in Disease Resolve d 7- 00:00: 00 2019-07-24 00:00:00 2019-07-24 09:41:20 [facility] Tobacco use in Tobacco use in Disease Resolve d 7-25 00:00: 00 2019-07-24 00:00:00 2019-07-24 09:41:44 [facility] Inmate in correction al facility Inmate in correction al facility Disease Resolve d 7 00:00: 00 2019-07-24 00:00:00 2019-07-24 09:41:28 [facility] Screen for STD (sexually transmitte d disease) Screen for STD (sexually transmitte d disease) Disease Resolve d 3-06 00:00: 00 2019-07-24 00:00:00 2019-07-24 09:42:03 [facility] Chlamydia Chlamydia Disease Resolve d 2017-05 1-21 00:00: 00 2018-12-14 00:00:00 2018-12-14 09:25:14 [facility] Urinary frequency Urinary frequency Disease Resolve d 9-13 00:00: 00 2018-12-14 00:00:00 2018-12-14 09:24:47 [facility] Depo-Prove ra contracept emil status Depo-Prove ra contracept emil status Disease Resolve d 3-06 00:00: 00 2018-12-14 00:00:00 2018-12-14 09:25:11 [facility] BV (bacterial vaginosis) BV (bacterial vaginosis) Disease Resolve d 6-03 00:00: 00 2018-02-02 00:00:00 2018-02-02 10:13:52 [facility] Vaginal yeast infection Vaginal yeast infection Disease Resolve d 6- 00:00: 00 2018-02-02 00:00:00 2018-02-02 10:13:55 [facility] Urinary tract infection, site not specified Urinary tract infection, site not specified Disease Resolve d 7 00:00: 00 2015-07-27 00:00:00 2021-12-06 00:36:39 [facility] Asthma Asthma Disease Resolve d 3-24 00:00: 00 2015-07-27 00:00:00 2021-12-06 00:35:12 [facility] delivery delivered delivery delivered Disease Resolve d 9 00:00: 00 2015-02-28 00:00:00 2015-02-28 09:27:48 [facility] ROM (rupture of membranes) , premature ROM (rupture of membranes) , premature Disease Resolve d 01-24 00:00: 00 2015-02-28 00:00:00 2015-02-28 16:53:27 [facility] Labor and delivery complicate d by stress Labor and delivery complicate d by stress Disease Resolve d 01-24 00:00: 00 2015-02-28 00:00:00 2015-02-28 09:27:48 [facility] Research Study: ARRIVE Expectant Management Arm Research Study: ARRIVE Expectant Management Arm Disease Resolve d 01-23 00:00: 00 2015-02-28 00:00:00 2021-12-06 00:37:29 [facility] Stye external Stye external Disease Resolve d 8 00:00: 00 2015-02-28 00:00:00 2015-02-28 16:53:29 [facility] Abnormal maternal glucose tolerance, antepartum Abnormal maternal glucose tolerance, antepartum Disease Resolve d 7- 00:00: 00 2015-02-28 00:00:00 2021-12-06 00:36:36 [facility] Dizziness Dizziness Disease Resolve d 615 00:00: 00 2015-02-28 00:00:00 2015-02-28 16:53:20 [facility] Supervisio n of other high-risk Supervisio n of other high-risk Disease Resolve d 08-13 00:00: 00 2015-02-28 00:00:00 2021-12-06 00:35:12 [facility] Tobacco use disorder complicati ng , childbirth , or puerperium , antepartum Tobacco use disorder complicati ng , childbirth , or puerperium , antepartum Disease Resolve d 08-13 00:00: 00 2015-02-28 00:00:00 2021-12-06 00:35:12 [facility] History of recurrent UTIs History of recurrent UTIs Disease Resolve d 08-13 00:00: 00 2015-02-28 00:00:00 2021-12-06 00:35:12 [facility] Urinary tract infection, site not specified Urinary tract infection, site not specified Disease Resolve d 08-18 00:00: 00 2014-11-04 00:00:00 2014-11-04 10:56:20 [facility] Allergies, Adverse Reactions, Alerts Allergy Name Allergy Type Status Severity Reaction(s) Onset Date Inactive Date Treating Clinician Comments Source No Known Allergie s DA Active U 01-02 00:00: 00 [facility] are [place] NO KNOWN ALLERGIE S Drug Class Active [facility] Social History Social Habit Start Date Stop Date Quantity Comments Source ASSERTION 2021-09-27 00:00:00 [facility] History SDOH Alcohol Frequency [facility] History SDOH [facility] SDOH Alcohol Binge [facility] Alcohol intake 2023-02-23 00:00:00 2023-02-23 00:00:00 Ex-drinker (finding) [facility] History of Social function 2023-02-22 00:00:00 2023-02-22 00:00:00 [facility] Exposure to SARS-CoV-2 (event) 2022-10-04 00:00:00 2022-10-14 10:36:00 Not sure [facility] Alcoholic beverage intake 2022-07-26 00:00:00 2022-07-26 00:00:00 Ex-drinker (finding) [facility] Cigarettes smoked current (pack per day) - Reported 2022-06-14 00:00:00 2022-06-14 00:00:00 [facility] Cigarette pack-years 2022-06-14 00:00:00 2022-06-14 00:00:00 [facility] Tobacco use and exposure 2022-06-14 00:00:00 2022-06-14 00:00:00 Smokeless tobacco non-user [facility] Tobacco Comment 2022-01-08 00:00:00 2022-01-08 00:00:00 resources given [facility] Alcohol Comment 2019-08-02 00:00:00 2019-08-02 00:00:00 occasional [facility] History of tobacco use 2010-12-14 00:00:00 2018-12-10 00:00:00 Cigarette Smoker [facility] Sex assigned at 1995 00:00:00 1995 00:00:00 [facility] Smoking Status Start Date Stop Date Source Smokes tobacco daily 2022-06-14 00:00:00 [facility] Medications Ordered Medication Name Filled Medication Name Start Date Stop Date Current Medication? Ordering Clinician Indication Dosage Frequency Signature (SIG) Comments Components Source Nitrofurant oin&Nit. Macrocryst (MACROBID) 100 mg capsule 2022-05 0-13 00:00: 00 03-12 04:59 :00 No [id number] 100mg Take 1 capsule by mouth in the morning and 1 capsule in the evening. Do all this for 7 days. [facility] esomeprazol e 40 mg capsule 2022-05 006 00:00: 00 Yes [id number] 40mg Take 1 capsule by mouth daily with breakfast. [facility] 25/iron fum/folic/d pineda (-1 ORAL) 2022-05 0-04 12:43: 58 02-23 00:00 :00 No Take by mouth. [facility] fluticasone propionate 50 mcg/actuati on nasal spray 2022-05 0-04 00:00: 00 Yes [id number] 2 sprays in each nostril once daily [facility] fluconazole 150 mg tablet 2022-05 0-04 00:00: 00 Yes [id number] 1 tab by mouth as needed yeast infection [facility] BIKTARVY 50-200-25 mg tablet 2022-05 0-04 00:00: 00 Yes [id number] 1{tbl} Take 1 tablet by mouth every morning. [facility] hydrOXYzine 25 mg tablet 2022-05 0-04 00:00: 00 Yes [id number] 1 tab once daily to BID as needed for anxiety [facility] medroxyPROG ESTERone (DEPO-PROVE RA) injection 150 mg 2022-05 0-03 18:45: 00 Yes [id number] 150mg [facility] BIKTARVY 50-200-25 mg tablet 9-13 00:00: 00 02-23 00:00 :00 No [id number] 1{tbl} TAKE 1 TABLET BY MOUTH EVERY DAY IN THE MORNING [facility] bictegrav-e mtricit-ten ofov ala 50-200-25 mg tablet 5-25 00:00: 00 02-02 00:00 :00 No [id number] 1{tbl} Take 1 tablet by mouth in the morning. [facility] medroxyPROG ESTERone (DEPO-PROVE RA) injection 150 mg 4-27 15:45: 00 02-22 18:30 :37 No [id number] [facility] 25/iron fum/folic/d pineda (-1 ORAL) 3-06 13:11: 40 Yes Take by mouth. [facility] metroNIDAZO LE 500 mg tablet 3-06 00:00: 00 08-03 04:59 :00 No [id number] 500mg Take 1 tablet by mouth every 12 (twelve) hours for 7 days. [facility] buPROPion XL 150 mg 24 hr tablet 07-21 00:00: 00 02-23 00:00 :00 No 150mg Take 1 tablet by mouth in the morning. [facility] hydrOXYzine 25 mg tablet 07-21 00:00: 00 02-23 00:00 :00 No 25mg Take 1 tablet by mouth 2 (two) times daily as needed. [facility] bictegrav-e mtricit-ten ofov ala 50-200-25 mg tablet 07-15 00:00: 00 10-14 00:00 :00 No 1{tbl} Take 1 tablet by mouth in the morning. [facility] medroxyPROG ESTERone (DEPO-PROVE RA) injection 150 mg 06-15 13:45: 00 06-15 18:19 :00 No 150mg 150 mg, Intramuscu lar, ONCE, 1 dose, On Tue06/15/22 at 0745, Routine [facility] [id number] fum-folic () 27 mg iron- 1 mg folic tablet 06-15 00:00: 00 07-26 00:00 :00 No [id number] 1{tbl} Take 1 tablet by mouth in the morning. [facility] docusate 100 mg capsule 06-15 00:00: 00 07-26 00:00 :00 No [id number] 200mg Take 2 capsules by mouth once daily as needed for Constipati on. [facility] ferrous sulfate 325 mg (65 mg iron) tablet 06-15 00:00: 00 07-26 00:00 :00 No [id number] 325mg Take 1 tablet by mouth in the morning and 1 tablet in the evening. [facility] ibuprofen 600 mg tablet 06-15 00:00: 00 07-26 00:00 :00 No [id number] 600mg Take 1 tablet by mouth every 6 (six) hours as needed (Pain). Take with food or milk. [facility] HYDROcodone -acetaminop hen 5-325 mg tablet 06-15 00:00: 00 07-26 00:00 :00 No [id number] 1{tbl} Take 1 tablet by mouth every 6 (six) hours as needed (Pain scale above 4) for up to 10 doses. Do not exceed 3 grams of acetaminop hen in 24 hours. Indication s: acute pain [facility] bictegrav-e mtricit-ten ofov ala 50-200-25 mg tablet 06-15 00:00: 00 07-15 00:00 :00 No [id number] 1{tbl} Take 1 tablet by mouth in the morning. [facility] lactated ringers IV infusion 1,000 mL 06-14 18:00: 00 06-15 05:59 :00 No 1000mL at 125 mL/hr, 1,000 mL, IV Infusion, ONCE, 1 dose, On Tue06/14/22 at 1200, Routine [facility] rho(D) immune globulin (RHOGAM) syringe 300 mcg 06-14 17:31: 52 Yes 300ug 300 mcg, Intramuscu lar, ONCE, For 1 dose, Conditiona l, Routine [facility] HYDROcodone -acetaminop hen (NORCO 5) 5-325 mg tablet 2 tablet 06-14 17:31: 47 Yes 2{tbl} 2 tablet, Oral, Q6HPRN, Starting on Tue06/14/22 at 1131, Until Discontinu ed, Routine, Pain (scale 7-10), Alternate with Ibuprofen [facility] HYDROcodone -acetaminop hen (NORCO 5) 5-325 mg tablet 1 tablet 06-14 17:31: 47 Yes 1{tbl} 1 tablet, Oral, Q6HPRN, Starting on Tue06/14/22 at 1131, Until Discontinu ed, Routine, Pain (scale 4-6), Alternate with Ibuprofen [facility] ibuprofen (IBU) tablet 600 mg 06-14 17:31: 47 Yes 600mg 600 mg, Oral, Q6HPRN, Starting on Tue06/14/22 at 1131, Until Discontinu ed, Routine, Pain (scale 1-3) [facility] diphenhydrA MINE (BENADRYL) injection 25 mg 06-14 17:31: 47 Yes 25mg 25 mg, Slow IV Push, Q6HPRN, Starting on Tue06/14/22 at 1131, Until Discontinu ed, Routine, Itching [facility] diphenhydrA MINE (BENADRYL) tablet 25 mg 06-14 17:31: 47 Yes 25mg 25 mg, Oral, Q6HPRN, Starting on Tue06/14/22 at 1131, Until Discontinu ed, Routine, Sleep, Itching [facility] ondansetron (ZOFRAN (PF)) injection 4 mg 06-14 17:31: 47 Yes 4mg 4 mg, Slow IV Push, Q8HPRN, Starting on Tue06/14/22 at 1131, Until Discontinu ed, Routine, Nausea and Vomiting (N/V) [facility] bisacodyL (DULCOLAX) suppository 10 mg 06-14 17:31: 47 Yes 10mg 10 mg, Rectal, QDAILYPRN, Starting on Tue06/14/22 at 1131, Until Discontinu ed, Routine, Constipati on [facility] simethicone (GAS RELIEF (SIMETHICON E)) chewable tablet 160 mg 06-14 17:31: 47 Yes 160mg 160 mg, Oral, PC+HSPRN, Starting on Tue06/14/22 at 1131, Until Discontinu ed, Routine, Gas [facility] docusate (COLACE) capsule 200 mg 06-14 17:31: 47 Yes 200mg 200 mg, Oral, QDAILYPRN, Starting on Tue06/14/22 at 1131, Until Discontinu ed, Routine, Constipati on [facility] magnesium hydroxide (MILK OF MAGNESIA) 400 mg/5 mL suspension 30 mL 06-14 17:31: 47 Yes 30mL 30 mL, Oral, QDAILYPRN, Starting on Tue06/14/22 at 1131, Until Discontinu ed, Routine, Constipati on [facility] lactated ringers IV infusion 1,000 mL 06-14 17:31: 47 Yes 1000mL at 125 mL/hr, 1,000 mL, IV Infusion, PRN, 1 dose, Starting on Tue06/14/22 at 1131, Until Discontinu ed, Routine [facility] nalbuphine (NUBAIN) injection 5 mg 06-14 17:31: 10 Yes 5mg 5 mg, Intravenou s, PRN, 1 dose, Starting on Tue06/14/22 at 1131, Until Discontinu ed, Routine, itching, PACU [facility] naloxone (NARCAN) injection 0.4 mg 06-14 17:31: 10 06-16 17:30 :10 No .4mg 0.4 mg, Slow IV Push, PRN - SEE INSTRUCTIO NS, Starting on Tue06/14/22 at 1131, Until Tue06/16/22 at 1130, Routine, Analgesia Recovery, PACU [facility] bictegrav-e mtricit-ten ofov ala (BIKTARVY) 50-200-25 mg tablet 1 tablet 06-14 17:30: 00 Yes 1{tbl} 1 tablet, Oral, DAILY, First dose on Tue06/14/22 at 1130, Until Discontinu ed, Routine [facility] ceFAZolin (ANCEF) 2,000 mg in NaCl 0.9% (NS) 100 mL MINI-BAG 06-14 13:30: 00 06-14 15:29 :00 No 2000mg 2,000 mg, IV Piggyback, ONCE, 1 dose, On Tue06/14/22 at 0730, Administer over 30 Minutes, 100 mL
Reas on for Anti-Infec tive: Surgical Prophylaxi s
Surgi mariah Prophylaxi s: [employer]
Duration of therapy: within 24 hours of surgery [facility] acetaminoph en (TYLENOL) tablet 650 mg 06-14 13:30: 00 06-14 14:51 :00 No 650mg 650 mg, Oral, ONCE, 1 dose, On Tue06/14/22 at 0730, Routine [facility] lactated ringers IV infusion 1,000 mL 06-14 13:30: 00 06-14 17:31 :50 No 1000mL at 125 mL/hr, 1,000 mL, IV Infusion, CONTINUOUS , Starting on Tue06/14/22 at 0730, Until Tue06/14/22 at 1131, Routine [facility] sodium citrate-cit parviz acid (BICITRA) 500-334 mg/5 mL solution 30 mL 06-14 13:20: 50 06-14 14:59 :00 No 30mL 30 mL, Oral, PRE-PROCED URE ONCE, 1 dose, Starting on Tue06/14/22 at 0720, Until Tue06/16/22 at 2359, Routine, Surgery/Pr ocedure [facility] No known medications 06-14 07:55: 37 No No known medication s [facility] acyclovir 400 mg tablet 06-08 00:00: 00 06-15 00:00 :00 No [id number] 400mg Take 1 tablet by mouth in the morning and 1 tablet in the evening. [facility] bictegrav-e mtricit-ten ofov ala (BIKTARVY) 50-200-25 mg tablet 2021-05- 00:00: 00 06-01 05:59 :00 No [id number] 1{tbl} Take 1 tablet by mouth in the morning for 30 days. [facility] BIKTARVY 50-200-25 mg tablet 2021-05- 00:00: 00 05-01 00:00 :00 No [id number] 1{tbl} Take 1 tablet by mouth daily. [facility] multivitami n ( VITAMIN) tablet -19 00:00: 00 05-04 00:00 :00 No [id number] 1{tbl} Take 1 tablet by mouth in the morning. [facility] buPROPion HCL, smoking deter, 150 mg Tb12 8-19 00:00: 00 05-04 00:00 :00 No [id number] 1{tbl} Take 1 tablet by mouth 2 (two) times daily. Take 1 tablet daily for first 3 days [facility] bictegrav-e mtricit-ten ofov ala (BIKTARVY) 50-200-25 mg tablet 7-06 00:00: 00 03-24 00:00 :00 No [id number] 1{tbl} Take 1 tablet by mouth daily. [facility] vitamin w/FA tablet 18 00:00: 00 06-15 00:00 :00 No [id number] 1{tbl} Take 1 tablet by mouth daily. [facility] docusate calcium 240 mg capsule 18 00:00: 00 05-04 00:00 :00 No [id number] 240mg Take 1 capsule by mouth once daily as needed for Constipati on. [facility] ferrous sulfate 325 mg (65 mg iron) tablet 18 00:00: 00 05-04 00:00 :00 No [id number] 325mg Take 1 tablet by mouth 2 (two) times daily. [facility] ibuprofen 600 mg tablet 18 00:00: 00 05-04 00:00 :00 No [id number] 600mg Take 1 tablet by mouth every 6 (six) hours as needed (Pain). Take with food or milk. [facility] norethindro ne 0.35 mg tablet 18 00:00: 00 05-04 00:00 :00 No [id number] .35mg Take 1 tablet by mouth daily. [facility] Immunizations Ordered Immunization Name Filled Immunization Name Date Status Comments Source TDAP 2022-05-04 00:00:00 [facility]pleted [facility] Influenza Virus Vaccine Quad IM, Preserv and ABX Free 6 MO-64 YRS 2022-05-04 00:00:00 Completed [facility] TDAP 2022-05-04 00:00:00 [facility]pleted [facility] Influenza Virus Vaccine Quad IM, Preserv and ABX Free 6 MO-64 YRS 2022-05-04 00:00:00 Completed [facility] TDAP 2022-05-04 00:00:00 Completed [facility] Influenza Virus Vaccine Quad IM, Preserv and ABX Free 6 MO-64 YRS 2022-05-04 00:00:00 Completed [facility] TDAP 2022-05-04 00:00:00 Completed [facility] Influenza Virus Vaccine Quad IM, Preserv and ABX Free 6 MO-64 YRS 2022-05-04 00:00:00 Completed [facility] TDAP 2022-05-04 00:00:00 Completed [facility] Influenza Virus Vaccine Quad IM, Preserv and ABX Free 6 MO-64 YRS 2022[facility]05-04 [facility] Influenza Virus Vaccine Quad IM, Preserv and ABX Free 6 MO-64 YRS 2022-05-04 00:00:00 Completed [facility] TDAP 2022-05-04 00:00:00 Completed [facility] Influenza Virus Vaccine Quad IM, Preserv and ABX Free 6 MO-64 YRS 2022-05-04 00:00:00 Completed [facility] TDAP 2022-05-04 00:00:00 Completed [facility] Influenza Virus Vaccine Quad IM, Preserv and ABX Free 6 MO-64 YRS 2022-05-04 00:00:00 Completed [facility] TDAP 2022-05-04 00:00:00 Completed [facility] Influenza Virus Vaccine Quad IM, Preserv and ABX Free 6 MO-64 YRS 2022-05-04 00:00:00 Completed [facility] TDAP 2022-05-04 00:00:00 Completed [facility] Influenza Virus Vaccine Quad IM, Preserv and ABX Free 6 MO-64 YRS 2022-05-04 00:00:00 Completed [facility] TDAP 2022-05-04 00:00:00 Completed [facility] Influenza Virus Vaccine Quad IM, Preserv and ABX Free 6 MO-64 YRS 2022-05-04 00:00:00 Completed [facility] TDAP 2022-05-04 00:00:00 Completed [facility] Influenza Virus Vaccine Quad IM, Preserv and ABX Free 6 MO-64 YRS 2022-05-04 00:00:00 Completed [facility] TDAP 2022-05-04 00:00:00 Completed [facility] Influenza Virus Vaccine Quad IM, Preserv and ABX Free 6 MO-64 YRS 2022-05-04 00:00:00 Completed [facility] TDAP 2022-05-04 00:00:00 Completed [facility] Influenza Virus Vaccine Quad IM, Preserv and ABX Free 6 MO-64 YRS 2022-05-04 00:00:00 Completed [facility] TDAP 2022-05-04 00:00:00 Completed [facility] Influenza Virus Vaccine Quad IM, Preserv and ABX Free 6 MO-64 YRS 2022-05-04 00:00:00 Completed [facility] TDAP 2022-05-04 00:00:00 Completed [facility] Influenza Virus Vaccine Quad IM, Preserv and ABX Free 6 MO-64 YRS 2022-05-04 00:00:00 Completed [facility] TD 2022-05-04 00:00:00 Completed [facility] Influenza Virus Vaccine Quad IM, Preserv and ABX Free 6 MO-64 YRS 2022-05-04 00:00:00 Completed [facility] TDAP 2022-05-04 00:00:00 Completed [facility] Influenza Virus Vaccine Quad IM, Preserv and ABX Free 6 MO-64 YRS 2022-05-04 00:00:00 Completed [facility] TDAP 2022-05-04 00:00:00 Completed [facility] Influenza Virus Vaccine Quad IM, Preserv and ABX Free 6 MO-64 YRS 2022-05-04 00:00:00 Completed [facility] TDAP 2022-05-04 00:00:00 Completed [facility] Influenza Virus Vaccine Quad IM, Preserv and ABX Free 6 MO-64 YRS 2022-05-04 00:00:00 Completed [facility] TDAP 2022-05-04 00:00:00 Completed [facility] Influenza Virus Vaccine Quad IM, Preserv and ABX Free 6 MO-64 YRS 2022-05-04 00:00:00 Completed [facility] TDAP 2022-05-04 00:00:00 Completed [facility] Influenza Virus Vaccine Quad IM, Preserv and ABX Free 6 MO-64 YRS 2022-05-04 00:00:00 Completed [facility] TDAP 2022-05-04 00:00:00 Completed [facility] Influenza Virus Vaccine Quad IM, Preserv and ABX Free 6 MO-64 YRS 2022-05-04 00:00:00 Completed [facility] TDAP 2022-05-04 00:00:00 Completed [facility] Influenza Virus Vaccine Quad IM, Preserv and ABX Free 6 MO-64 YRS 2022-05-04 00:00:00 Completed [facility] TDAP 2022-05-04 00:00:00 Completed [facility] Influenza Virus Vaccine Quad IM, Preserv and ABX Free 6 MO-64 YRS 2022-05-04 00:00:00 Completed [facility] TDAP 2022-05-04 00:00:00 Completed [facility] Influenza Virus Vaccine Quad IM, Preserv and ABX Free 6 MO-64 YRS 2022-05-04 00:00:00 Completed [facility] TDAP 2022-05-04 00:00:00 Completed [facility] Influenza Virus Vaccine Quad IM, Preserv and ABX Free 6 MO-64 YRS 2022-05-04 00:00:00 Completed [facility] TDAP 2022-05-04 00:00:00 Completed [facility] Influenza Virus Vaccine Quad IM, Preserv and ABX Free 6 MO-64 YRS 2022-05-04 00:00:00 Completed [facility] TDAP 2022-05-04 00:00:00 Completed [facility] Influenza Virus Vaccine Quad IM, Preserv and ABX Free 6 MO-64 YRS 2022-05-04 00:00:00 Completed [facility] TDAP 2022-05-04 00:00:00 Completed [facility] Influenza Virus Vaccine Quad IM, Preserv and ABX Free 6 MO-64 YRS 2022-05-04 00:00:00 Completed [facility] TDAP 2022-05-04 00:00:00 Completed [facility] Influenza Virus Vaccine Quad IM, Preserv and ABX Free 6 MO-64 YRS 2022-05-04 00:00:00 Completed [facility] TDAP 2022-05-04 00:00:00 Completed [facility] Influenza Virus Vaccine Quad IM, Preserv and ABX Free 6 MO-64 YRS 2022-05-04 00:00:00 Completed [facility] TDAP 2022-05-04 00:00:00 Completed [facility] Influenza Virus Vaccine Quad IM, Preserv and ABX Free 6 MO-64 YRS 2022-05-04 00:00:00 Completed [facility] TDAP 2022-05-04 00:00:00 Completed [facility] Influenza Virus Vaccine Quad IM, Preserv and ABX Free 6 MO-64 YRS (FLUCELVAX) 2022-05-04 00:00:00 Completed [facility] TDAP 2022-05-04 00:00:00 Completed [facility] Influenza Virus Vaccine Quad IM, Preserv and ABX Free 6 MO-64 YRS (FLUCELVAX) 2022-05-04 00:00:00 Completed [facility] TDAP 2022-05-04 00:00:00 Completed [facility] Influenza Virus Vaccine Quad IM, Preserv and ABX Free 6 MO-64 YRS (FLUCELVAX) 2022-05-04 00:00:00 Completed [facility] TDAP 2022-05-04 00:00:00 Completed [facility] Influenza Virus Vaccine Quad IM, Preserv and ABX Free 6 MO-64 YRS (FLUCELVAX) 2022-05-04 00:00:00 Completed TDAP 2021-04-24 00:00:00 Completed [facility] TDAP 2021-04-24 00:00:00 Completed [facility] TDAP 2021-04-24 00:00:00 Completed [facility] TDAP 2021-04-24 00:00:00 Completed [facility] TDAP 2021-04-24 00:00:00 Completed [facility] TDAP 2021-04-24 00:00:00 Completed [facility] TDAP 2021-04-24 00:00:00 Completed [facility] TDAP 2021-04-24 00:00:00 Completed [facility] TDAP 2021-04-24 00:00:00 Completed [facility] TDAP 2021-04-24 00:00:00 Completed [facility] TDAP 2021-04-24 00:00:00 Completed [facility] TDAP 2021-04-24 00:00:00 Completed [facility] TDAP 2021-04-24 00:00:00 Completed [facility] TDAP 2021-04-24 00:00:00 Completed [facility] TDAP 2021-04-24 00:00:00 Completed [facility] TDAP 2021-04-24 00:00:00 Completed [facility] TDAP 2021-04-24 00:00:00 Completed [facility] TDAP 2021-04-24 00:00:00 Completed [facility] TDAP 2021-04-24 00:00:00 Completed [facility] TDAP 2021-04-24 00:00:00 Completed [facility] TDAP 2021-04-24 00:00:00 Completed [facility] TDAP 2021-04-24 00:00:00 Completed [facility] TDAP 2021-04-24 00:00:00 Completed [facility] TDAP 2021-04-24 00:00:00 Completed [facility] TDAP 2021-04-24 00:00:00 Completed [facility] TDAP 2021-04-24 00:00:00 Completed [facility] TDAP 2021-04-24 00:00:00 Completed [facility] TDAP 2021-04-24 00:00:00 Completed [facility] TDAP 2021-04-24 00:00:00 Completed [facility] TDAP 2021-04-24 00:00:00 Completed [facility] TDAP 2021-04-24 00:00:00 Completed [facility] TDAP 2021-04-24 00:00:00 Completed [facility] TDAP 2021-04-24 00:00:00 Completed [facility] TDAP 2021-04-24 00:00:00 Completed [facility] TDAP 2021-04-24 00:00:00 Completed [facility] TDAP 2021-04-24 00:00:00 Completed [facility] TDAP 2021-04-24 00:00:00 Completed [facility] TDAP 2021-04-24 00:00:00 Completed [facility] TDAP 2021-04-24 00:00:00 Completed [facility] TDAP 2021-04-24 00:00:00 Completed [facility] TDAP 2021-04-24 00:00:00 Completed [facility] TDAP 2021-04-24 00:00:00 Completed [facility] TDAP 2021-04-24 00:00:00 Completed [facility] TDAP 2021-04-24 00:00:00 Completed [facility] TDAP 2021-04-24 00:00:00 Completed [facility] TDAP 2021-04-24 00:00:00 Completed [facility] TDAP 2021-04-24 00:00:00 Completed [facility] TDAP 2021-04-24 00:00:00 Completed [facility] TDAP 2021-04-24 00:00:00 Completed [facility] TDAP 2021-04-24 00:00:00 Completed [facility] TDAP 2021-04-24 00:00:00 Completed [facility] TDAP 2021-04-24 00:00:00 Completed [facility] TDAP 2021-04-24 00:00:00 Completed [facility] TDAP 2021-04-24 00:00:00 Completed [facility] TDAP 2021-04-24 00:00:00 Completed [facility] Influenza Virus Vaccine Quad IM, Preserv and ABX Free 6 MO-64 YRS 2021-04-09 00:00:00 Completed [facility] Influenza Virus Vaccine Quad IM, Preserv and ABX Free 6 MO-64 YRS 2021-04-09 00:00:00 Completed [facility] Influenza Virus Vaccine Quad IM, Preserv and ABX Free 6 MO-64 YRS 2021-04-09 00:00:00 Completed [facility] Influenza Virus Vaccine Quad IM, Preserv and ABX Free 6 MO-64 YRS 2021-04-09 00:00:00 Completed [facility] Influenza Virus Vaccine Quad IM, Preserv and ABX Free 6 MO-64 YRS 2021-04-09 00:00:00 Completed [facility] Influenza Virus Vaccine Quad IM, Preserv and ABX Free 6 MO-64 YRS 2021-04-09 00:00:00 Completed [facility] Influenza Virus Vaccine Quad IM, Preserv and ABX Free 6 MO-64 YRS 2021-04-09 00:00:00 Completed [facility] Influenza Virus Vaccine Quad IM, Preserv and ABX Free 6 MO-64 YRS 2021-04-09 00:00:00 Completed [facility] Influenza Virus Vaccine Quad IM, Preserv and ABX Free 6 MO-64 YRS 2021-04-09 00:00:00 Completed [facility] Influenza Virus Vaccine Quad IM, Preserv and ABX Free 6 MO-64 YRS 2021-04-09 00:00:00 Completed [facility] Influenza Virus Vaccine Quad IM, Preserv and ABX Free 6 MO-64 YRS 2021-04-09 00:00:00 Completed [facility] Influenza Virus Vaccine Quad IM, Preserv and ABX Free 6 MO-64 YRS 2021-04-09 00:00:00 Completed [facility] Influenza Virus Vaccine Quad IM, Preserv and ABX Free 6 MO-64 YRS 2021-04-09 00:00:00 Completed [facility] Influenza Virus Vaccine Quad IM, Preserv and ABX Free 6 MO-64 YRS 2021-04-09 00:00:00 Completed [facility] Influenza Virus Vaccine Quad IM, Preserv and ABX Free 6 MO-64 YRS 2021-04-09 00:00:00 Completed [facility] Influenza Virus Vaccine Quad IM, Preserv and ABX Free 6 MO-64 YRS 2021-04-09 00:00:00 Completed [facility] Influenza Virus Vaccine Quad IM, Preserv and ABX Free 6 MO-64 YRS 2021-04-09 00:00:00 Completed [facility] Influenza Virus Vaccine Quad IM, Preserv and ABX Free 6 MO-64 YRS 2021-04-09 00:00:00 Completed [facility] Influenza Virus Vaccine Quad IM, Preserv and ABX Free 6 MO-64 YRS 2021-04-09 00:00:00 Completed [facility] Influenza Virus Vaccine Quad IM, Preserv and ABX Free 6 MO-64 YRS 2021-04-09 00:00:00 Completed [facility] Influenza Virus Vaccine Quad IM, Preserv and ABX Free 6 MO-64 YRS 2021-04-09 00:00:00 Completed [facility] Influenza Virus Vaccine Quad IM, Preserv and ABX Free 6 MO-64 YRS 2021-04-09 00:00:00 Completed [facility] Influenza Virus Vaccine Quad IM, Preserv and ABX Free 6 MO-64 YRS 2021-04-09 00:00:00 Completed [facility] Influenza Virus Vaccine Quad IM, Preserv and ABX Free 6 MO-64 YRS 2021-04-09 00:00:00 Completed [facility] Influenza Virus Vaccine Quad IM, Preserv and ABX Free 6 MO-64 YRS 2021-04-09 00:00:00 Completed [facility] Influenza Virus Vaccine Quad IM, Preserv and ABX Free 6 MO-64 YRS 2021-04-09 00:00:00 Completed [facility] Influenza Virus Vaccine Quad IM, Preserv and ABX Free 6 MO-64 YRS 2021-04-09 00:00:00 Completed [facility] Influenza Virus Vaccine Quad IM, Preserv and ABX Free 6 MO-64 YRS 2021-04-09 00:00:00 Completed [facility] Influenza Virus Vaccine Quad IM, Preserv and ABX Free 6 MO-64 YRS 2021-04-09 00:00:00 Completed [facility] Influenza Virus Vaccine Quad IM, Preserv and ABX Free 6 MO-64 YRS 2021-04-09 00:00:00 Completed [facility] Influenza Virus Vaccine Quad IM, Preserv and ABX Free 6 MO-64 YRS 2021-04-09 00:00:00 Completed [facility] Influenza Virus Vaccine Quad IM, Preserv and ABX Free 6 MO-64 YRS 2021-04-09 00:00:00 Completed [facility] Influenza Virus Vaccine Quad IM, Preserv and ABX Free 6 MO-64 YRS 2021-04-09 00:00:00 Completed [facility] Influenza Virus Vaccine Quad IM, Preserv and ABX Free 6 MO-64 YRS 2021-04-09 00:00:00 Completed [facility] Influenza Virus Vaccine Quad IM, Preserv and ABX Free 6 MO-64 YRS 2021-04-09 00:00:00 Completed [facility] Influenza Virus Vaccine Quad IM, Preserv and ABX Free 6 MO-64 YRS 2021-04-09 00:00:00 Completed [facility] Influenza Virus Vaccine Quad IM, Preserv and ABX Free 6 MO-64 YRS 2021-04-09 00:00:00 Completed [facility] Influenza Virus Vaccine Quad IM, Preserv and ABX Free 6 MO-64 YRS 2021-04-09 00:00:00 Completed [facility] Influenza Virus Vaccine Quad IM, Preserv and ABX Free 6 MO-64 YRS 2021-04-09 00:00:00 Completed [facility] Influenza Virus Vaccine Quad IM, Preserv and ABX Free 6 MO-64 YRS 2021-04-09 00:00:00 Completed [facility] Influenza Virus Vaccine Quad IM, Preserv and ABX Free 6 MO-64 YRS 2021-04-09 00:00:00 Completed [facility] Influenza Virus Vaccine Quad IM, Preserv and ABX Free 6 MO-64 YRS 2021-04-09 00:00:00 Completed [facility] Influenza Virus Vaccine Quad IM, Preserv and ABX Free 6 MO-64 YRS 2021-04-09 00:00:00 Completed [facility] Influenza Virus Vaccine Quad IM, Preserv and ABX Free 6 MO-64 YRS 2021-04-09 00:00:00 Completed [facility] Influenza Virus Vaccine Quad IM, Preserv and ABX Free 6 MO-64 YRS 2021-04-09 00:00:00 Completed [facility] Influenza Virus Vaccine Quad IM, Preserv and ABX Free 6 MO-64 YRS 2021-04-09 00:00:00 Completed [facility] Influenza Virus Vaccine Quad IM, Preserv and ABX Free 6 MO-64 YRS 2021-04-09 00:00:00 Completed [facility] Influenza Virus Vaccine Quad IM, Preserv and ABX Free 6 MO-64 YRS 2021-04-09 00:00:00 Completed [facility] Influenza Virus Vaccine Quad IM, Preserv and ABX Free 6 MO-64 YRS 2021-04-09 00:00:00 Completed [facility] Influenza Virus Vaccine Quad IM, Preserv and ABX Free 6 MO-64 YRS 2021-04-09 00:00:00 Completed [facility] Influenza Virus Vaccine Quad IM, Preserv and ABX Free 6 MO-64 YRS 2021-04-09 00:00:00 Completed [facility] Influenza Virus Vaccine Quad IM, Preserv and ABX Free 6 MO-64 YRS (FLUCELVAX) 2021-04-09 00:00:00 Completed [facility] Influenza Virus Vaccine Quad IM, Preserv and ABX Free 6 MO-64 YRS (FLUCELVAX) 2021-04-09 00:00:00 Completed [facility] Influenza Virus Vaccine Quad IM, Preserv and ABX Free 6 MO-64 YRS (FLUCELVAX) 2021-04-09 00:00:00 Completed [facility] Influenza Virus Vaccine Quad IM, Preserv and ABX Free 6 MO-64 YRS (FLUCELVAX) 2021-04-09 00:00:00 Completed [facility] Influenza Virus Vaccine Quad .5 mL IM 6+ MO 2019-07-20 00:00:00 Completed [facility] Influenza Virus Vaccine Quad .5 mL IM 6+ MO 2019-07-20 00:00:00 Completed [facility] Influenza Virus Vaccine Quad .5 mL IM 6+ MO 2019-07-20 00:00:00 Completed [facility] Influenza Virus Vaccine Quad .5 mL IM 6+ MO 2019-07-20 00:00:00 Completed [facility] Influenza Virus Vaccine Quad .5 mL IM 6+ MO 2019-07-20 00:00:00 Completed [facility] Influenza Virus Vaccine Quad .5 mL IM 6+ MO 2019-07-20 00:00:00 Completed [facility] Influenza Virus Vaccine Quad .5 mL IM 6+ MO 2019-07-20 00:00:00 Completed [facility] Influenza Virus Vaccine Quad .5 mL IM 6+ MO 2019-07-20 00:00:00 Completed [facility] Influenza Virus Vaccine Quad .5 mL IM 6+ MO 2019-07-20 00:00:00 Completed [facility] Influenza Virus Vaccine Quad .5 mL IM 6+ MO 2019-07-20 00:00:00 Completed [facility] Influenza Virus Vaccine Quad .5 mL IM 6+ MO 2019-07-20 00:00:00 Completed [facility] Influenza Virus Vaccine Quad .5 mL IM 6+ MO 2019-07-20 00:00:00 Completed [facility] Influenza Virus Vaccine Quad .5 mL IM 6+ MO 2019-07-20 00:00:00 Completed [facility] Influenza Virus Vaccine Quad .5 mL IM 6+ MO 2019-07-20 00:00:00 Completed [facility] Influenza Virus Vaccine Quad .5 mL IM 6+ MO 2019-07-20 00:00:00 Completed [facility] Influenza Virus Vaccine Quad .5 mL IM 6+ MO 2019-07-20 00:00:00 Completed [facility] Influenza Virus Vaccine Quad .5 mL IM 6+ MO 2019-07-20 00:00:00 Completed [facility] Influenza Virus Vaccine Quad .5 mL IM 6+ MO 2019-07-20 00:00:00 Completed [facility] Influenza Virus Vaccine Quad .5 mL IM 6+ MO 2019-07-20 00:00:00 Completed [facility] Influenza Virus Vaccine Quad .5 mL IM 6+ MO 2019-07-20 00:00:00 Completed [facility] Influenza Virus Vaccine Quad .5 mL IM 6+ MO 2019-07-20 00:00:00 Completed [facility] Influenza Virus Vaccine Quad .5 mL IM 6+ MO 2019-07-20 00:00:00 Completed [facility] Influenza Virus Vaccine Quad .5 mL IM 6+ MO 2019-07-20 00:00:00 Completed [facility] Influenza Virus Vaccine Quad .5 mL IM 6+ MO 2019-07-20 00:00:00 Completed [facility] Influenza Virus Vaccine Quad .5 mL IM 6+ MO 2019-07-20 00:00:00 Completed [facility] Influenza Virus Vaccine Quad .5 mL IM 6+ MO 2019-07-20 00:00:00 Completed [facility] Influenza Virus Vaccine Quad .5 mL IM 6+ MO 2019-07-20 00:00:00 Completed [facility] Influenza Virus Vaccine Quad .5 mL IM 6+ MO 2019-07-20 00:00:00 Completed [facility] Influenza Virus Vaccine Quad .5 mL IM 6+ MO 2019-07-20 00:00:00 Completed [facility] Influenza Virus Vaccine Quad .5 mL IM 6+ MO 2019-07-20 00:00:00 Completed [facility] Influenza Virus Vaccine Quad .5 mL IM 6+ MO 2019-07-20 00:00:00 Completed [facility] Influenza Virus Vaccine Quad .5 mL IM 6+ MO 2019-07-20 00:00:00 Completed [facility] Influenza Virus Vaccine Quad .5 mL IM 6+ MO 2019-07-20 00:00:00 Completed [facility] Influenza Virus Vaccine Quad .5 mL IM 6+ MO 2019-07-20 00:00:00 Completed [facility] Influenza Virus Vaccine Quad .5 mL IM 6+ MO 2019-07-20 00:00:00 Completed [facility] Influenza Virus Vaccine Quad .5 mL IM 6+ MO 2019-07-20 00:00:00 Completed [facility] Influenza Virus Vaccine Quad .5 mL IM 6+ MO 2019-07-20 00:00:00 Completed [facility] Influenza Virus Vaccine Quad .5 mL IM 6+ MO 2019-07-20 00:00:00 Completed [facility] Influenza Virus Vaccine Quad .5 mL IM 6+ MO 2019-07-20 00:00:00 Completed [facility] Influenza Virus Vaccine Quad .5 mL IM 6+ MO 2019-07-20 00:00:00 Completed [facility] Influenza Virus Vaccine Quad .5 mL IM 6+ MO 2019-07-20 00:00:00 Completed [facility] Influenza Virus Vaccine Quad .5 mL IM 6+ MO 2019-07-20 00:00:00 Completed [facility] Influenza Virus Vaccine Quad .5 mL IM 6+ MO 2019-07-20 00:00:00 Completed [facility] Influenza Virus Vaccine Quad .5 mL IM 6+ MO 2019-07-20 00:00:00 Completed [facility] Influenza Virus Vaccine Quad .5 mL IM 6+ MO 2019-07-20 00:00:00 Completed [facility] Influenza Virus Vaccine Quad .5 mL IM 6+ MO 2019-07-20 00:00:00 Completed [facility] Influenza Virus Vaccine Quad .5 mL IM 6+ MO 2019-07-20 00:00:00 Completed [facility] Influenza Virus Vaccine Quad .5 mL IM 6+ MO 2019-07-20 00:00:00 Completed [facility] Influenza Virus Vaccine Quad .5 mL IM 6+ MO 2019-07-20 00:00:00 Completed [facility] Influenza Virus Vaccine Quad .5 mL IM 6+ MO 2019-07-20 00:00:00 Completed [facility] Influenza Virus Vaccine Quad .5 mL IM 6+ MO 2019-07-20 00:00:00 Completed [facility] Influenza Virus Vaccine Quad .5 mL IM 6+ MO (FLUZONE/FLULAVAL/F LUARIX) 2019-07-20 00:00:00 Completed [facility] Influenza Virus Vaccine Quad .5 mL IM 6+ MO (FLUZONE/FLULAVAL/F LUARIX) 2019-07-20 00:00:00 Completed [facility] Influenza Virus Vaccine Quad .5 mL IM 6+ MO (FLUZONE/FLULAVAL/F LUARIX) 2019-07-20 00:00:00 Completed [facility] Influenza Virus Vaccine Quad .5 mL IM 6+ MO (FLUZONE/FLULAVAL/F LUARIX) 2019-07-20 00:00:00 Completed [facility] Influenza Virus Vaccine Quad IM 3+ YRS 2015-02-28 00:00:00 Completed [facility] Influenza Virus Vaccine Quad IM 3+ YRS 2015-02-28 00:00:00 Completed [facility] Influenza Virus Vaccine Quad IM 3+ YRS 2015-02-28 00:00:00 Completed [facility] Influenza Virus Vaccine Quad IM 3+ YRS 2015-02-28 00:00:00 Completed [facility] Influenza Virus Vaccine Quad IM 3+ YRS 2015-02-28 00:00:00 Completed [facility] Influenza Virus Vaccine Quad IM 3+ YRS 2015-02-28 00:00:00 Completed [facility] Influenza Virus Vaccine Quad IM 3+ YRS 2015-02-28 00:00:00 Completed [facility] Influenza Virus Vaccine Quad IM 3+ YRS 2015-02-28 00:00:00 Completed [facility] Influenza Virus Vaccine Quad IM 3+ YRS 2015-02-28 00:00:00 Completed [facility] Influenza Virus Vaccine Quad IM 3+ YRS 2015-02-28 00:00:00 Completed [facility] Influenza Virus Vaccine Quad IM 3+ YRS 2015-02-28 00:00:00 Completed [facility] Influenza Virus Vaccine Quad IM 3+ YRS 2015-02-28 00:00:00 Completed [facility] Influenza Virus Vaccine Quad IM 3+ YRS 2015-02-28 00:00:00 Completed [facility] Influenza Virus Vaccine Quad IM 3+ YRS 2015-02-28 00:00:00 Completed [facility] Influenza Virus Vaccine Quad IM 3+ YRS 2015-02-28 00:00:00 Completed [facility] Influenza Virus Vaccine Quad IM 3+ YRS 2015-02-28 00:00:00 Completed [facility] Influenza Virus Vaccine Quad IM 3+ YRS 2015-02-28 00:00:00 Completed [facility] Influenza Virus Vaccine Quad IM 3+ YRS 2015-02-28 00:00:00 Completed [facility] Influenza Virus Vaccine Quad IM 3+ YRS 2015-02-28 00:00:00 Completed [facility] Influenza Virus Vaccine Quad IM 3+ YRS 2015-02-28 00:00:00 Completed [facility] Influenza Virus Vaccine Quad IM 3+ YRS 2015-02-28 00:00:00 Completed [facility] Influenza Virus Vaccine Quad IM 3+ YRS 2015-02-28 00:00:00 Completed [facility] Influenza Virus Vaccine Quad IM 3+ YRS 2015-02-28 00:00:00 Completed [facility] Influenza Virus Vaccine Quad IM 3+ YRS 2015-02-28 00:00:00 Completed [facility] Influenza Virus Vaccine Quad IM 3+ YRS 2015-02-28 00:00:00 Completed [facility] Influenza Virus Vaccine Quad IM 3+ YRS 2015-02-28 00:00:00 Completed [facility] Influenza Virus Vaccine Quad IM 3+ YRS 2015-02-28 00:00:00 Completed [facility] Influenza Virus Vaccine Quad IM 3+ YRS 2015-02-28 00:00:00 Completed [facility] Influenza Virus Vaccine Quad IM 3+ YRS 2015-02-28 00:00:00 Completed [facility] Influenza Virus Vaccine Quad IM 3+ YRS 2015-02-28 00:00:00 Completed [facility] Influenza Virus Vaccine Quad IM 3+ YRS 2015-02-28 00:00:00 Completed [facility] Influenza Virus Vaccine Quad IM 3+ YRS 2015-02-28 00:00:00 Completed [facility] Influenza Virus Vaccine Quad IM 3+ YRS 2015-02-28 00:00:00 Completed [facility] Influenza Virus Vaccine Quad IM 3+ YRS 2015-02-28 00:00:00 Completed [facility] Influenza Virus Vaccine Quad IM 3+ YRS 2015-02-28 00:00:00 Completed [facility] Influenza Virus Vaccine Quad IM 3+ YRS 2015-02-28 00:00:00 Completed [facility] Influenza Virus Vaccine Quad IM 3+ YRS 2015-02-28 00:00:00 Completed [facility] Influenza Virus Vaccine Quad IM 3+ YRS 2015-02-28 00:00:00 Completed [facility] Influenza Virus Vaccine Quad IM 3+ YRS 2015-02-28 00:00:00 Completed [facility] Influenza Virus Vaccine Quad IM 3+ YRS 2015-02-28 00:00:00 Completed [facility] Influenza Virus Vaccine Quad IM 3+ YRS 2015-02-28 00:00:00 Completed [facility] Influenza Virus Vaccine Quad IM 3+ YRS 2015-02-28 00:00:00 Completed [facility] Influenza Virus Vaccine Quad IM 3+ YRS 2015-02-28 00:00:00 Completed [facility] Influenza Virus Vaccine Quad IM 3+ YRS 2015-02-28 00:00:00 Completed [facility] Influenza Virus Vaccine Quad IM 3+ YRS 2015-02-28 00:00:00 Completed [facility] Influenza Virus Vaccine Quad IM 3+ YRS 2015-02-28 00:00:00 Completed [facility] Influenza Virus Vaccine Quad IM 3+ YRS 2015-02-28 00:00:00 Completed [facility] Influenza Virus Vaccine Quad IM 3+ YRS 2015-02-28 00:00:00 Completed [facility] Influenza Virus Vaccine Quad IM 3+ YRS 2015-02-28 00:00:00 Completed [facility] Influenza Virus Vaccine Quad IM 3+ YRS 2015-02-28 00:00:00 Completed [facility] Influenza Virus Vaccine Quad IM 3+ YRS 2015-02-28 00:00:00 Completed [facility] Influenza Virus Vaccine Quad IM 3+ YRS 2015-02-28 00:00:00 Completed [facility] Influenza Virus Vaccine Quad IM 3+ YRS 2015-02-28 00:00:00 Completed [facility] Influenza Virus Vaccine Quad IM 3+ YRS 2015-02-28 00:00:00 Completed [facility] Influenza Virus Vaccine Quad IM 3+ YRS 2015-02-28 00:00:00 Completed TDAP 2014-11-18 00:00:00 Completed [facility] TDAP 2014-11-18 00:00:00 Completed [facility] TDAP 2014-11-18 00:00:00 Completed [facility] TDAP 2014-11-18 00:00:00 Completed [facility] TDAP 2014-11-18 00:00:00 Completed [facility] TDAP 2014-11-18 00:00:00 Completed [facility] TDAP 2014-11-18 00:00:00 Completed [facility] TDAP 2014-11-18 00:00:00 Completed [facility] TDAP 2014-11-18 00:00:00 Completed [facility] TDAP 2014-11-18 00:00:00 Completed [facility] TDAP 2014-11-18 00:00:00 Completed [facility] TDAP 2014-11-18 00:00:00 Completed [facility] TDAP 2014-11-18 00:00:00 Completed [facility] TDAP 2014-11-18 00:00:00 Completed [facility] TDAP 2014-11-18 00:00:00 Completed [facility] TDAP 2014-11-18 00:00:00 Completed [facility] TDAP 2014-11-18 00:00:00 Completed [facility] TDAP 2014-11-18 00:00:00 Completed [facility] TDAP 2014-11-18 00:00:00 Completed [facility] TDAP 2014-11-18 00:00:00 Completed [facility] TDAP 2014-11-18 00:00:00 Completed [facility] TDAP 2014-11-18 00:00:00 Completed [facility] TDAP 2014-11-18 00:00:00 Completed [facility] TDAP 2014-11-18 00:00:00 Completed [facility] TDAP 2014-11-18 00:00:00 Completed [facility] TDAP 2014-11-18 00:00:00 Completed [facility] TDAP 2014-11-18 00:00:00 Completed [facility] TDAP 2014-11-18 00:00:00 Completed [facility] TDAP 2014-11-18 00:00:00 Completed [facility] TDAP 2014-11-18 00:00:00 Completed [facility] TDAP 2014-11-18 00:00:00 Completed [facility] TDAP 2014-11-18 00:00:00 Completed [facility] TDAP 2014-11-18 00:00:00 Completed [facility] TDAP 2014-11-18 00:00:00 Completed [facility] TDAP 2014-11-18 00:00:00 Completed [facility] TDAP 2014-11-18 00:00:00 Completed [facility] TDAP 2014-11-18 00:00:00 Completed [facility] TDAP 2014-11-18 00:00:00 Completed [facility] TDAP 2014-11-18 00:00:00 Completed [facility] TDAP 2014-11-18 00:00:00 Completed [facility] TDAP 2014-11-18 00:00:00 Completed [facility] TDAP 2014-11-18 00:00:00 Completed [facility] TDAP 2014-11-18 00:00:00 Completed [facility] TDAP 2014-11-18 00:00:00 Completed [facility] TDAP 2014-11-18 00:00:00 Completed [facility] TDAP 2014-11-18 00:00:00 Completed [facility] TDAP 2014-11-18 00:00:00 Completed [facility] TDAP 2014-11-18 00:00:00 Completed [facility] TDAP 2014-11-18 00:00:00 Completed [facility] TDAP 2014-11-18 00:00:00 Completed [facility] TDAP 2014-11-18 00:00:00 Completed [facility] TDAP 2014-11-18 00:00:00 Completed [facility] TDAP 2014-11-18 00:00:00 Completed [facility] TDAP 2014-11-18 00:00:00 Completed [facility] TDAP 2014-11-18 00:00:00 Completed [facility] HPV 2010-11-02 00:00:00 Completed [facility] HPV 2010-11-02 00:00:00 Completed [facility] HPV 2010-11-02 00:00:00 Completed [facility] HPV 2010-11-02 00:00:00 Completed [facility] HPV 2010-11-02 00:00:00 Completed [facility] HPV 2010-01-15 00:00:00 Completed [facility] HPV 2010-01-15 00:00:00 Completed [facility] HPV 2010-01-15 00:00:00 Completed [facility] HPV 2010-01-15 00:00:00 Completed [facility] HPV 2010-01-15 00:00:00 Completed [facility] HPV 2009-10-17 00:00:00 Completed [facility] HPV 2009-10-17 00:00:00 Completed [facility] HPV 2009-10-17 00:00:00 Completed [facility] HPV 2009-10-17 00:00:00 Completed [facility] HPV 2009-10-17 00:00:00 Completed [facility] TDAP Unknown Completed [facility] Influenza Virus Vaccine Quad IM 3+ YRS Unknown Completed [facility] Influenza Virus Vaccine Quad IM, Preserv and ABX Free 6 MO-64 YRS (FLUCELVAX) Unknown Completed [facility] TDAP Unknown Completed [facility] Influenza Virus Vaccine Quad .5 mL IM 6+ MO (FLUZONE/FLULAVAL/F LUARIX) Unknown Completed [facility] Influenza Virus Vaccine Quad IM 3+ YRS Unknown Completed [facility] Influenza Virus Vaccine Quad IM, Preserv and ABX Free 6 MO-64 YRS (FLUCELVAX) Unknown [facility] [facility] TDAP Unknown Completed [facility] Influenza Virus Vaccine Quad IM 3+ YRS Unknown Completed [facility] Influenza Virus Vaccine Quad IM, Preserv and ABX Free 6 MO-64 YRS (FLUCELVAX) Unknown Completed [facility] TDAP Unknown Completed [facility] Influenza Virus Vaccine Quad IM 3+ YRS Unknown Completed [facility] Influenza Virus Vaccine Quad IM, Preserv and ABX Free 6 MO-64 YRS (FLUCELVAX) Unknown Completed [facility] TDAP Unknown Completed [facility] TDAP Unknown Completed [facility] Influenza Virus Vaccine Quad IM 3+ YRS Unknown Completed [facility] Influenza Virus Vaccine Quad IM, Preserv and ABX Free 6 MO-64 YRS (FLUCELVAX) Unknown Completed [facility] TDAP Unknown Completed [facility] Influenza Virus Vaccine Quad IM 3+ YRS Unknown Completed [facility] Influenza Virus Vaccine Quad IM, Preserv and ABX Free 6 MO-64 YRS (FLUCELVAX) Unknown Completed [facility] TDAP Unknown Completed [facility] Influenza Virus Vaccine Quad IM 3+ YRS Unknown Completed [facility] Influenza Virus Vaccine Quad IM, Preserv and ABX Free 6 MO-64 YRS (FLUCELVAX) Unknown Completed [facility] Vital Signs Vital Name Observation Time Observation Value Comments S ource Systolic blood pressure 2023-02-23 16:11:00 120 mm[Hg] [facility] Diastolic blood pressure 2023-02-23 16:11:00 78 mm[Hg] [facility] Heart rate 2023-02-23 16:11:00 85 /[facility] 2023-02-23 16:11:00 36.56 Myrtle [facility] Respiratory rate 2023-02-23 16:11:00 18 /min [facility] Body height 2023-02-23 16:11:00 162.6 cm [facility] weight 2023-02-23 16:11:00 63.73 kg [facility] BMI 2023-02-23 16:11:00 24.12 kg/m2 [facility] Oxygen saturation in Arterial blood by Pulse oximetry 2023-02-23 16:11:00 98 /min room air [facility] Systolic blood pressure 2023-02-22 18:16:00 126 mm[Hg] [facility] Diastolic blood pressure 2023-02-22 18:16:00 90 mm[Hg] [facility] Heart rate 2023-02-22 18:16:00 90 /min Unive [facility] Body temperature 2023-02-22 18:16:00 36.39 Myrtle [facility] Respiratory rate 2023-02-22 18:16:00 20 /min [facility] Body height 2023-02-22 18:16:00 162.6 cm [facility] Body weight 2023-02-22 18:16:00 63.186 kg [facility] BMI 2023-02-22 18:16:00 23.91 kg/m2 [facility] Systolic blood pressure 2022-10-14 15:47:00 117 mm[Hg] [facility] Diastolic blood pressure 2022-10-14 15:47:00 70 mm[Hg] [facility] Heart rate 2022-10-14 15:47:00 107 /min Unive [facility] Body temperature 2022-10-14 15:47:00 36.61 Myrtle [facility] Respiratory rate 2022-10-14 15:47:00 17 /min [facility] Body height 2022-10-14 15:47:00 163.6 cm [facility] Body weight 2022-10-14 15:47:00 60.3 kg [facility] BMI 2022-10-14 15:47:00 22.53 kg/m2 [facility] Oxygen saturation in Arterial blood by Pulse oximetry 2022-10-14 15:47:00 98 /min [facility] Systolic blood pressure 2022-09-16 15:36:00 117 mm[Hg] [facility] Diastolic blood pressure 2022-09-16 15:36:00 77 mm[Hg] [facility] Heart rate 2022-09-16 15:36:00 92 /min Un[facility] Body temperature 2022-09-16 15:36:00 36.56 Myrtle [facility] Respiratory rate 2022-09-16 15:36:00 19 /min [facility] Body height 2022-09-16 15:36:00 160 cm [facility] Body weight 2022-09-16 15:36:00 62.596 kg [facility] BMI 2022-09-16 15:36:00 24.45 kg/m2 [facility] Systolic blood pressure 2022-07-26 19:01:00 125 mm[Hg] [facility] Diastolic blood pressure 2022-07-26 19:01:00 85 mm[Hg] [facility] Heart rate 2022-07-26 19:01:00 93 /min Un[facility] Body temperature 2022-07-26 19:01:00 36.56 Myrtle [facility] Respiratory rate 2022-07-26 19:01:00 19 /min [facility] Body height 2022-07-26 19:01:00 160 cm [facility] Body weight 2022-07-26 19:01:00 63.957 kg [facility] BMI 2022-07-26 19:01:00 24.98 kg/m2 [facility] Systolic blood pressure 2022-07-15 16:38:00 135 mm[Hg] [facility] Diastolic blood pressure 2022-07-15 16:38:00 89 mm[Hg] [facility] Heart rate 2022-07-15 16:38:00 81 /min Unive [facility] Body temperature 2022-07-15 16:38:00 36.33 Myrtle [facility] Respiratory rate 2022-07-15 16:38:00 22 /min [facility] Body height 2022-07-15 16:38:00 160 cm [facility] Body weight 2022-07-15 16:38:00 63.5 kg [facility] BMI 2022-07-15 16:38:00 24.80 kg/m2 [facility] Oxygen saturation in Arterial blood by Pulse oximetry 2022-07-15 16:38:00 97 /min [facility] Systolic blood pressure 2022-06-15 13:56:00 110 mm[Hg] [facility] Diastolic blood pressure 2022-06-15 13:56:00 78 mm[Hg] [facility] Heart rate 2022-06-15 13:56:00 84 /min Un[facility] Body temperature 2022-06-15 13:56:00 36.11 Myrtle [facility] Respiratory rate 2022-06-15 13:56:00 18 /min [facility] Oxygen saturation in Arterial blood by Pulse oximetry 2022-06-15 13:56:00 99 /min [facility] Body height 2022-06-14 13:20:00 160 cm [facility] Body weight 2022-06-14 13:20:00 72.802 kg [facility] BMI 2022-06-14 13:20:00 28.44 kg/m2 [facility] Systolic blood pressure 2022-06-14 14:30:00 113 mm[Hg] [facility] Diastolic blood pressure 2022-06-14 14:30:00 64 mm[Hg] [facility] Heart rate 2022-06-14 14:30:00 106 /min Un[facility] Oxygen saturation in Arterial blood by Pulse oximetry 2022-06-14 14:30:00 99 /min [facility] Respiratory rate 2022-06-14 14:00:00 18 /min [facility] Body temperature 2022-06-14 13:20:00 36.33 Myrtle [facility] Body height 2022-06-14 13:20:00 160 cm [facility] Body weight 2022-06-14 13:20:00 72.802 kg [facility] BMI 2022-06-14 13:20:00 28.44 kg/m2 [facility] Systolic blood pressure 2022-06-08 15:27:00 125 mm[Hg] [place] [facility] Diastolic blood pressure 2022-06-08 15:27:00 72 mm[Hg] [facility] Heart rate 2022-06-08 15:27:00 90 [facility] Body temperature 2022-06-08 15:27:00 36.11 Myrtle [facility] Respiratory rate 2022-06-08 15:27:00 19 /min [facility] Body height 2022-06-08 15:27:00 160 cm [facility] Body weight 2022-06-08 15:27:00 71.215 kg [facility] BMI 2022-06-08 15:27:00 27.81 kg/m2 [facility] Systolic blood pressure 2022-05-04 15:26:00 118 mm[Hg] [facility] Diastolic blood pressure 2022-05-04 15:26:00 73 mm[Hg] [facility] Heart rate 2022-05-04 15:26:00 93 /min [facility] Body temperature 2022-05-04 15:26:00 36.61 Myrtle [facility] Respiratory rate 2022-05-04 15:26:00 19 /min [facility] Body height 2022-05-04 15:26:00 160 cm [facility] Body weight 2022-05-04 15:26:00 70.308 kg [facility] BMI 2022-05-04 15:26:00 27.46 kg/m2 [facility] Body temperature 2022-05-01 16:21:00 36.28 Myrtle [facility] Body height 2022-05-01 16:21:00 160 cm [facility] Body weight 2022-05-01 16:21:00 70.3 kg [facility] BMI 2022-05-01 16:21:00 27.45 kg/m2 [facility] Procedures Procedure Date / Time Performed Performing Clinician Source FLU VACC ([id number]), 6 MO-64 YRS, .5ML, IM, QUAD (FLUCELVAX) 2023-02-23 16:16:04 Yimi oSler [facility] POCT URINALYSIS W/O SPECIFIC GRAVITY 2023-02-22 18:26:00 Diaz [facility] POCT TEST 2023-02-22 18:25:00 Lon Chamberlain [facility] COMP. METABOLIC PANEL (04110) 2022-10-14 16:45:00 Rickey Kumar [facility] CBC WITH DIFF 2022-10-14 16:45:00 Rickey Kumar [facility] HUMAN IMMUNODEFICIENCY VIRUS 1 (HIV-1) BY QUANTITATIVE NAAT 2022-10-14 16:45:00 Rickey Kumar [facility] COMP. METABOLIC PANEL (88714) 2022-07-15 17:00:00 Rachel Priest [facility] CBC WITH DIFF 2022-07-15 17:00:00 Rachel Priest [facility] CBC WITH DIFF 2022-06-15 10:17:00 Mary Yao [facility] CBC WITH DIFF 2022-06-15 10:17:00 Mary Yao [facility] POCT GLUCOSE (AUTOMATED) 2022-06-15 03:01:00 Evelyn, [facility] POCT GLUCOSE (AUTOMATED) 2022-06-15 03:01:00 Evelyn [facility] VENOUS CORD GAS 2022-06-14 16:06:00 Ofelia Connolly [facility] VENOUS CORD GAS 2022-06-14 16:06:00 Ofelia Connolly [facility] SECTION 2022-06-14 14:48:00 Flash Rivas [facility] SECTION 2022-06-14 14:48:00 Flash Rivas [facility] CBC WITH DIFF 2022-06-14 13:39:00 Mohsen Ofeliajuan alberto Brown [facility] HEPATITIS B SURFACE ANTIGEN 2022-06-14 13:39:00 Mohsen [facility] SYPHILIS IGG/IGM 2022-06-14 13:39:00 [facility]FF 2022-06-14 13:39:00 Mohsen Ofeliajuan alberto Brown [facility] HEPATITIS B SURFACE ANTIGEN 2022-06-14 13:39:00 Mohsen [facility] SYPHILIS IGG/IGM 2022-06-14 13:39:00 [facility] ABO GROUPING 2022-06-14 13:27:00 Mohsen Ofelia [facility] RHO (D) IMMUNE GLOBULIN 2022-06-14 13:27:00 Mary Yao [facility] HB ABO GROUPING 2022-06-14 13:27:00 Mohsen Ofelia [facility] RHO (D) IMMUNE GLOBULIN 2022-06-14 13:27:00 Maximilian [facility] POCT URINALYSIS 2022-06-08 15:27:00 Amelia Leung [facility] TDAP VACCINE, >11 YRS, IM 2022-05-04 15:32:46 Keny Ac [facility] FLU VACC (), 6 MO-64 YRS, .5ML, IM, QUAD (FLUCELVAX) 2022-05-04 15:32:46 Carolann Ac [facility] POCT URINALYSIS 2022-05-04 15:27:00 Amelia Leung [facility] COMP. METABOLIC PANEL (31165) 2022-05-01 16:48:00 Rizwana Morrison [facility] CBC WITH DIFF 2022-05-01 16:48:00 Rizwana Morrison [facility] CD4/CD8 SUBSET ASSAY 2022-05-01 16:48:00 Delfin Morrison [facility] Encounters Start Date/Time End Date/Time Encounter Type Admission Type Attending Clinicians Care Facility Care Department Encounter ID Source 2024-07-25 09:39:01 [id number] [facility] 2024-07-03 16:36:00 Outpatient SABA ALATORRE [id number] [facility] 2024-06-28 08:14:00 Outpatient SABA ALATORRE [id number] [facility] 2024-06-27 17:31:00 Outpatient SABA ALATORRE [id number] [facility] 2024-03-07 13:23:00 Outpatient JUNI ALFREDO [id number] [facility] 2023-11-10 13:41:00 Outpatient JUNI ALFREDO [id number] [facility] 2022-02-18 14:31:25 Outpatient CHW CHW [id number] [facility] 2024-12-14 08:42:45 2024-12-14 08:42:45 Outpatient [facility] [id number] Tao Ascencio Peña 2022-07-26 00:00:00 2024-07-07 02:43:08 Orders Only Linda Jimenez Cindy J [facility] DRILL OPERATOR [facility] 1.2.840.114 350.1.13.10 4.2.7.2.686 [id number] [facility] 2023-07-27 12:45:00 2023-07-27 12:45:00 Outpatient R CAROLANN AC REGINA [facility] [id number] [facility] 2023-06-02 10:45:00 2023-06-02 10:45:00 Outpatient R [facility] [id number] [facility] 2023-06-01 00:00:00 2023-06-01 00:00:00 Telephone Carolann Ac [facility] DRILL OPERATOR [facility] 1.2.840.114 350.1.13.10 4.2.7.2.686 [id number] [facility] 2023-05-19 14:00:00 2023-05-19 14:00:00 Outpatient R [facility] [id number] [facility] 2023-04-25 11:00:00 2023-04-25 11:00:00 Outpatient R YIMI SOLER [facility] [id number] [facility] 2023-03-17 00:00:00 2023-03-17 00:00:00 Case Management Priyanka Larkin [facility] 1.2.840.114 350.1.13.10 4.2.7.2.686 [id number] [facility] 2023-03-07 00:00:00 2023-03-07 00:00:00 Telephone Shanna [facility] DRILL OPERATOR [employer] [facility] 1.2.840.114 350.1.13.10 4.2.7.2.686 [id number] [facility] 2023-03-07 00:00:00 2023-03-07 00:00:00 Telephone Ryder [facility] 1.2840.114 350.1.13.10 4.2.7.2.686 [id number] [facility] 2023-03-04 00:00:00 2023-03-04 00:00:00 Case Management Shanna [facility] 1.2.840.114 350.1.13.10 4.2.7.2.686 [id number] [facility] 2023-02-23 11:00:00 2023-02-23 11:30:00 [facility] 1.114 350.1.13.10 4.2.7.2.686 [id number] [facility] 2023-02-23 11:00:00 2023-02-23 11:00:00 Outpatient R YIMI SOLER [facility] [id number] [facility] 2023-02-22 13:00:00 2023-02-22 13:44:49 Outpatient R [facility] [id number] [facility] 2023-02-22 13:00:00 2023-02-22 13:44:49 Office Visit Shanna bunch [facility] DRILL OPERATOR [employer] [facility] 1..114 350.1.13.10 4.2.7.2.686 [id number] [facility] 2023-02-03 00:00:00 2023-02-03 00:00:00 Telephone Priyanka Larkin [facility] 1..114 350.1.13.10 4.2.7.2.686 [id number] [facility] 2023-02-01 13:49:37 2023-02-01 13:49:37 Outpatient [facility] [id number] Tao Pompa 2023-01-28 10:30:00 2023-01-28 10:30:00 Outpatient R DAVY PUGH CHRISTOPHER [facility] [id number] [facility] 2023-01-28 00:00:00 2023-01-28 00:00:00 Telephone Rickey Kumar [facility] 1..114 350.1.13.10 4.2.7.2.686 [id number] [facility] 2023-01-26 00:00:00 2023-01-26 00:00:00 Telephone Priyanka Larkin [facility] 1.2840.114 350.1.13.10 4.2.7.2.686 [id number] [facility] 2023-01-09 15:21:17 2023-01-09 15:21:17 Outpatient SFA [facility] [id number] Tao [place] 2023-01-05 14:00:00 2023-01-05 14:00:00 Outpatient R [facility] [id number] [facility] 2023-01-02 23:35:00 2023-01-03 01:37:00 Emergency EM Ashlyn Kaiser [facility] [id number] [facility] are [facility] 2022-12-15 09:00:00 2022-12-15 09:00:00 Outpatient R [facility] [id number] [facility] 2022-11-12 10:00:00 2022-11-12 10:00:00 Outpatient R GHANSHYAM COATES [facility] [id number] [facility] 2022-11-04 00:00:00 2022-11-04 00:00:00 Telephone Carolann Ac [facility] DRILL OPERATOR [facility] 1.2.840.114 350.1.13.10 4.2.7.2.686 [id number] [facility] 2022-11-03 00:00:00 2022-11-03 00:00:00 Case Management Mildred Perez [facility] [place] 1.2.840.114 350.1.13.10 4.2.7.2.686 [id number] [facility] 2022-10-20 00:00:00 2022-10-20 00:00:00 Case Management Mildred Perez [facility] 1.2.840.114 350.1.13.10 4.2.7.2.686 [id number] [facility] 2022-10-14 09:30:00 2022-10-14 10:00:00 Office Visit Disease, Marsha & Pcp Pedi Infec Rickey Kumar [facility] 1.2.840.114 350.1.13.10 4.2.7.2.686 [id number] [facility] 2022-10-14 09:30:00 2022-10-14 09:30:00 Outpatient R RICKEY KUMAR [facility] [id number] [facility] 2022-10-14 00:00:00 2022-10-14 00:00:00 Case Management Mildred Perez [facility] 1.2.840.114 350.1.13.10 4.2.7.2.686 [id number] [facility] 2022-10-14 00:00:00 2022-10-14 00:00:00 Case Management Ursula Cole [facility] 1.2.840.114 350.1.13.10 4.2.7.2.686 [id number] [facility] 2022-10-05 00:00:00 2022-10-05 00:00:00 Case Management Mildred Perez [facility] 1.2.840.114 350.1.13.10 4.2.7.2.686 [id number] [facility] 2022-10-05 00:00:00 2022-10-05 00:00:00 Case Management Ursula Cole [facility] 1.2.840.114 350.1.13.10 4.2.7.2.686 [id number] [facility] 2022-10-04 00:00:00 2022-10-04 00:00:00 Case Management Mildred Perez [facility] 1.2.840.114 350.1.13.10 4.2.7.2.686 [id number] [facility] 2022-09-16 10:00:00 2022-09-16 10:37:46 Nurse Visit 1, Sue-Rmchp Nurse Visit Amelia Leung [facility] DRILL OPERATOR [facility] 1.2.840.114 350.1.13.10 4.2.7.2.686 [id number] [facility] 2022-09-16 10:00:00 2022-09-16 10:00:00 Outpatient R AMELIA LEUNG [facility] [id number] [facility] 2022-09-14 13:45:00 2022-09-14 13:45:00 Outpatient R SARAH NUNO [facility] [id number] [facility] 2022-09-07 00:00:00 2022-09-07 00:00:00 Case Management Ursula Cole [facility] 1.2.840.114 350.1.13.10 4.2.7.2.686 [id number] [facility] 2022-09-06 00:00:00 2022-09-06 00:00:00 Case Management Mildred Perez [facility] 1.2.840.114 350.1.13.10 4.2.7.2.686 [id number] [facility] 2022-09-02 00:00:00 2022-09-02 00:00:00 Case Management Priyanka Larkin [facility] 1.2.840.114 350.1.13.10 4.2.7.2.686 [id number] [facility] 2022-08-06 00:00:00 2022-08-06 00:00:00 Case Management Mildred Perez [facility] 1.2.840.114 350.1.13.10 4.2.7.2.686 [id number] [facility] 2022-08-05 15:15:00 2022-08-05 15:15:00 Outpatient R JORDYN RODRIGUEZ [facility] [id number] [facility] 2022-08-04 00:00:00 2022-08-04 00:00:00 Case Management Mildred Perez [facility] 1.2840.114 350.1.13.10 4.2.7.2.686 [id number] [facility] 2022-08-03 00:00:00 2022-08-03 00:00:00 Telephone Amelia Leung [facility] DRILL OPERATOR [facility] 1.840.114 350.1.13.10 4.2.7.2.686 [id number] [facility] 2022-07-26 12:45:00 2022-07-26 13:46:48 Outpatient R CAROLANN AC REGINA [facility] [id number] [facility] 2022-07-26 12:45:00 2022-07-26 13:46:48 Office Visit Nirmal Carolann [facility] DRILL OPERATOR [facility] 1.840.114 350.1.13.10 4.2.7.2.686 [id number] [facility] 2022-07-15 09:00:00 2022-07-15 09:30:00 Office Visit Disease, Marsha & Pcp Pedi Infec Mikaela Quiroga [facility] 1.840.114 350.1.13.10 4.2.7.2.686 [id number] [facility] 2022-07-15 09:00:00 2022-07-15 09:00:00 Outpatient R MIKAELA QUIROGA [facility] [id number] [facility] 2022-07-15 00:00:00 2022-07-15 00:00:00 Case Management Mildred Perez [facility] 1.2.840.114 350.1.13.10 4.2.7.2.686 [id number] [facility] 2022-07-13 00:00:00 2022-07-13 00:00:00 Case Management Mildred Perez [facility] 1.2.840.114 350.1.13.10 4.2.7.2.686 [id number] [facility] 2022-07-09 00:00:00 2022-07-09 00:00:00 Case Management Yodit Perezsse [facility] 1.2.840.114 350.1.13.10 4.2.7.2.686 [id number] [facility] 2022-07-01 09:30:00 2022-07-01 09:30:00 Outpatient MIKAELA CAMARGO [facility] [id number] [facility] 2022-07-01 00:00:00 2022-07-01 00:00:00 Case Management Yodit Perezsse [facility] 1.2.840.114 350.1.13.10 4.2.7.2.686 [id number] [facility] 2022-06-30 00:00:00 2022-06-30 00:00:00 Case Management Yodit Perezsse [facility] 1.2.840.114 350.1.13.10 4.2.7.2.686 [id number] [facility] 2022-06-17 17:15:00 2022-06-17 17:15:00 Outpatient JORDYN JUAREZ [facility] [id number] [facility] 2022-06-14 07:07:00 2022-06-15 12:49:00 Inpatient P [facility] [id number] [facility] 2022-06-14 07:07:00 2022-06-15 12:49:00 Hospital Encounter [facility] 1.2.840.114 350.1.13.10 4.2.7.2.686 [id number] [facility] 2022-06-14 08:30:00 2022-06-14 10:12:00 Surgery [facility] 1.2.840.114 350.1.13.10 4.2.7.2.686 [id number] [facility] 2022-06-10 00:00:00 2022-06-10 00:00:00 Telephone Jordyn Rodriguez [facility]LL OPERATOR [facility] 1.2.840.114 350.1.13.10 4.2.7.2.686 [id number] [facility] 2022-06-08 09:00:00 2022-06-08 09:53:33 Outpatient R JORDYN RODRIGUEZ [facility] [id number] [facility] 2022-06-08 09:00:00 2022-06-08 09:53:33 Routine Visit Jordyn Rodriguez [facility] DRILL OPERATOR [facility] 1.2.840.114 350.1.13.10 4.2.7.2.686 [id number] [facility] 2022-06-08 00:00:00 2022-06-08 00:00:00 Case Management Mildred Perez [facility] [place] 1.2.840.114 350.1.13.10 4.2.7.2.686 [id number] [facility] 2022-06-08 00:00:00 2022-06-08 00:00:00 Case Management Kelsey Tia M [facility] [place] 1.2840.114 350.1.13.10 4.2.7.2.686 [id number] [facility] 2022-06-08 00:00:00 2022-06-08 00:00:00 Patient Outreach Mitra Larson [facility] 1.2840.114 350.1.13.10 4.2.7.2.686 [id number] [facility] 2022-06-07 00:00:00 2022-06-07 00:00:00 Telephone Jordyn Rodriguez [facility] D[facility]LL OPERATOR [facility] 1.2.840.114 350.1.13.10 4.2.7.2.686 [id number] [facility] 2022-06-03 13:30:00 2022-06-03 13:30:00 Outpatient JORDYN JUAREZ [facility] [id number] [facility] 2022-06-02 11:00:00 2022-06-02 11:00:00 Outpatient PATITO MONTOYA SHANNON [facility] [id number] [facility] 2022-05-31 00:00:00 2022-05-31 00:00:00 Case Management Jayashree Fair [facility] 1.2.840.114 350.1.13.10 4.2.7.2.686 [id number] [facility] 2022-05-20 08:45:00 2022-05-20 08:45:00 Outpatient CAROLANN NICOLE REGINA [facility] [id number] [facility] 2022-05-04 09:00:00 2022-05-04 09:55:16 Outpatient CAROLANN NICOLE REGINA [facility] [id number] [facility] 2022-05-04 09:00:00 2022-05-04 09:55:16 Routine Visit Carolann Ac [facility] D[facility]LL OPERATOR [facility] 1.2.840.114 350.1.13.10 4.2.7.2.686 [id number] [facility] 2022-05-01 10:50:00 2022-05-01 11:00:00 Office Visit Rizwana Morrison Diana K [facility] [place] 1.2.840.114 350.1.13.10 4.2.7.2.686 [id number] [facility] 2022-05-01 10:50:00 2022-05-01 10:50:00 Outpatient KAY PHILIP [facility] [id number] [facility] 2022-05-01 00:00:00 2022-05-01 00:00:00 Case Management Mildred Perez [facility] [place] 1.2.840.114 350.1.13.10 4.2.7.2.686 [id number] [facility] 2022-05-01 00:00:00 2022-05-01 00:00:00 Case Management Ursula Cole [facility] [place] 1.2.840.114 350.1.13.10 4.2.7.2.686 [id number] [facility] 2022-04-28 00:00:00 2022-04-28 00:00:00 Telephone Carolann Ac [facility]LL OPERATOR [facility] 1.2.840.114 350.1.13.10 4.2.7.2.686 [id number] [facility] 2022-04-12 13:15:00 2022-04-12 13:15:00 Outpatient CAROLANN NICOLE REGINA [facility] [id number] [facility] 2022-04-06 00:00:00 2022-04-06 00:00:00 Case Management Mildred Perez [facility] 1.2.840.114 350.1.13.10 4.2.7.2.686 [id number] [facility] 2022-04-02 10:30:00 2022-04-02 10:30:00 Outpatient KAY PHILIP [facility] [id number] [facility] 2022-04-02 00:00:00 2022-04-02 00:00:00 Case Management Mildred ePrez [facility] 1.2.840.114 350.1.13.10 4.2.7.2.686 [id number] [facility] 2022-03-30 00:00:00 2022-03-30 00:00:00 Case Management Mildred Perez [facility] 1.2.840.114 350.1.13.10 4.2.7.2.686 [id number] [facility] 2022-03-29 00:00:00 2022-03-29 00:00:00 Case Management Mildred Perez [facility] 1.2.840.114 350.1.13.10 4.2.7.2.686 [id number] [facility] 2022-03-24 00:00:00 2022-03-24 00:00:00 Telephone Amelia Leung [facility] DRILL OPERATOR [facility] [place] [facility] 1.2.840.114 350.1.13.10 4.2.7.2.686 [id number] [facility] 2022-03-22 00:00:00 2022-03-22 00:00:00 RefKay Barbour [facility] 1.2.840.114 350.1.13.10 4.2.7.2.686 [id number] [facility] 2022-03-17 00:00:00 2022-03-17 00:00:00 Case Management Mildred Perez [facility] 1.2.840.114 350.1.13.10 4.2.7.2.686 [id number] [facility] 2022-03-09 00:00:00 2022-03-09 00:00:00 Case Management Ursula Cole [facility] 1.2.840.114 350.1.13.10 4.2.7.2.686 [id number] [facility] 2022-03-08 00:00:00 2022-03-08 00:00:00 Case Management Mildred Perez [facility] 1.2.840.114 350.1.13.10 4.2.7.2.686 [id number] [facility] 2022-03-01 09:45:00 2022-03-01 09:45:00 Outpatient R AKINSIPE, AMELIA [facility] [id number] [facility] 2022-02-23 00:00:00 2022-02-23 00:00:00 Case Management Mildred Perez [facility] 1.2.840.114 350.1.13.10 4.2.7.2.686 [id number] [facility] 2022-02-12 13:00:00 2022-02-12 13:00:00 Outpatient R AKINSIYOGI, AMELIA [facility] [id number] [facility] 2022-02-09 00:00:00 2022-02-09 00:00:00 Case Management Yodit Perezsse [facility] 1.2.840.114 350.1.13.10 4.2.7.2.686 [id number] [facility] 2022-02-09 00:00:00 2022-02-09 00:00:00 Case Management Ursula Cole [facility] [place] 1.840.114 350.1.13.10 4.2.7.2.686 [id number] [facility] 2022-02-09 00:00:00 2022-02-09 00:00:00 Patient Outreach Larson Mitra Stacia [facility] 1.840.114 350.1.13.10 4.2.7.2.686 [id number] [facility] 2022-02-05 09:15:00 2022-02-05 09:15:00 Outpatient AMELIA LEY [facility] [id number] [facility] 2022-02-05 00:00:00 2022-02-05 00:00:00 Telephone Amelia Leung [facility] DRILL OPERATOR [facility] 1.840.114 350.1.13.10 4.2.7.2.686 [id number] [facility] 2022-01-11 10:00:00 2022-01-11 10:00:00 Outpatient R RIZWANA MORRISON ANTONELLA [facility] [id number] [facility] 2022-01-08 10:00:00 2022-01-08 11:01:11 Outpatient R AMELIA LEUNG [facility] [id number] [facility] 2022-01-08 10:00:00 2022-01-08 11:01:11 Initial Visit Amelia Leung [facility] DRILL OPERATOR [facility] 1.840.114 350.1.13.10 4.2.7.2.686 [id number] [facility] 2022-01-08 00:00:00 2022-01-08 00:00:00 Orders Only Doctor Unassigned, [place] [facility] 1.2.840.114 350.1.13.10 4.2.7.2.686 [id number] [facility] 2022-01-08 00:00:00 2022-01-08 00:00:00 Case Management Mildred Perez [facility] 1.2.840.114 350.1.13.10 4.2.7.2.686 [id number] [facility] 2022-01-06 15:15:00 2022-01-06 15:15:00 Outpatient R UNKNOWN, ATTENDING [facility] [id number] [facility] 2022-01-06 00:00:00 2022-01-06 00:00:00 Case Management Mildred Perez [facility] 1.2.840.114 350.1.13.10 4.2.7.2.686 [id number] [facility] 2022-01-05 00:00:00 2022-01-05 00:00:00 Case Management Mildred Perez [facility] 1.2.840.114 350.1.13.10 4.2.7.2.686 [id number] [facility] 2022-01-05 00:00:00 2022-01-05 00:00:00 Case Management Mildred Perez [facility] 1.2.840.114 350.1.13.10 4.2.7.2.686 [id number] [facility] 2022-01-05 00:00:00 2022-01-05 00:00:00 Patient Outreach Mitra Larson [facility] 1.2.840.114 350.1.13.10 4.2.7.2.686 [id number] [facility] 2022-01-05 00:00:00 2022-01-05 00:00:00 Case Management Ursula Cole [facility] 1.2.840.114 350.1.13.10 4.2.7.2.686 [id number] [facility] 2021-12-29 00:00:00 2021-12-29 00:00:00 Case Management Mildred Perez [facility] 1.2.840.114 350.1.13.10 4.2.7.2.686 [id number] [facility] 2021-12-24 00:00:00 2021-12-24 00:00:00 Refill Rizwana Morrison [facility] 1.2.840.114 350.1.13.10 4.2.7.2.686 [id number] [facility] 2021-12-22 10:00:00 2021-12-22 10:00:00 Outpatient AMELIA LEY [facility] [id number] [facility] 2021-12-15 00:00:00 2021-12-15 00:00:00 Telephone Amelia Leung [facility] DRILL OPERATOR [facility] 1.2.840.114 350.1.13.10 4.2.7.2.686 [id number] [facility] 2021-12-14 13:30:00 2021-12-14 13:30:00 Outpatient SCAR SMALLS [facility] [id number] [facility] 2021-12-08 00:00:00 2021-12-08 00:00:00 Case Management Mildred Perez [facility] 1.2.840.114 350.1.13.10 4.2.7.2.686 [id number] [facility] 2021-12-08 00:00:00 2021-12-08 00:00:00 Case Management Ursula Cole [facility] 1.2.840.114 350.1.13.10 4.2.7.2.686 [id number] [facility] 2021-12-08 00:00:00 2021-12-08 00:00:00 Patient Outreach Mitra Larson [facility] 1.2.840.114 350.1.13.10 4.2.7.2.686 [id number] [facility] 2021-11-26 00:00:00 2021-11-26 00:00:00 Telephone Kay Sneed [facility] 1.2.840.114 350.1.13.10 4.2.7.2.686 [id number] [facility] 2021-11-25 13:45:00 2021-11-25 14:15:00 Office Visit Disease, Marsha & Pcp Pedi Infec Kay Sneed [facility] 1.2840.114 350.1.13.10 4.2.7.2.686 [id number] [facility] 2021-11-25 13:45:00 2021-11-25 13:45:00 Outpatient R KAY SNEED [facility] [id number] [facility] 2021-11-25 00:00:00 2021-11-25 00:00:00 Orders Only Doctor Unassigned, [place] [facility] 1.2.840.114 350.1.13.10 4.2.7.2.686 [id number] [facility] 2021-11-11 13:45:00 2021-11-11 13:45:00 Outpatient R UNKNOWN, ATTENDING [facility] [id number] [facility] 2021-10-29 00:00:00 2021-10-29 00:00:00 Refill Rickey Kumar [facility] 1.2840.114 350.1.13.10 4.2.7.2.686 [id number] [facility] 2021-10-28 00:00:00 2021-10-28 00:00:00 Telephone Amelia Leung [facility] DRILL OPERATOR [facility] 1.2.840.114 350.1.13.10 4.2.7.2.686 [id number] [facility] 2021-10-20 08:15:00 2021-10-20 08:15:00 Outpatient R AMELIA LEUNG [facility] [id number] [facility] 2021-10-13 00:00:00 2021-10-13 00:00:00 Patient Outreach Mitra Larson [facility] 1.2.840.114 350.1.13.10 4.2.7.2.686 [id number] [facility] 2021-10-13 00:00:00 2021-10-13 00:00:00 Case Management Ursula Cole [facility] [place] 1.2.840.114 350.1.13.10 4.2.7.2.686 [id number] [facility] 2021-09-16 12:30:00 2021-09-16 13:00:00 Office Visit Disease, Marsha & Pcp Pedi Infec Prince Rizwana [facility] 1.2.840.114 350.1.13.10 4.2.7.2.686 [id number] [facility] 2021-09-16 12:30:00 2021-09-16 12:30:00 Outpatient R RIZWANA MORRISON ANTONELLA [facility] [id number] [facility] 2021-09-16 12:30:00 2021-09-16 12:30:00 Outpatient R RIZWANA MORRISON ANTONELLA [facility] [id number] [facility] 2021-09-16 00:00:00 2021-09-16 00:00:00 Case Management Mildred Perez [facility] 1.2.840.114 350.1.13.10 4.2.7.2.686 [id number] [facility] 2021-09-14 08:00:00 2021-09-14 08:00:00 [facility] [id number] [facility] 2021-09-14 08:00:00 2021-09-14 08:00:00 Outpatient R JUNAID [facility] [id number] [facility] 2021-09-14 00:00:00 2021-09-14 00:00:00 Case Management Mildred Perez [facility] 1.2.840.114 350.1.13.10 4.2.7.2.686 [id number] [facility] 2021-09-08 00:00:00 2021-09-08 00:00:00 Case Management Mildred Perez [facility] 1.2.840.114 350.1.13.10 4.2.7.2.686 [id number] [facility] 2021-09-08 00:00:00 2021-09-08 00:00:00 Case Management Mitra Larson [facility] 1.2.840.114 350.1.13.10 4.2.7.2.686 [id number] [facility] 2021-09-04 09:00:00 2021-09-04 09:00:00 Outpatient AMELIA LEY [facility] [id number] [facility] 2021-09-04 00:00:00 2021-09-04 00:00:00 Case Management Mildred Perez [facility] 1.2.840.114 350.1.13.10 4.2.7.2.686 [id number] [facility] 2021-09-03 09:30:00 2021-09-03 09:30:00 Outpatient SCAR SMALLS [facility] [id number] [facility] 2021-08-24 00:00:00 2021-08-24 00:00:[address] [facility] 1.2.840.114 350.1.13.10 4.2.7.2.686 [id number] [facility] 2021-08-12 15:30:00 2021-08-12 15:30:00 [facility] [id number] [facility] 2021-08-10 00:00:00 2021-08-10 00:00:00 Case Management Ursula Cole [facility] [place] 1.2.840.114 350.1.13.10 4.2.7.2.686 [id number] [facility] 2021-08-10 00:00:00 2021-08-10 00:00:00 Case Management Mitra Larson [facility] 1.2.840.114 350.1.13.10 4.2.7.2.686 [id number] [facility] 2021-08-10 00:00:00 2021-08-10 00:00:00 Case Management Yodit Perezsse [facility] [place] 1.2.840.114 350.1.13.10 4.2.7.2.686 [id number] [facility] 2021-08-07 00:00:00 2021-08-07 00:00:00 Case Management Chris Mildred [facility] [place] 1.2.840.114 350.1.13.10 4.2.7.2.686 [id number] [facility] 2021-07-16 09:30:00 2021-07-16 09:53:19 Nurse Visit Visit, [facility] Scar Holder [facility] D[facility]LL OPER[facility] 1..840.114 350.1.13.10 4.2.7.2.686 [id number] 107 [id number] [facility] 2021-07-16 09:30:00 2021-07-16 09:53:19 Outpatient SCAR SMALLS [facility] [id number] [facility] 2021-07-16 09:30:00 2021-07-16 09:30:00 Outpatient SCAR SMALLS [facility] [id number] [facility] 2021-07-09 05:54:00 2021-07-11 12:31:00 Inpatient P JOHN ZUCKER [facility] [id number] [facility] 2021-07-09 05:54:00 2021-07-11 12:31:00 Hospital Encounter Rigo Avendano [facility] 1..840.114 350.1.13.10 4.2.7.2.686 [id number] [facility] 2021-07-09 08:45:00 2021-07-09 08:45:00 Outpatient AMELIA LEY [facility] [id number] [facility] 2021-07-09 07:00:00 2021-07-09 08:41:00 Surgery John [facility] .840.114 350.1.13.10 4.2.7.2.686 [id number] [facility] 2021-07-07 00:00:00 2021-07-07 00:00:00 Case Management Ursula Cole [facility] [place] 1.2.840.114 350.1.13.10 4.2.7.2.686 [id number] [facility] 2021-07-07 00:00:00 2021-07-07 00:00:00 Patient Outreach Mitra Larson [facility] 1.2.840.114 350.1.13.10 4.2.7.2.686 [id number] [facility] 2021-07-07 00:00:00 2021-07-07 00:00:00 Case Management Mildred Perez [facility] [place] 1.2.840.114 350.1.13.10 4.2.7.2.686 [id number] [facility] 2021-07-06 00:00:00 2021-07-06 00:00:00 Telephone Amelia Leung [facility] DRILL OPERATOR [facility] 1.2.840.114 350.1.13.10 4.2.7.2.686 [id number] 107 [id number] [facility] 2021-07-03 00:00:00 2021-07-03 00:00:00 Telephone Amelia Leung [facility] DRILL OPERATOR [facility] 1.2.840.114 350.1.13.10 4.2.7.2.686 [id number] 107 [id number] [facility] 2021-07-02 15:45:00 2021-07-02 16:07:03 Outpatient R AMELIA LEUNG [facility] [id number] [facility] 2021-07-02 15:45:00 2021-07-02 16:07:03 Routine Visit Amelia Leung [facility] DRILL OPERATOR [facility] 1.2.840.114 350.1.13.10 4.2.7.2.686 [id number] 107 [id number] [facility] 2021-07-02 15:45:00 2021-07-02 15:45:00 Outpatient R AMELIA LEUNG [facility] [id number] [facility] 2021-07-02 12:45:00 2021-07-02 12:45:00 Outpatient R [facility] [id number] [facility] 2021-07-02 09:30:00 2021-07-02 10:30:00 Office Visit Disease, Marsha & Pcp Pedi Infec Kay Sneed [facility] 1.2.840.114 350.1.13.10 4.2.7.2.686 [id number] [facility] 2021-07-02 09:30:00 2021-07-02 09:30:00 Outpatient R KAY SNEED [facility] [id number] [facility] 2021-07-02 09:30:00 2021-07-02 09:30:00 Outpatient R KAY SNEED [facility] [id number] [facility] 2021-07-02 00:00:00 2021-07-02 00:00:00 Case Management Mildred Perez [facility] 1.2.840.114 350.1.13.10 4.2.7.2.686 [id number] [facility] 2021-07-02 00:00:00 2021-07-02 00:00:00 Case Management Ursula Cole [facility] 1.2.840.114 350.1.13.10 4.2.7.2.686 [id number] [facility] 2021-06-30 00:00:00 2021-06-30 00:00:00 Case Management Mildred Perez [facility] 1.2.840.114 350.1.13.10 4.2.7.2.686 [id number] [facility] 2021-06-18 10:15:00 2021-06-18 10:15:00 Outpatient R CHAYA BEATA [facility] [id number] [facility] 2021-06-18 00:00:00 2021-06-18 00:00:00 Case Management Ursula Cole [facility] 1.2.840.114 350.1.13.10 4.2.7.2.686 [id number] [facility] 2021-06-18 00:00:00 2021-06-18 00:00:00 Telephone Ursula Cole [facility] 1.2.840.114 350.1.13.10 4.2.7.2.686 [id number] [facility] 2021-06-16 00:00:00 2021-06-16 00:00:00 Case Management Mildred Perez [facility] 1.2.840.114 350.1.13.10 4.2.7.2.686 [id number] [facility] 2021-06-16 00:00:00 2021-06-16 00:00:00 Case Management Ursula Cole [facility] 1.2.840.114 350.1.13.10 4.2.7.2.686 [id number] [facility] 2021-06-09 00:00:00 2021-06-09 00:00:00 Case Management Mildred Perez [facility] 1.2.840.114 350.1.13.10 4.2.7.2.686 [id number] [facility] 2021-06-02 10:00:00 2021-06-02 10:44:51 Outpatient R AMELIA LEUNG [facility] [id number] [facility] 2021-06-02 10:00:00 2021-06-02 10:44:51 Routine Visit Amelia Leung [facility] [employer]RILL [employer]PERATOR [employer] [facility] 1.2.840.114 350.1.13.10 4.2.7.2.686 [id number] [facility] 2021-05-28 10:45:00 2021-05-28 10:45:00 Outpatient R AMELIA LEUNG [facility] [id number] [facility] 2021-05-28 00:00:00 2021-05-28 00:00:00 Telephone Amelia Leung [facility] [employer]RI[employer] OPERATOR [employer] [facility] 1.2.840.114 350.1.13.10 4.2.7.2.686 [id number] [facility] 2021-05-28 00:00:00 2021-05-28 00:00:00 Telephone Amelia Leung [facility] [employer] [facility] 1.2.840.114 350.1.13.10 4.2.7.2.686 [id number] [facility] 2021-05-28 00:00:00 2021-05-28 00:00:00 Case Management Ursula Cole [facility] [place] 1.2.840.114 350.1.13.10 4.2.7.2.686 [id number] [facility] 2021-05-25 13:18:10 2021-05-25 23:59:00 Hospital Encounter Kay Sneed [facility] 1.2.840.114 350.1.13.10 4.2.7.2.686 [id number] [facility] 2021-05-25 13:18:10 2021-05-25 13:18:10 Outpatient R KAY SNEED [facility] [id number] [facility] 2021-05-25 11:30:00 2021-05-25 12:00:00 Office Visit Disease, Marsha & Pcp Pedi Infec Kay Sneed [facility] [place] 1.2.840.114 350.1.13.10 4.2.7.2.686 [id number] [facility] 2021-05-25 11:30:00 2021-05-25 11:30:00 Outpatient R KAY SNEED [facility] [id number] [facility] 2021-05-25 11:30:00 2021-05-25 11:30:00 [facility] [id number] [facility] 2021-05-25 11:30:00 2021-05-25 11:30:00 Outpatient R KAY SNEED [facility] [id number] [facility] 2021-05-25 11:30:00 2021-05-25 11:30:00 Outpatient R KAY SNEED [facility] [id number] [facility] 2021-05-25 11:30:00 2021-05-25 11:30:00 Outpatient R KAY SNEED [facility] [id number] [facility] 2021-05-11 10:30:00 2021-05-11 10:30:00 Outpatient R KAY SNEED [facility] [id number] [facility] 2021-05-08 10:30:00 2021-05-08 10:30:00 Outpatient SCAR SMALLS [facility] [id number] [facility] 2021-05-05 00:00:00 2021-05-05 00:00:00 Case Management Mildred Perez [facility] 1.2.840.114 350.1.13.10 4.2.7.2.686 [id number] [facility] 2021-05-04 11:30:00 2021-05-04 11:30:00 Outpatient R MIKAELA QUIROGA [facility] [id number] [facility] 2021-05-04 00:00:00 2021-05-04 00:00:00 Case Management Yodit Perezsse [facility] 1.2.840.114 350.1.13.10 4.2.7.2.686 [id number] [facility] 2021-05-01 00:00:00 2021-05-01 00:00:00 Telephone Mildred Perez [facility] 1.2.840.114 350.1.13.10 4.2.7.2.686 [id number] [facility] 2021-04-27 00:00:00 2021-04-27 00:00:00 Telephone Shaq Rivera [facility] DRILL OPERATOR [facility] 1.2.840.114 350.1.13.10 4.2.7.2.686 [id number] [facility] 2021-04-24 13:49:03 2021-04-24 14:54:34 Routine Visit Shaq Rivera [facility] DRILL OPERATOR [facility]IC [facility] 1.2.840.114 350.1.13.10 4.2.7.2.686 [id number] [facility] 2021-04-24 13:45:00 2021-04-24 14:54:34 Outpatient SHAQ HERNANDEZ [facility] [id number] [facility] 2021-04-24 13:45:00 2021-04-24 13:45:00 Outpatient SHAQ HERNANDEZ [facility] [id number] [facility] 2021-04-22 00:00:00 2021-04-22 00:00:00 Telephone Kay Sneed [facility] 1.2.840.114 350.1.13.10 4.2.7.2.686 [id number] [facility] 2021-04-22 00:00:00 2021-04-22 00:00:00 Case Management Ursula Cole Isaiah [facility] 1.2.840.114 350.1.13.10 4.2.7.2.686 [id number] [facility] 2021-04-22 00:00:00 2021-04-22 00:00:00 Telephone Kay Sneed [facility] 1.2.840.114 350.1.13.10 4.2.7.2.686 [id number] [facility] 2021-04-21 00:00:00 2021-04-21 00:00:00 Telephone Mildred Perez [facility] 1.2.840.114 350.1.13.10 4.2.7.2.686 [id number] [facility] 2021-04-10 00:00:00 2021-04-10 00:00:00 Telephone Dereck Damon [facility] DRILL OPERATOR [facility] 1.2.840.114 350.1.13.10 4.2.7.2.686 [id number] [facility] 2021-04-09 15:00:00 2021-04-09 15:00:00 Outpatient SHAQ HERNANDEZ [facility] [id number] [facility] 2021-04-09 10:00:00 2021-04-09 10:35:29 Outpatient SHAQ HERNANDEZ [facility] [id number] [facility] 2021-04-09 09:34:54 2021-04-09 10:35:29 Routine Visit Shaq Rivera [facility] DRILL OPERATOR [facility] 1.2.840.114 350.1.13.10 4.2.7.2.686 [id number] [facility] 2021-04-09 00:00:00 2021-04-09 00:00:00 Telephone Scar Holder [facility] DRILL OPERATOR [facility] 1.2.840.114 350.1.13.10 4.2.7.2.686 [id number] [facility] 2021-04-07 00:00:00 2021-04-07 00:00:00 Case Management Yodit Perezsse [facility] 1.2.840.114 350.1.13.10 4.2.7.2.686 [id number] [facility] 2021-04-07 00:00:00 2021-04-07 00:00:00 Case Management Ursula Cole [facility] 1.2.840.114 350.1.13.10 4.2.7.2.686 [id number] [facility] 2021-04-02 11:00:00 2021-04-02 11:00:00 Outpatient R KAY SNEED [facility] [id number] [facility] 2021-04-02 00:00:00 2021-04-02 00:00:00 Telephone Annita, Marsha & Pcp Pedi Infec [facility] 1.2.840.114 350.1.13.10 4.2.7.2.686 [id number] [facility] 2021-03-31 00:00:00 2021-03-31 00:00:00 Telephone ChrisMildred [facility] 1.2.840.114 350.1.13.10 4.2.7.2.686 [id number] [facility] 2021-03-18 00:00:00 2021-03-18 00:00:00 Case Management Yodit Perezsse [facility] 1.2.840.114 350.1.13.10 4.2.7.2.686 [id number] [facility] 2021-03-18 00:00:00 2021-03-18 00:00:00 Case Management Priyanka Larkin [facility] 1..114 350.1.13.10 4.2.7.2.686 [id number] 089 [id number] [facility] 2021-03-17 00:00:00 2021-03-17 00:00:00 Case Management Mildred Perez [facility] [place] 1..114 350.1.13.10 4.2.7.2.686 [id number] [facility] 2021-03-12 14:23:20 2021-03-12 15:04:11 Routine Visit Provider, Dereck Siu [facility] DRILL OPERATOR [facility] 1..114 350.1.13.10 4.2.7.2.686 [id number] [facility] 2021-03-12 14:45:00 2021-03-12 14:45:00 Outpatient DERECK STRICKLAND [facility] [id number] [facility] 2021-03-10 13:33:15 2021-03-10 14:33:15 Manager Helpdesk Visit Ultrasound, Caroline Gannon [facility] DRILL OPERATOR [facility] 1..114 350.1.13.10 4.2.7.2.686 [id number] [facility] 2021-03-10 13:30:00 2021-03-10 13:30:00 Outpatient P [facility] [id number] [facility] 2021-03-10 00:00:00 2021-03-10 00:00:00 Case Management Mildred Perez [facility] 1..114 350.1.13.10 4.2.7.2.686 [id number] [facility] 2021-03-04 10:00:00 2021-03-04 10:00:00 Outpatient R [facility] [id number] [facility] 2021-02-24 00:00:00 2021-02-24 00:00:00 Case Management Mildred Perez [facility] 1..114 350.1.13.10 4.2.7.2.686 [id number] [facility] 2021-02-23 00:00:00 2021-02-23 [facility] 350.1.13.10 4.2.7.2.686 [id number] 089 [id number] [facility] 2021-02-17 00:00:00 2021-02-17 00:00:00 Telephone Scar Holder R [facility] DRILL OPERATOR AUTOMATIC [facility] 1..114 350.1.13.10 4.2.7.2.686 [id number] 107 [id number] [facility] 2021-02-16 00:00:00 2021-02-16 00:00:00 Refill [facility] ..114 350.1.13.10 4.2.7.2.686 [id number] [id number] [facility] 2021-02-10 00:00:00 2021-02-10 00:00:00 Case Management Ursula Cole [facility] [place] 1..114 350.1.13.10 4.2.7.2.686 [id number] [facility] 2021-02-10 00:00:00 2021-02-10 00:00:00 Telephone Nurse, Marsha Zuniga Infectious [facility] 1.2840.114 350.1.13.10 4.2.7.2.686 [id number] [facility] 2021-02-10 00:00:00 2021-02-10 00:00:00 Case Management Mildred Perez [facility] 1.2.840.114 350.1.13.10 4.2.7.2.686 [id number] [facility] 2021-02-10 00:00:00 2021-02-10 00:00:00 Case Management Yodit Perezsse [facility] 1.2840.114 350.1.13.10 4.2.7.2.686 [id number] 167 [id number] [facility] 2021-02-10 00:00:00 2021-02-10 00:00:00 Patient Outreach Debbie Rivera [facility] 1.2840.114 350.1.13.10 4.2.7.2.686 [id number] 167 [id number] [facility] 2021-02-09 10:09:22 2021-02-09 10:39:22 Office Visit Disease, Marsha & Pcp Pedi Infec Unknown, Attending Kay Sneed [facility] 1.2840.114 350.1.13.10 4.2.7.2.686 [id number] [facility] 2021-02-09 10:30:00 2021-02-09 10:30:00 Outpatient R UNKNOWN, ATTENDING [facility] [id number] [facility] 2021-02-09 00:00:00 2021-02-09 00:00:00 Case Management Ursula Cole [facility] 1.2.840.114 350.1.13.10 4.2.7.2.686 [id number] [facility] 2021-02-03 13:22:08 2021-02-03 13:22:18 Routine Visit Scar Holder [facility] DRILL OPERATOR [facility] 1.2.840.114 350.1.13.10 4.2.7.2.686 [id number] 107 [id number] [facility] 2021-02-03 13:22:08 2021-02-03 13:22:18 Routine Visit Scar Holder [facility] DRILL OPERATOR [facility] 1.2.840.114 350.1.13.10 4.2.7.2.686 [id number] [facility] 2021-02-03 12:45:00 2021-02-03 12:45:00 Outpatient Carlos BART HOLDERSEAMUS [facility] [id number] [facility] 2021-02-02 11:30:00 2021-02-02 11:30:00 Outpatient KAY PHILIP [facility] [id number] [facility] 2021-02-02 00:00:00 2021-02-02 00:00:00 Telephone Yodit Perezsse [facility] 1.2.840.114 350.1.13.10 4.2.7.2.686 [id number] [facility] 2021-02-02 00:00:00 2021-02-02 00:00:00 Telephone Mildred Perez [facility] 1.2.840.114 350.1.13.10 4.2.7.2.686 [id number] [facility] 2021-01-30 00:00:00 2021-01-30 00:00:00 Telephone Yodit Perezsse [facility] 1.2.840.114 350.1.13.10 4.2.7.2.686 [id number] [facility] 2021-01-30 00:00:00 2021-01-30 00:00:00 Telephone Mildred Perez [facility] 1.2.840.114 350.1.13.10 4.2.7.2.686 [id number] 167 [id number] [facility] 2021-01-23 12:45:00 2021-01-23 12:45:00 Outpatient R SCAR HOLDER [facility] [id number] [facility] 2021-01-21 09:15:00 2021-01-21 09:15:00 Outpatient R TATIANNAYOGIAMELIA [facility] [id number] [facility] 2021-01-19 11:00:00 2021-01-19 11:00:00 Outpatient R MICHELLETAIWOMIKAELA [facility] [id number] [facility] 2021-01-16 00:00:00 2021-01-16 00:00:00 Telephone Scar Holder [facility] DRILL OPERATOR [facility] 1.2.840.114 350.1.13.10 4.2.7.2.686 [id number] [facility] 2021-01-16 00:00:00 2021-01-16 00:00:00 Case Management Mildred Perez [facility] 1.2.840.114 350.1.13.10 4.2.7.2.686 [id number] [facility] 2021-01-16 00:00:00 2021-01-16 00:00:00 Telephone Jeimy Holderyan [facility] DRILL OPERATOR [facility] 1.2.840.114 350.1.13.10 4.2.7.2.686 [id number] 107 [id number] [facility] 2021-01-16 00:00:00 2021-01-16 00:00:00 Case Management Mildred Perez [facility] 1.2.840.114 350.1.13.10 4.2.7.2.686 [id number] [facility] 2021-01-14 08:45:00 2021-01-14 08:45:00 Outpatient SCAR SMALLS [facility] [id number] [facility] 2021-01-06 00:00:00 2021-01-06 00:00:00 Case Management Kelsey Ursula Colon [facility] [place] 1.840.114 350.1.13.10 4.2.7.2.686 [id number] [facility] 2021-01-05 10:45:00 2021-01-05 10:45:00 [id number] 2020-12-31 00:00:00 2020-12-31 00:00:00 Case Management Chris Mildred [facility] [place] 1.840.114 350.1.13.10 4.2.7.2.686 [id number] [facility] 2020-12-25 10:30:00 2020-12-25 10:30:00 Outpatient R [facility] [id number] [facility] 2020-12-23 00:00:00 2020-12-23 00:00:00 Abstract Scar Holder [facility] DRILL OPERATOR [facility] 1.84.114 350.1.13.10 4.2.7.2.686 [id number] 107 [id number] [facility] 2020-12-22 10:16:50 2020-12-22 10:46:50 Manager Helpdesk Visit Ultrasound, Eddie Lewis [facility] DRILL OPERATOR [facility] 1.840.114 350.1.13.10 4.2.7.2.686 [id number] [facility] 2020-12-22 10:30:00 2020-12-22 10:30:00 Outpatient P [facility] [id number] [facility] 2020-12-08 09:15:56 2020-12-08 10:01:39 Routine Visit Scar Holder Carlos [facility] DRILL OPERATOR [facility] 1.2.840.114 350.1.13.10 4.2.7.2.686 [id number] [facility] 2020-12-08 09:30:00 2020-12-08 09:30:00 Outpatient R HOLDER, ROSYAN [facility] [id number] [facility] 2020-11-26 00:00:00 2020-11-26 00:00:00 Telephone Provider, Skip [facility] DRILL OPERATOR [facility] 1.2.840.114 350.1.13.10 4.2.7.2.686 [id number] 107 [id number] [facility] 2020-11-24 10:02:39 2020-11-24 10:32:39 Office Visit Disease, Marsha & Pcp Pedi Infec Kay Sneed [facility] 1.2.840.114 350.1.13.10 4.2.7.2.686 [id number] 167 [id number] [facility] 2020-11-24 10:30:00 2020-11-24 10:30:00 Outpatient KAY PHILIP [facility] [id number] [facility] 2020-11-24 00:00:00 2020-11-24 00:00:00 Case Management Mildred Perez [facility] 1.2.840.114 350.1.13.10 4.2.7.2.686 [id number] [facility] 2020-11-24 00:00:00 2020-11-24 00:00:00 Case Management Ursula Cole [facility] 1.2.840.114 350.1.13.10 4.2.7.2.686 [id number] [facility] 2020-11-24 00:00:00 2020-11-24 00:00:00 Case Management Mildred Perez [facility] [place] 1.2.840.114 350.1.13.10 4.2.7.2.686 [id number] [facility] 2020-11-10 13:03:45 2020-11-10 14:54:14 Initial Visit Scar Holder [facility] DRILL OPERATOR [facility] 1.2.840.114 350.1.13.10 4.2.7.2.686 [id number] [facility] 2020-11-10 13:00:00 2020-11-10 13:00:00 Outpatient R SACR HOLDER [facility] [id number] [facility] 2020-11-10 00:00:00 2020-11-10 00:00:00 Orders Only Doctor Unassigned, [place] [facility] 1.2.840.114 350.1.13.10 4.2.7.2.686 [id number] [facility] 2020-11-09 00:00:00 2020-11-09 00:00:00 Patient Secure Msg Doctor Unassigned, [place] [facility] 1.2.840.114 350.1.13.10 4.2.7.2.686 [id number] [facility] 2020-11-07 09:20:04 2020-11-07 09:26:26 Manager Helpdesk Visit [facility] 1.2840.114 350.1.13.10 4.2.7.2.686 [id number] [facility] 2020-11-07 08:43:00 2020-11-07 09:13:00 Office Visit [facility] 1.2.840.114 350.1.13.10 4.2.7.2.686 [id number] [id number] [facility] 2020-11-07 09:00:00 2020-11-07 09:00:00 Outpatient R YIMI SOLER [facility] [id number] [facility] 2020-11-07 00:00:00 2020-11-07 00:00:00 Telephone [facility] 1.2.840.114 350.1.13.10 4.2.7.2.686 [id number] [id number] [facility] 2020-10-08 10:15:20 2020-10-08 10:29:48 Laboratory Only Only, [facility] Test [facility] 1.2.840.114 350.1.13.10 4.2.7.2.686 [id number] [facility] 2020-10-08 08:50:04 2020-10-08 10:13:33 Office Visit [facility] 1.2.840.114 350.1.13.10 4.2.7.2.686 [id number] [id number] [facility] 2020-10-08 09:00:00 2020-10-08 09:00:00 Outpatient R YIMI SOLER [facility] [id number] [facility] 2020-09-24 09:00:00 2020-09-24 09:00:00 Outpatient R YIMI SOLER [facility] [id number] [facility] 2020-08-29 13:00:00 2020-08-29 13:00:00 Outpatient R GARRY KNIGHT [facility] [id number] [facility] 2020-08-29 00:00:00 2020-08-29 00:00:00 Telephone [place], [facility] 1.2.840.114 350.1.13.10 4.2.7.2.686 [id number] [id number] [facility] 2020-08-28 00:00:00 2020-08-28 00:00:00 Telephone Alonso [facility] 1.2.840.114 350.1.13.10 4.2.7.2.686 [id number] 089 [id number] [facility] 2020-08-22 00:00:00 2020-08-22 00:00:00 [facility] 1.2.840.114 350.1.13.10 4.2.7.2.686 [id number] 089 [id number] [facility] 2020-08-19 00:00:00 2020-08-19 00:00:00 Case Management Mildred Perez [facility] 1.2.840.114 350.1.13.10 4.2.7.2.686 [id number] 089 [id number] [facility] 2020-08-19 00:00:00 2020-08-19 00:00:00 Telephone Santos [facility] 1.2.840.114 350.1.13.10 4.2.7.2.686 [id number] 089 [id number] [facility] 2020-08-12 00:00:00 2020-08-12 00:00:00 Patient Outreach Troy Leone [facility] 1.2.840.114 350.1.13.10 4.2.7.2.686 [id number] [facility] 2020-08-08 14:15:00 2020-08-08 14:15:00 Outpatient AMELIA LEY [facility] [id number] [facility] 2020-07-21 08:15:00 2020-07-21 08:15:00 Outpatient R AMELIA LEUNG [facility] [id number] [facility] 2020-07-17 00:00:00 2020-07-17 00:00:00 Telephone Alonso [facility] 1.2840.114 350.1.13.10 4.2.7.2.686 [id number] 089 [id number] [facility] 2020-07-16 00:00:00 2020-07-16 00:00:00 [facility] 1.2840.114 350.1.13.10 4.2.7.2.686 [id number] 089 [id number] [facility] 2020-07-15 00:00:00 2020-07-15 00:00:[address] [facility] 1.2.840.114 350.1.13.10 4.2.7.2.686 [id number] [id number] [facility] 2020-07-02 08:14:18 2020-07-02 08:44:18 Telemedici ne Visit [facility] 1.2840.114 350.1.13.10 4.2.7.2.686 [id number] [facility] 2020-07-02 08:00:00 2020-07-02 08:00:00 Outpatient R HAMILTON NGUYỄN [facility] [id number] [facility] 2020-06-25 00:00:00 2020-06-25 00:00:00 Case Management [facility] 1.2840.114 350.1.13.10 4.2.7.2.686 [id number] [facility] 2020-06-18 08:16:50 2020-06-18 08:46:50 Telemedici ne Visit Nguyễn Villasenor [facility] 1.2.840.114 350.1.13.10 4.2.7.2.686 [id number] [facility] 2020-06-18 08:30:00 2020-06-18 08:30:00 Outpatient R NGUYỄN VILLASENOR [facility] [id number] [facility] 2020-06-17 00:00:00 2020-06-17 00:00:00 [facility] 1.2.840.114 350.1.13.10 4.2.7.2.686 [id number] [id number] [facility] 2020-06-10 00:00:00 2020-06-10 00:00:00 Telephone Alonso [facility] 1.2.840.114 350.1.13.10 4.2.7.2.686 [id number] [id number] [facility] 2020-06-04 00:00:00 2020-06-04 00:00:00 [facility] 1.2.840.114 350.1.13.10 4.2.7.2.686 [id number] 089 [id number] [facility] 2020-06-03 00:00:00 2020-06-03 00:00:00 Case Management Magdaleno Graham [facility] 1.2.840.114 350.1.13.10 4.2.7.2.686 [id number] [facility] 2020-06-03 00:00:00 2020-06-03 00:00:00 Telephone Hafsa Oneill [facility] 1.2.840.114 350.1.13.10 4.2.7.2.686 [id number] [id number] [facility] 2020-05-19 14:00:00 2020-05-19 14:00:00 Outpatient R YIMI SOLER [facility] [id number] [facility] 2020-05-14 00:00:00 2020-05-14 00:00:00 [facility] 1.840.114 350.1.13.10 4.2.7.2.686 [id number] [facility] 2020-05-05 11:00:00 2020-05-05 11:00:00 Outpatient R YIMI SOLER [facility] [id number] [facility] 2020-05-02 00:00:00 2020-05-02 00:00:00 Telephone [facility] 1.840.114 350.1.13.10 4.2.7.2.686 [id number] [facility] 2020-05-01 00:00:00 2020-05-01 00:00:00 Telephone bella [facility] 1.84.114 350.1.13.10 4.2.7.2.686 [id number] [facility] 2020-04-30 09:22:39 2020-04-30 09:52:39 Office Visit [facility] 1.84.114 350.1.13.10 4.2.7.2.686 [id number] [facility] 2020-04-30 09:30:00 2020-04-30 09:30:00 Outpatient R YIMI SOLER [facility] [id number] [facility] 2020-04-30 09:00:00 2020-04-30 09:00:00 Outpatient R NGUYỄN VILLASENOR [facility] [id number] [facility] 2020-04-30 00:00:00 2020-04-30 00:00:00 Telephone [facility] 1.2.840.114 350.1.13.10 4.2.7.2.686 [id number] [facility] 2020-04-29 00:00:00 2020-04-29 00:00:00 Telephone Mai Hafsa [facility] 1.2.840.114 350.1.13.10 4.2.7.2.686 [id number] [facility] 2020-04-28 00:00:00 2020-04-28 00:00:00 Telephone Amelia Leung [facility] DRILL OPERATOR [facility] 1.2.840.114 350.1.13.10 4.2.7.2.686 [id number] [facility] 2020-04-23 00:00:00 2020-04-23 00:00:00 Case Management Marcel Gupta [facility] 1.2840.114 350.1.13.10 4.2.7.2.686 [id number] [facility] 2020-04-22 09:17:08 2020-04-22 10:06:21 Office Visit Amelia Leung [facility] DRILL OPERATOR [facility] 1.2.840.114 350.1.13.10 4.2.7.2.686 [id number] [facility] 2020-04-22 09:15:00 2020-04-22 09:15:00 Outpatient R AMELIA LEUNG [facility] [id number] [facility] 2020-04-22 00:00:00 2020-04-22 00:00:00 Orders Only Doctor Unassigned, [place] [facility] 1.2.840.114 350.1.13.10 4.2.7.2.686 [id number] [facility] 2020-04-16 08:00:00 2020-04-16 08:00:00 Outpatient R YIMI SOLER [facility] [id number] [facility] 2020-04-16 00:00:00 2020-04-16 00:00:[address] [facility] 1..114 350.1.13.10 4.2.7.2.686 [id number] [facility] 2020-04-07 00:00:00 2020-04-07 00:00:00 Telephone Marcel Gupta [facility] 1.114 350.1.13.10 4.2.7.2.686 [id number] [facility] 2020-03-27 00:00:00 2020-03-27 00:00:00 Telephone Marcel Gupta [facility] 1.114 350.1.13.10 4.2.7.2.686 [id number] 089 [id number] [facility] 2020-03-26 19:40:00 2020-03-26 19:40:00 Outpatient R WING WEBBER [facility] [id number] [facility] 2020-03-26 16:56:49 2020-03-26 18:49:11 Urgent Care Provider, [facility] Wing Webber Falon [facility] Office Building One 1.114 350.1.13.10 4.2.7.2.686 [id number] 044 [id number] [facility] 2020-03-26 00:00:00 2020-03-26 00:00:[address] [facility] 1.114 350.1.13.10 4.2.7.2.686 [id number] 089 [id number] [facility] 2020-03-26 00:00:00 2020-03-26 00:00:00 Case Management Marcel Gupta [facility] 1.2.840.114 350.1.13.10 4.2.7.2.686 [id number] 089 [id number] [facility] 2020-03-21 00:00:00 2020-03-21 00:00:[address] [facility] 1.2.840.114 350.1.13.10 4.2.7.2.686 [id number] 089 [id number] [facility] 2020-03-18 00:00:00 2020-03-18 00:00:00 Case Management Mai Hafsa Tierney [facility] 1.2.840.114 350.1.13.10 4.2.7.2.686 [id number] 089 [id number] [facility] 2020-03-17 13:00:00 2020-03-17 13:00:00 Outpatient P [facility] [id number] [facility] 2020-03-12 00:00:00 2020-03-12 00:00:00 Case Management Marcel Gupta [facility] 1.2.840.114 350.1.13.10 4.2.7.2.686 [id number] 089 [id number] [facility] 2020-02-27 11:30:00 2020-02-27 11:30:00 Outpatient R NGUYỄN VILLASENOR [facility] [id number] [facility] 2020-02-27 00:00:00 2020-02-27 00:00:[address] [facility] 1.2.840.114 350.1.13.10 4.2.7.2.686 [id number] 089 [id number] [facility] 2020-02-26 00:00:00 2020-02-26 00:00:[address] [facility] 1.2.840.114 350.1.13.10 4.2.7.2.686 [id number] 089 [id number] [facility] 2020-02-14 00:00:00 2020-02-14 00:00:00 Telephone Julia Keen [facility] 1.2.840.114 350.1.13.10 4.2.7.2.686 [id number] 167 [id number] [facility] 2020-02-13 13:45:00 2020-02-13 13:45:00 Outpatient R UNKNOWN, ATTENDING [facility] [id number] [facility] 2020-02-06 00:00:00 2020-02-06 00:00:00 Patient Outreach Kelsey Ursula Isaiah [facility] 1.2.840.114 350.1.13.10 4.2.7.2.686 [id number] 167 [id number] [facility] 2020-02-06 00:00:00 2020-02-06 00:00:00 Case Management Julia Keen [facility] 1.2.840.114 350.1.13.10 4.2.7.2.686 [id number] 167 [id number] [facility] 2020-02-06 00:00:00 2020-02-06 00:00:00 Case Management Debbie Rivera [facility] 1.2.840.114 350.1.13.10 4.2.7.2.686 [id number] 167 [id number] [facility] 2020-02-06 00:00:00 2020-02-06 00:00:00 Patient Outreach Kelsey Ursula Colon [facility] 1.2.840.114 350.1.13.10 4.2.7.2.686 [id number] 167 [id number] 2020-02-05 00:00:00 2020-02-05 00:00:00 Telephone Julia Keen [facility] 1.2.840.114 350.1.13.10 4.2.7.2.686 [id number] 167 [id number] [facility] 2020-02-05 00:00:00 2020-02-05 00:00:00 Telephone Julia Keen [facility] [place] 1.2.840.114 350.1.13.10 4.2.7.2.686 [id number] 2020-01-30 15:45:00 2020-01-30 15:45:00 Outpatient R UNKNOWN, ATTENDING [facility] [id number] [facility] 2020-01-30 00:00:00 2020-01-30 00:00:00 Telephone Amelia Leung [facility] DRILL OPERATOR [employer] [facility] 1.2.840.114 350.1.13.10 4.2.7.2.686 [id number] 107 [id number] [facility] 2020-01-30 00:00:00 2020-01-30 00:00:00 Telephone Amelia Leung [facility] DRILL OPERATOR [employer] [facility] 1.2.840.114 350.1.13.10 4.2.7.2.686 [id number] 107 [id number] 2020-01-25 00:00:00 2020-01-25 00:00:00 Telephone Amelia Leung [facility] DRILL OPERATOR AUTOMATIC [facility] CHILD [facility] 1.2.840.114 350.1.13.10 4.2.7.2.686 [id number] 107 [id number] [facility] 2020-01-25 00:00:00 2020-01-25 00:00:00 Telephone Amelia eLung [facility] DRILL OPERATOR [facility] [facility] 1.2.840.114 350.1.13.10 4.2.7.2.686 [id number] 107 [id number] [facility] 2020-01-25 00:00:00 2020-01-25 00:00:00 Case Management Julia Keen [facility] [place] 1.2.840.114 350.1.13.10 4.2.7.2.686 [id number] [facility] 2020-01-23 08:16:11 2020-01-23 09:41:46 Initial Visit Amelia Leung [facility] DRILL OPERATOR [employer] [facility] 1.2.840.114 350.1.13.10 4.2.7.2.686 [id number] 107 [id number] [facility] 2020-01-23 08:00:00 2020-01-23 08:00:00 Outpatient R AMELIA LEUNG [facility] [id number] [facility] 2020-01-23 00:00:00 2020-01-23 00:00:00 Telephone Amelia Leung [facility] DRILL OPERATOR [employer] [facility] 1.2840.114 350.1.13.10 4.2.7.2.686 [id number] 107 [id number] [facility] 2020-01-23 00:00:00 2020-01-23 00:00:00 Orders Only Doctor Unassigned, [place] [facility] 1.2840.114 350.1.13.10 4.2.7.2.686 [id number] 009 [id number] [facility] 2020-01-22 00:00:00 2020-01-22 00:00:00 Telephone Julia Keen [facility] 1.2840.114 350.1.13.10 4.2.7.2.686 [id number] 167 [id number] [facility] 2020-01-21 00:00:00 2020-01-21 00:00:[address] [facility] 1.2840.114 350.1.13.10 4.2.7.2.686 [id number] 089 [id number] [facility] 2020-01-18 00:00:00 2020-01-18 00:00:00 Telephone Julia Keen [facility] [place] 1.2840.114 350.1.13.10 4.2.7.2.686 [id number] 167 [id number] [facility] 2020-01-18 00:00:00 2020-01-18 00:00:00 Telephone Julia Keen [facility] 1.2.840.114 350.1.13.10 4.2.7.2.686 [id number] [facility] 2020-01-10 00:00:00 2020-01-10 00:00:[address] [facility] 1.2840.114 350.1.13.10 4.2.7.2.686 [id number] 089 [id number] [facility] 2020-01-09 13:45:00 2020-01-09 13:45:00 Outpatient AMELIA LEY [facility] [id number] [facility] 2020-01-08 13:15:00 2020-01-08 13:15:00 Outpatient SCAR SMALLS [facility] [id number] [facility] 2020-01-08 00:00:00 2020-01-08 00:00:00 Telephone Julia Keen [facility] [place] 1.2840.114 350.1.13.10 4.2.7.2.686 [id number] 167 [id number] [facility] 2020-01-02 13:27:18 2020-01-07 09:03:27 Manager Helpdesk Visit Pcp-Lab Ryder [facility] 1.2.840.114 350.1.13.10 4.2.7.2.686 [id number] [facility] 2020-01-04 00:00:00 2020-01-04 00:00:[address] [facility] 1.2.840.114 350.1.13.10 4.2.7.2.686 [id number] 089 [id number] [facility] 2020-01-03 00:00:00 2020-01-03 00:00:00 [facility] 1.[facility].840.114 350.1.13.10 4.2.7.2.686 [id number] 089 [id number] [facility] 2020-01-02 13:30:00 2020-01-02 13:30:00 Outpatient R YIMI SOLER [facility] [id number] [facility] 2020-01-01 00:00:00 2020-01-01 00:00:00 Refill Ryder [facility] 1.2.840.114 350.1.13.10 4.2.7.2.686 [id number] 089 [id number] [facility] 2019-12-27 00:00:00 2019-12-27 00:00:00 [facility] 1.2.840.114 350.1.13.10 4.2.7.2.686 [id number] 089 [id number] [facility] 2019-12-26 07:57:31 2019-12-26 12:26:45 Telemedici ne Visit [facility] 1.2.840.114 350.1.13.10 4.2.7.2.686 [id number] 089 [id number] [facility] 2019-12-26 11:00:00 2019-12-26 11:00:00 Outpatient R HAMILTON [facility] [id number] [facility] 2019-12-25 00:00:00 2019-12-25 00:00:00 [facility] 1.2840.114 350.1.13.10 4.2.7.2.686 [id number] 089 [id number] [facility] 2019-12-24 09:00:00 2019-12-24 09:00:00 Outpatient R RYDER [facility] [id number] [facility] 2019-12-12 09:00:00 2019-12-12 09:00:00 [facility] [id number] 2019-12-11 00:00:00 2019-12-11 00:00:00 Telephone Tanishabella Marcel [facility] 1.2.840.114 350.1.13.10 4.2.7.2.686 [id number] 089 [id number] [facility] 2019-11-27 00:00:00 2019-11-27 00:00:00 Case Management Ortiz Yola Tierney [facility] 1.2.840.114 350.1.13.10 4.2.7.2.686 [id number] 089 [id number] [facility] 2019-11-22 00:00:00 2019-11-22 00:00:00 Telephone Anoop Guptamie [facility] 1.2.840.114 350.1.13.10 4.2.7.2.686 [id number] 089 [id number] [facility] 2019-11-14 00:00:00 2019-11-14 00:00:00 Case Management Hafsa Oneill [facility] 1.2.840.114 350.1.13.10 4.2.7.2.686 [id number] 089 [id number] [facility] 2019-11-14 00:00:00 2019-11-14 00:00:00 Telephone bella Marcel [facility] 1.2.840.114 350.1.13.10 4.2.7.2.686 [id number] 089 [id number] [facility] 2019-11-01 00:00:00 2019-11-01 00:00:00 Case Management Yola Alcantar [facility] 1.2.840.114 350.1.13.10 4.2.7.2.686 [id number] 089 [id number] [facility] 2019-10-31 10:30:00 2019-10-31 10:30:00 Outpatient NGUYỄN HUBBARD [facility] [id number] [facility] 2019-10-31 07:32:21 2019-10-31 08:02:21 Telemedici ne Visit [facility] 1.2.840.114 350.1.13.10 4.2.7.2.686 [id number] 089 [id number] [facility] 2019-10-29 00:00:00 2019-10-29 00:00:00 Telephone Anoop Guptamie [facility] 1.2.840.114 350.1.13.10 4.2.7.2.686 [id number] 089 [id number] [facility] 2019-10-29 00:00:00 2019-10-29 00:00:00 Case Management AlcantarYola davis [facility] 1.2.840.114 350.1.13.10 4.2.7.2.686 [id number] 089 [id number] [facility] 2019-10-26 00:00:00 2019-10-26 00:00:00 Case Management Ortiz Yola [facility] 1.2.840.114 350.1.13.10 4.2.7.2.686 [id number] 089 [id number] [facility] 2019-10-26 00:00:00 2019-10-26 00:00:00 Telephone Ryder [facility] 1.2.840.114 350.1.13.10 4.2.7.2.686 [id number] 089 [id number] [facility] 2019-10-24 00:00:00 2019-10-24 00:00:00 Telephone Marcel Gupta [facility] 1.2.840.114 350.1.13.10 4.2.7.2.686 [id number] 089 [id number] [facility] 2019-10-22 16:00:00 2019-10-22 16:00:00 Outpatient R YIMI SOLER [facility] [id number] [facility] 2019-10-19 00:00:00 2019-10-19 00:00:[address] [facility] 1.2.840.114 350.1.13.10 4.2.7.2.686 [id number] 089 [id number] [facility] 2019-10-18 00:00:00 2019-10-18 00:00:00 Refill [facility] 1.2.840.114 350.1.13.10 4.2.7.2.686 [id number] 089 [id number] [facility] 2019-10-09 00:00:00 2019-10-09 00:00:00 Case Management Yola Alcantar [facility] 1.2.840.114 350.1.13.10 4.2.7.2.686 [id number] 089 [id number] [facility] 2019-09-27 00:00:00 2019-09-27 00:00:00 Case Management Yola Alcantar [facility] 1.2.840.114 350.1.13.10 4.2.7.2.686 [id number] 089 [id number] [facility] 2019-09-26 10:00:00 2019-09-26 10:00:00 Outpatient R HAMILTON NGUYỄN [facility] [id number] [facility] 2019-09-26 07:34:55 2019-09-26 08:04:55 Telemedici ne Visit [facility] 1.2.840.114 350.1.13.10 4.2.7.2.686 [id number] 089 [id number] [facility] 2019-09-25 00:00:00 2019-09-25 00:00:00 Telephone Tanishabella Marcel [facility] 1.2.840.114 350.1.13.10 4.2.7.2.686 [id number] 089 [id number] [facility] 2019-09-11 00:00:00 2019-09-11 00:00:00 Telephone Self, [facility] 1.2.840.114 350.1.13.10 4.2.7.2.686 [id number] 089 [id number] [facility] 2019-08-29 00:00:00 2019-08-29 00:00:00 Telephone Self, [facility] 1.2.840.114 350.1.13.10 4.2.7.2.686 [id number] 089 [id number] [facility] 2019-08-24 13:00:00 2019-08-24 13:00:00 Outpatient R GARRY KNIGHT [facility] [id number] [facility] 2019-08-24 08:04:37 2019-08-24 09:04:37 [facility] 1.2.840.114 350.1.13.10 4.2.7.2.686 [id number] 089 [id number] [facility] 2019-08-22 00:00:00 2019-08-22 00:00:00 Case Management Yola Alcantar [facility] 1.2840.114 350.1.13.10 4.2.7.2.686 [id number] 089 [id number] [facility] 2019-08-17 10:00:00 2019-08-17 10:00:00 Outpatient R YIMI SOLER [facility] [id number] [facility] 2019-08-17 08:01:59 2019-08-17 08:31:59 Telemedici ne Visit [facility] 1.2.840.114 350.1.13.10 4.2.7.2.686 [id number] 089 [id number] [facility] 2019-08-15 00:00:00 2019-08-15 00:00:00 Telephone Gid[place], [facility] 1.2.840.114 350.1.13.10 4.2.7.2.686 [id number] 089 [id number] [facility] 2019-08-14 00:00:00 2019-08-14 00:00:00 [facility] 1.2.840.114 350.1.13.10 4.2.7.2.686 [id number] 089 [id number] [facility] 2019-08-13 00:00:00 2019-08-13 00:00:00 Telephone [facility] 1.2.840.114 350.1.13.10 4.2.7.2.686 [id number] 089 [id number] [facility] 2019-08-10 00:00:00 2019-08-10 00:00:00 Telephone [facility] 1.2.840.114 350.1.13.10 4.2.7.2.686 [id number] 089 [id number] [facility] 2019-08-10 00:00:00 2019-08-10 00:00:00 Case Management Priyanka Larkin [facility] 1.2.840.114 350.1.13.10 4.2.7.2.686 [id number] 089 [id number] [facility] 2019-08-06 07:45:00 2019-08-06 07:45:00 Outpatient SHAQ HERNANDEZ [facility] [id number] [facility] 2019-08-02 13:12:46 2019-08-02 13:27:46 Manager Helpdesk Visit [facility] 1.2.840.114 350.1.13.10 4.2.7.2.686 [id number] [facility] 2019-08-02 10:18:05 2019-08-02 11:18:05 Office Visit [facility] 1.2.840.114 350.1.13.10 4.2.7.2.686 [id number] 089 [id number] [facility] 2019-08-02 10:00:00 2019-08-02 10:00:00 Outpatient R YIMI SOLER [facility] [id number] [facility] 2019-08-02 00:00:00 2019-08-02 00:00:00 Case Management Chaya Priyanka [facility] 1.2.840.114 350.1.13.10 4.2.7.2.686 [id number] 089 [id number] [facility] 2019-08-02 00:00:00 2019-08-02 00:00:00 Case Management Marcel Gupta [facility] 1.2.840.114 350.1.13.10 4.2.7.2.686 [id number] 089 [id number] [facility] 2019-08-02 00:00:00 2019-08-02 00:00:00 Case Management rPiyanka Larkin [facility] 1.2.840.114 350.1.13.10 4.2.7.2.686 [id number] 089 [id number] [facility] 2019-07-31 00:00:00 2019-07-31 00:00:00 Telephone Scar Holder [facility] DRILL OPERATOR [employer] [facility] 1.2840.114 350.1.13.10 4.2.7.2.686 [id number] 107 [id number] [facility] 2019-07-25 15:15:00 2019-07-25 15:15:00 Outpatient R SCAR HOLDER [facility] [id number] [facility] 2019-07-25 15:00:00 2019-07-25 15:00:00 Outpatient R [facility] [id number] [facility] 2019-07-24 08:41:08 2019-07-24 09:27:32 Office Visit Scar Holder [facility] DRILL OPERATOR [employer] [facility] 1.2.840.114 350.1.13.10 4.2.7.2.686 [id number] 107 [id number] [facility] 2019-07-24 09:00:00 2019-07-24 09:00:00 Outpatient R SCAR HOLDER [facility] [id number] [facility] 2019-07-24 00:00:00 2019-07-24 00:00:00 Telephone Scar Holder [facility] DRILL OPERATOR [employer] [facility] 1.2.840.114 350.1.13.10 4.2.7.2.686 [id number] 107 [id number] [facility] 2019-07-20 10:25:39 2019-07-23 13:28:30 Office Visit Scar Holder [facility] DRILL OPERATOR [employer] [facility] 1.2.840.114 350.1.13.10 4.2.7.2.686 [id number] 107 [id number] [facility] 2019-07-23 00:00:00 2019-07-23 00:00:00 Telephone Amelia Leung [facility] DRILL OPERATOR [facility] [facility] 1.2.840.114 350.1.13.10 4.2.7.2.686 [id number] 107 [id number] [facility] 2019-07-23 00:00:00 2019-07-23 00:00:00 Telephone Scar Holder [facility] DRILL OPERATOR [employer] [facility] 1.2.840.114 350.1.13.10 4.2.7.2.686 [id number] 107 [id number] [facility] 2019-07-20 11:00:00 2019-07-20 11:00:00 Outpatient R SCAR HOLDER [facility] [id number] [facility] 2019-07-20 00:00:00 2019-07-20 00:00:00 Orders Only Doctor Unassigned, [place] [facility] 1.840.114 350.1.13.10 4.2.7.2.686 [id number] 009 [id number] [facility] 2019-02-02 00:00:00 2019-02-02 00:00:00 Telephone Amelia Leung [facility] DRILL OPERATOR [employer] [facility] 1.0.114 350.1.13.10 4.2.7.2.686 [id number] 107 [id number] [facility] 2019-01-08 00:00:00 2019-01-08 00:00:00 Letter (Out) Desiree Gongora [facility] 1.0.114 350.1.13.10 4.2.7.2.686 [id number] 113 [id number] [facility] 2019-01-04 10:31:54 2019-01-04 11:16:21 Manager Helpdesk Visit Ultrasound, Eddie Lewis [facility] DRILL OPERATOR [employer] [facility] 1.0.114 350.1.13.10 4.2.7.2.686 [id number] [facility] 2019-01-04 00:00:00 2019-01-04 00:00:00 Telephone Amelia Leung [facility] DRILL OPERATOR [employer] [facility] 1.0.114 350.1.13.10 4.2.7.2.686 [id number] 107 [id number] [facility] 2019-01-03 00:00:00 2019-01-03 00:00:00 Letter (Out) Gerald [facility] Res-[address] [place] [address] 1.0.114 350.1.13.10 4.2.7.2.686 [id number] 113 [id number] [facility] 2018-12-28 00:00:00 2018-12-28 00:00:00 Telephone Amelia Leung Eugenio [facility] DRILL OPERATOR [employer] [facility] 1.2.840.114 350.1.13.10 4.2.7.2.686 [id number] 107 [id number] [facility] 2018-12-27 10:47:44 2018-12-27 11:55:04 Routine Visit Amelia Leung Eugenio [facility] DRILL OPERATOR [employer] [facility] 1.2.840.114 350.1.13.10 4.2.7.2.686 [id number] 107 [id number] [facility] 2018-12-27 00:00:00 2018-12-27 00:00:00 Letter (Out) Trimester, [facility] Res-[address] [place] [address] 1.2.840.114 350.1.13.10 4.2.7.2.686 [id number] 113 [id number] [facility] 2018-12-27 00:00:00 2018-12-27 00:00:00 Orders Only Doctor Unassigned, [place] [facility] 1.2.840.114 350.1.13.10 4.2.7.2.686 [id number] 009 [id number] [facility] 2018-12-15 00:00:00 2018-12-15 00:00:00 Telephone JameskayayogiMoisésAmelia C [facility] DRILL OPERATOR [facility] 1.2.840.114 350.1.13.10 4.2.7.2.686 [id number] [facility] 2018-12-14 08:20:56 2018-12-14 09:30:41 Initial Visit Moisés Leunglinda Becker [facility] DRILL OPERATOR [facility] [facility] 1.2.840.114 350.1.13.10 4.2.7.2.686 [id number] [facility] 2017-08-13 03:57:00 2017-08-13 03:57:00 Emergency E [facility] [place] [facility] [id number] [facility] 2016-06-30 00:00:00 2016-06-30 00:00:00 Outpatient R [facility] [id number] [facility] 2016-06-30 00:00:00 2016-06-30 00:00:00 Outpatient R [facility] [id number] [facility] Results Test Description Test Time Test Comments Results Result Co mments Source [facility]/O SPECIFIC [id number] 18:26:00* Test Item Value Reference Range Interpretation Comme nts POCT PH U (test code = 3254) 6 mg/dl 5-8 POCT U LEUK EST (test code = 3263) neg Negative - Negative POCT U NIT (test code = 3262) neg Negative - Negati ve POCT U PROT (test code = 3259) trace Negative - Negat emil POCT U GLU (test code = 3256) neg Negative - Negati ve POCT U KETONE (test code = 3258) neg Negative - Neg ative POCT U BLD (test code = 3257) neg Negative - Negati ve [facility] [id number] 18:26:00* Test Item Value Reference Range Interpretation Comme nts POCT PREG (test code = 1605) Negative On board controls acceptable with C Line (test code = 3574) Yes POCT PREG LOT # (test code = 3575) POCT PREG TEST DATE ( test code = 3576) [facility]/O SPECIFIC [id number] 18:26:00* Test Item Value Reference Range Interpretation Comme nts POCT PH U (test code = 3254) 6 mg/dl 5-8 POCT U LEUK EST (test code = 3263) neg Negative - Negative POCT U NIT (test code = 3262) neg Negative - Negati ve POCT U PROT (test code = 3259) trace Negative - Negat emil POCT U GLU (test code = 3256) neg Negative - Negati ve POCT U KETONE (test code = 3258) neg Negative - Neg ative POCT U BLD (test code = 3257) neg Negative - Negati ve [facility]-TYPE NATRIURETIC [id number] 02:43:00 * Test Item Value Reference Range Interpretation Comme nts B-TYPE NATRIURETIC PEPTIDE ( test code = BNP) 4 pg/mL 0-100 N [id number] 01:22:00* Test Item Value Reference Range Interpretation Comme nts D-DIMER (test code = DDIMER) < 215 ng/mLFEU 0-500 N Note: New Refere nce RangeD-Dimer results are reported in ng/mL. These unitscorrespond to ng/mL Fibrinogen Equivalent Units (FEU). TheD-dimer cut-off value is the same as the normal referencerange.A negative D-dimer result when combined with a clinicalassessment of low pretest probability has been shown to havea high negative predictive value for deep vein thrombosis(DVT) and pulmonary embolism (PE). Elevated levels ofD-Dimer are found in clinical conditions such as DVT, PE,and disseminated intravascular coagulation (DIC). BASIC METABOLIC [id number] 01:01:00* Test Item Value Reference Range Interpretation Comme nts SODIUM (test code = NA) 134 mmol/L 135-145 L POTASSIUM (test code = K) 3.9 mmol/L 3.5-5.1 N CHLORIDE (test code = CL) 109 mmol/L 98-107 H CARBON DIOXIDE (test code = CO2) 22 mmol/L 21-32 N ANION GAP (test code = GAP) 6.9 2.0-16.0 N GLUCOSE (test code = GLU) 88 mg/dL 65-99 N BLOOD UREA NITROGEN (test code = BUN) 20 mg/dL 4-23 N GLOMERULAR FILTRATION RATE (test code = GFR) >=60 max estimate ml/min >60 The Glomerular Filtration Rate is a calculated parameterbased on serum Creatinine, patient age and sex. GFR valuesless than 60 mL/min/1.73 square meters are indicative ofChronic Kidney Disease. Values less than 15 mL/min/1.73square meters indicate Kidney failure. The calculation forGFR is based on the CKD-EPI (2020) calculation. This formulais race indifferent and is the recommended formula for GFRby the National Kidney Foundation for Adults.The GFR will not calculate if the sex is unknown or if thepatient's age is <18 years. CREATININE (test code = CREAT) 0.8 mg/dL 0.6-1.5 N BUN/CREATININE RATIO (test code = BUN/CREA) 25.0 12.0-20.0 H CALCIUM (test code = CA) 9.0 mg/dL 8.5-10.1 N DATE OF LAST MENSTRUAL PERIOD: 01/01/23HCG SERUM [id number] 01:01:00* Test Item Value Reference Range Interpretation [facility] H[facility] SERUM QUAL (test code = HCGQL) NEGATIVE NEGATIVE DATE OF LAST MENSTRUAL PERIOD: 01/01/23TROP-I HIGH [id number] 01:01:00* Test Item Value Reference Range Interpretation Comme [facility] TROP-I HIGH SENSITIVITY (test code = TROPIHS) 4 pg/mL 0-53 N CAUTION: U nits of the current test methodology (pg/mL) differ from the prior test methodology (ng/mL) by a factor of 1000. POSITIVE TROPONIN HS IS IDENTIFIED THE FOLLOWING MALE > OR = 78 ng/mL FEMALE > OR = 53 ng/mL ALL CRITICAL TROPI HS HAVE BEEN IDENTIFIED MALE OR FEMALE > OR = 120 ng/mL DATE OF LAST MENSTRUAL PERIOD: 01/01/23CBC W/AUTO [id number] 00:42:00* Test Item Value Reference Range Interpretation Comme nts WHITE BLOOD CELL (test code = WBC) 9.2 10 3/uL 4.5-11.0 N RED BLOOD CELL (test code = RBC) 4.30 10 6/uL 3.50-5.50 N HEMOGLOBIN (test code = HGB) 13.6 g/dL 12.0-16.0 N HEMATOCRIT (test code = HCT) 39.9 % 37.0-55.0 N MEAN CELL VOLUME (test code = MCV) 93 fL 81-102 N MEAN CELL HGB (test code = MCH) 31.6 pg 26.0-34.0 N MEAN CELL HGB CONCENTRATION (test code = MCHC) 34.1 g/dL 31.0-37.0 N RED CELL DISTRIBUTION WIDTH (test code = RDW) 13.0 % 11.6-14.4 N PLATELET COUNT (test code = PLT) 270 10 3/uL 150-400 N MEAN PLATELET VOLUME (test code = MPV) 11.1 fL 9.0-12.6 N NEUTROPHIL % (test code = NT%) 44.5 % 33.0-76.0 N IMMATURE GRANULOCYTE % (test code = IG%) 0.1 % 0.0-1.0 N LYMPHOCYTE % (test code = LY%) 44.5 % 14.0-56.4 N MONOCYTE % (test code = MO%) 7.1 % 0.0-12.9 N EOSINOPHIL % (test code = EO%) 3.0 % 0.0-7.0 N BASOPHIL % (test code = BA%) 0.8 % 0-2.0 N NUCLEATED RBC % (test code = NRBC%) 0.0 % 0-0.2 N NEUTROPHIL # (test code = NT#) 4.10 10 3/uL 1.5-7.0 N IMMATURE GRANULOCYTE # (test code = IG#) 0.010 x10 3/uL 0.000-0.100 N LYMPHOCYTE # (test code = LY#) 4.09 10 3/uL 1.50-4.00 H MONOCYTE # (test code = MO#) 0.65 10 3/uL 0.20-0.80 N EOSINOPHIL # (test code = EO#) 0.28 10 3/uL 0.0-0.5 N BASOPHIL # (test code = BA#) 0.07 10 3/uL 0.0-0.1 N NUCLEATED RBC # (test code = NRBC#) 0.000 10 3/uL 0.000-0.012 N - XR CHEST 1 [id number] 00:19:00 [facility] : 1995 Sex: FPatient Name: PRAFUL CHAIDEZ Unit No: [id number] EXAMS: CPT CODE: [id number] XR CHEST 1 V [id number] EXAM: -XR CHEST 1 V COMPARISON: None LOCATION: H57 HISTORY: 27 years-old Female with Chest Pain TECHNIQUE:Single AP view of the chest. FINDINGS: The cardiomediastinal silhouette is within normal limits. The lungs are well aerated. No large pneumothorax or pleural effusion. Osseous structures and soft tissues demonstrate no acute findings. The visualized upper abdomen is unremarkable. IMPRESSION: No acute cardiopulmonary abnormality. at 0019 Reported and signed by: Tina Mai MD CC: Ashlyn Kaiser MD Technologist: Elias Cruz; Jus Escobar Time: DAP (Gy m2): Air Kerma (mGy): Trscr Dt/Tm: 01/03/2023 (0019) by:[email or web address] Electronic Signature Date/Time: 01/03/2023 (001)Orig Print D/T: S: 01/03/2023 (0023) Name: PRAFUL CHAIEDZ [facility] [place] Phys: [id number] - [place] [address] : 1995 Age: 27 Sex: [place] [address] Loc: NC.ERS Exam Date: 01/02/2023 Status: PRE ER PH: FAX: PAGE 1 Signed ReportCOMP. METABOLIC PANEL ([id number])(aka CMP)2022-07-15 21:02:44* Test Item Value Reference Range Interpretation Comme nts NA (test code = 5351183798) 138 mmol/L 135-145 K (test code = 4537113739) 4.2 mmol/L 3.5-5.0 CL (test code = 9511499633) 111 mmol/L 98-108 H CO2 TOTAL (test code = 5470512252) 21 mmol/L 23-31 L AGAP (test code = 0151627260) 6 2-16 BUN (test code = 7187580941) 17 mg/dL 7-23 GLUCOSE (test code = 0330791038) 73 mg/dL 70-110 CREATININE (test code = 2917197562) 0.72 mg/dL 0.50-1.04 TOTAL BILI (test code = 2449259081) 0.5 mg/dL 0.1-1.1 CALCIUM (test code = 8941406559) 9.0 mg/dL 8.6-10.6 T PROTEIN (test code = 1542125792) 7.2 g/dL 6.3-8.2 ALBUMIN (test code = 0477656568) 4.1 g/dL 3.5-5.0 ALK PHOS (test code = 7899046825) 96 U/L 34-122 ALTv (test code = 1742-6) 28 U/L 5-35 AST(SGOT) (test code = 5008776119) 27 U/L 13-40 eGFR (test code = 9839792503) 96.5 mL/min/1.73m2 SANDER (test code = SANDER) Association [...] imaging tests). Lab Interpretation (test code = 64768-7) Abnormal [facility] MET[facility]OLIC PANEL (06757)(aka CMP) 2022-07-15 21:02:44* Test Item Value Reference Range Interpretation Comme nts NA (test code = 4562474634) 138 mmol/L 135-145 K (test code = 8079422814) 4.2 mmol/L 3.5-5.0 CL (test code = 0584044344) 111 mmol/L 98-108 H CO2 TOTAL (test code = 4068331307) 21 mmol/L 23-31 L AGAP (test code = 9075920892) 6 2-16 BUN (test code = 2849559056) 17 mg/dL 7-23 GLUCOSE (test code = 4904972358) 73 mg/dL 70-110 CREATININE (test code = 0629848647) 0.72 mg/dL 0.50-1.04 TOTAL BILI (test code = 1539581673) 0.5 mg/dL 0.1-1.1 CALCIUM (test code = 1690721893) 9.0 mg/dL 8.6-10.6 T PROTEIN (test code = 9117961412) 7.2 g/dL 6.3-8.2 ALBUMIN (test code = 2148983846) 4.1 g/dL 3.5-5.0 ALK PHOS (test code = 4289218449) 96 U/L 34-122 ALTv (test code = 1742-6) 28 U/L 5-35 AST(SGOT) (test code = 7681692631) 27 U/L 13-40 eGFR (test code = 6665939355) 96.5 mL/min/1.73m2 SANDER (test code = SANDER) Association [...] imaging tests). Lab Interpretation (test code = 23713-2) Abnormal [facility]. METABOLIC PANEL (43075)(aka CMP) 2022-07-15 21:02:44* Test Item Value Reference Range Interpretation Comme nts NA (test code = 8545366275) 138 mmol/L 135-145 K (test code = 0420866898) 4.2 mmol/L 3.5-5.0 CL (test code = 3350242715) 111 mmol/L 98-108 H CO2 TOTAL (test code = 8682238658) 21 mmol/L 23-31 L AGAP (test code = 6301685158) 6 2-16 BUN (test code = 5810454137) 17 mg/dL 7-23 GLUCOSE (test code = 9062754458) 73 mg/dL 70-110 CREATININE (test code = 2326282283) 0.72 mg/dL 0.50-1.04 TOTAL BILI (test code = 8779117875) 0.5 mg/dL 0.1-1.1 CALCIUM (test code = 3009855370) 9.0 mg/dL 8.6-10.6 T PROTEIN (test code = 5681314267) 7.2 g/dL 6.3-8.2 ALBUMIN (test code = 4831203324) 4.1 g/dL 3.5-5.0 ALK PHOS (test code = 3238855120) 96 U/L 34-122 ALTv (test code = 1742-6) 28 U/L 5-35 AST(SGOT) (test code = 7494244847) 27 U/L 13-40 eGFR (test code = 4059530174) 96.5 mL/min/1.73m2 SANDER (test code = SANDER) Association [...] imaging tests). Lab Interpretation (test code = 23264-5) Abnormal [facility] WITH [id number] 20:43:18* Test Item Value Reference Range Interpretation Comme nts WBC (test code = 6690-2) 6.01 See_Comment [Automated [employer]] The system which generated this result transmitted reference range: 4.30 - 11.10 10*3/?L. The reference range was not used to interpret this result as normal/abnormal. RBC (test code = 789-8) 4.46 See_Comment [Automated [employer]] The system which generated this result transmitted reference range: 3.93 - 5.25 10*6/?L. The reference range was not used to interpret this result as normal/abnormal. HGB (test code = 718-7) 13.6 g/dL 11.6-15.0 HCT (test code = 4544-3) 42.3 % 35.7-45.2 MCV (test code = 787-2) 94.8 fL 80.6-95.5 MCH (test code = 785-6) 30.5 pg 25.9-32.8 MCHC (test code = 786-4) 32.2 g/dL 31.6-35.1 RDW-SD (test code = 77640-9) 46.8 fL 39.0-49.9 RDW-CV (test code = 788-0) 13.2 % 12.0-15.5 PLT (test code = 777-3) 228 See_Comment [Automated [employer]] The system which generated this result transmitted reference range: 166 - 358 10*3/?L. The reference range was not used to interpret this result as normal/abnormal. MPV (test code = 67432-8) 11.2 fL 9.5-12.9 NRBC/100 WBC (test code = 4999985189) 0.0 See_Comment [Automated [employer]] The system which generated this result transmitted reference range: 0.0 - 10.0 /100 WBCs. The reference range was not used to interpret this result as normal/abnormal. NRBC x10^3 (test code = 7346767995) See_Comment [Automated [employer]] The system which generated this result transmitted reference range: 10*3/?L. The reference range was not used to interpret this result as normal/abnormal. GRAN MAT (NEUT) % (test code = 770-8) 35.5 % IMM GRAN % (test code = 1343547206) 0.20 % LYMPH % (test code = 736-9) 51.7 % MONO % (test code = 5905-5) 8.7 % EOS % (test code = 713-8) 2.7 % BASO % (test code = 706-2) 1.2 % GRAN MAT x10^3(ANC) (test code = 6964370233) 2.14 10*3/uL 1.88-7.09 IMM GRAN x10^3 (test code = 2033749667) 0.00-0.06 LYMPH x10^3 (test code = 731-0) 3.11 10*3/uL 1.32-3.29 MONO x10^3 (test code = 742-7) 0.52 10*3/uL 0.33-0.92 EOS x10^3 (test code = 711-2) 0.16 10*3/uL 0.03-0.39 BASO x10^3 (test code = 704-7) 0.07 10*3/uL 0.01-0.07 [facility] WITH [id number] 20:43:18* Test Item Value Reference Range Interpretation Comme nts WBC (test code = 6690-2) 6.01 See_Comment [Automated [employer]] The system which generated this result transmitted reference range: 4.30 - 11.10 10*3/?L. The reference range was not used to interpret this result as normal/abnormal. RBC (test code = 789-8) 4.46 See_Comment [Automated messa ge] The system which generated this result transmitted reference range: 3.93 - 5.25 10*6/?L. The reference range was not used to interpret this result as normal/abnormal. HGB (test code = 718-7) 13.6 g/dL 11.6-15.0 HCT (test code = 4544-3) 42.3 % 35.7-45.2 MCV (test code = 787-2) 94.8 fL 80.6-95.5 MCH (test code = 785-6) 30.5 pg 25.9-32.8 MCHC (test code = 786-4) 32.2 g/dL 31.6-35.1 RDW-SD (test code = 33398-0) 46.8 fL 39.0-49.9 RDW-CV (test code = 788-0) 13.2 % 12.0-15.5 PLT (test code = 777-3) 228 See_Comment [Automated [employer]] The system which generated this result transmitted reference range: 166 - 358 10*3/?L. The reference range was not used to interpret this result as normal/abnormal. MPV (test code = 51942-2) 11.2 fL 9.5-12.9 NRBC/100 WBC (test code = 2398062724) 0.0 See_Comment [Automated me ssage] The system which generated this result transmitted reference range: 0.0 - 10.0 /100 WBCs. The reference range was not used to interpret this result as normal/abnormal. NRBC x10^3 (test code = 4283825374) See_Comment [Automated me ssage] The system which generated this result transmitted reference range: 10*3/?L. The reference range was not used to interpret this result as normal/abnormal. GRAN MAT (NEUT) % (test code = 770-8) 35.5 % IMM GRAN % (test code = 4546524238) 0.20 % LYMPH % (test code = 736-9) 51.7 % MONO % (test code = 5905-5) 8.7 % EOS % (test code = 713-8) 2.7 % BASO % (test code = 706-2) 1.2 % GRAN MAT x10^3(ANC) (test code = 4737746755) 2.14 10*3/uL 1.88-7.09 IMM GRAN x10^3 (test code = 6067772662) 0.00-0.06 LYMPH x10^3 (test code = 731-0) 3.11 10*3/uL 1.32-3.29 MONO x10^3 (test code = 742-7) 0.52 10*3/uL 0.33-0.92 EOS x10^3 (test code = 711-2) 0.16 10*3/uL 0.03-0.39 BASO x10^3 (test code = 704-7) 0.07 10*3/uL 0.01-0.07 [facility] WITH [id number] 20:43:18* Test Item Value Reference Range Interpretation Comme nts WBC (test code = 6690-2) 6.01 See_Comment [Automated messa ge] The system which generated this result transmitted reference range: 4.30 - 11.10 10*3/?L. The reference range was not used to interpret this result as normal/abnormal. RBC (test code = 789-8) 4.46 See_Comment [Automated [employer]] The system which generated this result transmitted reference range: 3.93 - 5.25 10*6/?L. The reference range was not used to interpret this result as normal/abnormal. HGB (test code = 718-7) 13.6 g/dL 11.6-15.0 HCT (test code = 4544-3) 42.3 % 35.7-45.2 MCV (test code = 787-2) 94.8 fL 80.6-95.5 MCH (test code = 785-6) 30.5 pg 25.9-32.8 MCHC (test code = 786-4) 32.2 g/dL 31.6-35.1 RDW-SD (test code = 12945-8) 46.8 fL 39.0-49.9 RDW-CV (test code = 788-0) 13.2 % 12.0-15.5 PLT (test code = 777-3) 228 See_Comment [Automated [employer]] The system which generated this result transmitted reference range: 166 - 358 10*3/?L. The reference range was not used to interpret this result as normal/abnormal. MPV (test code = 56417-8) 11.2 fL 9.5-12.9 NRBC/100 WBC (test code = 7598118250) 0.0 See_Comment [Automated me ssage] The system which generated this result transmitted reference range: 0.0 - 10.0 /100 WBCs. The reference range was not used to interpret this result as normal/abnormal. NRBC x10^3 (test code = 5442310832) See_Comment [Automated me ssage] The system which generated this result transmitted reference range: 10*3/?L. The reference range was not used to interpret this result as normal/abnormal. GRAN MAT (NEUT) % (test code = 770-8) 35.5 % IMM GRAN % (test code = 0626800254) 0.20 % LYMPH % (test code = 736-9) 51.7 % MONO % (test code = 5905-5) 8.7 % EOS % (test code = 713-8) 2.7 % BASO % (test code = 706-2) 1.2 % GRAN MAT x10^3(ANC) (test code = 4593031570) 2.14 10*3/uL 1.88-7.09 IMM GRAN x10^3 (test code = 3415126045) 0.00-0.06 LYMPH x10^3 (test code = 731-0) 3.11 10*3/uL 1.32-3.29 MONO x10^3 (test code = 742-7) 0.52 10*3/uL 0.33-0.92 EOS x10^3 (test code = 711-2) 0.16 10*3/uL 0.03-0.39 BASO x10^3 (test code = 704-7) 0.07 10*3/uL 0.01-0.07 [facility] ONLY - SYPHILIS [id number] 15:13:00* Test Item Value Reference Range Interpretation [facility]/IgM (test code = 93255-5) Non-reactive Non-reactive SANDER (test code = SANDER) Non-reactive - No serologic evidence of T. pallidum infection. Cannot exclude incubating or early syphilis. Submit a second specimen in 2-4 weeks if syphilis is clinically suspected. Equivocal - Further testing to follow. Reactive - Further testing to follow. Lab Interpretation (test code = 79055-2) Normal [facility] ONLY - SYPHILIS IGG/[id number] 15:13:00* Test Item Value Reference Range Interpretation Comme [facility] Sy[facility] IgG/IgM (test code = 19516-2) Non-reactive Non-reactive SANDER (test code = SANDER) Non-reactive - No serologic evidence of T. pallidum infection. Cannot exclude incubating or early syphilis. Submit a second specimen in 2-4 weeks if syphilis is clinically suspected. Equivocal - Further testing to follow. Reactive - Further testing to follow. Lab Interpretation (test code = 20843-7) Normal [facility] ([facility]ATED)2022-06-15 03:05:17* Test Item Value Reference Range Interpretation Comme nts POCT GLU (test code = 4010971493) 101 mg/dL 70-110 Lab Interpretation (test cod e = 28812-2) Normal [facility] ([facility]ATED)2022-06-15 03:05:17* Test Item Value Reference Range Interpretation Comme nts POCT GLU (test code = 5474495656) 101 mg/dL 70-110 Lab Interpretation (test cod e = 80474-6) Normal [facility] B Surface [id number] 23:10:57 * Test Item Value Reference Range Interpretation Comme nts HBsAg Semi-Quantitative (jose alfredo t code = 5195-3) Negative Negative [facility] B Surface [id number] 23:10:57 * Test Item Value Reference Range Interpretation Comme nts HBsAg Semi-Quantitative (jose alfredo t code = 5195-3) [facility] [id number] 17:37:30* Test Item Value Reference Range Interpretation Comme nts RHIG CANDIDATE? (test code = 5055) No- see comment Patient is not a candidate for RhIg- Patient is Rh Positive.Performed at [facility] Laboratory Services [facility] Blood [address] Free: [phone] No. [id number] [facility] IMMUNE [id number] 17:37:30* Test Item Value Reference Range Interpretation Comme nts RHIG CANDIDATE? (test code = 5055) No- see comment Patient is not a candidate for RhIg- Patient is Rh Positive.Performed at [facility] Laboratory Services [facility] Blood [address] Free: [phone] No. [id number] [facility] ResourcesArter[facility] Cord [id number] 16:37:56* Test Item Value Reference Range Interpretation Comme nts BASE EXCESS, CORD (test code = 8821890948) mEq/L AC PH, CORD (BEAKER) (test code = 6266085594) 7.18-7.38 PC02, CORD (test code = 1803284375) See_Comment [Automated messa ge] The system which generated this result transmitted reference range: 32 - 66 mmHg. The reference range was not used to interpret this result as normal/abnormal. PO2, CORD (test code = 2785106705) See_Comment [Automated messa ge] The system which generated this result transmitted reference range: 10 - 30 mmHg. The reference range was not used to interpret this result as normal/abnormal. BICARBONATE, CORD (test code = 0241693249) See_Comment [Automated messa ge] The system which generated this result transmitted reference range: 17 - 27 mEq/L. The reference range was not used to interpret this result as normal/abnormal. [facility] Cord [id number] 16:37:56* Test Item Value Reference Range Interpretation Comme nts BASE EXCESS, CORD (test code = 8888237446) mEq/L AC PH, CORD (BEAKER) (test code = 2716726547) 7.18-7.38 PC02, CORD (test code = 6957122267) See_Comment [Automated messa ge] The system which generated this result transmitted reference range: 32 - 66 mmHg. The reference range was not used to interpret this result as normal/abnormal. PO2, CORD (test code = 0435696453) See_Comment [Automated messa ge] The system which generated this result transmitted reference range: 10 - 30 mmHg. The reference range was not used to interpret this result as normal/abnormal. BICARBONATE, CORD (test code = 4138349990) See_Comment [Automated messa ge] The system which generated this result transmitted reference range: 17 - 27 mEq/L. The reference range was not used to interpret this result as normal/abnormal. [facility] Cord [id number] 16:19:14* Test Item Value Reference Range Interpretation Comme nts VENOUS BASE EXCESS, CORD (test code = 0930592571) mEq/L VENOUS PH, CORD (test code = 5156397069) 7.25-7.45 VENOUS PC02, CORD (test code = 4396534743) See_Comment H [Automated me ssage] The system which generated this result transmitted reference range: 27 - 49 mmHg. The reference range was not used to interpret this result as normal/abnormal. VENOUS PO2, CORD (test code = 3318741444) See_Comment L [Automated me ssage] The system which generated this result transmitted reference range: 17 - 41 mmHg. The reference range was not used to interpret this result as normal/abnormal. VENOUS BICARBONATE, CORD (test code = 3034414109) See_Comment [Automa harry message] The system which generated this result transmitted reference range: 12 - 29 mEq/L. The reference range was not used to interpret this result as normal/abnormal. Lab Interpretation (test code = 85466-8) Abnormal [facility] Resources[facility] Cord [id number] 16:19:14* Test Item Value Reference Range Interpretation Comme nts VENOUS BASE EXCESS, CORD (test code = 4310587592) mEq/L VENOUS PH, CORD (test code = 0025933555) 7.25-7.45 VENOUS PC02, CORD (test code = 7089633875) See_Comment H [Automated me ssage] The system which generated this result transmitted reference range: 27 - 49 mmHg. The reference range was not used to interpret this result as normal/abnormal. VENOUS PO2, CORD (test code = 3682319075) See_Comment L [Automated me ssage] The system which generated this result transmitted reference range: 17 - 41 mmHg. The reference range was not used to interpret this result as normal/abnormal. VENOUS BICARBONATE, CORD (test code = 5092720211) See_Comment [[employer] harry message] The system which generated this result transmitted reference range: 12 - 29 mEq/L. The reference range was not used to interpret this result as normal/abnormal. Lab Interpretation (test code = 97380-6) Abnormal [facility] and Screen - ONCE Ytznkej2009-49-38 14:24:50* Test Item Value Reference Range Interpretation Comme nts ABO & RH (test code = 20) O POSITIVE Performed at [facility] Laboratory Services [facility] Blood [address] Free: [phone] No. [id number] IAT (test code = 1185) Negative Performed at [facility] Laboratory Services [facility] Blood [address] Free: [phone] No. [id number] [facility] and Screen - ONCE Ihmjypp0845-68-31 14:24:50* Test Item Value Reference Range Interpretation Comme nts ABO & RH (test code = 20) O POSITIVE Performed at [facility] Laboratory Services - [facility] Blood [address] [address] Free: [phone] No. [id number] IAT (test code = 1185) Negative Performed at [facility] Laboratory Services - [facility] Blood [address] [address] Free: [phone] No. [id number] [facility] ResourcesCBC with Qgkljnqpvdih1256-77-14 14:05:35* Test Item Value Reference Range Interpretation Comme nts WBC (test code = 6690-2) See_Comment [Automated messa ge] The system which generated this result transmitted reference range: 4.30 - 11.10 10*3/?L. The reference range was not used to interpret this result as normal/abnormal. RBC (test code = 789-8) See_Comment L [Automated messa ge] The system which generated this result transmitted reference range: 3.93 - 5.25 10*6/?L. The reference range was not used to interpret this result as normal/abnormal. HGB (test code = 718-7) 12.0 g/dL 11.6-15.0 HCT (test code = 4544-3) 36.0 % 35.7-45.2 MCV (test code = 787-2) 96.3 fL 80.6-95.5 H MCH (test code = 785-6) 32.1 pg 25.9-32.8 MCHC (test code = 786-4) 33.3 g/dL 31.6-35.1 RDW-SD (test code = 94749-3) 48.5 fL 39.0-49.9 RDW-CV (test code = 788-0) 13.7 % 12.0-15.5 PLT (test code = 777-3) See_Comment [Automated messa ge] The system which generated this result transmitted reference range: 166 - 358 10*3/?L. The reference range was not used to interpret this result as normal/abnormal. MPV (test code = 89807-3) 12.1 fL 9.5-12.9 NRBC/100 WBC (test code = [id number]) See_Comment [Automated me ssage] The system which generated this result transmitted reference range: 0.0 - 10.0 /100 WBCs. The reference range was not used to interpret this result as normal/abnormal. NRBC x10^3 (test code = [id number]) See_Comment [Automated messa ge] The system which generated this result transmitted reference range: 10*3/?L. The reference range was not used to interpret this result as normal/abnormal. GRAN MAT (NEUT) % (test code = 770-8) 53.3 % IMM GRAN % (test code = [id number]) 0.40 % LYMPH % (test code = 736-9) 34.6 % MONO % (test code = 5905-5) 9.6 % EOS % (test code = 713-8) 1.7 % BASO % (test code = 706-2) 0.4 % GRAN MAT x10^3(ANC) (test code = 6312833677) 3.99 10*3/uL 1.88-7.09 IMM GRAN x10^3 (test code = 3903045149) 0.03 10*3/uL 0.00-0.06 LYMPH x10^3 (test code = 731-0) 2.59 10*3/uL 1.32-3.29 MONO x10^3 (test code = 742-7) 0.72 10*3/uL 0.33-0.92 EOS x10^3 (test code = 711-2) 0.13 10*3/uL 0.03-0.39 BASO x10^3 (test code = 704-7) 0.03 10*3/uL 0.01-0.07 Lab Interpretation (test code = 65161-3) Abnormal [facility] with [id number] 14:05:35* Test Item Value Reference Range Interpretation Comme nts WBC (test code = 6690-2) See_Comment [Automated messa ge] The system which generated this result transmitted reference range: 4.30 - 11.10 10*3/?L. The reference range was not used to interpret this result as normal/abnormal. RBC (test code = 789-8) See_Comment L [Automated messa ge] The system which generated this result transmitted reference range: 3.93 - 5.25 10*6/?L. The reference range was not used to interpret this result as normal/abnormal. HGB (test code = 718-7) 12.0 g/dL 11.6-15.0 HCT (test code = 4544-3) 36.0 % 35.7-45.2 MCV (test code = 787-2) 96.3 fL 80.6-95.5 H MCH (test code = 785-6) 32.1 pg 25.9-32.8 MCHC (test code = 786-4) 33.3 g/dL 31.6-35.1 RDW-SD (test code = 71608-0) 48.5 fL 39.0-49.9 RDW-CV (test code = 788-0) 13.7 % 12.0-15.5 PLT (test code = 777-3) See_Comment [Automated messa ge] The system which generated this result transmitted reference range: 166 - 358 10*3/?L. The reference range was not used to interpret this result as normal/abnormal. MPV (test code = 91982-1) 12.1 fL 9.5-12.9 NRBC/100 WBC (test code = 2592249150) See_Comment [Automated [employer] ssage] The system which generated this result transmitted reference range: 0.0 - 10.0 /100 WBCs. The reference range was not used to interpret this result as normal/abnormal. NRBC x10^3 (test code = 7194199030) See_Comment [Automated messa ge] The system which generated this result transmitted reference range: 10*3/?L. The reference range was not used to interpret this result as normal/abnormal. GRAN MAT (NEUT) % (test code = 770-8) 53.3 % IMM GRAN % (test code = 1522818981) 0.40 % LYMPH % (test code = 736-9) 34.6 % MONO % (test code = 5905-5) 9.6 % EOS % (test code = 713-8) 1.7 % BASO % (test code = 706-2) 0.4 % GRAN MAT x10^3(ANC) (test code = 7728869821) 3.99 10*3/uL 1.88-7.09 IMM GRAN x10^3 (test code = 5874363342) 0.03 10*3/uL 0.00-0.06 LYMPH x10^3 (test code = 731-0) 2.59 10*3/uL 1.32-3.29 MONO x10^3 (test code = 742-7) 0.72 10*3/uL 0.33-0.92 EOS x10^3 (test code = 711-2) 0.13 10*3/uL 0.03-0.39 BASO x10^3 (test code = 704-7) 0.03 10*3/uL 0.01-0.07 Lab Interpretation (test code = 11998-4) Abnormal [facility] URINALYSIS W SPECIFIC [id number] 15:28:00* Test Item Value Reference Range Interpretation Comme nts POCT U SP GRAV (test code = 3255) na 1.005-1.025 POCT PH U (test code = 3254) na 5-8 POCT U LEUK EST (test code = 3263) na Negative - N egative POCT U NIT (test code = 3262) na Negative - Negati ve POCT U PROT (test code = 3259) neg Negative - Negat emil POCT U GLU (test code = 3256) neg Negative - Negati ve POCT U KETONE (test code = 3258) na Negative - Neg ative POCT U UROBILI (test code = 3260) na 0.2-1 POCT U BILI (test code = 3261) na Negative - Negat emil POCT U BLD (test code = 3257) na Negative - Negati ve POCT U COLOR (test code = 3266) POCT U APPEAR (test code = 3267) Lab Interpretation (test cod e = 00550-1) Normal [facility] URINALYSIS W SPECIFIC [id number] 15:27:00* Test Item Value Reference Range Interpretation Comme nts POCT U SP GRAV (test code = 3255) na 1.005-1.025 POCT PH U (test code = 3254) na 5-8 POCT U LEUK EST (test code = 3263) na Negative - N egative POCT U NIT (test code = 3262) na Negative - Negati ve POCT U PROT (test code = 3259) neg Negative - Negat emil POCT U GLU (test code = 3256) neg Negative - Negati ve POCT U KETONE (test code = 3258) na Negative - Neg ative POCT U UROBILI (test code = 3260) na 0.2-1 POCT U BILI (test code = 3261) na Negative - Negat emil POCT U BLD (test code = 3257) na Negative - Negati ve POCT U COLOR (test code = 3266) POCT U APPEAR (test code = 3267) Lab Interpretation (test cod e = 64844-8) Normal [facility] [id number] 15:27:00* Test Item Value Reference Range Interpretation Comme nts POCT U SP GRAV (test code = 3255) na 1.005-1.025 POCT PH U (test code = 3254) na 5-8 POCT U LEUK EST (test code = 3263) na Negative - N egative POCT U NIT (test code = 3262) na Negative - Negati ve POCT U PROT (test code = 3259) neg Negative - Negat emil POCT U GLU (test code = 3256) neg Negative - Negati ve POCT U KETONE (test code = 3258) na Negative - Neg ative POCT U UROBILI (test code = 3260) na 0.2-1 POCT U BILI (test code = 3261) na Negative - Negat emil POCT U BLD (test code = 3257) na Negative - Negati ve POCT U COLOR (test code = 3266) POCT U APPEAR (test code = 3267) Lab Interpretation (test cod e = 26357-3) Normal [facility]/CD8 SUBSET [id number] 17:22:03* Test Item Value Reference Range Interpretation Comme nts CD4 % (test code = 8123-2) 42 % 31-60 CD4 Absolute (test code = 73161-3) See_Comment [Automated messa ge] The system which generated this result transmitted reference range: 410 - 1,590 Cells/?L. The reference range was not used to interpret this result as normal/abnormal. CD8 % (test code = 8101-8) 37 % 13-41 CD8 ABS# (test code = 08104-4) See_Comment [Automated messa ge] The system which generated this result transmitted reference range: 190 - 1,140 Cells/?L. The reference range was not used to interpret this result as normal/abnormal. CD4/CD8 Ratio (test code = 8717828755) See_Comment [Automated messa ge] The system which generated this result transmitted reference range: 0.8 - 4.2 Ratio. The reference range was not used to interpret this result as normal/abnormal. Lab Interpretation (test code = 51839-5) Normal [facility]CD8 SUBSET [id number] 17:22:03* Test Item Value Reference Range Interpretation Comme nts CD4 % (test code = 8123-2) 42 % 31-60 CD4 Absolute (test code = 84596-5) See_Comment [Automated messa ge] The system which generated this result transmitted reference range: 410 - 1,590 Cells/?L. The reference range was not used to interpret this result as normal/abnormal. CD8 % (test code = 8101-8) 37 % 13-41 CD8 ABS# (test code = 91499-7) See_Comment [Automated messa ge] The system which generated this result transmitted reference range: 190 - 1,140 Cells/?L. The reference range was not used to interpret this result as normal/abnormal. CD4/CD8 Ratio (test code = 4737532042) See_Comment [Automated messa ge] The system which generated this result transmitted reference range: 0.8 - 4.2 Ratio. The reference range was not used to interpret this result as normal/abnormal. Lab Interpretation (test code = 35407-7) Normal [facility] METABOLIC PANEL ([id number])2022-05-01 19:04:42* Test Item Value Reference Range Interpretation Comme nts NA (test code = 3137372766) 135 mmol/L 135-145 K (test code = 5424467144) 4.3 mmol/L 3.5-5.0 CL (test code = 4287589410) 108 mmol/L 98-108 CO2 TOTAL (test code = 7002272986) 20 mmol/L 23-31 L AGAP (test code = 9104849000) 2-16 BUN (test code = 6977061232) 8 mg/dL 7-23 GLUCOSE (test code = 0555114171) 75 mg/dL 70-110 CREATININE (test code = 9886834360) 0.38 mg/dL 0.50-1.04 L TOTAL BILI (test code = 7899892888) 0.3 mg/dL 0.1-1.1 CALCIUM (test code = 2767160083) 9.3 mg/dL 8.6-10.6 T PROTEIN (test code = 0800608099) 6.5 g/dL 6.3-8.2 ALBUMIN (test code = 8038434159) 3.4 g/dL 3.5-5.0 L ALK PHOS (test code = 3636932762) 104 U/L 34-122 ALTv (test code = 1742-6) 20 U/L 5-35 AST(SGOT) (test code = 0244905923) 31 U/L 13-40 eGFR (test code = 3898122546) mL/min/1.73m2 SANDER (test code = SANDER) Association [...] imaging tests). Lab Interpretation (test code = 47783-3) Abnormal [facility]. METABOLIC PANEL ([id number])2022-05-01 19:04:42* Test Item Value Reference Range Interpretation Comme nts NA (test code = 6564977320) 135 mmol/L 135-145 K (test code = 7768840509) 4.3 mmol/L 3.5-5.0 CL (test code = 5908148866) 108 mmol/L 98-108 CO2 TOTAL (test code = 1511867830) 20 mmol/L 23-31 L AGAP (test code = 4823299674) 2-16 BUN (test code = 9445931324) 8 mg/dL 7-23 GLUCOSE (test code = 9632908719) 75 mg/dL 70-110 CREATININE (test code = 4918473184) 0.38 mg/dL 0.50-1.04 L TOTAL BILI (test code = 7516382002) 0.3 mg/dL 0.1-1.1 CALCIUM (test code = 3260691417) 9.3 mg/dL 8.6-10.6 T PROTEIN (test code = 5017277307) 6.5 g/dL 6.3-8.2 ALBUMIN (test code = 7301978051) 3.4 g/dL 3.5-5.0 L ALK PHOS (test code = 2745833689) 104 U/L 34-122 ALTv (test code = 1742-6) 20 U/L 5-35 AST(SGOT) (test code = 0276462015) 31 U/L 13-40 eGFR (test code = 0672151058) mL/min/1.73m2 SANDER (test code = SANDER) Association [...] imaging tests). Lab Interpretation (test code = 40189-6) Abnormal [facility] WITH [id number] 18:55:02* Test Item Value Reference Range Interpretation Comme nts WBC (test code = 6690-2) See_Comment [[employer]] The system which generated this result transmitted reference range: 4.30 - 11.10 10*3/?L. The reference range was not used to interpret this result as normal/abnormal. RBC (test code = 789-8) See_Comment L [[employer]] The system which generated this result transmitted reference range: 3.93 - 5.25 10*6/?L. The reference range was not used to interpret this result as normal/abnormal. HGB (test code = 718-7) 11.6 g/dL 11.6-15.0 HCT (test code = 4544-3) 35.3 % 35.7-45.2 L MCV (test code = 787-2) 97.8 fL 80.6-95.5 H MCH (test code = 785-6) 32.1 pg 25.9-32.8 MCHC (test code = 786-4) 32.9 g/dL 31.6-35.1 RDW-SD (test code = 66678-4) 48.6 fL 39.0-49.9 RDW-CV (test code = 788-0) 13.4 % 12.0-15.5 PLT (test code = 777-3) See_Comment [Automated messa ge] The system which generated this result transmitted reference range: 166 - 358 10*3/?L. The reference range was not used to interpret this result as normal/abnormal. MPV (test code = 96982-5) 12.1 fL 9.5-12.9 NRBC/100 WBC (test code = 6277462515) See_Comment [Automated [employer] ssage] The system which generated this result transmitted reference range: 0.0 - 10.0 /100 WBCs. The reference range was not used to interpret this result as normal/abnormal. NRBC x10^3 (test code = 6114834837) See_Comment [Automated [employer]] The system which generated this result transmitted reference range: 10*3/?L. The reference range was not used to interpret this result as normal/abnormal. GRAN MAT (NEUT) % (test code = 770-8) 56.9 % IMM GRAN % (test code = 0302769656) 0.30 % LYMPH % (test code = 736-9) 31.1 % MONO % (test code = 5905-5) 8.8 % EOS % (test code = 713-8) 2.2 % BASO % (test code = 706-2) 0.7 % GRAN MAT x10^3(ANC) (test code = 6340972403) 4.97 10*3/uL 1.88-7.09 IMM GRAN x10^3 (test code = 8988402581) 0.03 10*3/uL 0.00-0.06 LYMPH x10^3 (test code = 731-0) 2.72 10*3/uL 1.32-3.29 MONO x10^3 (test code = 742-7) 0.77 10*3/uL 0.33-0.92 EOS x10^3 (test code = 711-2) 0.19 10*3/uL 0.03-0.39 BASO x10^3 (test code = 704-7) 0.06 10*3/uL 0.01-0.07 Lab Interpretation (test code = 95037-3) Abnormal [facility] WITH [id number] 18:55:02* Test Item Value Reference Range Interpretation Comme nts WBC (test code = 6690-2) See_Comment [Automated messa ge] The system which generated this result transmitted reference range: 4.30 - 11.10 10*3/?L. The reference range was not used to interpret this result as normal/abnormal. RBC (test code = 789-8) See_Comment L [Automated messa ge] The system which generated this result transmitted reference range: 3.93 - 5.25 10*6/?L. The reference range was not used to interpret this result as normal/abnormal. HGB (test code = 718-7) 11.6 g/dL 11.6-15.0 HCT (test code = 4544-3) 35.3 % 35.7-45.2 L MCV (test code = 787-2) 97.8 fL 80.6-95.5 H MCH (test code = 785-6) 32.1 pg 25.9-32.8 MCHC (test code = 786-4) 32.9 g/dL 31.6-35.1 RDW-SD (test code = 75920-1) 48.6 fL 39.0-49.9 RDW-CV (test code = 788-0) 13.4 % 12.0-15.5 PLT (test code = 777-3) See_Comment [Automated messa ge] The system which generated this result transmitted reference range: 166 - 358 10*3/?L. The reference range was not used to interpret this result as normal/abnormal. MPV (test code = 58243-1) 12.1 fL 9.5-12.9 NRBC/100 WBC (test code = 0599691743) See_Comment [Automated me ssage] The system which generated this result transmitted reference range: 0.0 - 10.0 /100 WBCs. The reference range was not used to interpret this result as normal/abnormal. NRBC x10^3 (test code = 8022708588) See_Comment [Automated messa ge] The system which generated this result transmitted reference range: 10*3/?L. The reference range was not used to interpret this result as normal/abnormal. GRAN MAT (NEUT) % (test code = 770-8) 56.9 % IMM GRAN % (test code = 6237457450) 0.30 % LYMPH % (test code = 736-9) 31.1 % MONO % (test code = 5905-5) 8.8 % EOS % (test code = 713-8) 2.2 % BASO % (test code = 706-2) 0.7 % GRAN MAT x10^3(ANC) (test code = 0938171819) 4.97 10*3/uL 1.88-7.09 IMM GRAN x10^3 (test code = 5584318668) 0.03 10*3/uL 0.00-0.06 LYMPH x10^3 (test code = 731-0) 2.72 10*3/uL 1.32-3.29 MONO x10^3 (test code = 742-7) 0.77 10*3/uL 0.33-0.92 EOS x10^3 (test code = 711-2) 0.19 10*3/uL 0.03-0.39 BASO x10^3 (test code = 704-7) 0.06 10*3/uL 0.01-0.07 Lab Interpretation (test code = 54025-1) Abnormal [facility] Screen, [id number] 07:46:00 Specimen: ThroatCollected: 08/13/2017 05:30 Status: Final Last Updated: 08/15/2017 07:46 Strep A Screen Rapid (Final) (Final) Negative Blood Banks(24 hrs) (Final) (Final) 08/14/17 No Group A Strep isolated Blood Banks(48 hrs) (Final) (Final) 08/15/17 No Group A Strep isolatedMono [id number] 07:35:00* Test Item Value Reference Range Interpretation Comme nts [place] Test (test code = SMONO) Negative Negative N CBC with Umjpcawjsbrq6068-12-74 04:53:00* Test Item Value Reference Range Interpretation Comme nts WBC (test code = WBC) 8.8 K/cumm [...] 11.5-14.5 N Platelet Count (test code = PLTCT) 230 K/cumm 140-440 N MPV (test code = MPV) 11.2 fL [...] code = ALYMPH) 3.3 K/cumm 0.5-4.6 N [place] Abs (test code = AMONO) 0.3 K/cumm 0.0-1.2 N Eos Abs (test code = AEOS) 0.46 K/cumm 0.00-0.74 N Baso Abs (test code = ABASO) 0.1 K/cumm 0.00-0.21 N Notes Date/Time Note Provider Source 2023-06-01 11:37:40 Tc to pt, apt given for 06/02/23 10:45 am for depo. Pt V/U Annual due 07/2023 MATIC SPOOLER OPERATOR Karen Thorpe RN [facility] 2023-06-01 09:54:02 Pt is requesting call back, pt missed Depo and wants to know if she can still come in for nurse visit or if she has to see provider. Please call [phone] (home) MATIC SPOOLER OPERATOR CAMERON Vargas [facility] 2023-02-03 12:27:31 Formatting of this n ote might be different from the original. Contacted patient to reschedule missed ID appointment. Client states she was unable to attend last ID visit since her Medicaid insurance was discontinued. Explained she was eligible for RW services, however; I confirmed the address as [facility]. Which is out of our region. I was able to send [facility] resources, including [employer] & [employer]. Reminded client to have required proof of residency & income, to complete application. A total of 30 minutes was taken to complete this encounter. LMO Larkin [facility] 2023-01-28 16:09:54 Formatting of this n ote might be different from the original. Routing to Tomasa RAMÍREZ LMO Zimmerman PATTERN LAYOUT WORKER [facility] 2023-01-26 13:18:56 Formatting of this n ote might be different from the original. Returned call to patient, she states she is completely out of medication and is requesting an earlier ID appointment. Rescheduled to 01/28/23 at 10:30 am. 30 un billable minutes Priyanka Larkin PATTERN LAYOUT WORKER [facility] 2023-01-03 00:28:00 [id number] [facility] [address] [facility] [address] PATIENT NAME: PRAFUL CHAIDEZ ADMIT DATE: 01/02/23 ACCOUNT NO: [id number] ROOM NO: AGE: 27 REPORT TYPE: eELECTROCARDIOGRAM SEX: F ADMITTING PHYSICIAN: ATTENDING PHYSICIAN: Order: [id number] Test Reason : Test Date/Time Stamp: TueJan 03 2023 00:28:50 Blood Pressure : / mmHG Vent. Rate : 089 BPM Atrial Rate : 089 BPM P-R Int : 128 ms QRS Dur : 086 ms QT Int : 376 ms P-R-T Axes : 045 059 047 degrees QTc Int : 457 ms Normal sinus rhythm Normal ECG Confirmed by TINA FORD ([id number]) on 01/03/2023 11:02:28 AM Referred By: Self Referred Confirmed by:TINA FORD at [address] [facility] [address] [facility] [address] PATIENT NAME: PRAFUL CHAIDEZ [facility] 2023-01-02 23:47:00 [facility] ([facility]) EMERGENCY PROVIDER REPORT REPORT#:[id number] REPORT STATUS: Signed DATE:01/02/23 TIME: 2346 PATIENT: PRAFUL CHAIDEZ UNIT #: [id number] ROOM: BED: AGE: 27 SEX: F PCP PHYS: No Primary or Family Physician SERVICE AUTHOR: Ashlyn Kaiser MD * ALL edits or amendments must be made on the electronic/computer document * HPI-Dyspnea/Wheezing Free Text HPI Notes Free Text HPI Notes 27-year-old female with history of HIV on HAART (VL undectable per report) presents with complaint of 4 weeks continued cough productive of green sputum, dyspnea, body aches. Patient states approximately 2 weeks ago she was diagnosed with pneumonia and completed a course of azithromycin. Symptoms transiently improved for a few days but then returned. She has ongoing productive cough. No fever. Currently not taking any medications. No lower extremity pain or swelling. No fever. General Initial Greet Date/Time 01/02/232340 Presentation Chief Complaint Shortness of breath Hx Obtained From Patient )( Sudden in Onset? No Onset Occurred Weeks ago Symptom Duration Since onset, Waxes and wanes Progression since Onset Gradually worsening Caused by No trauma by history Associated with Reports: Cough. Review of Systems ROS Statements All systems rev neg except as marked. Focused Review of Systems Respiratory Reports: Cough, productive, Shortness of breath. Past Medical History - Adult Stated Complaint COUGHING, SOB, CHEST PAINX1 MONTH Allergies Coded Allergies: No Known Allergies (01/02/23) Pt reports no significant: Past surgical history, Family history, Social history Additional Medical History HIV Smoking status for patients 13 years old or older: Unknown,if ever smoked Physical Exam Vital Signs Vital Signs First Documented: Result Date Time Pulse Ox 100 01/02 2335 B/P 123/78 01/025 B/P Mean 93 01/02 2335 O2 Delivery Room air 01/02 2335 Temp 36.9 01/02 2335 Pulse 114 01/02 2335 Resp 22 01/02 2335 Last Documented: Result Date Time Pulse Ox 95 01/02 2350 B/P 123/78 01/02 2335 B/P Mean 93 01/02 2335 O2 Delivery Room air 01/02 2335 Temp 36.9 01/02 2335 Pulse 114 01/02 2335 Resp 01/02 Review of Vital Signs Reviewed Free Text PE Notes Free Text PE Notes GENERAL APPEARANCE: Alert, generally well-appearing, no acute distress. HEENT: Normocephalic, atraumatic. Moist mucous membranes. EOMI, clear conjunctiva, oropharynx clear. NECK: Supple without lymphadenopathy. No stiffness or swelling. Trachea midline. HEART: Normal rate and regular rhythm, normal S1/S1, no murmur. LUNGS: CTAB. No crackles or wheezes ABDOMEN: Soft, nontender, nondistended. Normal bowel sounds. No masses. BACK: No obvious deformity. No midine spine tenderness. No CVA tenderness. EXTREMITIES: No swelling or tenderness. Normal ROM NEUROLOGICAL: Grossly non-focal. Alert and oriented, moving all 4 extremities. No facial droop. SKIN: Warm and dry without any rash. No pallor or cyanosis PSYCH: Normal mood and affect. Normal judgement. Interpretation Diagnostics Lab Results Interpretation Considerations Independ review imaging, Reviewed prior records Results Laboratory Tests 01/03/23 0022: [Embedded Image Not Available] Laboratory Tests: 01/03 01/03 0022 0022 Chemistry Sodium (135 - 145 mmol/L) 134 L Potassium (3.5 - 5.1 mmol/L) 3.9 Chloride (98 - 107 mmol/L) 109 H Carbon Dioxide (21 - 32 mmol/L) 22 Anion Gap (2.0 - 16.0) 6.9 BUN (4 - 23 mg/dL) 20 Creatinine (0.6 - 1.5 mg/dL) 0.8 Glomerular Filtr Rate (>60 ml/min) >=60 max estimate BUN/Creatinine Ratio (12.0 - 20.0) 25.0 H Glucose (65 - 99 mg/dL) 88 Calcium (8.5 - 10.1 mg/dL) 9.0 Troponin I High Sens (0 - 53 pg/mL) 4 B-Natriuretic Peptide (0 - 100 pg/mL) 4 Serum HCG, Qual (NEGATIVE) NEGATIVE Coagulation D-Dimer (0 - 500 ng/mLFEU) < 215 Hematology WBC (4.5 - 11.0 10 3/uL) 9.2 RBC (3.50 - 5.50 10 6/uL) 4.30 Hgb (12.0 - 16.0 g/dL) 13.6 Hct (37.0 - 55.0 %) 39.9 MCV (81 - 102 fL) 93 MCH (26.0 - 34.0 pg) 31.6 MCHC (31.0 - 37.0 g/dL) 34.1 RDW (11.6 - 14.4 %) 13.0 Plt Count (150 - 400 10 3/uL) 270 MPV (9.0 - 12.6 fL) 11.1 Neut % (Auto) (33.0 - 76.0 %) 44.5 Lymph % (Auto) (14.0 - 56.4 %) 44.5 [place] % (Auto) (0.0 - 12.9 %) 7.1 Eos % (Auto) (0.0 - 7.0 %) 3.0 Baso % (Auto) (0 - 2.0 %) 0.8 Neut # (Auto) (1.5 - 7.0 10 3/uL) 4.10 Lymph # (Auto) (1.50 - 4.00 10 3/uL) 4.09 H [place] # (Auto) (0.20 - 0.80 10 3/uL) 0.65 Eos # (Auto) (0.0 - 0.5 10 3/uL) 0.28 Baso # (Auto) (0.0 - 0.1 10 3/uL) 0.07 Abs Immat Gran (auto) (0.000 - 0.100 x10 3/uL) 0.010 Immature Gran % (0.0 - 1.0 %) 0.1 Nucleated RBC % (0 - 0.2 %) 0.0 Nucleated RBCs # (0.000 - 0.012 10 3/uL) 0.000 Recent Impressions: RADIOLOGY - XR CHEST 1 V 01/02 0000 Report Impression - Status: SIGNED Entered: 01/03/2023 0023 IMPRESSION: No acute cardiopulmonary abnormality. Impression By: Norma1 - Tina Mai MD Lab Imaging Statement Laboratory radiographic studies reviewed and considered in the medical decision-making. Point of Care Testing Pulse Oximetry Pulse Ox % 100 On: Room air Interpretation Interpreted by me, Pulse oximetry normal Time 0040 ECG #1 Interpretation Date 01/03/23 Time 0028 Interpreted by and reviewed by me, Independently interpreted, ED physician NL ECG Interpretation Normal rate, Normal sinus rhythm, No acute ischemic changes, No STEMI, Normal QRS, Normal ST waves, Normal T waves Rate 89 Re-Evaluation MDM Free Text MDM Notes Free Text MDM Notes 27-year-old Fe with HIV presenting with cough worsening over the last month after treated with azithromycin. Chest x-ray is clear without infiltrate. CBC and BMP within normal limits. D-dimer negative. Will treat for bacterial bronchitis given duration of symptoms with productive cough. Stable for discharge with antibiotics. Will prescribe course of Augmentin. Discussed return precautions and outpatient follow-up. I provided the patient with a copy today's work-up to facilitate her close follow-up The medical decision making includes independent review of any ordered imaging and EKGs and are in agreement with radiology interpretation unless documented otherwise. Individual labs and/or microbiologic data along with urine studies ordered and resulted at time of dictation have been interpreted by me and do not appear to contribute to an emergency diagnosis unless as mentioned above. Outside records including the most recent discharge summary, if available, have been reviewed. Consultants including hospitalists involved in the case as ordered/documented in the EMR agree with ED plan unless as documented above )( Re-Evaluation/Progress #1 )( Re-Eval Status Improved Patient Discharge Departure Vital Signs/Condition Vital Signs First Documented: Result Date Time Pulse Ox 100 01/02 2335 B/P 123/78 01/02 2335 B/P Mean 93 01/02 2335 O2 Delivery Room air 01/02 2335 Temp 36.9 08/13 2335 Pulse 114 08/13 2335 Resp 22 01/02 2335 Last Documented: Result Date Time Pulse Ox 95 01/02 2350 B/P 123/78 01/02 2335 B/P Mean 93 01/02 233 O2 Delivery Room air 01/02 2335 Temp 36.9 01/02 2335 Pulse 114 01/02 2335 Resp 22 01/02 2335 All vital signs available at the time of this entry have been reviewed. Condition Stable Clinical Impression Clinical Impression Primary Impression: Acute bacterial bronchitis Time of Impression 0129 Disposition Decision Discharge )( Discharged to Home Yes )( Time 0129 )( Date 01/03/23 Discharge/Care Plan Counseled Regarding Diagnosis, Lab results, Imaging studies, Prescriptions, Need for follow-up, When to return to ED (Auto) Prescriptions Current Visit Scripts Amoxicillin/Clav K (Amox-Clav 875/125 Mg) 875 MG PO Q12H 7 Days #14 TABS Albuterol (Ventolin Hfa 90 Mcg/Act) 1 PUFF INH RTQ4H Albuterol (Ventolin Hfa 90 Mcg/Act) 1 PUFF INH RTQ4H #18 GM Methylprednisolone (Medrol 4 Mg Dosepak) 4 MG PO ASDIR Methylprednisolone (Medrol 4 Mg Dosepak) 4 MG PO ASDIR #1 PACKET Take as directed on package. Benzonatate (Tessalon) 100 MG PO Q8H PRN PRN COUGH Benzonatate (Tessalon) 100 MG PO Q8H PRN PRN COUGH #30 CAPS Patient Instructions ED URI Abx Additional Instructions FOllowup with PCP Return to ER for new or worsening symptoms Departure Forms [facility] PCP LIST at 0321 RPT #:[id number] END OF REPORT HCANC"
[2025-01-08] MEDS ORDERED: KETOROLAC 30 MG/ML INJ ONE (09:40)
[2025-01-08] MEDS ORDERED: ACETAMINOPHEN 500 MG TAB ONE (09:40)
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
[2025-01-08 15:54] VITALS: BP 144/82; TEMP 97.4; O2SAT 99
== END 2025-01-08 09:54 | disposition home or self-care (01) ==
LOC: ER 09:16
DX: M54.9 Dorsalgia, unspecified (principal); M54.2 Cervicalgia; V49.49XA Driver injured in collision with other motor vehicles in traffic accident, initial encounter
CPT/HCPCS: 96372; 99284